=== PATIENT | female | born 1950 | race Caucasian/White ===

== ENCOUNTER → 2017-11-04 10:09 | Outpatient (CLI) | payer OTHER, MEDICARE, SELFPAY ==
[2017-11-03 10:22] VITALS: TEMP 36.4
[2017-11-03 13:52] VITALS: TEMP 36.4
--- NOTE | 2017-11-04 10:12 | DI.CT.S_ITS ---
PROCEDURE: CT CHEST ABD PEL W CON INDICATIONS: 67 year-old female with breast cancer. TECHNIQUE: After the administration of oral and intravenous contrast, 5 mm thick sections acquired from the lung apices to the symphysis. 5 mm coronal and sagittal reformats were performed, with additional 7 mm coronal MIP reformats through the lungs. For radiation dose reduction, the following was used: automated exposure control, adjustment of mA and/or kV according to patient size. COMPARISON: [facility], MR, SHOULDER W&WO CONTRAST, 06/29/2017, 8:33. [facility], NM, BONE SCAN WHOLE BODY, 06/29/2017, 12:54. [facility], CT, CHEST/ABD/PEL WITH CONTRAST, 10/29/2016, 10:03. [facility], CT, CHEST/ABDOMEN WITH CONTRAST, 02/18/2015, 9:21. [facility], CT, ABDOMEN/PELVIS WITH CONTRAST, 03/19/2013, 12:01. FINDINGS: Image quality: Excellent. CHEST: Lungs and pleura: No acute airspace opacities. Right middle lobe linear scarring is unchanged. No pleural effusions or pneumothorax. Central and peripheral airways appear patent and normal in caliber. Mediastinum: Heart size is normal. No pericardial effusion. No mediastinal or hilar adenopathy by size criteria. Thoracic aorta and central pulmonary arteries are normal in size. Esophagus is normal in caliber. No hiatal hernia. Chest wall: Left chest wall Port-A-Cath is again noted. Patient is status post bilateral mastectomies with axillary lymph node dissection. No axillary or supraclavicular adenopathy by size criteria. Thyroid gland is normal in size. ABDOMEN: Solid organs: Liver is normal in size and enhancement. Gallbladder wall thickness is normal. Biliary system is non dilated. Pancreas enhances normally. Spleen is normal in size and enhancement. No adrenal nodules. Kidneys demonstrate normal size and enhancement, without hydronephrosis. Peritoneum and bowel: Bowel loops demonstrate normal wall thickness and caliber, status post subtotal colectomy with ileocolic anastomosis. No free fluid or air. Nodes and vessels: No retroperitoneal or mesenteric adenopathy by size criteria. Aorta and inferior vena cava are normal in size, with scant aortoiliac atherosclerosis. Miscellaneous: No ventral hernias. PELVIS: Genitourinary: Bladder wall thickness is normal. Miscellaneous: No inguinal hernias or adenopathy. Bones: 1.1 cm sclerotic lesion in the left sacral wing is unchanged. Asymmetric sclerotic lesion involving the right scapular spine and acromion is also unchanged. There is incidental spiculated bone island involving the anterior L1 vertebral body. No vertebral body compression fractures. There is mild lumbar spine levoscoliosis, along with multilevel disc degeneration. IMPRESSION: 1. No new soft tissue metastases in the chest, abdomen, or pelvis. 2. Asymmetric sclerotic metastasis involving the right scapular spine and acromion is unchanged in overall extent. 3. 1.1 cm indeterminate sclerotic lesion in the left sacral wing is also unchanged. Dictated by: Nando Donohue M.D. on 11/04/2017 at 13:04 Approved by: Nando Donohue M.D. on 11/04/2017 at 13:17
--- NOTE | 2017-11-08 11:51 | ONC.NAV ---
Description: Financial Assistance Activity: The prior check from the [employer] was filled out incorrectly. Completed a new check for medical supply reimbursement, and provided to pt during her visit today.
== END ==
PROVIDERS: Family Provider Family Medicine; PCP Family Medicine; Visit Provider Internal Medicine Hematology & Oncology
DX: C50.919 Malignant neoplasm of unspecified site of unspecified female breast (principal); C79.51 Secondary malignant neoplasm of bone
CPT/HCPCS: 71260; 74177; Q9967

== ENCOUNTER → 2017-11-17 12:46 | Outpatient (CLI) | payer OTHER, MEDICARE, SELFPAY ==
--- NOTE | 2017-11-17 12:50 | DI.ECHO.S_ITS ---
[facility]---------+ [facility] +---------+ : : [address] : : : [place], [place] : : : : [id number] : : : : Phone: [phone] Echocardiogram Report + + :Name: JAIRO REHMAN Study Date: 11/17/2017 Height: 60 in : :[facility] Exam Location: [facility] Weight: 125 lb : : Gender: Female BSA: 1.5 m2 : :: 1950 Age: 67 yrs BP: 130/80 mmHg: :Reason For Study: Breast cancer : : Performed By: Nyla Page : :Referring: ZULY PADRON : + + Interpretation Summary Normal sinus rhythm. Normal LV size, wall thickness, wall motion and LV systolic function. EF is 60-65%. Stage I diastolic dysfunction. Mild LA enlargement. No significant valvular abnormalities. Compared to prior study 10/16/2014 no changes have occurred. Amended to correct the header-ELISAO, [facility] 11/18/17 Procedure: A two-dimensional transthoracic echocardiogram with color flow and Doppler was performed. The study quality was technically adequate. Comparison is made with the echocardiogram of 10/17/2014. The patient was in normal sinus rhythm during the exam. Left Ventricle: The left ventricle is normal in size, wall thickness, and systolic function without any focal wall motion abnormalities. A false chord is noted (normal variant). The ejection fraction is estimated to be 60-65%. Left ventricular wall motion is normal. Right Ventricle: The right ventricle is normal in size and function. Atria: The left atrium is mildly dilated. Right atrial size is normal. There is no Doppler evidence for an interatrial shunt. Mitral Valve: The mitral valve is normal in structure and function. There is trace mitral regurgitation. Aortic Valve: The aortic valve is trileaflet. The aortic valve opens well. No aortic regurgitation is present. Tricuspid Valve: The tricuspid valve is normal in structure and function. There is a trace or physiologic amount of tricuspid regurgitation. The right ventricular systolic pressure is estimated at 23 mmHg assuming a right atrial pressure of 3 mm Hg. Pulmonic Valve: The pulmonic valve is not well visualized. There is trace pulmonic regurgitation. Great Vessels: The aortic root is normal size. The ascending aorta is at the upper limits of normal in size. The aortic arch could not be visualized. The pulmonary artery is not well visualized, but is probably normal size. The IVC is of normal diameter and collapses greater than 50% with a sniff. This suggests a low right atrial pressure of 3 mm Hg. Pericardium/ Pleura There is no pericardial effusion. There is no pleural effusion. MMode/2D Measurements & Calculations LVIDd: 4.3 cm LVOT diam: 2.1 cm LVIDs: 2.7 cm Ao root diam: 3.1 cm FS: 38.4 % asc Aorta Diam: 3.4 cm EPSS: 0.28 cm IVSd: 1.0 cm LVPWd: 0.83 cm LV palafox. diameter/BSA (cm/m^2): 2.8 LV sys. diameter/BSA (cm/m^2): 1.7 LA A2 area: 21.7 cm2 RA long axis: 4.7 cm LA A4 area: 14.6 cm2 RA area: 12.5 cm2 LA length (vol): 5.2 cm RA vol: 28.1 ml LA vol: 51.7 ml RA : 18.4 ml/m2 LA vol index: 33.8 ml/m2 RVD1 (basal): 3.7 cm TAPSE: 1.9 cm Doppler Measurements & Calculations Ao V2 max: 103.3 cm/sec LVOT Max Massimo: 68.7 cm/sec Ao V2 mean: 77.0 cm/sec LV V1 max P.9 mmHg Ao max P.3 mmHg LV V1 VTI: 15.6 cm Ao mean P.6 mmHg EDLICIA(I,D): 2.5 cm2 Ao V2 VTI: 20.7 cm DELICIA(V,D): 2.2 cm2 sev ratio: 0.75 DELICIA indexed to BSA (cm^2/m^2): 1.7 MV E max massimo: 54.3 cm/sec TR max massimo: 222.1 cm/sec MV A max massimo: 77.5 cm/sec TR max P.7 mmHg MV E/A: 0.70 PA V2 max: 59.2 cm/sec Med Peak E' Massimo: 4.8 cm/sec PA V2 mean: 41.6 cm/sec E/E' med: 11.3 PA mean P.75 mmHg Lat Peak E' Massimo: 7.3 cm/sec PA Accel Time: 0.09 sec E/E' lat: 7.4 E/e' average: 9.4 MV dec time: 0.23 sec MV P1/2t: 66.4 msec MV P1/2t max massimo: 54.2 cm/sec MVA(P1/2t): 3.3 cm2 Reading Physician:11:02 AM
== END ==
PROVIDERS: Family Provider Family Medicine; PCP Family Medicine; Visit Provider Specialist
DX: C50.919 Malignant neoplasm of unspecified site of unspecified female breast (principal)
CPT/HCPCS: 93306

== ENCOUNTER 2017-12-01 14:23 | Inpatient (IN) | payer OTHER, MEDICARE, SELFPAY ==
[2017-12-01] VITALS (7 sets, daily range): BP systolic 140–153; BP diastolic 62–119; PULSE 83–87; RESP 19–28; TEMP 37.2–38.6; O2SAT 92–97; BMI 25.0
--- NOTE | 2017-12-01 | DI.CT.S_ITS ---
PROCEDURE: CT HEAD/BRAIN WO/W CON INDICATIONS: metastatic breast cancer TECHNIQUE: 4.5 mm thick angled axial sections acquired from the foramen magnum to the vertex before and after the administration of intravenous contrast, with coronal and sagittal reformats. For radiation dose reduction, the following was used: automated exposure control, adjustment of mA and/or kV according to patient size. COMPARISON: None. FINDINGS: Image quality: Excellent. CSF Spaces: Basal cisterns are patent. No extra-axial fluid collections. Ventricles are normal in size and shape. Brain: No midline shift. No intracranial bleeds or masses. No abnormal intracranial enhancement. Phelps-white interface appears normal. Skull and face: Calvarium and visualized facial bones appear intact, without suspicious lesions. Sinuses: Visualized sinuses and mastoids are clear. IMPRESSION: Normal for age, no sign of metastatic disease. Dictated by: Johnnie Gonzalez M.D. on 12/02/2017 at 8:36 Approved by: Johnnie Gonzalez M.D. on 12/02/2017 at 8:36
[2017-12-01 15:51] LABS: Hematocrit 23.1 % (36-46); Hemoglobin 8.1 g/dL (12.0-16.0); Mean Corpuscular Hemoglobin 35.6 PG (26-34); Mean Corpuscular Volume 101.6 fL (80-100); Platelet Count 92 X10^3/uL (150-400); Red Blood Cell Count 2.27 X10^6/uL (4.0-5.2); Red Cell Distribution Width 13.9 % (11.6-14.8)
[2017-12-01 15:54] LABS: Add Manual Diff / Slide Review YES; White Blood Cell Count 0.6 X10^3/uL (4.5-11.0)
[2017-12-01 16:02] LABS: Alanine Aminotransferase 33 IU/L (9-52); Albumin 3.8 g/dL (3.5-5.0); Albumin Globulin Ratio 1.3 (1.0-2.8); Alkaline Phosphatase 82 U/L (38-126); Aspartate Aminotransferase 27 IU/L (14-36); BUN Creatinine Ratio 18.6 (6-22); Bilirubin Total 0.4 mg/dL (0.2-1.3); Blood Urea Nitrogen 13 mg/dL (7-17); Calcium 8.5 mg/dL (8.4-10.2); Carbon Dioxide 27 mmol/L (22-32); Chloride 97 mmol/L (98-107); Estimated Glomerular Filt Rate > 60.0 mL/min (>60); Globulin 2.9 g/dL (1.7-4.1); Glucose 91 mg/dL (80-110); HEMOLYSIS < 15 (0-50); Potassium 4.2 mmol/L (3.4-5.1); Sodium 135 mmol/L (137-145); Total Protein 6.7 g/dL (6.3-8.2)
[2017-12-01 16:37] LABS: Neutrophils Absolute Manual 108 /uL (3000-5900); Total Cells Counted 50
[2017-12-01 16:38] LABS: Ovalocytes 1+
[2017-12-01] MEDS: SODIUM CHLORIDE 0.9% 1,000 ML 100 ML IV (16:41)
[2017-12-01] MEDS: CEFTRIAXONE 1 GM/50 ML FROZ.PIGGY IV (16:41)
[2017-12-01] MEDS: ACETAMINOPHEN 325 MG TABLET 650 MG PO ×2 (18:00→23:51)
[2017-12-01] MEDS: IMIPENEM/CILASTATIN 500 MG in SODIUM CHLORIDE 0.9% 100 ML 200 ML IV ×2 (18:29→23:50)
--- NOTE | 2017-12-01 18:36 | P.HP_ITS ---
History of Present Illness Chief complaint: Breast cancer, fever Narrative: Candi Vidal is a 67 year old female who is referred to [facility] from Oncology where she was found to be febrile up to 104 with the oral lesions and suggestion of sepsis In a neutropenic state. Patient has history of right-sided breast cancer going back to 2013. Been through multiple treatments and currently his metastatic stage IV please see oncology notes. Patient has had visit today with Oncology for initiation of alternative chemotherapy for her recurrence. She has a lot of discomfort along the right anterior lateral chest wall where she has some masses that are assumed to be metastatic lesions. She talks about headache and feeling feverish and chilled weak and somewhat nauseous. Given her neutropenic count and her fever and progression of her disease is felt that she was very had a high risk for sepsis and was referred for admission Patient History Medical History Anxiety (Acute) Breast cancer (Acute) Colon cancer (Acute) History of hysterectomy (Acute) Hypertension (Acute) Lymph node cancer (Acute) Nausea (Acute) Thrush, oral (Acute) Surgical History History of mastectomy (Acute) Family & Social History Social History: household members none Prior Living Arrangements House Safety & Behavioral: Feels Safe in Current Yes Environment Been Physically Hurt or No Threatened By a Person Suicidal Ideation Description None Suicide Plan Description No Plan Tobacco & Substance use: Smoking Status Never smoker alcohol intake never Substance Use Type marijuana Meds Home Medications Medication Instructions Recorded Confirmed Type amitriptyline 150 mg PO HS #0 01/05/13 12/01/17 History calcium citrate-vitamin D3 1 ea PO Q DAY #0 02/13/16 12/01/17 History [Citracal Regular] cyanocobalamin (vitamin B-12) 1,000 mcg PO Q DAY #0 02/13/16 12/01/17 History etodolac 400 mg PO BID #0 03/19/16 12/01/17 History loperamide 2 mg PO Q8HP PRN #0 07/01/16 12/01/17 History promethazine-codeine 5 - 10 ml PO Q4HP PRN #120 ml 08/19/16 12/01/17 Rx pilocarpine HCl 5 mg PO TID #270 tab 10/06/16 12/01/17 Rx metoprolol succinate [Toprol XL] 25 mg PO BID #0 10/07/16 12/01/17 History citalopram [Celexa] 30 mg PO QDAY #30 tab 12/08/16 12/01/17 Rx alprazolam 0.25 mg PO TIDP PRN #0 03/25/17 12/01/17 History letrozole [Femara] 2.5 mg PO QDAY #90 tab 05/12/17 12/01/17 Rx DIPHENHYDRAMINE/LIDO VISC/MAALOX 5 - 10 ml PO Q4HP PRN #100 ml 05/20/17 Rx 1:1:1~ ondansetron HCl 4 mg PO Q4HP PRN #30 tab 11/18/17 12/01/17 Rx nystatin 10 ml PO QID PRN #120 ml 11/25/17 12/01/17 Rx Allergies Allergy/AdvReac Type Severity Reaction Status Date / Time hydrocodone AdvReac Severe RASH, Unverified 10/12/17 12:02 ITCHING Review of Systems Review of Systems All systems reviewed & are unremarkable except as noted in HPI and below Constitutional Constitutional: Reports as per HPI, Reports body ache(s), Reports chills, Reports difficulty sleeping, Reports excessive sweating, Reports fatigue, Reports fever(s), Reports headache(s), Reports lack of energy, Reports malaise and Reports weakness Eyes Eyes: Reports system reviewed; no additional complaints, except as documented ENT Ears, Nose, Mouth, and Throat: Yes system reviewed; no additional complaints, except as documented and Yes headache(s) Cardiovascular Cardiovascular: Reports system reviewed; no additional complaints, except as documented, Reports excessive sweating, Reports fast heart rate, Reports lightheadedness and Reports shortness of breath Respiratory Respiratory: Reports system reviewed and no additional complaints, except as documented and Reports dyspnea Gastrointestinal Gastrointestinal: Reports as per HPI, Reports abdominal pain and Reports nausea Genitourinary Genitourinary: Reports system reviewed and no additional complaints, except as documented Musculoskeletal Musculoskeletal: Reports back pain, Reports myalgias, Reports arthralgias and Reports muscle weakness Integumentary/Breasts Comments: Post bilateral mastectomies with no residual breast tissue. Supposedly metastatic lesions along the right chest wall presenting as subcutaneous masses Neurologic Neurologic: Reports system reviewed and no additional complaints, except as documented, Reports headache(s) and Reports weakness Psychiatric Psychiatric: Reports depression Endocrine Endocrine: Reports excessive sweating and Reports fatigue Hematologic/Lymphatic Hematologic/Lymphatic: Reports system reviewed and no additional complaints, except as documented Exam Narrative Exam Narrative: Constitutional patient is febrile and chilling weak sweaty with headache uncomfortable but alert responding appropriately with clear speech and moving spontaneously PERRLA EOMs intact Neck sweaty but without discrete mass or thyromegaly Chest shows bilateral mastectomies and right chest wall masses Cardiac shows regular rate and rhythm no murmur no S3 Gastrointestinal shows no pedal splenomegaly mass abdomen is not tender there is no rebound or guarding Back and spine without any significant abnormality Skin clammy damp no discrete rash there is some subcutaneous nodules along the right chest wall Neuro shows patient to be alert and oriented spontaneously moving sensory motor is intact and symmetrical Psychiatrically patient is extremely depressed and somewhat hopeless and feeling very discouraged about her social situation as well as her health situation Objective Labs Result Diagrams: 12/01/17 15:22 12/01/17 15:22 Labs: Laboratory Results - last 24 hr 12/01/17 12/01/17 12/01/17 15:22 15:22 15:30 WBC 0.6 L* RBC 2.27 L Hgb 8.1 L Hct 23.1 L MCV 101.6 H MCH 35.6 H MCHC 35.0 RDW 13.9 Plt Count 92 L Neut % (Auto) Not Reportable Lymph % (Auto) Not Reportable [place] % (Auto) Not Reportable Eos % (Auto) Not Reportable Baso % (Auto) Not Reportable Total Counted 50 Seg Neutrophils % 18.0 L D Lymphocytes % (Manual) 76.0 H Eosinophils % (Manual) 2.0 Basophils % (Manual) 4.0 H Neutrophils # (Manual) 108 L RBC Morphology Not Reportable Ovalocytes 1+ H Sodium 135 L Potassium 4.2 Chloride 97 L Carbon Dioxide 27 BUN 13 Creatinine 0.70 Estimated GFR > 60.0 BUN/Creatinine Ratio 18.6 Glucose 91 Calcium 8.5 Total Bilirubin 0.4 AST 27 ALT 33 Alkaline Phosphatase 82 Total Protein 6.7 Albumin 3.8 Globulin 2.9 Albumin/Globulin Ratio 1.3 Nasal Screen MRSA (PCR) Negative for mrsa Assessment & Plan Plan: Plan: Assessment 1. Febrile neutropenia in the setting of metastatic breast cancer. Will obtain cultures prior to starting antibiotics. We will use of full spectrum coverage. IV fluids and close observation of urine output and blood pressure of at this point not requiring as support of a pressure Assessment to metastatic breast cancer failing current regimen and anticipating new chemo regimen. Currently limited by IR and the above illness and SIRS extremely low white count. Is getting Neupogen on regular basis until white count and is above 1500 neutrophils Assessment 3. Hypertension patient has been off her hypertensive medications which probably has led to some tachycardia as well since his beta-carl. Will reinitiate that were certain that the patient's blood pressure is stable in the setting of sepsis Assessment 4. Pain will use oxycodone and management for this. As both headache and as well as diffuse muscular and back pain. Assessment 5. Depression I will keep patient on current anxiety and depression medications. Assessment 6 thrush will use nystatin oral swish and swallow and and pain meds for comfort management Quality VTE Deep Vein Thrombosis/Pulmonary Embolism Present on Admission: No
[2017-12-01] MEDS: OXYCODONE IR 5 MG TABLET PO (22:23)
[2017-12-01] MEDS: FILGRASTIM-SNDZ 300 MCG/0.5 ML SYRINGE SUBCUT (22:24)
--- NOTE | 2017-12-01 22:55 | PC.NURSE ---
champ note pt febrile, c/o headache, chills. Chills relieved with Tylenol. Oxycodone given for c/o headache. 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 Pt has small sores in mouth, on gums, on pallette. Moist swabs, glycerin swabs, lip balm given. Pt has eaten 3 yogurts.
[2017-12-02] VITALS (8 sets, daily range): BP systolic 104–157; BP diastolic 54–84; PULSE 75–86; RESP 16–20; TEMP 36.4–38.6; O2SAT 91–96; BMI 25.0
[2017-12-02] MEDS: OXYCODONE IR 5 MG TABLET PO ×3 (02:29→14:03)
[2017-12-02] MEDS: SODIUM CHLORIDE 0.9% 1,000 ML 100 ML IV ×2 (02:52→14:01)
[2017-12-02] MEDS: ACETAMINOPHEN 325 MG TABLET 650 MG PO ×3 (05:58→19:56)
[2017-12-02] MEDS: IMIPENEM/CILASTATIN 500 MG in SODIUM CHLORIDE 0.9% 100 ML 200 ML IV ×3 (05:58→20:08)
[2017-12-02] MEDS: ALUMINUM MM ×2 (08:03→10:57)
[2017-12-02] MEDS: [UNRECOGNIZED DRUG - OTHER] MM ×2 (08:03→10:57)
[2017-12-02] MEDS: MAG HYDROX MM ×2 (08:03→10:57)
[2017-12-02] MEDS: LIDOCAINE VISCOUS 2% MM ×2 (08:03→10:57)
--- NOTE | 2017-12-02 08:51 | PM.PN.1 ---
Subjective Date Patient Seen: 12/02/17 Time Patient Seen: 08:51 Interval history: Patient admitted for sepsis secondary to neutropenia from chemotherapy for stage IV breast cancer. Patient is having fevers 102-104 with severe oral lesions fevers chills weakness and progression over the course of 12 hr. Oncology felt to be critical for her to be in cultured and empirically treated and support for concerns about blood pressure impending shock. This morning she is in a great deal of pain orally continues to feel feverish chilled extremely weak however blood pressure has maintained normally as has heart rate. Lab lab slip that showed a white blood count of 0.6. Patient is getting Neupogen on a daily basis. Oral pain will try Magic mouthwash which combination of lidocaine and Maalox and nystatin I have already increased her oral oxycodone. Consider TAXI DRIVER if not improving with that. Exam Vital Signs (past 8 hours): Vital Signs - 8 hr 12/02/17 04:28 Temperature 98.6 F Pulse Rate 77 Respiratory Rate 17 Blood Pressure 147/55 H Pulse Oximetry 93 Pulse Oximetry 93 Oxygen Delivery Method Room Air Oxygen Flow Rate 0 Narrative Exam Narrative: Patient of miserable fatigued speaking clearly but clearly exhausted and in great pain. Oral lesions with crusting consistent with thrush and perhaps medication effect. PERRLA EOMs intact Neck without thyromegaly or masses Chest with right chest lumps and evidence of bilateral mastectomies Respiratory shows clear air movement good oxygenation and no wheezes or rales Cardiac exam shows regular rate and rhythm without murmur S3 no dependent edema GI shows no mass or hepatosplenomegaly rebound or guarding there is diffuse tenderness with palpation Back is without CVA area pain Neuro intact and symmetrical sensory motor speech is clear Objective Labs Result Diagrams: 12/01/17 15:22 12/01/17 15:22 Labs: Laboratory Results - last 24 hr 12/01/17 12/01/17 12/01/17 15:22 15:22 15:30 WBC 0.6 L* RBC 2.27 L Hgb 8.1 L Hct 23.1 L MCV 101.6 H MCH 35.6 H MCHC 35.0 RDW 13.9 Plt Count 92 L Neut % (Auto) Not Reportable Lymph % (Auto) Not Reportable [place] % (Auto) Not Reportable Eos % (Auto) Not Reportable Baso % (Auto) Not Reportable Total Counted 50 Seg Neutrophils % 18.0 L D Lymphocytes % (Manual) 76.0 H Eosinophils % (Manual) 2.0 Basophils % (Manual) 4.0 H Neutrophils # (Manual) 108 L RBC Morphology Not Reportable Ovalocytes 1+ H Sodium 135 L Potassium 4.2 Chloride 97 L Carbon Dioxide 27 BUN 13 Creatinine 0.70 Estimated GFR > 60.0 BUN/Creatinine Ratio 18.6 Glucose 91 Calcium 8.5 Total Bilirubin 0.4 AST 27 ALT 33 Alkaline Phosphatase 82 Total Protein 6.7 Albumin 3.8 Globulin 2.9 Albumin/Globulin Ratio 1.3 Nasal Screen MRSA (PCR) Negative for mrsa Assessment & Plan Plan: Plan: Assessment 1. Probable sepsis. Keep patient on imipenem with serial labs IV hydration and close monitoring for high risk of shock. Assessment to metastatic stage IV breast cancer will continue with the current oncology follow-up of holding medications at this point in setting of severe infection Assessment 3. Oral lesions consistent with thrush chemo possible secondary infection. Will try the Magic mouthwash continue IV antibiotics. If pain continues and that degree consider initiating TAXI DRIVER therapy. Assessment 4. Hypertension stable at this point Assessment 5. Neutropenia secondary to chemotherapy issues will continue with Neupogen on a regular basis until white count is greater than 1500 neutrophils Assessment 6. Depression at this point patient is overwhelmed by pain will try to initiate p.o. pain medicines and monitor will institute antidepressant therapy probably during this admission Quality VTE Deep Vein Thrombosis/Pulmonary Embolism Present on Admission: No
--- NOTE | 2017-12-02 09:00 | P.PN_ITS ---
Subjective Date Patient Seen: 12/02/17 Time Patient Seen: 08:51 Interval history: Patient admitted for sepsis secondary to neutropenia from chemotherapy for stage IV breast cancer. Patient is having fevers 102-104 with severe oral lesions fevers chills weakness and progression over the course of 12 hr. Oncology felt to be critical for her to be in cultured and empirically treated and support for concerns about blood pressure impending shock. This morning she is in a great deal of pain orally continues to feel feverish chilled extremely weak however blood pressure has maintained normally as has heart rate. Lab lab slip that showed a white blood count of 0.6. Patient is getting Neupogen on a daily basis. Oral pain will try Magic mouthwash which combination of lidocaine and Maalox and nystatin I have already increased her oral oxycodone. Consider COMPUTER CONSOLE OPERATOR if not improving with that. Exam Vital Signs (past 8 hours): Vital Signs - 8 hr 3 12/02/17 04:28 Temperature 98.6 F Pulse Rate 77 Respiratory Rate 17 Blood Pressure 147/55 H Pulse Oximetry 93 Pulse Oximetry 93 Oxygen Delivery Method Room Air Oxygen Flow Rate 0 Narrative Exam Narrative: Patient of miserable fatigued speaking clearly but clearly exhausted and in great pain. Oral lesions with crusting consistent with thrush and perhaps medication effect. PERRLA EOMs intact Neck without thyromegaly or masses Chest with right chest lumps and evidence of bilateral mastectomies Respiratory shows clear air movement good oxygenation and no wheezes or rales Cardiac exam shows regular rate and rhythm without murmur S3 no dependent edema GI shows no mass or hepatosplenomegaly rebound or guarding there is diffuse tenderness with palpation Back is without CVA area pain Neuro intact and symmetrical sensory motor speech is clear Objective Labs Result Diagrams: 12/01/17 15:22 12/01/17 15:22 Labs: Laboratory Results - last 24 hr 12/01/17 12/01/17 12/01/17 15:22 15:22 15:30 WBC 0.6 L* RBC 2.27 L Hgb 8.1 L Hct 23.1 L MCV 101.6 H MCH 35.6 H MCHC 35.0 RDW 13.9 Plt Count 92 L Neut % (Auto) Not Reportable Lymph % (Auto) Not Reportable [place] % (Auto) Not Reportable Eos % (Auto) Not Reportable Baso % (Auto) Not Reportable Total Counted 50 Seg Neutrophils % 18.0 L D Lymphocytes % (Manual) 76.0 H Eosinophils % (Manual) 2.0 Basophils % (Manual) 4.0 H Neutrophils # (Manual) 108 L RBC Morphology Not Reportable Ovalocytes 1+ H Sodium 135 L Potassium 4.2 Chloride 97 L Carbon Dioxide 27 BUN 13 Creatinine 0.70 Estimated GFR > 60.0 BUN/Creatinine Ratio 18.6 Glucose 91 Calcium 8.5 Total Bilirubin 0.4 AST 27 ALT 33 Alkaline Phosphatase 82 Total Protein 6.7 Albumin 3.8 Globulin 2.9 Albumin/Globulin Ratio 1.3 Nasal Screen MRSA (PCR) Negative for mrsa Assessment & Plan Plan: Plan: Assessment 1. Probable sepsis. Keep patient on imipenem with serial labs IV hydration and close monitoring for high risk of shock. Assessment to metastatic stage IV breast cancer will continue with the current oncology follow-up of holding medications at this point in setting of severe infection Assessment 3. Oral lesions consistent with thrush chemo possible secondary infection. Will try the Magic mouthwash continue IV antibiotics. If pain continues and that degree consider initiating COMPUTER CONSOLE OPERATOR therapy. Assessment 4. Hypertension stable at this point Assessment 5. Neutropenia secondary to chemotherapy issues will continue with Neupogen on a regular basis until white count is greater than 1500 neutrophils Assessment 6. Depression at this point patient is overwhelmed by pain will try to initiate p.o. pain medicines and monitor will institute antidepressant therapy probably during this admission Quality VTE Deep Vein Thrombosis/Pulmonary Embolism Present on Admission: No
[2017-12-02] MEDS: FILGRASTIM-SNDZ 300 MCG/0.5 ML SYRINGE SUBCUT (09:54)
--- NOTE | 2017-12-02 10:14 | ONC.NAV ---
Description: Coping Support/Care Coordination Activity: Met with pt and her dtr-in-law in the ICU. Pt was admitted yesterday with neutropenic fever, severe mouth sores/pain, and possible sepsis. This DIRECTOR OF SECURITIES AND REAL ESTATE offered counseling for emotional and coping support. Will continue to monitor her status and discharge planning needs after the weekend.
[2017-12-02 10:29] LABS: Hemoglobin 8.6 g/dL (12.0-16.0); Mean Corpuscular Hemoglobin 35.6 PG (26-34); Mean Corpuscular Volume 101.6 fL (80-100); Platelet Count 84 X10^3/uL (150-400); Red Blood Cell Count 2.42 X10^6/uL (4.0-5.2); Red Cell Distribution Width 13.8 % (11.6-14.8)
[2017-12-02 10:31] LABS: Alanine Aminotransferase 31 IU/L (9-52); Albumin 3.5 g/dL (3.5-5.0); Albumin Globulin Ratio 1.1 (1.0-2.8); Alkaline Phosphatase 76 U/L (38-126); Aspartate Aminotransferase 22 IU/L (14-36); Bilirubin Total 0.4 mg/dL (0.2-1.3); Blood Urea Nitrogen 9 mg/dL (7-17); Calcium 8.8 mg/dL (8.4-10.2); Carbon Dioxide 29 mmol/L (22-32); Chloride 103 mmol/L (98-107); Estimated Glomerular Filt Rate > 60.0 mL/min (>60); Globulin 3.2 g/dL (1.7-4.1); Glucose 97 mg/dL (80-110); HEMOLYSIS < 15 (0-50); Potassium 4.1 mmol/L (3.4-5.1); Sodium 139 mmol/L (137-145); Total Protein 6.7 g/dL (6.3-8.2)
[2017-12-02 10:32] LABS: Hematocrit 24.5 % (36-46); White Blood Cell Count 0.6 X10^3/uL (4.5-11.0)
[2017-12-02 10:33] LABS: Add Manual Diff / Slide Review YES
[2017-12-02 11:38] LABS: Neutrophils Absolute Manual 48 /uL (3000-5900); Total Cells Counted 50
[2017-12-02 11:41] LABS: RBC Morphology Norm
[2017-12-02 11:53] LABS: Lactate (Lactic Acid) 0.8 mmol/L (0.7-2.1)
[2017-12-02 12:28] LABS: Procalcitonin < 0.05 ng/mL (<0.5)
[2017-12-02] MEDS: LIDOCAINE VISCOUS 2% 30 ML, MAG HYDROX/ALUMINUM/SIMETH SUS 30 ML, NYSTATIN SUSP 3,000,0... MM (13:00)
--- NOTE | 2017-12-02 16:30 | CM.DANOTE ---
DCP: assessment: case received, EMR including oncology clinic note of 12/02 is reviewed and met with pt. Introduced self and role. Pt is a 67 year old female who admitted yesterday afternoon from the [facility]. Carries dx stage IV breast CA and is undergoing active chemo treatment for same. Admitted to care of PCP Dr. Benedict and with recommendations for care as per oncologist Dr. Lencho Holland. Pt lives alone. Has a supportive friend Kayla. Her son and daughter in law Donte and Rosio Villanueva are the primary contacts: cells: [phone] and [phone]. Pt sees social worker delinquency prevention Bijal Perez at the oncology clinic and she says Bijal came to the hospital this morning to see her. She says she finds her to be of great assist. VM is left for Bijal at her office ext. [phone] and plan to follow up with her when she is next in the clinic (? Tuesday) P: see pt again as her stay progresses for more discussion and assist with d/c issues and options as these are clearer. Primary intent of this visit was to let her know that CM/DCPlanners will be following her case daily and provide this assistance. Pt expressed thankfulness for same. CM/DCP card given with office contact #s given to pt.
[2017-12-02] MEDS: ONDANSETRON 4 MG/2 ML INJ IV ×2 (20:08→21:35)
[2017-12-02] MEDS: MORPHINE PCA 30 MG/30 ML PCA.VIAL IV (21:49)
--- NOTE | 2017-12-02 23:59 | PC.NURSE ---
champ note pt reports mouth is much more comfortable since starting morphine MINERALOGY PROFESSOR. Pt having nausea, partially relieved with Zofran. Pt had more emesis, called DR. Carter. Changed to Dilaudid MINERALOGY PROFESSOR, gave additionaly 4 mg Zofran. Pt weak, tired. BSC now instead of into bathroom. Pt has not eaten this shift, but has tolerated water and warm tea.
[2017-12-03] VITALS (13 sets, daily range): BP systolic 123–143; BP diastolic 57–73; PULSE 70–101; RESP 16–22; TEMP 36.3–37.3; O2SAT 91–96
[2017-12-03] MEDS: IMIPENEM/CILASTATIN 500 MG in SODIUM CHLORIDE 0.9% 100 ML 200 ML IV ×4 (00:23→17:38)
[2017-12-03] MEDS: ACETAMINOPHEN 325 MG TABLET 650 MG PO ×4 (00:24→17:37)
[2017-12-03] MEDS: LIDOCAINE VISCOUS 2% 30 ML, MAG HYDROX/ALUMINUM/SIMETH SUS 30 ML, NYSTATIN SUSP 3,000,0... MM ×6 (00:27→21:15)
[2017-12-03] MEDS: SODIUM CHLORIDE 0.9% 1,000 ML 100 ML IV ×3 (00:27→21:20)
[2017-12-03] MEDS: LORazepam 0.5 MG TABLET PO ×2 (00:29→21:16)
[2017-12-03 05:37] LABS: Alanine Aminotransferase 28 IU/L (9-52); Albumin 3.5 g/dL (3.5-5.0); Albumin Globulin Ratio 1.1 (1.0-2.8); Alkaline Phosphatase 76 U/L (38-126); Aspartate Aminotransferase 20 IU/L (14-36); Bilirubin Total 0.4 mg/dL (0.2-1.3); Blood Urea Nitrogen 9 mg/dL (7-17); Calcium 8.3 mg/dL (8.4-10.2); Carbon Dioxide 27 mmol/L (22-32); Chloride 104 mmol/L (98-107); Estimated Glomerular Filt Rate > 60.0 mL/min (>60); Globulin 3.1 g/dL (1.7-4.1); Glucose 90 mg/dL (80-110); HEMOLYSIS < 15 (0-50); Potassium 3.7 mmol/L (3.4-5.1); Sodium 142 mmol/L (137-145); Total Protein 6.6 g/dL (6.3-8.2)
[2017-12-03] MEDS: ONDANSETRON 4 MG/2 ML INJ IV ×2 (06:04→10:57)
[2017-12-03 06:05] LABS: Hematocrit 22.5 % (36-46); Mean Corpuscular HGB Conc 35.5 % (30-36); Mean Corpuscular Hemoglobin 36.3 PG (26-34); Mean Corpuscular Volume 102.2 fL (80-100); Platelet Count 97 X10^3/uL (150-400); Red Cell Distribution Width 13.8 % (11.6-14.8)
[2017-12-03 06:08] LABS: Add Manual Diff / Slide Review YES; White Blood Cell Count 0.6 X10^3/uL (4.5-11.0)
[2017-12-03] MEDS: HYDROMORPHONE PCA 6 MG/30 ML PCA.VIAL IV (06:09)
[2017-12-03 06:36] LABS: Neutrophils Absolute Manual 48 /uL (3000-5900); Nucleated Red Blood Cells 1 #/Diff; Total Cells Counted 25
[2017-12-03 06:37] LABS: Anisocytosis 1+
--- NOTE | 2017-12-03 09:21 | CM.DPC ---
DCP Ongoing Assmt and Plan: Unable to see patient at this time r/t indisposed and working with staff. Unit RN relates that patient is doing much better today overall. They now have her on a INTERNAL GRINDING MACHINE OPERATOR and pain control is much improved. Still expect she will be here for a few more days. DCP Will attempt to meet with patient and/or family tomorrow. Suad Benavidez RN
[2017-12-03] MEDS: FILGRASTIM-SNDZ 300 MCG/0.5 ML SYRINGE SUBCUT (10:22)
[2017-12-03] MEDS: diphenhydrAMINE 50 MG/ML VIAL IV (13:02)
--- NOTE | 2017-12-03 13:06 | P.PN_ITS ---
Subjective Date Patient Seen: 12/03/17 Time Patient Seen: 13:01 Interval history: Patient was started on morphine last night at 3:00 p.m.. I was phone stating that she was having vomiting. We stopped the morphine and placed her on Dilaudid. Her mouth pain is improved. She still feels that she is having difficulty eating much. She did have 2.3 L of oral intake yesterday. She is complaining of severe itching all over. She states that she continues to get rigors. She did not sleep last night. She has not slept in days. She denies nausea but did vomit once today. She denies chest pain or shortness of breath Exam Vital Signs (past 8 hours): Vital Signs - 8 hr 3 12/03/17 07:00 12/03/17 07:37 Temperature 99.1 F Pulse Rate 86 Respiratory Rate 16 Blood Pressure 123/58 H Pulse Oximetry 94 94 Pulse Oximetry 94 Oxygen Delivery Method Room Air Oxygen Flow Rate 0 Narrative Exam Narrative: Patient is alert and oriented x3. She is in no acute distress but is moving around in the hospital bed complaining of itching and immediately shows me the back of her legs which have been very pruritic. Her last fever was 101.5 at 8 o'clock on 12/01/2017. Since that time she has been afebrile. Vital signs have been stable H EENT: Shows sores on her tongue and gums. No evidence of white plaque in the buccal mucosa. Mucous membranes moist in pink Neck: Supple without adenopathy, no thyromegaly, no jugular venous distention Chest: Clear to auscultation bilaterally without wheezes rhonchi or crackles Cor: Regular rate and rhythm without any murmur. Distant S1-S2 Abdomen: Positive bowel sounds, soft, nontender, nondistended Extremities: No edema pulses intact Central port in tact without any erythema or abnormalities Skin: Shows excoriation on buttocks and the back of her legs but no rash Objective Labs Result Diagrams: 12/03/17 05:00 12/03/17 05:00 Labs: Laboratory Results - last 24 hr 12/03/17 12/03/17 05:00 05:00 WBC 0.6 L* RBC 2.20 L Hgb 8.0 L Hct 22.5 L MCV 102.2 H MCH 36.3 H MCHC 35.5 RDW 13.8 Plt Count 97 L Neut % (Auto) Not Reportable Lymph % (Auto) Not Reportable Rooks % (Auto) Not Reportable Eos % (Auto) Not Reportable Baso % (Auto) Not Reportable Total Counted 25 Seg Neutrophils % 8.0 L Lymphocytes % (Manual) 60.0 H Monocytes % (Manual) 32.0 H Neutrophils # (Manual) 48 L Nucleated RBCs 1 H RBC Morphology Not Reportable Anisocytosis 1+ H Sodium 142 Potassium 3.7 Chloride 104 Carbon Dioxide 27 BUN 9 Creatinine 0.60 Estimated GFR > 60.0 BUN/Creatinine Ratio 15.0 Glucose 90 Calcium 8.3 L Total Bilirubin 0.4 AST 20 ALT 28 Alkaline Phosphatase 76 Total Protein 6.6 Albumin 3.5 Globulin 3.1 Albumin/Globulin Ratio 1.1 Assessment & Plan Plan: Plan: A 67-year-old female with metastatic breast cancer undergoing chemotherapy currently at [facility]. Admitted for neutropenic fever with suspicion for sepsis but all cultures negative thus far. Clinically she seems to be slowly improving though still profoundly neutropenic Plan: Will continue with Neupogen until all her absolute neutrophils are 1500. We will continue on the broad-spectrum IV antibiotics with imipenem until she is afebrile for 24-48 hours and not neutropenic and clinically improved. She is anemic but this is stable and there is no obvious source of bleeding. She is thrombocytopenic and due to the pancytopenia we will not give her Lovenox. Assessment 2. Mouth sores I suspect are related to chemotherapy. She is getting relief with the Magic mouthwash and will continue this. I think she is itching from the Dilaudid EQUIPMENT DRIVER so we will stop this and will use oxycodone orally. We will give Benadryl and lorazepam for the itching. We will continue with IV fluids until her mouth pain is improved and she is taking better p.o. intake Assessment 3. Hypertension no current issues Plan: We will continue to follow Quality VTE Deep Vein Thrombosis/Pulmonary Embolism Present on Admission: No
[2017-12-03] MEDS: CITALOPRAM 10 MG TABLET 30 MG PO (14:27)
[2017-12-03] MEDS: METOPROLOL ER 25 MG TABLET PO (14:27)
[2017-12-03] MEDS: OXYCODONE IR 5 MG TABLET PO ×2 (16:09→20:26)
--- NOTE | 2017-12-03 17:57 | PC.NURSE ---
Addendum entered by Delaney Lindsey R.N. 12/03/17 21:50: 2114 - Pt requesting oral swish. Discussed pt fatigue and inability to sleep after multiple attempts this evening. Pt agreeable to try lorazepam po for anxiety, followed by mouthwash. 2124 pt states that she is having substernal chest pain, 9 of 10. States that it is unlike any pain r/t breast cancer and feels like pushing. VSS, RT called for EKG, no apparent changes from prior EKG. O2 sats 94% on 1L. Pt denies lightheadedness or SOB. 2139 -Following completion of EKG pt reports pain decreased to 8 of 10. Also at this time pt is dozing off during conversation. Having received lorazepam approximately [address] Carter notified of all of the above. Reviewed VS and RX. Orders obtained. Original Note: Addendum entered by Delaney Lindsey R.N. 12/03/17 20:34: 2030 - Pt requesting pain RX. Pt found to be diaphoretic. Temp oral 99.1. O2 sats on RA 89%. Placed on 1L NC. I.S. provided however pt reports increased tongue pain with use. Educated to deep breath and cough. Sats on 1L 92% monitor. Original Note: Pt up to bsc. C/o feeling chilled. Temp 98.4. Pt c/o fatigue and requesting to be left undisturbed for a time. APAP given as scheduled. Warm blankets provided. Call light in reach.
[2017-12-03] MEDS: AMITRIPTYLINE 75 MG TABLET 150 MG PO (20:26)
[2017-12-04] VITALS (11 sets, daily range): BP systolic 112–159; BP diastolic 55–82; PULSE 78–83; RESP 13–24; TEMP 36.4–37.7; O2SAT 92–99
[2017-12-04] MEDS: IMIPENEM/CILASTATIN 500 MG in SODIUM CHLORIDE 0.9% 100 ML 200 ML IV ×4 (00:11→18:59)
[2017-12-04] MEDS: ACETAMINOPHEN 325 MG TABLET 650 MG PO ×4 (00:14→17:43)
[2017-12-04] MEDS: OXYCODONE IR 5 MG TABLET PO ×4 (05:15→18:18)
[2017-12-04] MEDS: LIDOCAINE VISCOUS 2% 30 ML, MAG HYDROX/ALUMINUM/SIMETH SUS 30 ML, NYSTATIN SUSP 3,000,0... MM ×7 (05:17→20:47)
[2017-12-04 05:29] LABS: Hematocrit 23.5 % (36-46); Hemoglobin 8.3 g/dL (12.0-16.0); Mean Corpuscular HGB Conc 35.4 % (30-36); Mean Corpuscular Hemoglobin 35.9 PG (26-34); Mean Corpuscular Volume 101.3 fL (80-100); Platelet Count 122 X10^3/uL (150-400); Red Blood Cell Count 2.32 X10^6/uL (4.0-5.2); Red Cell Distribution Width 13.6 % (11.6-14.8)
[2017-12-04 05:33] LABS: Alanine Aminotransferase 31 IU/L (9-52); Albumin 3.4 g/dL (3.5-5.0); Albumin Globulin Ratio 1.1 (1.0-2.8); Alkaline Phosphatase 102 U/L (38-126); Aspartate Aminotransferase 30 IU/L (14-36); Bilirubin Total 0.4 mg/dL (0.2-1.3); Blood Urea Nitrogen 6 mg/dL (7-17); Calcium 7.8 mg/dL (8.4-10.2); Carbon Dioxide 26 mmol/L (22-32); Chloride 105 mmol/L (98-107); Estimated Glomerular Filt Rate > 60.0 mL/min (>60); Glucose 72 mg/dL (80-110); HEMOLYSIS < 15 (0-50); Potassium 3.4 mmol/L (3.4-5.1); Sodium 141 mmol/L (137-145); Total Protein 6.4 g/dL (6.3-8.2)
[2017-12-04 05:37] LABS: White Blood Cell Count 1.8 X10^3/uL (4.5-11.0)
[2017-12-04 05:38] LABS: Add Manual Diff / Slide Review YES
--- NOTE | 2017-12-04 06:03 | PC.NURSE ---
date night caregiver: Pt was able to sleep fairly well overnight. Woke up around 5:15 and had been incontinent. Initially denied pain but once back to bed following being up to the BSC, pt requested pain med for 9/10 mouth pain and mouth wash. Medicated per request.
[2017-12-04 06:54] LABS: Neutrophils Absolute Manual 180 /uL (3000-5900); Nucleated Red Blood Cells 3 #/Diff; Total Cells Counted 50
[2017-12-04 06:56] LABS: Polychromasia 1+
[2017-12-04] MEDS: SODIUM CHLORIDE 0.9% 1,000 ML 100 ML IV ×2 (07:25→18:56)
[2017-12-04] MEDS: FILGRASTIM-SNDZ 300 MCG/0.5 ML SYRINGE SUBCUT (09:23)
[2017-12-04] MEDS: CITALOPRAM 10 MG TABLET 30 MG PO (10:02)
--- NOTE | 2017-12-04 13:16 | CM.DPC ---
DC Plan Ongoing: Patient unavailable when DCP came into room today, working with RN and asked for no interruptions. Dr. Carter was also awaiting to see this patient and gave DCP an update: States patient will not be discharging today. She is still on IV ABX, receiving neupogen. Her white count has improved, so she is slowly showing progress. Dilaudid DIRECTOR MBA was d/c due to itching, and she is being maintained on oral pain meds. Hope is to transition her to oral ABX in preparation for discharge, and continue to follow labs to assure patient stability prior to being discharged back to the care of the outpatient oncology clinic. Plan: D/c to home when stable and safe to do so. Unsure if home services will be necessary; DC media planner to follow up when closer to discharge. Suad Benavidez RN
--- NOTE | 2017-12-04 13:27 | PM.PN.1 ---
Subjective Date Patient Seen: 12/04/17 Time Patient Seen: 13:28 Interval history: Patient had episodes of substernal chest pain last night. She had the EKG that was normal sinus rhythm with no acute changes and unchanged from previous EKG. She complained of her pain being 89/10. She was given a pain pill and this brought it down to an 8/10. She was given lorazepam for suspicion of anxiety and she fell asleep while talking to the nurse and immediately prior to falling asleep described her pain being 8/10. She had a uneventful night. She slept through the night. Her pain is being managed effectively with this oral oxycodone. She has been up in a chair. She is not having any itching. She has not have any nausea and she is not having any vomiting. She has been afebrile for greater than 24 hr but she has had some low temperatures. She was 88% on room air so oxygen was added. She was unable use incentive spirometer last night due to mouth pain. She is attempting to do that today. She denies any further chest pain. She denies being short of breath. She states that she is feeling markedly better since she had a good night's sleep. She has been able to tolerate very little orally due to pain but she did have a bowel movement this morning Twelve point review of systems is otherwise negative Exam Vital Signs (past 8 hours): Vital Signs - 8 hr 12/04/17 05:49 12/04/17 07:37 12/04/17 08:00 Temperature 98.3 F Pulse Rate 78 Respiratory Rate 13 Blood Pressure 147/64 H 139/70 H Pulse Oximetry 92 95 12/04/17 09:45 12/04/17 12:28 Temperature 97.5 F L Pulse Rate 79 Respiratory Rate 17 Blood Pressure 148/77 H Pulse Oximetry 93 99 Pulse Oximetry 99 Oxygen Delivery Method Nasal Cannula Oxygen Flow Rate 2 Narrative Exam Narrative: Alert and oriented x3. She is much more calm today. HEENT: No new mucosal lesions. No evidence of super infection. Neck: Supple without adenopathy or masses Chest: Clear to auscultation without wheezes, rhonchi or crackles. No pain with palpation to the anterior precordium Cor: Regular rate and rhythm without murmur Abdomen: Positive bowel sounds, soft, nontender, nondistended Extremities: No edema, pulses intact Skin no rashes Neurologic exam: Nonfocal, much more calm Objective Labs Result Diagrams: 12/04/17 05:10 12/04/17 05:10 Labs: Laboratory Results - last 24 hr 12/04/17 12/04/17 05:10 05:10 WBC 1.8 L* D RBC 2.32 L Hgb 8.3 L Hct 23.5 L MCV 101.3 H MCH 35.9 H MCHC 35.4 RDW 13.6 Plt Count 122 L Neut % (Auto) Not Reportable Lymph % (Auto) Not Reportable [place] % (Auto) Not Reportable Eos % (Auto) Not Reportable Baso % (Auto) Not Reportable Total Counted 50 Seg Neutrophils % 8.0 L Band Neutrophils % 2.0 L Lymphocytes % (Manual) 54.0 H Atypical Lymphs % 22.0 H Monocytes % (Manual) 10.0 Eosinophils % (Manual) 2.0 Basophils % (Manual) 2.0 H Neutrophils # (Manual) 180 L Nucleated RBCs 3 H RBC Morphology Not Reportable Polychromasia 1+ H Sodium 141 Potassium 3.4 Chloride 105 Carbon Dioxide 26 BUN 6 L Creatinine 0.60 Estimated GFR > 60.0 BUN/Creatinine Ratio 10.0 Glucose 72 L Calcium 7.8 L Total Bilirubin 0.4 AST 30 ALT 31 Alkaline Phosphatase 102 Total Protein 6.4 Albumin 3.4 L Globulin 3.0 Albumin/Globulin Ratio 1.1 Assessment & Plan Plan: Plan: 67-year-old female Assessment 1. Neutropenic fever currently with ongoing chemotherapy for metastatic, recurrent breast cancer. Patient on day 3 of broad-spectrum IV antibiotics and Neupogen Plan: Patient is showing improvement. Will continue IV imipenem and Neupogen. Possibly able to stop both tomorrow. As long as her white blood cell count continues to come up and she remained afebrile. Cultures have been negative. We have no source. Assessment 2. Hypoxemia suspect secondary to poor inspiration and atelectasis. Plan: Supplemental oxygen, chest x-ray in a.m., encourage incentive spirometry Assessment 3. Atypical chest pain last night suspect GI versus anxiety. EKG unremarkable. No further concerns. Plan: We will continue to monitor. Assessment 4. Mouth sores. I do not see evidence of thrush. I suspect this is related to chemotherapy. It is not worsening . Plan: Continue on the same oral Percocet and scheduled Tylenol and Magic mouthwash. Assessment 5. Metastatic breast cancer undergoing chemotherapy with pancytopenia Plan: Continue Neupogen. Continue broad-spectrum IV antibiotics. Continue to monitor. Continue to hold chemotherapy. No Lovenox due to thrombocytopenia and anemia Assessment 6. Anxiety and depression with acute situational stressors Plan: Patient doing much better with the restarting of her citalopram and amitriptyline. Continue the same. Alprazolam for sleep. Quality VTE Deep Vein Thrombosis/Pulmonary Embolism Present on Admission: No
[2017-12-04] MEDS: IBUPROFEN 600 MG TABLET PO (17:43)
--- NOTE | 2017-12-04 19:04 | PC.NURSE ---
Addendum entered by Delaney Lindsey R.N. 12/04/17 22:30: 2230 - Pt c/o acid reflux, states that she thinks that the chest pain that she had last night may have also been reflux. Pt states that she normally takes a PPI at home. Review available rx, offered to notify MD and obtain order for PPI. Pt states I will be asleep by then. Note left for obtaining order to resume PPI in a.m. Original Note: 1900 - Pt grimacing, states that she feels pain is currently being controlled with PO medication, but that prolonged visitation and talking increases pain and fatigue. Sign posted on pt door requesting that visitor limit time to 15 minutes. Offered reassurance that staff with attempt to assist in visitor limitation. Pt agreeable to these interventions. Comfort measures provided. Call light in reach.
[2017-12-04] MEDS: AMITRIPTYLINE 75 MG TABLET 150 MG PO (21:45)
[2017-12-04] MEDS: LORazepam 0.5 MG TABLET PO (21:45)
[2017-12-05] VITALS (18 sets, daily range): BP systolic 123–194; BP diastolic 57–97; PULSE 74–90; RESP 14–20; TEMP 36.3–37.3; O2SAT 87–97
[2017-12-05] MEDS: IMIPENEM/CILASTATIN 500 MG in SODIUM CHLORIDE 0.9% 100 ML 200 ML IV ×4 (00:46→20:32)
[2017-12-05] MEDS: ACETAMINOPHEN 325 MG TABLET 650 MG PO ×3 (00:46→21:37)
[2017-12-05] MEDS: LIDOCAINE VISCOUS 2% 30 ML, MAG HYDROX/ALUMINUM/SIMETH SUS 30 ML, NYSTATIN SUSP 3,000,0... MM ×4 (00:49→18:33)
[2017-12-05] MEDS: OXYCODONE IR 5 MG TABLET PO ×2 (04:57→12:57)
[2017-12-05 05:27] LABS: Hemoglobin 7.9 g/dL (12.0-16.0); Mean Corpuscular HGB Conc 35.3 % (30-36); Mean Corpuscular Hemoglobin 35.3 PG (26-34); Mean Corpuscular Volume 99.9 fL (80-100); Platelet Count 165 X10^3/uL (150-400); Red Blood Cell Count 2.24 X10^6/uL (4.0-5.2); Red Cell Distribution Width 14.2 % (11.6-14.8); White Blood Cell Count 9.1 X10^3/uL (4.5-11.0)
[2017-12-05 05:33] LABS: Add Manual Diff / Slide Review YES; Hematocrit 22.4 % (36-46)
[2017-12-05 05:41] LABS: Blood Urea Nitrogen 4 mg/dL (7-17); Calcium 7.5 mg/dL (8.4-10.2); Carbon Dioxide 29 mmol/L (22-32); Chloride 108 mmol/L (98-107); Estimated Glomerular Filt Rate > 60.0 mL/min (>60); Glucose 78 mg/dL (80-110); HEMOLYSIS < 15 (0-50); Potassium 3.4 mmol/L (3.4-5.1); Sodium 144 mmol/L (137-145)
[2017-12-05] MEDS: SODIUM CHLORIDE 0.9% 1,000 ML 100 ML IV (05:48)
--- NOTE | 2017-12-05 06:00 | DI.RAD.S_ITS ---
PROCEDURE: XR CHEST 1V INDICATIONS: 67 year-old female with hypoxemia and breast cancer. TECHNIQUE: One view of the chest was acquired. COMPARISON: [facility], [place], BONE SCAN WHOLE BODY, 06/29/2017, 12:54. [facility], CT, CT CHEST ABD PEL W CON, 11/04/2017, 11:57. [facility], CR, CHEST 2 VIEW, 06/30/2016, 9:17. [facility], CR, CHEST 1 VIEW, 03/03/2016, 14:02. [facility], CR, CHEST 1 VIEW, 09/18/2014, 12:12. FINDINGS: Surgical changes and devices: Left chest wall Port-A-Cath is again noted. Patient is status post bilateral mastectomies. Lungs and pleura: No pleural effusions or pneumothorax. Lungs are clear. Mediastinum: Mediastinal contours appear normal. Heart size is normal. There is aortic atherosclerosis. Bones and chest wall: Sclerotic right acromion metastasis is again noted. Overlying soft tissues appear unremarkable. IMPRESSION: 1. No acute cardiopulmonary disease. 2. Right acromial sclerotic metastasis as before. Dictated by: Nando Donohue M.D. on 12/05/2017 at 8:09 Approved by: Nando Donohue M.D. on 12/05/2017 at 8:11
[2017-12-05 06:03] LABS: Neutrophils Absolute Manual 5733 /uL (3000-5900); Nucleated Red Blood Cells 6 #/Diff; Total Cells Counted 100
[2017-12-05 06:04] LABS: Anisocytosis 1+
[2017-12-05] MEDS: LORazepam 2 MG/ML SYRINGE 0.5 MG IV ×2 (08:45→18:32)
[2017-12-05] MEDS: ONDANSETRON 4 MG/2 ML INJ IV (08:53)
--- NOTE | 2017-12-05 11:19 | DIET.PN ---
Visited pt this morning to see how intake has been. Pt reported eating a little bit better over the weekend (loves Cream of Wheat) but metallic taste extremely pronounced today so she did not eat any breakfast. She requested jello but we only have citrus flavors available, which she has said really hurt her stomatitis. I offered vanilla or chocolate pudding which she would like to try. This will be sent on her lunch tray along with some other soft foods - strained cream of chicken soup and smoothie. Will f/u with patient this afternoon or tomorrow to see if metallic taste has decreased or if she had any success with pudding, soup, etc. Also offered Ensure but she said the last few times she tried it, those also tasted very unpalatable. Basically trying to find anything she can get down without exacerbating her mouth pain and doesn't taste completely horrible. Rosie Contreras, internal combustion engine inspector
[2017-12-05] MEDS: CITALOPRAM 10 MG TABLET 30 MG PO (11:54)
[2017-12-05] MEDS: METOCLOPRAMIDE 10 MG/2 ML INJ IV (11:55)
--- NOTE | 2017-12-05 15:04 | CM.DPC ---
DCP: continued: Case again received, EMR reviewed and spoke with kitchen and counter worker Bijal Baker. Bijal did see pt again this afternoon for a visit. She will confer with BRIGIDA Sánchez at the oncology clinic as to POC options going forward. She does confirm that pt has property, making her not eligible for Medicaid at this time but that she has little income and needs a solution make up operator plan for care as her condition changes. She has been working with her on this. Spoke by phone with Radha Burr who identifies self and CM for [employer], newly assigned to pt to assist her with coorintation of care in hospital and community. She states that [employer] is primary: coverage under pt's spouse. direct line #[phone]. Discussed ? of short term snf care for recovery from this acute episode and she noted this seemed like a resonable plan is pt agreeable and provider thinks indicated. She notes the snf would obtains the needed authorization. Am noting pt is slowly recovering but she also is not able to take in much oral nutrition yet/see rebar fabricator note. Will see if PT and OT are indicated. P: check in with pt tomorrow for further discussion of d/c issues and options.
[2017-12-05] MEDS: AMITRIPTYLINE 75 MG TABLET 150 MG PO (20:32)
[2017-12-06] VITALS (12 sets, daily range): BP systolic 123–180; BP diastolic 76–107; PULSE 69–87; RESP 16–87; TEMP 36.5–37; O2SAT 89–98
[2017-12-06] MEDS: IMIPENEM/CILASTATIN 500 MG in SODIUM CHLORIDE 0.9% 100 ML 200 ML IV ×2 (00:08→05:53)
[2017-12-06] MEDS: LIDOCAINE VISCOUS 2% 30 ML, MAG HYDROX/ALUMINUM/SIMETH SUS 30 ML, NYSTATIN SUSP 3,000,0... MM ×3 (01:23→08:18)
--- NOTE | 2017-12-06 01:47 | PC.NURSE ---
Addendum entered by Aurelia Hutchinson R.N. 12/06/17 06:20: Patient slept at intervals. States mouth pain this morning is 7/10 and was given dose of magic mouthwash. Denies any other pain. Has been afebrile this shift. Original Note: Patient is alert and oriented but very sleepy. Breath sounds CTA with sat of 96%; currently on oxygen at 2L/min per NC as reportedly desats when asleep. HR regularly irregular. Denies nausea. BT present and abdomen is soft. Denies dysuria, frequency, urgency or incontinence. Complains of 5/10 mouth pain due to stomatitis so medicated with magic mouthwash swish/swallow. Independent with bed mobility and has been independent with toileting. SCD's applied as per MD order so patient reminded to call for assistance when getting up. Fall risk score is high as patient reports falling x 1 in past 6 months; bed alarm activated. Denies any pain other than mouth pain.
[2017-12-06] MEDS: SODIUM CHLORIDE 0.9% 1,000 ML 100 ML IV (03:16)
[2017-12-06] MEDS: ACETAMINOPHEN 325 MG TABLET 650 MG PO ×3 (05:17→23:52)
[2017-12-06] MEDS: HYDROMORPHONE PCA 6 MG/30 ML PCA.VIAL IV (05:23)
[2017-12-06 06:21] LABS: Blood Urea Nitrogen 4 mg/dL (7-17); Calcium 7.7 mg/dL (8.4-10.2); Carbon Dioxide 29 mmol/L (22-32); Chloride 105 mmol/L (98-107); Estimated Glomerular Filt Rate > 60.0 mL/min (>60); Glucose 77 mg/dL (80-110); HEMOLYSIS < 15 (0-50); Sodium 144 mmol/L (137-145)
[2017-12-06] MEDS: CITALOPRAM 10 MG TABLET 30 MG PO (08:18)
[2017-12-06] MEDS: POTASSIUM CHLORIDE 40 MEQ in SODIUM CHLORIDE 0.9% 500 ML 130 ML IV (09:57)
[2017-12-06] MEDS: METOPROLOL ER 25 MG TABLET PO ×2 (09:57→20:13)
[2017-12-06] MEDS: AMOXICILLIN/CLAV 875/125 MG 1 TAB PO ×2 (09:57→20:12)
[2017-12-06 10:08] LABS: Hematocrit 34.8 % (36-46); Hemoglobin 12.2 g/dL (12.0-16.0); Mean Corpuscular HGB Conc 35.1 % (30-36); Mean Corpuscular Volume 93.9 fL (80-100); Platelet Count 228 X10^3/uL (150-400); Red Cell Distribution Width 16.5 % (11.6-14.8); White Blood Cell Count 25.8 X10^3/uL (4.5-11.0)
[2017-12-06 10:34] LABS: Neutrophils Absolute Manual 20124 /uL (3000-5900); Total Cells Counted 100
[2017-12-06 10:35] LABS: Dohle Bodies 2+; Toxic Vacuolation Present
[2017-12-06 10:36] LABS: Polychromasia 1+
--- NOTE | 2017-12-06 10:53 | DIET.PN ---
Pt much better this morning! She had just finished a shower and was brushing her teeth when I visited. Said she had lummi jello yesterday and it was very refreshing, felt so cooling going down. Will continue providing those TID. She also had a few spoonfuls of vanilla pudding which also tasted good and did not irritate her stomatitis. Metallic taste persists - said she tried to eat an egg and Armenian muffin this morning but only managed a few bites d/t taste. Kitchen has been requested to continue providing soft / nonirritating foods for her, but include jello and pudding on each tray. Wt stable (pt has actually increased 1-2 kg over course of stay). Rosie Contreras, hospitality intern Wendi Underwood RDN
[2017-12-06] MEDS: ONDANSETRON 4 MG/2 ML INJ IV (12:02)
--- NOTE | 2017-12-06 13:54 | ONC.NAV ---
Description: Check-in, Coping Support Activity: CONSTRUCTION TECHNICIAN met with pt to check on status, as well as to offer coping/emotional support. Pt was found to be much more alert today, was able to speak softly with less discomfort, and mood seemed elevated and more stable that when she was first admitted. She is clearly beginning to feel some relief from the mouth sore-pain and sepsis. Pt shares that at her brother intends to remain staying with her, for the time being, in order to help care for her once she is discharged. CONSTRUCTION TECHNICIAN offered emotional and coping support, as well as encouragement in terms of facing continued chemotherapy cycles. She also shared that she is now beginning to lose her hair from her last cycle. Plan: CONSTRUCTION TECHNICIAN will f/u with pt once she is discharged back to outpatient care. Plan to continue the conversations surrounding goals of care and planning for future care needs.
[2017-12-06] MEDS: KCL 20 MEQ IN NS 1,000 ML 100 MEQ IV (14:42)
[2017-12-06] MEDS: LIDOCAINE VISCOUS 2% 30 ML, MAG HYDROX/ALUMINUM/SIMETH SUS 30 ML, NYSTATIN SUSP 3,000,0... PO ×4 (14:43→23:52)
--- NOTE | 2017-12-06 16:18 | PC.NURSE ---
Addendum entered by Malka Abdi R.N. 12/06/17 21:39: Pt has been up in room. Amb. in hallway w/staff w/o incidence. IV continues as per orders . Pt tearful at times, states that brother was here to mention to her that her sister had this afternoon. Med twice this shioft , last at 2145 w/ fair relief. Swish/swallow given twice for mouth sores. Pt resting quietkly at this time. Call light w/in reach. Continue w/plan of care. Original Note: Pt visiting with friends. States she has some mild discomfort on the right chin/cheek area. IV of NS w/KCl infusing via pump @ 100cc/hr into the left abbie cath w/o incidence. Lungs clear, SpO2 96% RA. Call light w/in reach.
[2017-12-06] MEDS: OXYCODONE IR 5 MG TABLET PO ×2 (17:02→21:51)
--- NOTE | 2017-12-06 17:49 | P.PN_ITS ---
Subjective Date Patient Seen: 12/06/17 Time Patient Seen: 08:15 Interval history: Patient is feeling better today. She is up and moving around with less fatigue and shortness of breath. She received 2 units of packed red blood cells yesterday. She is still having significant mouth pain is worried about her oral intake. Her absolute neutrophils were up yesterday and her Neupogen was discontinued. She is still on IV imipenem for a neutropenic fever. She is still not eating much. She is not having any diarrhea. She is not having any abdominal pain. Her mild pain is better controlled. She still does not have much taste or appetite. It is suspected that the mouth sores are related to her chemotherapy. Twelve point review of systems is negative other than above Exam Vital Signs (past 8 hours): Vital Signs - 8 hr 3 12/06/17 12:15 12/06/17 12:36 12/06/17 16:17 Temperature 98.2 F Pulse Rate 76 Respiratory Rate 16 Blood Pressure 180/89 H Pulse Oximetry 89 L 98 96 Pulse Oximetry 96 Oxygen Delivery Method Room Air Oxygen Flow Rate 2 Narrative Exam Narrative: Patient is alert and oriented no apparent distress. She currently has oxygen on via oxygen is discontinued and her O2 sat is in the 90 2nd percentile otherwise blood pressure is elevated HEENT: Shows mucous membranes are moist and pink. There is no evidence of thrush. Mild sores are healing. Neck: Supple without adenopathy or masses Chest: Clear to auscultation throughout but bibasilar decreased breath sounds minimally For cor: Regular rate and rhythm without murmur Abdomen: Positive bowel sounds, soft, nontender, nondistended Extremities: No edema pulses intact Objective Labs Result Diagrams: 12/06/17 09:54 12/06/17 05:12 Labs: Laboratory Results - last 24 hr 12/05/17 12/06/17 12/06/17 08:50 05:12 09:54 WBC 25.8 H D RBC 3.70 L Hgb 12.2 Hct 34.8 L MCV 93.9 D MCH 33.0 MCHC 35.1 RDW 16.5 H Plt Count 228 Total Counted 100 Seg Neutrophils % 61.0 D Band Neutrophils % 17.0 H Lymphocytes % (Manual) 4.0 L Atypical Lymphs % 1.0 H Monocytes % (Manual) 7.0 Metamyelocytes % 5.0 H Myelocytes % 5.0 H Neutrophils # (Manual) H Toxic Vacuolation Present H Dohle Bodies 2+ H RBC Morphology Not Reportable Polychromasia 1+ H Sodium 144 Potassium 3.0 L Chloride 105 Carbon Dioxide 29 BUN 4 L Creatinine 0.50 L Estimated GFR > 60.0 BUN/Creatinine Ratio 8.0 Glucose 77 L Calcium 7.7 L Blood Type A Positive Antibody Screen Negative Crossmatch (AHG) See Detail Assessment & Plan Plan: Assessment/Plan Narrative: 67-year-old female with metastatic recurrent breast cancer currently undergoing chemotherapy. Assessment 1. Neutropenic fever on IV imipenem, improved Plan: DC imipenem. Start oral Augmentin 875 mg twice daily. If patient remains afebrile and not neutropenic then we will discharge home tomorrow. She will contact Oncology and make an appointment for continued chemotherapy. I discussed the case with Dr. Omari espinoza who is currently following her breast cancer. Assessment 2. Pancytopenia improved Plan: She will continue off the Neupogen as she no longer needs it. She had excellent response to the 2 units of packed red blood cells. Her platelets have improved. Assessment 3. Mild sores improved Plan: Continue with the magic mouthwash. Continue with current pain medication. Assessment 4. Depression improved now that she is back on her outpatient citalopram amitriptyline Plan: Continue same outpatient medications Assessment 5. Hypertension increased due to being off her outpatient metoprolol off. Plan: Will increase metoprolol to 25 mg twice daily. I think the once daily dose was not transferred from her orders from the ICU up to the floor. We will continue to monitor. Assessment 6. Hypokalemia new S, suspect related to IV fluids without potassium and poor p.o. intake. Plan: We will change her IV fluids to normal saline with 20 mEq of potassium. We will give a potassium K rider. We will reassess in the a.m.. Quality VTE Deep Vein Thrombosis/Pulmonary Embolism Present on Admission: No
--- NOTE | 2017-12-06 17:54 | P.PN_ITS ---
Subjective Date Patient Seen: 12/05/17 Time Patient Seen: 08:19 Interval history: Patient had a good night sleep last night. She is feeling better but is still having a lot of pain in her mouth and poor p.o. intake and difficulty with ambulation because of fatigue. She denies any abdominal pain, diarrhea or blood in her stools. She denies any chest pain. She is having in some shortness of breath. She has been receiving oxygen overnight. She has had difficulty using the incentive spirometer due to mild pain. Twelve point review of systems is negative other than above. Exam Vital Signs (past 8 hours): Vital Signs - 8 hr 3 12/06/17 12:15 12/06/17 12:36 12/06/17 16:17 Temperature 98.2 F Pulse Rate 76 Respiratory Rate 16 Blood Pressure 180/89 H Pulse Oximetry 89 L 98 96 Pulse Oximetry 96 Oxygen Delivery Method Room Air Oxygen Flow Rate 2 Narrative Exam Narrative: Afebrile vital signs are stable HEENT shows mucous membranes moist and pink and mouth sores healing Neck: Supple without masses or jugular venous distention or bruits Chest: Clear to auscultation with decreased breath sounds bilateral bases but no wheezes , rhonchi or crackles For: Regular rate and rhythm With distant S1 and S2 Abdomen: Positive bowel sounds, soft, nontender, nondistended, no hepatosplenomegaly Extremities: No edema, pulses intact Neurologic exam: Nonfocal Skin: No rash Objective Labs Result Diagrams: 12/06/17 09:54 12/06/17 05:12 Labs: Laboratory Results - last 24 hr 12/05/17 12/06/17 12/06/17 08:50 05:12 09:54 WBC 25.8 H D RBC 3.70 L Hgb 12.2 Hct 34.8 L MCV 93.9 D MCH 33.0 MCHC 35.1 RDW 16.5 H Plt Count 228 Total Counted 100 Seg Neutrophils % 61.0 D Band Neutrophils % 17.0 H Lymphocytes % (Manual) 4.0 L Atypical Lymphs % 1.0 H Monocytes % (Manual) 7.0 Metamyelocytes % 5.0 H Myelocytes % 5.0 H Neutrophils # (Manual) 99686 H Toxic Vacuolation Present H Dohle Bodies 2+ H RBC Morphology Not Reportable Polychromasia 1+ H Sodium 144 Potassium 3.0 L Chloride 105 Carbon Dioxide 29 BUN 4 L Creatinine 0.50 L Estimated GFR > 60.0 BUN/Creatinine Ratio 8.0 Glucose 77 L Calcium 7.7 L Crossmatch (AHG) See Detail Assessment & Plan Plan: Assessment/Plan Narrative: 67-year-old female with metastatic breast cancer admitted for neutropenic fever Assessment 1. Neutropenic fever improved Plan: Discontinue the Neupogen. Continue imipenem and if continues afebrile we will stop imipenem and start her on Augmentin tomorrow . Assessment 2. Pancytopenia with significant anemia And worsened Plan: Will transfuse 2 units packed red blood cells. Discussed the rationale of patient discussed potential side effects and the benefits of transfusion. We will stop the Neupogen as her absolute neutrophils are over 1500. Assessment 3. Mild sores with poor p.o. intake Plan: Suspect these are related to chemotherapy not to thrush. We will continue to monitor. We will continue on Magic mouthwash. We will continue IV fluids. Assessment 4. Depression stable Plan: Continue on amitriptyline and citalopram and as needed alprazolam Assessment 5. Itching Plan: G doing much better since she is off the IV Dilaudid. We will continue with oral pain medications. Quality VTE Deep Vein Thrombosis/Pulmonary Embolism Present on Admission: No
[2017-12-06] MEDS: AMITRIPTYLINE 75 MG TABLET 150 MG PO (20:13)
[2017-12-07] MEDS: KCL 20 MEQ IN NS 1,000 ML 100 MEQ IV (01:52)
[2017-12-07] MEDS: LIDOCAINE VISCOUS 2% 30 ML, MAG HYDROX/ALUMINUM/SIMETH SUS 30 ML, NYSTATIN SUSP 3,000,0... PO ×2 (01:58→06:02)
[2017-12-07] MEDS: OXYCODONE IR 5 MG TABLET PO ×2 (02:01→06:02)
[2017-12-07 04:28] VITALS: BP 150/84; PULSE 66; RESP 16; TEMP 36.6; O2SAT 97
[2017-12-07 05:45] LABS: Hematocrit 34.8 % (36-46); Hemoglobin 11.9 g/dL (12.0-16.0); Mean Corpuscular HGB Conc 34.2 % (30-36); Mean Corpuscular Hemoglobin 32.7 PG (26-34); Mean Corpuscular Volume 95.7 fL (80-100); Platelet Count 218 X10^3/uL (150-400); Red Blood Cell Count 3.63 X10^6/uL (4.0-5.2); Red Cell Distribution Width 16.4 % (11.6-14.8); White Blood Cell Count 17.7 X10^3/uL (4.5-11.0)
[2017-12-07 05:47] LABS: Add Manual Diff / Slide Review YES
[2017-12-07 05:55] LABS: Alanine Aminotransferase 36 IU/L (9-52); Albumin 3.6 g/dL (3.5-5.0); Albumin Globulin Ratio 1.1 (1.0-2.8); Alkaline Phosphatase 127 U/L (38-126); Aspartate Aminotransferase 45 IU/L (14-36); Bilirubin Total 0.5 mg/dL (0.2-1.3); Blood Urea Nitrogen 8 mg/dL (7-17); Calcium 7.6 mg/dL (8.4-10.2); Carbon Dioxide 26 mmol/L (22-32); Chloride 105 mmol/L (98-107); Estimated Glomerular Filt Rate > 60.0 mL/min (>60); Globulin 3.2 g/dL (1.7-4.1); Glucose 80 mg/dL (80-110); HEMOLYSIS < 15 (0-50); Potassium 3.8 mmol/L (3.4-5.1); Sodium 141 mmol/L (137-145); Total Protein 6.8 g/dL (6.3-8.2)
[2017-12-07 06:05] LABS: Neutrophils Absolute Manual 11328 /uL (3000-5900); Total Cells Counted 100
[2017-12-07 06:07] LABS: Anisocytosis 1+
[2017-12-07 07:35] VITALS: O2SAT 93
[2017-12-07 08:00] VITALS: BP 145/81; PULSE 66; RESP 16; TEMP 37.4; O2SAT 94
[2017-12-07] MEDS: METOPROLOL ER 25 MG TABLET PO (08:13)
[2017-12-07] MEDS: AMOXICILLIN/CLAV 875/125 MG 1 TAB PO (08:13)
[2017-12-07] MEDS: CITALOPRAM 10 MG TABLET 30 MG PO (08:13)
--- NOTE | 2017-12-07 08:56 | CM.DPC ---
DCP: continued: Dr. Benedict is here now and has ok'd pt for d/c to home. Alerted onc 7th grade social studies teacher Soniya to same. She has been visiting pt each day and will followup with her to assist in making next appt. Checked in with pt. She is found smiling, pleased to be going home. Says her DIL Rosio Villanueva will be picking her up. Notes that her hair is falling out now. My granddaughters are going to give me a buzz cut when I am home. Says this is the second time she has gone through that.. I am just going with the flow. She states she is so pleased that she had Soniya as an advocate at the onc center. She will followup up there as planned.
[2017-12-07 09:39] VITALS: O2SAT 93
--- NOTE | 2017-12-07 11:10 | PC.NURSE ---
MD IN FOR ROUNDING. D/C TO HOME ORDERED. NO SCRIPTS IN CHART. UNABLE TO SEE IF NEW MED SENT TO PHARMACY. ATTEMPTED TO CALL DR. TORRES OFFICE TO CLARIFY. PHONE CALL NOT GOING THROUGH. PER [facility] PHONES IN [facility] ARE OUT. PT IS TO CALL DR. TORRES OFFICE THIS AFTERNOON ONCE PHONES ARE UP TO VERIFY F/UP APPT TIMES AND SCRIPT FOR AUGMENTIN. PT LEFT VIA W/C WITH ALL PERSONAL BELONGINGS. EDUCATION PROVIDED ON NEUTROPENIA AND WHEN TO CALL MD FOR NEUTROPENIC FEVERS. PT AND DTR VERBALIZED UNDERSTANDING. MASKS GIVEN TO PT FOR WHEN SHE IS OUT IN PUBLIC.
--- NOTE | 2017-12-07 13:47 | P.DS_ITS ---
History of Present Illness Chief complaint: Breast cancer, fever Narrative: Candi Vidal is a 67 year old female who is referred to [facility] from Oncology where she was found to be febrile up to 104 with the oral lesions and suggestion of sepsis In a neutropenic state. Patient has history of right-sided breast cancer going back to 2013. Been through multiple treatments and currently his metastatic stage IV please see oncology notes. Patient has had visit today with Oncology for initiation of alternative chemotherapy for her recurrence. She has a lot of discomfort along the right anterior lateral chest wall where she has some masses that are assumed to be metastatic lesions. She talks about headache and feeling feverish and chilled weak and somewhat nauseous. Given her neutropenic count and her fever and progression of her disease is felt that she was very had a high risk for sepsis and was referred for admission Discharge Providers Date of admission: 12/01/17 14:23 Primary care physician: Terrence Benedict MD Consults: 12/01/17 16:19 Consult to Dietitian, Adult Routine Comment: magic mouth wash ineffective Reason For Exam: oral thrush and sores 12/03/17 17:04 Consult to Dietitian, Adult Routine Comment: Reason For Exam: assessed at high risk Discharge provider: Terrence Benedict MD Summary Discharge Diagnosis: Discharge diagnosis 1. Metastatic breast cancer Diagnosis 2. Sepsis Diagnosis 3. Depression Diagnosis 4. Thrush Diagnosis 5 granulocytopenia secondary to chemotherapy effect Status at Discharge Functional status at discharge: independent ambulation Time Spent with Patient Greater than 30 minutes Exam Vital Signs (past 8 hours): Vital Signs - 8 hr 3 12/07/17 07:35 12/07/17 08:00 12/07/17 09:39 Temperature 99.3 F Pulse Rate 66 Respiratory Rate 16 Blood Pressure 145/81 H Pulse Oximetry 93 94 93 Pulse Oximetry 93 Fraction of Inspired Oxygen 28 Oxygen Delivery Method Nasal Cannula Oxygen Flow Rate 2 Narrative Exam Narrative: Patient comfortable in bed eating speaking clearly and very appropriate in terms of cognition PERRLA EOM is intact Neck without thyromegaly or mass Lungs Clear to auscultation Cardio shows regular rate and rhythm without murmur S3 no significant edema Chest shows lumps on the right side consistent with metastatic lesions GI shows no hepatosplenomegaly mass rebound or guarding Back is nontender no CVA area pain Neuro is symmetrical intact to sensory and motor speech is clear cognition intact Extremities without bleeding bruising and swelling are edema Psychiatric shows patient to be depressed and flat of affect but appropriate to circumstance Objective Labs Result Diagrams: 12/07/17 05:30 12/07/17 05:30 Labs: Laboratory Results - last 24 hr 12/07/17 12/07/17 05:30 05:30 WBC 17.7 H RBC 3.63 L Hgb 11.9 L Hct 34.8 L MCV 95.7 MCH 32.7 MCHC 34.2 RDW 16.4 H Plt Count 218 Neut % (Auto) Not Reportable Lymph % (Auto) Not Reportable [place] % (Auto) Not Reportable Eos % (Auto) Not Reportable Baso % (Auto) Not Reportable Total Counted 100 Seg Neutrophils % 36.0 L Band Neutrophils % 28.0 H Lymphocytes % (Manual) 10.0 L Atypical Lymphs % 4.0 H Monocytes % (Manual) 12.0 H Eosinophils % (Manual) 3.0 Metamyelocytes % 5.0 H Myelocytes % 2.0 H Neutrophils # (Manual) 96955 H RBC Morphology Not Reportable Anisocytosis 1+ H Sodium 141 Potassium 3.8 Chloride 105 Carbon Dioxide 26 BUN 8 Creatinine 0.50 L Estimated GFR > 60.0 BUN/Creatinine Ratio 16.0 Glucose 80 Calcium 7.6 L Total Bilirubin 0.5 AST 45 H ALT 36 Alkaline Phosphatase 127 H Total Protein 6.8 Albumin 3.6 Globulin 3.2 Albumin/Globulin Ratio 1.1 Discharge Plan Discharge Plan Patient Disposition: Home, Self-Care Discharge Med Rec/Prescriptions Prescriptions: New amoxicillin-pot clavulanate [Augmentin] 875-125 mg Tablet 1 tab PO BID Qty: 20 RF: 0 Continue amitriptyline 75 MG tablet 150 mg PO HS Qty: 0 RF: 0 cyanocobalamin (vitamin B-12) 1,000 MCG tablet extended release 1,000 mcg PO Q DAY Qty: 0 RF: 0 calcium citrate-vitamin D3 [Citracal Regular] 250 MG/200 IU tablet 1 ea PO Q DAY Qty: 0 RF: 0 etodolac 400 MG tablet 400 mg PO BID Qty: 0 RF: 0 loperamide 2 MG capsule 2 mg PO Q8HP PRN (Reason: Diarrhea) Qty: 0 RF: 0 promethazine-codeine 6.25 MG/10 MG syrup 5 - 10 ml PO Q4HP PRNQty: 120 RF: 0 pilocarpine HCl 5 MG tablet 5 mg PO TID Qty: 270 RF: 0 metoprolol succinate [Toprol XL] 25 MG tablet extended release 24 hr 25 mg PO BID Qty: 0 RF: 0 citalopram [Celexa] 20 MG tablet 30 mg PO QDAY Qty: 30 RF: 0 alprazolam 0.25 MG tablet 0.25 mg PO TIDP PRN (Reason: Anxiety) Qty: 0 RF: 0 letrozole [Femara] 2.5 MG tablet 2.5 mg PO QDAY Qty: 90 RF: 1 DIPHENHYDRAMINE/LIDO VISC/MAALOX 1:1:1~ 100 ML 5 - 10 ml PO Q4HP PRNQty: 100 RF: 0 ondansetron HCl 4 MG tablet 4 mg PO Q4HP PRN (Reason: Nausea) Qty: 30 RF: 1 nystatin 100,000 unit/mL Suspension 10 ml PO QID PRN (Reason: mouth pain/sores) Qty: 120 RF: 0 Provider Discharge Instructions Diet: Diet as Tolerated Wound Care Report to your healthcare provider any signs of infection, such as:: chills, fever, night sweats and increased pain Visit Report/Discharge Packet Instructions: Neutropenia, DI for Neutropenia, Neutropenic Fever Visit Report Forms: Stroke Signs & Symptoms Discharge Data Primary Care Provider: Terrence Benedict Attending Provider: Terrence Benedict Admit Date/Time: 12/01/17 14:23 Discharges patient from system. Discharge Date/Time: 12/07/17 11:10 Quality VTE Deep Vein Thrombosis/Pulmonary Embolism Present on Admission: No
== END 2017-12-07 11:10 | disposition home or self-care (01) | DRG 872 ==
LOC: ICU 12-04 10:18 → AC 12-05 07:27
PROVIDERS: Family Medicine; Admitting Provider Family Medicine; Family Provider Family Medicine; PCP Family Medicine; Visit Provider Family Medicine
DX: A41.9 Sepsis, unspecified organism (principal); C79.51 Secondary malignant neoplasm of bone; C79.89 Secondary malignant neoplasm of other specified sites; B37.0 Candidal stomatitis; D61.818 Other pancytopenia; D70.1 Agranulocytosis secondary to cancer chemotherapy; R50.81 Fever presenting with conditions classified elsewhere; C50.911 Malignant neoplasm of unspecified site of right female breast; I10 Essential (primary) hypertension
CPT/HCPCS: 36415; 36430; 36591; 36592; 70470; 71045; 80048; 80053; 83605; 84145; 85025; 86850; 86900; 86901; 87040; 87797; 93005; 94760; 99215; P9016; J0743; J1200; J2060; J2405; J2765; J3480; Q5101; Q9967

== ENCOUNTER 2018-01-24 16:44 | Inpatient (IN) | payer OTHER, MEDICARE, SELFPAY ==
[2017-12-01 14:59] VITALS: BMI 25.0
[2018-01-24] VITALS (7 sets, daily range): BP systolic 111–161; BP diastolic 44–118; PULSE 78–120; RESP 14–30; TEMP 37.4–38.4; O2SAT 95–100
--- NOTE | 2018-01-24 17:29 | DI.RAD.S_ITS ---
PROCEDURE: XR CHEST 1V INDICATIONS: fever, cancer patient TECHNIQUE: One view of the chest was acquired. COMPARISON: [facility], , XR CHEST 1V, 12/05/2017, 6:05. [facility], , CHEST 2 VIEW, 06/30/2016, 9:17. [facility], , CHEST 1 VIEW, 03/03/2016, 14:02. [facility], , CHEST 1 VIEW, 09/18/2014, 12:12. FINDINGS: Surgical changes and devices: Numerous surgical clips project over the chest bilaterally and over the right axilla. Left chest port catheter tip terminates within the superior vena cava. Lungs and pleura: No pleural effusions or pneumothorax. Lungs are clear. Mediastinum: Mediastinal contours appear normal. Heart size is normal. Bones and chest wall: No suspicious bony lesions. Overlying soft tissues appear unremarkable. Mild degenerative changes of the right acromioclavicular joint. IMPRESSION: No focal consolidations concerning for pneumonia. Dictated by: Rl Benavides M.D. on 01/24/2018 at 19:08 Approved by: Rl Benavides M.D. on 01/24/2018 at 19:10
--- NOTE | 2018-01-24 18:33 | ED_ITS ---
HPI - Fever General Chief Complaint: Fever Stated Complaint: FEVER, CANCER PATIENT Time Seen by Provider: 01/24/18 17:51 Source: patient Mode of arrival: ambulatory Limitations: no limitations History of Present Illness HPI Narrative: Patient is a 67-year-old female with a history of breast cancer currently undergoing chemotherapy. When initially asked patient states that today was day 6 of her chemotherapy however upon further questioning it appears that her last chemotherapy infusion was 6 days ago. She states that for the past several days she has been receiving fluid infusion secondary to dehydration she states that today she had a fever at home of 101.7. She states that she did not tell the infusion center about this. She states that when she went home the fever did not go away so she came in here to the emergency department. She states that overall she just does not feel very well. States that the only infusions she got today with the fluids and a bone cancer shot. She also states that she had blood drawn this morning. Related Data Home Medications Medication Instructions Recorded Confirmed amitriptyline 150 mg PO HS #0 01/05/13 01/24/18 loperamide 2 mg PO Q8HP PRN #0 07/01/16 01/24/18 gabapentin 300 mg PO QAM 12/13/17 01/24/18 mirabegron [Myrbetriq] 25 mg PO DAILY 12/13/17 01/24/18 oxybutynin chloride 10 mg PO DAILY 12/13/17 01/24/18 tramadol 50 mg PO Q6H PRN 12/13/17 01/24/18 zolpidem 5 mg PO BEDTIME PRN 12/13/17 01/24/18 promethazine-codeine 5 - 10 ml PO Q4HP PRN 12/20/17 01/24/18 alprazolam 0.25 mg PO DAILY 01/24/18 01/24/18 cholecalciferol (vitamin D3) 2,000 unit PO DAILY 01/24/18 01/24/18 [Vitamin D3] fluconazole 100 mg PO DAILY 01/24/18 01/24/18 metoprolol tartrate 25 mg PO BID 01/24/18 01/24/18 valacyclovir 1 tab PO TID 01/24/18 01/24/18 Previous Rx's Medication Instructions Recorded pilocarpine HCl 5 mg PO TID #270 tab 10/06/16 citalopram [Celexa] 30 mg PO QDAY #30 tab 12/08/16 letrozole [Femara] 2.5 mg PO QDAY #90 tab 05/12/17 alum-mag hydroxide-simeth [Maalox 15 ml PO TID PRN #120 ml 01/19/18 Advanced] ondansetron HCl 4 mg PO Q4HP PRN #30 tab 01/19/18 omeprazole 20 mg PO DAILY #30 cap 01/23/18 levofloxacin 750 mg PO DAILY #10 tab 01/24/18 Allergies Allergy/AdvReac Type Severity Reaction Status Date / Time hydrocodone AdvReac Severe RASH, Verified 01/03/18 13:07 ITCHING Review of Systems Constitutional Reports fatigue, Reports fever(s) and Reports malaise Eyes Denies itchy eyes ENT Ears, Nose, Mouth, and Throat: Denies vertigo, Denies dizziness and Denies tongue swelling Comments: Patient with sores in her mouth which are not new at a causing her pain Cardiovascular Denies chest pain, Denies rapid heart rate, Denies edema and Denies dyspnea Respiratory Denies cough and Denies dyspnea Gastrointestinal Gastrointestinal: Denies abdominal pain, Denies nausea and Denies vomiting Genitourinary Denies dysuria Musculoskeletal Denies myalgias and Denies arthralgias Integumentary/Breasts Denies lesions and Denies rash Neurologic Denies confusion, Denies vertigo and Denies dizziness Psychiatric Denies confusion Endocrine Reports fatigue and Denies flushing Hematologic/Lymphatic Denies easy bleeding and Denies easy bruising Allergic/Immunologic Denies urticaria, Denies itchy eyes and Denies tongue swelling [facility] Medical History Anxiety (Acute) Breast cancer (Acute) Colon cancer (Acute) History of hysterectomy (Acute) Hypertension (Acute) Lymph node cancer (Acute) Nausea (Acute) Thrush, oral (Acute) Surgical History History of mastectomy (Acute) Social History household members: none Smoking Status: Former smoker alcohol intake: former Exam Initial Vital Signs Initial Vital Signs: Vital Signs Temperature 99.4 F 01/24/18 17:19 Pulse Rate 78 01/24/18 17:19 Respiratory Rate 14 01/24/18 17:19 Blood Pressure 159/102 H 01/24/18 17:19 Pulse Oximetry 100 01/24/18 17:19 Const General: cooperative, comfortable and No acute distress Orientation: alert, awake and oriented x3 HENMT Head: normocephalic and atraumatic Mouth: other ( patient with redness on the right lower aspect of her gum line. No ulcerations seen.) Throat: posterior oropharynx normal Resp Effort & Inspection: normal respiratory effort Auscultation: clear to auscultation bilaterally Cardio Rate: regular rate Pulses: radial pulses present GI Inspection: normal to inspection and non-distended Palpation: soft, No firm, No guarding and No tender Skin Lesions: no lesions Rashes: no rashes Other: Patient with some redness around the port on her left anterior chest that she states is from the adhesive from the line being placed earlier today. She states that of than that her port looks very well Neuro General: alert, awake and oriented x3 Cognition: normal cognition Speech: speech normal Extrem General: normal to inspection, capillary refill normal and No edema Psych Appearance: grossly normal and well kempt Course Orders Ordered: Acetaminophen (Tylenol) 650 mg PO Q6HR PRN PRN Reason: As Needed for Fever/Mild Pain Last Admin: 01/25/18 02:17 Dose: 650 mg Sodium Chloride (Normal Saline 0.9%) 1,000 mls @ 125 mls/hr IV CONT RUDY Last Admin: 01/24/18 22:56 Dose: 125 mls/hr Cefepime HCl 2 gm/ Sodium (Chloride) 100 mls @ 200 mls/hr IV Q8H RUDY Last Admin: 01/25/18 02:20 Dose: 200 mls/hr Ondansetron HCl (Zofran) 4 mg IV Q4HR PRN PRN Reason: Nausea And Vomiting Discontinued Medications Cefepime HCl 2 gm/ Sodium (Chloride) 100 mls @ 200 mls/hr IV NOW ONE Stop: 01/24/18 18:42 Last Admin: 01/24/18 19:35 Dose: 200 mls/hr Vital Signs - 8 hr 01/24/18 20:41 01/24/18 21:00 01/24/18 21:31 Temperature 101.1 F H 100.4 F H Pulse Rate 101 H 100 H Respiratory Rate 25 H 17 Blood Pressure 144/118 H Blood Pressure [Right Ankle] 137/56 H 111/44 L Pulse Oximetry 100 98 01/25/18 00:54 01/25/18 03:11 Temperature 100.7 F H 99.6 F Pulse Rate 99 H 91 H Respiratory Rate 16 17 Blood Pressure 129/53 H 101/48 L Blood Pressure [Right Ankle] Pulse Oximetry 98 95 MDM - Fever MDM Narrative Medical decision making narrative: patient did have labs [place] [id number]. electrolytes unremarkable. Unable to draw blood from the patient's [facility]. She was afebrile here in the emergency department but did have a fever earlier in the day. She denies any urinary symptoms or chest symptoms in her lungs were clear. Blood cultures were drawn here in the emergency department. Did discuss the case with Dr. Echavarria with Oncology who recommended the patient be started on antibiotics and admitted to the hospital until blood cultures were resulted. She was given cefepime here in the emergency department. Will hold on repeating her CBC and chemistry since she Had those drawn this morning. Dr. echavarria also recommended that if the patient had not received a dose of GCSF then she should receive a dose of 300 mcg of this on a daily basis based on her weight of 54 kg. Upon further discussion with the patient she thought that she received a immune boosting agent this morning with her infusions and that is what she described as her bone cancer shot. She states she did receive a shot because her blood counts were dangerously low from what she was told. I did discuss the case with Dr García who will admit the patient for further evaluation and treatment. I did discuss admission with the patient. She expressed understanding and agreement with plan. Discharge Plan Departure Patient Disposition: Admitted As Inpatient Clinical Impression: Neutropenic fever, Breast cancer Discharge Date/Time: 01/24/18 20:25 Interventions: ED Discharge Assessment Last Done: 01/24/18 22:18 Admit Date/Time: 01/24/18 19:38 Admit Provider: [place] García
[2018-01-24] MEDS: CEFEPIME 2 GM in SODIUM CHLORIDE 0.9% 100 ML 200 ML IV (19:35)
--- NOTE | 2018-01-24 21:09 | PC.NURSE ---
1929 Report from Malka Mendez RN. Awaiting inpatient bed. Antibiotic just arrived from Pharmacy will hang steven. Pt. tearful upon my initial entry into room. Neede a phone which I got for her. pt. currently visably cheerful and telling jokes.
[2018-01-24] MEDS: SODIUM CHLORIDE 0.9% 1,000 ML 125 ML IV (22:56)
[2018-01-25] VITALS (8 sets, daily range): BP systolic 101–141; BP diastolic 48–84; PULSE 88–101; RESP 16–18; TEMP 36.9–38.2; O2SAT 93–98
[2018-01-25] MEDS: ACETAMINOPHEN 325 MG TABLET 650 MG PO ×3 (02:17→23:57)
[2018-01-25] MEDS: CEFEPIME 2 GM in SODIUM CHLORIDE 0.9% 100 ML 200 ML IV ×3 (02:20→21:00)
[2018-01-25] MEDS: SODIUM CHLORIDE 0.9% 1,000 ML 125 ML IV ×2 (07:21→16:05)
--- NOTE | 2018-01-25 08:36 | PM.HP.1 ---
History of Present Illness Date Patient Seen: 01/25/18 Time Patient Seen: 08:36 Chief complaint: FEVER, CANCER PATIENT Narrative: Patient 7-year-old female with long history of metastatic cultures are pending and will continue granulocyte colony-stimulating factor injections have per Oncology. Continue with broad-spectrum IV anti biotic coverage at this point. Patient is maintaining blood pressure without complication and oxygen saturations are adequate. Patient History Medical History Anxiety (Acute) Breast cancer (Acute) Colon cancer (Acute) History of hysterectomy (Acute) Hypertension (Acute) Lymph node cancer (Acute) Nausea (Acute) Thrush, oral (Acute) Surgical History History of mastectomy (Acute) Family & Social History Social History: household members none Prior Living Arrangements House Safety & Behavioral: Feels Safe in Current Yes Environment Been Physically Hurt or No Threatened By a Person Suicidal Ideation Description None Suicide Plan Description No Plan Tobacco & Substance use: Tobacco type cigarettes Smoking Status Former smoker alcohol intake former Substance Use Type marijuana Meds Home Medications Medication Instructions Recorded Confirmed Type amitriptyline 150 mg PO HS #0 01/05/13 01/24/18 History loperamide 2 mg PO Q8HP PRN #0 07/01/16 01/24/18 History pilocarpine HCl 5 mg PO TID #270 tab 10/06/16 01/24/18 Rx citalopram [Celexa] 30 mg PO QDAY #30 tab 12/08/16 01/24/18 Rx letrozole [Femara] 2.5 mg PO QDAY #90 tab 05/12/17 01/24/18 Rx gabapentin 300 mg PO QAM 12/13/17 01/24/18 History mirabegron [Myrbetriq] 25 mg PO DAILY 12/13/17 01/24/18 History oxybutynin chloride 10 mg PO DAILY 12/13/17 01/24/18 History tramadol 50 mg PO Q6H PRN 12/13/17 01/24/18 History zolpidem 5 mg PO BEDTIME PRN 12/13/17 01/24/18 History promethazine-codeine 5 - 10 ml PO Q4HP PRN 12/20/17 01/24/18 History alum-mag hydroxide-simeth [Maalox 15 ml PO TID PRN #120 ml 01/19/18 01/24/18 Rx Advanced] ondansetron HCl 4 mg PO Q4HP PRN #30 tab 01/19/18 01/24/18 Rx omeprazole 20 mg PO DAILY #30 cap 01/23/18 01/24/18 Rx alprazolam 0.25 mg PO DAILY 01/24/18 01/24/18 History cholecalciferol (vitamin D3) 2,000 unit PO DAILY 01/24/18 01/24/18 History [Vitamin D3] fluconazole 100 mg PO DAILY 01/24/18 01/24/18 History levofloxacin 750 mg PO DAILY #10 tab 01/24/18 01/24/18 Rx metoprolol tartrate 25 mg PO BID 01/24/18 01/24/18 History valacyclovir 1 tab PO TID 01/24/18 01/24/18 History Allergies Allergy/AdvReac Type Severity Reaction Status Date / Time hydrocodone AdvReac Severe RASH, Verified 01/03/18 13:07 ITCHING Review of Systems Review of Systems No visual change Complains of some slight sore throat but no adenopathy Muscular chest pain hurts with a deep breath or with palpation Denies shortness of breath cough Abdomen without focal pain nausea vomiting diarrhea or bleeding shows no complaint of urinary burning frequency or CVA area discomfort Musculoskeletal is splint pain within the chest area with palpation or with deep breathing on clear lung evaluation Neurologic symmetrical intact to fine touch motor speech is clear Psychiatric shows patient to be distressed and deeply sad and in the situation of her health Hematologic shows no bleeding but patient has a white count of 0.5 Exam Vital Signs (past 8 hours): - 01/25/18 00:54 01/25/18 03:11 Temperature 100.7 F H 99.6 F Pulse Rate 99 H 91 H Respiratory Rate 16 17 Blood Pressure 129/53 H 101/48 L Pulse Oximetry 98 95 Oxygen Delivery Method Room Air Narrative Exam Narrative: CARA Sitting the appearing very fatigued in bed but answering questions very clearly and appropriately. Did complete her loss secondary to chemo Neck without nodes or thyromegaly Lungs clear to auscultation percussion Cardiovascular shows regular rate and rhythm pulses symmetrical no edema Abdomen diffusely nontender without mass or hepatosplenomegaly Chest wall tender to firm palpation bilaterally in the setting of bilateral mastectomies and some masses on the right side consistent with the metastatic disease Neuro intact symmetrical to fine touch and motor symmetrical speech clear cognitive seems intact Assessment & Plan Plan: Assessment/Plan Narrative: Assessment 1. Metastatic stage IV breast cancer per Oncology. Patient now presents febrile and with an extremely low while white cell count of 0.5. Patient will be admitted cultures obtained antibiotics provided and G-CSF provided The assessment 2. Neutropenic fever secondary to above meds as directed Assessment 3. Depression stable at this point will continue regular med Hypertension stable at this point patient's systolic blood pressure 108 think she is dry and I think she may be septic will hold blood pressure medicines and face of current blood pressure Assessment 5. Pain patient has discomfort in the setting of her fever but also has localizing pain and chest wall in areas contributed to by metastatic masses. Quality VTE Deep Vein Thrombosis/Pulmonary Embolism Present on Admission: Yes
[2018-01-25] MEDS: FILGRASTIM-SNDZ 300 MCG/0.5 ML SYRINGE SUBCUT (09:22)
[2018-01-25 09:50] LABS: Hematocrit 24.8 % (36-46); Hemoglobin 8.4 g/dL (12.0-16.0); Mean Corpuscular HGB Conc 34.1 % (30-36); Mean Corpuscular Hemoglobin 33.2 PG (26-34); Mean Corpuscular Volume 97.5 fL (80-100); Platelet Count 48 X10^3/uL (150-400); Red Blood Cell Count 2.54 X10^6/uL (4.0-5.2)
[2018-01-25 09:53] LABS: White Blood Cell Count 0.3 X10^3/uL (4.5-11.0)
--- NOTE | 2018-01-25 15:42 | CM.DANOTE ---
Discharge Planning/Care Management DCP: assessment: case received, EMR reviewed and met with pt. Introduced self and role. 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 Pt is a 67 year old female who admitted to care of Dr. García last night. Payer: [employer] and Medicare A only. PCP: Dr. Benedict Pt is under oncology care at the [facility]. States gets great support from milking worker Soniya Patel. P: follow as POC unfolds to assist with d/c needs that may arise. Pt has good family support as noted in DCP template below. CM Discharge Assessment Start: 01/25/18 15:36 Freq: Status: Active Protocol: Document 01/25/18 15:36 ITV (Rec: 01/25/18 15:42 ITV [id number]) Discharge Planning Assessment History Provided By Patient Medical Record Prior Living Arrangements House Household Members none Independent with ADL's Yes Is patient alert and oriented? Yes Comment son and DIL Jeremy and Rosio [place] area very supportive. ( Jeremy is spray painting machine operator of [employer] in [employer]) graphic pre press trades worker Soniya Baker is involved in pt's care at the [facility], [place]/. She is notified re the admission now via vm: ext [phone] Review Status In Process Next Review Type Continued Stay Review
[2018-01-25] MEDS: CITALOPRAM 10 MG TABLET 30 MG PO (17:01)
--- NOTE | 2018-01-25 18:07 | PC.NURSE ---
Addendum entered by Malka Abdi R.N. 01/25/18 22:03: Pt up ad priyank w/o incidence. IV continues as per orders. Left chest port patent. Call light w/in reach. Continue w/plan of care. Original Note: Pt up ad priyank in room w/o incidence. Denies discomfort. IV NS infusing via pump @ 125cc/hr into left chest abbie cath w/o incidence. Sitting up in chair for dinner. Call light w/in reach.
[2018-01-25] MEDS: TRAMADOL 50 MG TABLET PO (22:44)
[2018-01-25] MEDS: ALPRAZolam 0.25 MG TABLET PO (23:57)
[2018-01-26] MEDS: SODIUM CHLORIDE 0.9% 1,000 ML 125 ML IV (00:21)
[2018-01-26] MEDS: ALPRAZolam 0.25 MG TABLET PO ×2 (01:18→20:59)
[2018-01-26] MEDS: LIDOCAINE VISCOUS 2% 15 ML SOLUTION PO (03:13)
[2018-01-26] MEDS: CEFEPIME 2 GM in SODIUM CHLORIDE 0.9% 100 ML 200 ML IV ×3 (03:45→19:13)
[2018-01-26 05:47] VITALS: BP 135/60; PULSE 89; RESP 16; TEMP 36.6; O2SAT 96
[2018-01-26] MEDS: PANTOPRAZOLE 20 MG TABLET PO (06:21)
[2018-01-26 06:55] LABS: Hematocrit 21.7 % (36-46); Hemoglobin 7.4 g/dL (12.0-16.0); Mean Corpuscular HGB Conc 33.9 % (30-36); Mean Corpuscular Hemoglobin 32.7 PG (26-34); Mean Corpuscular Volume 96.7 fL (80-100); Platelet Count 39 X10^3/uL (150-400); Red Blood Cell Count 2.25 X10^6/uL (4.0-5.2); Red Cell Distribution Width 14.8 % (11.6-14.8)
[2018-01-26 06:56] LABS: White Blood Cell Count 0.5 X10^3/uL (4.5-11.0)
[2018-01-26 06:57] LABS: Add Manual Diff / Slide Review NO; Platelet Estimate Decreased on smear
[2018-01-26 07:06] LABS: Alanine Aminotransferase 21 IU/L (9-52); Albumin 2.9 g/dL (3.5-5.0); Albumin Globulin Ratio 1.2 (1.0-2.8); Alkaline Phosphatase 64 U/L (38-126); Aspartate Aminotransferase 12 IU/L (14-36); Bilirubin Total 0.2 mg/dL (0.2-1.3); Blood Urea Nitrogen 7 mg/dL (7-17); Calcium 8.4 mg/dL (8.4-10.2); Carbon Dioxide 28 mmol/L (22-32); Chloride 106 mmol/L (98-107); Estimated Glomerular Filt Rate > 60.0 mL/min (>60); Globulin 2.5 g/dL (1.7-4.1); Glucose 101 mg/dL (80-110); HEMOLYSIS < 15 (0-50); Potassium 3.6 mmol/L (3.4-5.1); Sodium 138 mmol/L (137-145); Total Protein 5.4 g/dL (6.3-8.2)
--- NOTE | 2018-01-26 07:46 | PC.NURSE ---
pt medicated at 2355 w/650mg tylenol [id number] of xanax for headache rated 10/10, also applied ice pack to back of neck. about 20 minutes later pt c/o chest pressure from bilat sides to center 0f chest
--- NOTE | 2018-01-26 08:54 | P.PN_ITS ---
Subjective Date Patient Seen: 01/26/18 Time Patient Seen: 08:45 Interval history: Patient with a granulocytosis secondary to chemo for stage IV metastatic breast cancer. Presented with fever weakness headache hypotension and dehydration. Currently is well-hydrated home phone fluids white count has started to rise is back up to .5 having fallen to 0.3. No fever at this point blood pressure is improved from systolic of 90s into the 130 range other vitals good No evidence of bleeding but hematocrit has decreased to 21 suspect this could be dilutional also probably effect from chemo at this point. Patient having a significant headache yesterday less today not complaining of pain or fever. Will review with Oncology concerning that low crit. Plan to continue IV antibiotics and granulocyte colony-stimulating factor. I think we can discontinue IVs at this point in terms of fluids and continue her IV antibiotics. Exam Vital Signs (past 8 hours): - 01/26/18 05:47 Temperature 97.8 F Pulse Rate 89 Respiratory Rate 16 Blood Pressure 135/60 H Pulse Oximetry 96 Oxygen Delivery Method Room Air Narrative Exam Narrative: Sleepy but resting comfortably in bed when I wake her speaks clearly everything move spontaneously answers questions clearly PERRLA EOM is intact Neck without mass Chest discomfort significantly decreased palpation Lungs clear Cardiovascular exam shows regular rate and rhythm without murmur or S3 Abdomen nontender no masses Extremities without significant edema Neuro is intact to fine touch motor and speech is clear Objective Labs Result Diagrams: 01/26/18 06:01 01/26/18 06:01 Labs: Laboratory Results - last 24 hr 01/25/18 01/26/18 01/26/18 09:30 06:01 06:01 WBC 0.3 L* 0.5 L* D RBC 2.54 L 2.25 L Hgb 8.4 L 7.4 L Hct 24.8 L 21.7 L MCV 97.5 96.7 MCH 33.2 32.7 MCHC 34.1 33.9 RDW 15.0 H 14.8 Plt Count 48 L 39 L Neut % (Auto) TNP Lymph % (Auto) TNP [place] % (Auto) TNP Eos % (Auto) TNP Baso % (Auto) TNP Neut # (Auto) TNP Total Counted TNP Seg Neutrophils % TNP Band Neutrophils % TNP Lymphocytes % (Manual) TNP Atypical Lymphs % TNP Monocytes % (Manual) TNP Eosinophils % (Manual) TNP Basophils % (Manual) TNP Neutrophils # (Manual) TNP Platelet Estimate Decreased on smear RBC Morphology Not Reportable Not Reportable Sodium 138 Potassium 3.6 Chloride 106 Carbon Dioxide 28 BUN 7 Creatinine 0.50 L Estimated GFR > 60.0 BUN/Creatinine Ratio 14.0 Glucose 101 Calcium 8.4 Total Bilirubin 0.2 AST 12 L ALT 21 Alkaline Phosphatase 64 Total Protein 5.4 L Albumin 2.9 L Globulin 2.5 Albumin/Globulin Ratio 1.2 Assessment & Plan Plan: Assessment/Plan Narrative: Assessment 1. For fever in the setting of chemotherapy and neutropenia for metastatic stage IV breast cancer. No clear focus of infection found but patient's WBC had been all the way down to 0.3. It is up to 0.5 this morning no fever today with patient feeling a little bit better. Assessment to metastatic breast cancer stage IV. Has been getting chemotherapy for this on a consistent basis continues to have symptoms Assessment 3 hypertension I have been holding meds in view of the patient's significant hypotension on admission. Will restart her blood pressure medications this morning Assessment for depression largely situational will continue antidepressants. Assessment 5 headache seems improved today doubt that the focus for her dad and presentation with temperature feeling much better at this point just with Tylenol. Does have oxycodone available if increases. Assessment 6 anemia this is worsened some of this I think is really overall marrow fact from an cancer and cancer treatment but some also delusional with her IVs to this point. No evidence of bleeding. Will review with Oncology about whether is patient is to be considered for transfusion. Quality VTE Deep Vein Thrombosis/Pulmonary Embolism Present on Admission: Yes
[2018-01-26] MEDS: valACYclovir 500 MG TABLET 1000 MG PO ×3 (09:28→20:59)
[2018-01-26] MEDS: CITALOPRAM 10 MG TABLET 30 MG PO (09:28)
[2018-01-26] MEDS: METOPROLOL 25 MG TABLET PO ×2 (09:28→20:59)
[2018-01-26] MEDS: FILGRASTIM-SNDZ 300 MCG/0.5 ML SYRINGE SUBCUT (09:28)
[2018-01-26 09:38] VITALS: BP 118/65; PULSE 86; RESP 16; TEMP 36.6; O2SAT 94
[2018-01-26] MEDS: [UNRECOGNIZED DRUG - OTHER] PO ×2 (13:29→21:04)
[2018-01-26] MEDS: LIDOCAINE VISCOUS PO ×2 (13:29→21:04)
[2018-01-26] MEDS: ALUMINUM PO ×2 (13:29→21:04)
[2018-01-26] MEDS: MAG HYDROX PO ×2 (13:29→21:04)
[2018-01-26 14:01] VITALS: BMI 23.4
[2018-01-26 14:16] VITALS: BP 134/46; PULSE 85; RESP 16; TEMP 36.9; O2SAT 93
[2018-01-26 15:30] VITALS: BP 111/65; PULSE 87; RESP 18; TEMP 37.3; O2SAT 92
[2018-01-26 19:17] VITALS: BP 144/55; PULSE 87; RESP 18; TEMP 37.4; O2SAT 95
[2018-01-27] VITALS (9 sets, daily range): BP systolic 104–155; BP diastolic 50–83; PULSE 80–95; RESP 16–18; TEMP 36.7–37.1; O2SAT 93–100
[2018-01-27] MEDS: ZOLPIDEM 5 MG TABLET PO ×2 (00:34→21:51)
[2018-01-27] MEDS: CEFEPIME 2 GM in SODIUM CHLORIDE 0.9% 100 ML 200 ML IV ×3 (03:28→21:50)
[2018-01-27] MEDS: ALPRAZolam 0.25 MG TABLET PO ×2 (03:28→21:51)
--- NOTE | 2018-01-27 04:55 | PC.NURSE ---
Pt is AxOx3, VSS, afebrile, and says she feels much better. Pt is eager to go home. IV ABX continued via port. Reverse isolation maintained. Occult blood stool (Guaiac) is negative. Pt states she always has diarrhea due to having colon cancer and subsequent removal. Pt is independent to bathroom. Voiding well. Prescribed Mouth swabs at bedside utilized. No complaints of pain. Xanax and ambien given. Pt did not sleep for entire shift. Pt's affect is sad but very pleasant and verbalized her home life struggles with her estranged . Emotional support provided.
[2018-01-27] MEDS: PANTOPRAZOLE 20 MG TABLET PO (08:07)
[2018-01-27] MEDS: METOPROLOL 25 MG TABLET PO ×2 (08:08→21:51)
[2018-01-27] MEDS: CITALOPRAM 10 MG TABLET 30 MG PO (08:08)
[2018-01-27] MEDS: valACYclovir 500 MG TABLET 1000 MG PO ×3 (08:09→21:52)
--- NOTE | 2018-01-27 08:47 | PM.PN.1 ---
Subjective Date Patient Seen: 01/27/18 Time Patient Seen: 08:48 Interval history: Patient seemed a little better through the course of yesterday sleepy this morning and did not sleep well through the night. Denies anything hurting except for her mouth. No headache this morning. Breathing well and vital signs look good and even with low oral intake. No abdominal pain no shortness of breath no requiring oxygen Exam Vital Signs (past 8 hours): - 01/27/18 04:30 01/27/18 08:00 Temperature 98.0 F 98.5 F Pulse Rate 87 87 Respiratory Rate 18 16 Blood Pressure 115/61 155/65 H Pulse Oximetry 96 93 Oxygen Delivery Method Room Air Narrative Exam Narrative: ER RLA EOMs intact Neck without mass Chest with right-sided mass is consistent with her metastatic disease Cardiovascular shows regular rate and rhythm Abdomen without mass and nontender Extremities are moving symmetrically sensation and motor intact speech is clear Objective Labs Result Diagrams: 01/26/18 06:01 01/26/18 06:01 Assessment & Plan Plan: Assessment/Plan Narrative: Assessment 1. Fever in a neutropenic Oncology patient. Patient with a stage IV metastatic breast cancer getting chemo that has suppressed her white count is low as 0.3 granulocytes. Currently on granulocyte stimulating factor and low white count is pending for this morning. Continue broad-spectrum antibiotic in view of patient's lack of fever and making some progress in terms of vital signs is taking oral however limited by her mouth sores. Assessment 2. Oral sores think this is a chemotherapy part and also probably a component of her low 0 white cell count. Will continue using the Magic mouthwash and p.o. hydration As assessment 3. Significant anemia medical was lows 21 is yesterday will get today's matter crit and if it is lower than that then may need to consider transfusion. Reviewed this at length with her oncologist yesterday Assessment 4. Insomnia patient has had a terrible time sleeping and will try to improve that and make sure she gets her sleeping medications which include zolpidem and see if she does better tonight Assessment 5. Hypertension patient blood pressure good control at this point will continue with current medications for that. Assessment 6. Depression patient is awfully low spirited pain in which I think is certainly affecting her energy levels at this point will continue with current antidepressants Quality VTE Deep Vein Thrombosis/Pulmonary Embolism Present on Admission: Yes
[2018-01-27] MEDS: FILGRASTIM-SNDZ 300 MCG/0.5 ML SYRINGE SUBCUT (09:14)
[2018-01-27] MEDS: MAG HYDROX PO (09:15)
[2018-01-27] MEDS: [UNRECOGNIZED DRUG - OTHER] PO (09:15)
[2018-01-27] MEDS: ALUMINUM PO (09:15)
[2018-01-27] MEDS: LIDOCAINE VISCOUS PO (09:15)
[2018-01-27 09:42] LABS: Hematocrit 24.7 % (36-46); Hemoglobin 8.7 g/dL (12.0-16.0); Mean Corpuscular HGB Conc 35.3 % (30-36); Mean Corpuscular Hemoglobin 33.6 PG (26-34); Mean Corpuscular Volume 95.1 fL (80-100); Red Cell Distribution Width 14.7 % (11.6-14.8)
[2018-01-27 09:46] LABS: Add Manual Diff / Slide Review YES
[2018-01-27 09:47] LABS: Platelet Count 52 X10^3/uL (150-400); White Blood Cell Count 2.1 X10^3/uL (4.5-11.0)
[2018-01-27 09:48] LABS: Alanine Aminotransferase 20 IU/L (9-52); Albumin 3.6 g/dL (3.5-5.0); Albumin Globulin Ratio 1.3 (1.0-2.8); Alkaline Phosphatase 70 U/L (38-126); Aspartate Aminotransferase 16 IU/L (14-36); Bilirubin Total 0.3 mg/dL (0.2-1.3); Blood Urea Nitrogen 5 mg/dL (7-17); Calcium 9.2 mg/dL (8.4-10.2); Carbon Dioxide 29 mmol/L (22-32); Chloride 101 mmol/L (98-107); Estimated Glomerular Filt Rate > 60.0 mL/min (>60); Globulin 2.7 g/dL (1.7-4.1); Glucose 180 mg/dL (80-110); HEMOLYSIS < 15 (0-50); Potassium 3.2 mmol/L (3.4-5.1); Sodium 139 mmol/L (137-145); Total Protein 6.3 g/dL (6.3-8.2)
[2018-01-27 10:38] LABS: Neutrophils Absolute Manual 1050 /uL (3000-5900); Total Cells Counted 100
--- NOTE | 2018-01-27 12:35 | PC.NURSE ---
Addendum entered by Eloise Devries R.N. 01/27/18 13:20: ACTIVITY - resting comfortably in bed, moving easily independently, now has friend at bedside and is laughing and chatting. Original Note: AM NOTE - awaken easily, standby assist to br, has general feeling malaise, declines any tylenol or pain medication, no nausea, does have mouth sores and finding palatable foods and given lidocaine cocktail, did eat some hot cereal, aware can have po at any time if desired, ra 95%, req shower and after breakfast, digester hand assisted into br and showered, ret to bed, feeling much more comfortable.
[2018-01-27] MEDS: OXYCODONE IR 5 MG TABLET PO ×2 (18:06→21:54)
[2018-01-27] MEDS: AMITRIPTYLINE 75 MG TABLET 150 MG PO (23:25)
[2018-01-27] MEDS: HYDROMORPHONE 4 MG TABLET PO (23:28)
[2018-01-28] MEDS: CEFEPIME 2 GM in SODIUM CHLORIDE 0.9% 100 ML 200 ML IV ×3 (06:26→21:30)
[2018-01-28] MEDS: PANTOPRAZOLE 20 MG TABLET PO (06:26)
[2018-01-28 06:33] VITALS: BP 98/43; PULSE 85; RESP 17; TEMP 36.6; O2SAT 98
--- NOTE | 2018-01-28 06:46 | PC.NURSE ---
Pt is AxOx3, afebrile, vitals are stable. Port is patent. Labs drawn this morning and just sent. Right before my 2300 shift started, pt was having severe pain in her back that was burning and she described as like her bones being on fire. Pt was given pain medications and the pain has not come back since. She received Zofran around that time due to her vomitting once which i suspect is from her low PO intake and the amount of pain meds she received. Pt's Cefepime dose has been rescheduled due to her receiving her one dose late on the previous shift, and i gave her the next dose at the appropriate time interval. Overall patient seems to be doing much better. She slept well throughout the shift. Side Note: {The reassessment to the 4mg Dilaudid dose not allow you to reassess in the computer until about 4hours later for some reason, and I am not able to back time it either. A software issue screen shot was taken.
[2018-01-28 06:54] LABS: Hemoglobin 8.7 g/dL (12.0-16.0); Mean Corpuscular HGB Conc 34.8 % (30-36); Mean Corpuscular Hemoglobin 33.4 PG (26-34); Mean Corpuscular Volume 95.9 fL (80-100); Platelet Count 79 X10^3/uL (150-400); Red Blood Cell Count 2.61 X10^6/uL (4.0-5.2); White Blood Cell Count 7.9 X10^3/uL (4.5-11.0)
[2018-01-28 07:00] LABS: Total Cells Counted 100
[2018-01-28 07:04] LABS: RBC Morphology Normal Morphology
[2018-01-28 07:30] VITALS: BP 87/50; PULSE 85; RESP 17; TEMP 36.7; O2SAT 97
[2018-01-28 07:39] LABS: Neutrophils Absolute Manual 5925 /uL (3000-5900)
[2018-01-28] MEDS: CITALOPRAM 10 MG TABLET 30 MG PO (08:15)
[2018-01-28] MEDS: valACYclovir 500 MG TABLET 1000 MG PO ×3 (08:18→21:29)
[2018-01-28] MEDS: FILGRASTIM-SNDZ 300 MCG/0.5 ML SYRINGE SUBCUT (08:27)
--- NOTE | 2018-01-28 09:09 | P.PN_ITS ---
Subjective Date Patient Seen: 01/28/18 Time Patient Seen: 09:00 Interval history: Patient overall all is feeling better today. Had an episode yesterday she started having back pain. Low back with radiation into the mid back. Pretty constant. Stable. Also had some mild abdominal pain which was a burning also. That resolved after 3-4 minutes. Has had no nausea or vomiting. Really has not had an appetite. A little better today and sealing somewhat better. No other significant change. Exam Vital Signs (past 8 hours): - 01/28/18 06:33 01/28/18 07:30 Temperature 97.8 F 98.1 F Pulse Rate 85 85 Respiratory Rate 17 17 Blood Pressure 98/43 L 87/50 L Pulse Oximetry 98 97 Oxygen Delivery Method Room Air Narrative Exam Narrative: Alert fatigued-appearing female in no acute distress. Mucous membranes moist. Neck is supple without adenopathy. Lungs are clear. Heart regular rate and rhythm without murmurs clicks rubs or gallops. Abdomen is soft positive bowel sounds nontender. Extremities without cyanosis clubbing edema. No definitive tenderness in the lower back. Objective Labs Result Diagrams: 01/28/18 06:30 01/27/18 09:15 Labs: Laboratory Results - last 24 hr 01/27/18 01/27/18 01/28/18 09:15 09:15 06:30 WBC 2.1 L D 7.9 D RBC 2.60 L 2.61 L Hgb 8.7 L 8.7 L Hct 24.7 L 25.0 L MCV 95.1 95.9 MCH 33.6 33.4 MCHC 35.3 34.8 RDW 14.7 15.0 H Plt Count 52 L 79 L Neut % (Auto) Not Reportable Lymph % (Auto) Not Reportable [place] % (Auto) Not Reportable Eos % (Auto) Not Reportable Baso % (Auto) Not Reportable Total Counted 100 100 Seg Neutrophils % 50.0 61.0 Band Neutrophils % 14.0 H Lymphocytes % (Manual) 26.0 18.0 L Atypical Lymphs % 3.0 H 1.0 H Monocytes % (Manual) 8.0 4.0 Eosinophils % (Manual) 4.0 Basophils % (Manual) 3.0 H Metamyelocytes % 4.0 H 1.0 H Myelocytes % 2.0 H 1.0 H Neutrophils # (Manual) 1050 L 5925 H RBC Morphology Not Reportable Normal morphology Sodium 139 Potassium 3.2 L Chloride 101 Carbon Dioxide 29 BUN 5 L Creatinine 0.50 L Estimated GFR > 60.0 BUN/Creatinine Ratio 10.0 Glucose 180 H Calcium 9.2 Total Bilirubin 0.3 AST 16 ALT 20 Alkaline Phosphatase 70 Total Protein 6.3 Albumin 3.6 Globulin 2.7 Albumin/Globulin Ratio 1.3 Assessment & Plan Plan: Assessment/Plan Narrative: Fever with neutropenia. Clearly secondary to chemo. No further fevers. White count is improved. Absolute neutrophil count greater than 5000. Will discontinue medication. Continue antibiotics for 24 hr. Switch to orals tomorrow. Possible discharge on Tuesday. Anemia secondary to chemotherapy. No evidence of GI loss. Otherwise stable. Do not think we have to give transfusion now. Will recheck in morning. Hypokalemia. Will give oral replacement recheck tomorrow. Thrombocytopenia. Also probably due to chemotherapy complication. Stable at this time. Metastatic breast cancer. Stage IV. With metastasis to bone. Multiple locations. Seems to be stable. As per oncologist. Back pain new. Could be multiple issues. I do not think we have to take an x- ray. Previous CT scan did show an iliac lesion. If persistent will need to repeat x-rays. She understands. Will see how the day goes. Continue Dilaudid for pain. Abdominal pain. Brief episode. Seems to be stable follow. Decreased appetite. Major issue but not much we can do about it won't courage eating and follow. Hypertension. Stable. Depression. Stable. Oral sores. Seems to be stable. Disposition. Hopefully home in 48 hr. Quality VTE Deep Vein Thrombosis/Pulmonary Embolism Present on Admission: Yes
[2018-01-28 10:00] LABS: Add Manual Diff / Slide Review NO; Basophils Percent Auto 0.3 % (0-2); Eosinophils Percent Auto 0.5 % (2-4); Hemoglobin 8.2 g/dL (12.0-16.0); Lymphocytes Percent Auto 9.9 % (25-40); Mean Corpuscular HGB Conc 34.3 % (30-36); Mean Corpuscular Hemoglobin 33.1 PG (26-34); Mean Corpuscular Volume 96.5 fL (80-100); Monocytes Percent Auto 11.5 % (3-14); Neutrophils Absolute Auto 5400 /uL (3000-5900); Neutrophils Percent Auto 77.8 % (50-75); Platelet Count 79 X10^3/uL (150-400); Red Blood Cell Count 2.48 X10^6/uL (4.0-5.2); Red Cell Distribution Width 14.6 % (11.6-14.8); White Blood Cell Count 6.9 X10^3/uL (4.5-11.0)
[2018-01-28 10:09] LABS: BUN Creatinine Ratio 12.9 (6-22); Blood Urea Nitrogen 9 mg/dL (7-17); Calcium 8.9 mg/dL (8.4-10.2); Carbon Dioxide 28 mmol/L (22-32); Chloride 104 mmol/L (98-107); Estimated Glomerular Filt Rate > 60.0 mL/min (>60); Glucose 138 mg/dL (80-110); HEMOLYSIS < 15 (0-50); Potassium 3.3 mmol/L (3.4-5.1); Sodium 139 mmol/L (137-145)
--- NOTE | 2018-01-28 10:16 | CM.DPC ---
DCP Update: Pt's labs are improving. Per MD pt will need another 48hr. In talking with pt states is tired. PATRICK signed. Plan: Home when stable. Bertin Shaffer RN
[2018-01-28 11:25] VITALS: BP 101/53
[2018-01-28 12:40] VITALS: BP 107/48; PULSE 95; RESP 20; TEMP 37.1; O2SAT 95
--- NOTE | 2018-01-28 14:21 | PC.NURSE ---
Pt has slept most this shift, Has been oob indep BRP. Voiding. Ate meals. Denies pain.No c/o.
[2018-01-28 16:07] VITALS: BP 105/44; PULSE 83; RESP 16; TEMP 36.8; O2SAT 94
[2018-01-28] MEDS: HYDROMORPHONE 4 MG TABLET PO ×2 (17:16→21:33)
[2018-01-28] MEDS: POTASSIUM CHLORIDE 20 MEQ TAB PO (17:18)
[2018-01-28] MEDS: METOPROLOL 25 MG TABLET PO (21:29)
[2018-01-28] MEDS: AMITRIPTYLINE 75 MG TABLET 150 MG PO (21:30)
[2018-01-28] MEDS: ZOLPIDEM 5 MG TABLET PO (21:33)
[2018-01-28 21:53] VITALS: BP 148/77; PULSE 106; RESP 16; TEMP 37.1; O2SAT 97
[2018-01-29] VITALS (7 sets, daily range): BP systolic 126–150; BP diastolic 41–85; PULSE 71–79; RESP 15–18; TEMP 36.6–37.2; O2SAT 94–98
[2018-01-29] MEDS: CEFEPIME 2 GM in SODIUM CHLORIDE 0.9% 100 ML 200 ML IV (06:14)
[2018-01-29] MEDS: PANTOPRAZOLE 20 MG TABLET PO (06:14)
--- NOTE | 2018-01-29 06:17 | PC.NURSE ---
Pt slept well throughout entire shift. Port is clean and patent. No complaints of pain. IV ABX continued as ordered, PO ABX not ordered yet.
[2018-01-29] MEDS: CITALOPRAM 10 MG TABLET 30 MG PO (09:35)
[2018-01-29] MEDS: POTASSIUM CHLORIDE 20 MEQ TAB PO ×2 (09:35→16:20)
[2018-01-29] MEDS: valACYclovir 500 MG TABLET 1000 MG PO ×3 (09:36→20:57)
[2018-01-29] MEDS: METOPROLOL 25 MG TABLET PO ×2 (09:36→20:57)
[2018-01-29] MEDS: LIDOCAINE VISCOUS PO (09:39)
[2018-01-29] MEDS: MAG HYDROX PO (09:39)
[2018-01-29] MEDS: ALUMINUM PO (09:39)
[2018-01-29] MEDS: [UNRECOGNIZED DRUG - OTHER] PO (09:39)
--- NOTE | 2018-01-29 10:51 | PM.PN.1 ---
Subjective Date Patient Seen: 01/29/18 Time Patient Seen: 10:52 Interval history: Patient with some back pain today but otherwise feeling well. Somewhat anxious. No other significant changes. White count was not drawn this morning. No other changes. Exam Vital Signs (past 8 hours): - 01/29/18 06:36 01/29/18 08:20 Temperature 97.9 F 98.1 F Pulse Rate 78 78 Respiratory Rate 18 18 Blood Pressure 146/56 H 144/41 H Pulse Oximetry 98 96 Oxygen Delivery Method Room Air Oxygen Flow Rate 0 Narrative Exam Narrative: Alert female no acute distress. Lungs are clear. Heart regular rate and rhythm. Abdomen is benign. Back shows no definitive tenderness. Objective Labs Result Diagrams: 01/28/18 09:45 01/28/18 09:45 Assessment & Plan Plan: Assessment/Plan Narrative: Fever with neutropenia. Clearly secondary to chemo. Seems to be improved. No further fevers. Will switch to p.o. medicines today. If stable will discharge tomorrow. White count pending this morning. Anemia secondary to chemotherapy. Overall stable. Will watch. Hypokalemia. Replaced yesterday. Will follow up in a.m.. Hopefully will not have to go home on medication. Thrombocytopenia. Has been stable. Almost certainly secondary to chemotherapy. Will follow up a.m.. Metastatic breast cancer. Overall she seems to be stable. Somewhat depressed today about her situation. We had long discussion about that will follow. Back pain could be metastatic disease. We discussed x-rays. She does not want to do that at this time. We will see how the next 24 hr goes. Hypertension. Stable. Depression. Difficult situation. But overall she seems to be doing well. Oral sores. Continue current treatment. Disposition. Hopefully discharge tomorrow. Quality VTE Deep Vein Thrombosis/Pulmonary Embolism Present on Admission: Yes
[2018-01-29 11:14] LABS: Hematocrit 23.3 % (36-46); Mean Corpuscular HGB Conc 34.4 % (30-36); Mean Corpuscular Hemoglobin 33.2 PG (26-34); Mean Corpuscular Volume 96.5 fL (80-100); Platelet Count 115 X10^3/uL (150-400); Red Blood Cell Count 2.41 X10^6/uL (4.0-5.2); Red Cell Distribution Width 14.8 % (11.6-14.8); White Blood Cell Count 7.6 X10^3/uL (4.5-11.0)
--- NOTE | 2018-01-29 11:14 | CM.DPC ---
DCP Cont: Patient here for complications post chemo, Neutropenia. Is changing to oral medications today. P: Is to potentially discharge tomorrow, and will go home. Tootie Ortiz RN/[facility]
[2018-01-29 11:18] LABS: Add Manual Diff / Slide Review YES
[2018-01-29 11:40] LABS: Dohle Bodies 1+; Neutrophils Absolute Manual 5244 /uL (3000-5900); Total Cells Counted 100
[2018-01-29 11:42] LABS: Anisocytosis 1+
[2018-01-29] MEDS: SODIUM CHLORIDE 0.9% FLUSH 10 ML IV (11:43)
[2018-01-29] MEDS: cefUROXime 250 MG TABLET 500 MG PO ×2 (11:43→20:56)
[2018-01-29] MEDS: AMITRIPTYLINE 75 MG TABLET 150 MG PO (20:56)
[2018-01-29] MEDS: OXYCODONE IR 5 MG TABLET PO (20:57)
[2018-01-30 05:15] VITALS: BP 126/66; PULSE 73; RESP 15; TEMP 36.7; O2SAT 95
[2018-01-30 05:23] VITALS: BP 126/66; PULSE 73; RESP 15; TEMP 36.7; O2SAT 95
[2018-01-30] MEDS: CITALOPRAM 10 MG TABLET 30 MG PO (07:44)
[2018-01-30] MEDS: PANTOPRAZOLE 20 MG TABLET PO (07:45)
[2018-01-30] MEDS: cefUROXime 250 MG TABLET 500 MG PO (07:46)
[2018-01-30] MEDS: METOPROLOL 25 MG TABLET PO (07:46)
[2018-01-30] MEDS: POTASSIUM CHLORIDE 20 MEQ TAB PO (07:46)
[2018-01-30] MEDS: valACYclovir 500 MG TABLET 1000 MG PO (07:47)
[2018-01-30] MEDS: LIDOCAINE VISCOUS PO (08:04)
[2018-01-30] MEDS: [UNRECOGNIZED DRUG - OTHER] PO (08:04)
[2018-01-30] MEDS: ALUMINUM PO (08:04)
[2018-01-30] MEDS: MAG HYDROX PO (08:04)
[2018-01-30 08:18] VITALS: BP 130/73; PULSE 70; RESP 16; TEMP 36.7; O2SAT 97
--- NOTE | 2018-01-30 08:37 | PM.DS.1 ---
History of Present Illness Chief complaint: FEVER, CANCER PATIENT Narrative: Patient 7-year-old female with long history of metastatic cultures are pending and will continue granulocyte colony-stimulating factor injections have per Oncology. Continue with broad-spectrum IV anti biotic coverage at this point. Patient is maintaining blood pressure without complication and oxygen saturations are adequate. Discharge Providers Date of admission: 01/24/18 19:38 Primary care physician: Terrence Benedict MD Consults: 01/24/18 19:03 Consult to Physician Routine Comment: Consulting Provider: Terrence Benedict Reason for consultation: admission Has provider been notified: No Discharge provider: Terrence Benedict MD Summary Discharge Diagnosis: Diagnosis 1. Metastatic stage IV breast cancer Diagnosis 2. Granulocytopenia with fever Diagnosis 3. Depression stable during this admit Diagnosis 4. Hypertension Diagnosis 5. Anemia Diagnosis 6. Hypokalemia Diagnosis 7. Thrombocytopenia Hospital Course: Patient admitted with fever extremely low white blood cell count. White count was 0.3 cultured and initiated on broad-spectrum antibiotics and had negative growth on cultures. Reviewed this with Oncology who agrees that her current chemo regimen is not tolerable for her given the repetitive nature of this granulocytopenia and fever combination. Head patient improved in terms of fever white count blood pressure over the course of almost a week. Continues to be weak but this is underlying Oncology issue with potentially new lesions arising. Biopsy results pending for chest lesions. My concern is that she is just so weak that she has give this progresses and continues she will be a distinct risk for falls and seems to be in very fracture about respect to her metastatic disease. Status at Discharge Cognitive/behavioral status at discharge: The patient is cognitively functional she is tired but is at her baseline and. Dealing with depression concurrently. Functional status at discharge: independent ambulation Overall status at discharge: patient is back to baseline Time Spent with Patient Greater than 30 minutes Exam Vital Signs (past 8 hours): - 01/30/18 05:15 01/30/18 05:23 01/30/18 08:18 Temperature 98.1 F 98.1 F 98.1 F Pulse Rate 73 73 70 Respiratory Rate 15 15 16 Blood Pressure 126/66 H 126/66 H 130/73 H Pulse Oximetry 95 95 97 Oxygen Delivery Method Room Air Oxygen Flow Rate 0 Narrative Exam Narrative: Patient weak and pale again I think the baseline state for her diffuse metastatic disease and a chemo treatment PERRLA EOMs intact Neck without mass or thyromegaly Lungs clear to auscultation Cardiovascular shows regular rate and rhythm 1/6 systolic murmur no edema blood pressure and pulse stable Abdomen without hepatosplenomegaly or mass soft nontender the coulee nauseous with pressure Back without significant lesions such chest wall has some small lumps long right side most recent biopsy I can find this month showed negative for cancer Skin without significant rashes. Obvious chemo so she had hair loss Psych patient is fairly profoundly depressed as is completely appropriate for her circumstance and she is emotionally exhausted. Current antibiotics are ischemia or depressions likely to have much impact needs family support and coarse recent course has disrupted for portion of that. Patient still continues to not be suicidal Objective Labs Result Diagrams: 01/29/18 11:00 01/28/18 09:45 Labs: Laboratory Results - last 24 hr 01/29/18 11:00 WBC 7.6 RBC 2.41 L Hgb 8.0 L Hct 23.3 L MCV 96.5 MCH 33.2 MCHC 34.4 RDW 14.8 Plt Count 115 L Neut % (Auto) Not Reportable Lymph % (Auto) Not Reportable [place] % (Auto) Not Reportable Eos % (Auto) Not Reportable Baso % (Auto) Not Reportable Total Counted 100 Seg Neutrophils % 52.0 Band Neutrophils % 17.0 H Lymphocytes % (Manual) 11.0 L Atypical Lymphs % 3.0 H Monocytes % (Manual) 6.0 Metamyelocytes % 8.0 H Myelocytes % 3.0 H Neutrophils # (Manual) 5244 Dohle Bodies 1+ H RBC Morphology Not Reportable Anisocytosis 1+ H Discharge Plan Discharge Plan Patient Disposition: Home, Self-Care Provider Discharge Instructions Diet: Diet as Tolerated Discharge Data Primary Care Provider: Terrence Benedict Attending Provider: Dayton García Admit Date/Time: 01/24/18 19:38 Quality VTE Deep Vein Thrombosis/Pulmonary Embolism Present on Admission: Yes
[2018-01-30 10:58] VITALS: BP 143/72; PULSE 67; RESP 15; TEMP 36.8; O2SAT 97
--- NOTE | 2018-01-30 12:12 | CM.DPC ---
Addendum entered by JEFE Christianson 01/30/18 14:37: ADD: SW still waiting for signed F2F but called pt's home and left msg regarding likely [facility] to open pt to services and left [facility] phone number and referred pt to call Dr. Benedict office if any further concerns arise. BF Original Note: Addendum entered by JEFE Christianson 01/30/18 14:09: ADD: SW received a call from Dr. Benedict stating that he did discharge the pt home today but after final discussion pt and MD feel HH needed for additional support. MEAGAN faxed F2F to Dr. Benedict to sign and fax back and MD approved SW to place HH order in the computer. MEAGAN called [facility] and both currently do not accept pt's [facility]. MEAGAN called [facility] with new referral and Carmelina faxed clinicals, HH orders, d/c summ to [facility] to review and confirm that they are covered under her insurance. MEAGAN waiting for signed F2F to fax to [facility] . BF Original Note: DCP Discharge Home Per MD, pt is medically stable to d/c home today with family support and no identified barriers to discharge. Plan: Patient to d/c home today with no SW needs at this time for d/c planning and pt will follow up with Oncology and Oncology SW for onging support. JEFE Christianson
[2018-01-30 13:18] LABS: Hematocrit 27.6 % (36-46); Hemoglobin 9.5 g/dL (12.0-16.0); Mean Corpuscular HGB Conc 34.3 % (30-36); Mean Corpuscular Hemoglobin 32.9 PG (26-34); Platelet Count 180 X10^3/uL (150-400); Red Blood Cell Count 2.88 X10^6/uL (4.0-5.2); Red Cell Distribution Width 15.1 % (11.6-14.8); White Blood Cell Count 6.3 X10^3/uL (4.5-11.0)
[2018-01-30 13:23] LABS: Add Manual Diff / Slide Review YES
[2018-01-30 13:35] LABS: Blood Urea Nitrogen 8 mg/dL (7-17); Calcium 9.2 mg/dL (8.4-10.2); Carbon Dioxide 26 mmol/L (22-32); Chloride 106 mmol/L (98-107); Estimated Glomerular Filt Rate > 60.0 mL/min (>60); Glucose 143 mg/dL (80-110); HEMOLYSIS < 15 (0-50); Potassium 3.9 mmol/L (3.4-5.1); Sodium 141 mmol/L (137-145)
--- NOTE | 2018-01-30 13:46 | PC.NURSE ---
Pt continues to be afebrile, c/o general malaise, eager to D/c home. Dr Benedict into see Pt, d/c orders written. Port deaccessed, labs sent, Pt to w/c and private vehicle.
[2018-01-30 14:06] LABS: Neutrophils Absolute Manual 4284 /uL (3000-5900); Nucleated Red Blood Cells 2 #/Diff; Total Cells Counted 100
[2018-01-30 14:07] LABS: Anisocytosis 1+
--- NOTE | 2018-03-14 11:23 | ONC.NAV ---
Description: Returned T/C Activity: Left message for pt re: her call yesterday. Pt had called expressing feeling very distressed about what she described as increased difficulty with memory/retention/chemo brain. Encouraged pt to call back and process what's happening with her.
== END 2018-01-30 13:48 | disposition home health service (06) | DRG 809 ==
LOC: ED 19:03 → AC 19:39
PROVIDERS: Family Medicine; Admitting Provider Family Medicine; Emergency Provider Emergency Medicine; Family Provider Family Medicine; PCP Family Medicine; Visit Provider Family Medicine
DX: D70.1 Agranulocytosis secondary to cancer chemotherapy (principal); C79.89 Secondary malignant neoplasm of other specified sites; C79.51 Secondary malignant neoplasm of bone; D61.810 Antineoplastic chemotherapy induced pancytopenia; C50.919 Malignant neoplasm of unspecified site of unspecified female breast; F32.9 Major depressive disorder, single episode, unspecified; Z85.038 Personal history of other malignant neoplasm of large intestine; Z87.891 Personal history of nicotine dependence; I10 Essential (primary) hypertension; E87.6 Hypokalemia; M54.9 Dorsalgia, unspecified; D64.81 Anemia due to antineoplastic chemotherapy
CPT/HCPCS: 36415; 36591; 71045; 80048; 80053; 81003; 85025; 87040; 93005; 96374; 99282; 99284; J0692; J1642; Q5101

== ENCOUNTER → 2018-05-02 09:20 | Outpatient (CLI) | payer OTHER, MEDICARE, SELFPAY ==
--- NOTE | 2018-05-02 10:17 | DI.CT.S_ITS ---
PROCEDURE: CT CHEST ABD PEL W CON INDICATIONS: follow up, surveillance TECHNIQUE: After the administration of oral and intravenous contrast, 5 mm thick sections acquired from the lung apices to the symphysis. 5 mm coronal and sagittal reformats were performed, with additional 7 mm coronal MIP reformats through the lungs. For radiation dose reduction, the following was used: automated exposure control, adjustment of mA and/or kV according to patient size. COMPARISON: [facility], CT, CT CHEST ABD PEL W CON, 11/04/2017, 11:57. FINDINGS: Image quality: Excellent. CHEST: Lungs and pleura: Scarring in the anterior medial aspect of right upper and middle lobe is again seen. Scarring/atelectasis in anterior aspect of left lung base is also seen. No pleural effusions or pneumothorax. Central and peripheral airways appear patent and normal in caliber. Mediastinum: Heart size is normal. No pericardial effusion. No mediastinal or hilar adenopathy by size criteria. Thoracic aorta and central pulmonary arteries are normal in size. Esophagus is normal in caliber. No hiatal hernia. Chest wall: No axillary or supraclavicular adenopathy by size criteria. Post surgical changes are again noted in bilateral axilla. There is prior bilateral mastectomy. Thyroid gland is within normal limits. Left chest wall Port-A-Cath tip is in SVC. ABDOMEN: Solid organs: Liver is normal in size and enhancement. Gallbladder is within normal limits. Biliary system is non dilated. Pancreas enhances normally. Spleen is normal in size and enhancement. No adrenal nodules. Kidneys demonstrate normal size and enhancement, without hydronephrosis. Peritoneum and bowel: Bowel loops demonstrate normal wall thickness and caliber. No free fluid or air. Post colectomy changes with ileocolic anastomosis is again seen and unchanged. Nodes and vessels: No retroperitoneal or mesenteric adenopathy by size criteria. Aorta and inferior vena cava are normal in size. Miscellaneous: No ventral hernias. PELVIS: Genitourinary: Bladder wall thickness is normal. Miscellaneous: No inguinal hernias or adenopathy. Bones: Previously described 11 mm sclerotic lesion involving left sacral wing is unchanged in size or appearance. Asymmetric sclerotic lesion involving the right scapular spine and acromion is again seen and unchanged. No gross new suspicious bony lesion is seen. No vertebral body compression fractures. IMPRESSION: 1. No significant changes from 11/04/2017 study. No new metastatic disease is seen in chest, abdomen or pelvis. 2. Stable sclerotic metastatic disease involving right scapular spine and acromion. Stable 1.1 cm partially sclerotic lesion in left sacral wing. No new suspicious bony lesion is seen. Dictated by: Davin Alcala M.D. on 05/02/2018 at 12:25 Approved by: Davin Alcala M.D. on 05/02/2018 at 12:33
== END ==
PROVIDERS: Family Provider Family Medicine; PCP Family Medicine
DX: C50.919 Malignant neoplasm of unspecified site of unspecified female breast (principal)
CPT/HCPCS: 71260; 74177; Q9967

== ENCOUNTER → 2018-07-12 16:18 | Outpatient (REF) | payer OTHER, SELFPAY | LOC: LAB 16:18 | PROVIDERS: Family Provider Family Medicine; PCP Family Medicine; Visit Provider Family Medicine | DX: J02.9 Acute pharyngitis, unspecified (principal); Z28.03 Immunization not carried out because of immune compromised state of patient | CPT/HCPCS: 87070 ==

== ENCOUNTER → 2018-08-22 09:28 | Outpatient (CLI) | payer OTHER, SELFPAY ==
--- NOTE | 2018-08-22 10:05 | DI.CT.S_ITS ---
PROCEDURE: CT CHEST ABD PEL W CON INDICATIONS: check response to treatment, breast ca TECHNIQUE: After the administration of oral and intravenous contrast, 5 mm thick sections acquired from the lung apices to the symphysis. 5 mm coronal and sagittal reformats were performed, with additional 7 mm coronal MIP reformats through the lungs. For radiation dose reduction, the following was used: automated exposure control, adjustment of mA and/or kV according to patient size. COMPARISON: [facility], CT, CT CHEST ABD PEL W CON, 05/02/2018, 10:17. [facility], CT, CT CHEST ABD PEL W CON, 11/04/2017, 11:57. [facility], CT, CHEST/ABDOMEN WITH CONTRAST, 02/18/2015, 9:21. [facility], CT, CHEST/ABD/PEL WITH CONTRAST, 10/29/2016, 10:03. [facility], CT, ABDOMEN/PELVIS WITH CONTRAST, 11/08/2009, 19:36. FINDINGS: Image quality: Excellent. CHEST: Lungs and pleura: No acute airspace opacities. No pleural effusions or pneumothorax. Central and peripheral airways appear patent and normal in caliber. Mediastinum: Heart size is normal. No pericardial effusion. No mediastinal or hilar adenopathy by size criteria. Thoracic aorta and central pulmonary arteries are normal in size. Esophagus is normal in caliber. There is a small hiatal hernia. Chest wall: No axillary or supraclavicular adenopathy by size criteria. Thyroid gland demonstrates no significant CT abnormality. Postoperative changes are seen, with mastectomy and axillary dissections. There is a left-sided chest port is seen, with the tip within the mid superior vena cava. ABDOMEN: Solid organs: Liver is normal in size and enhancement. Incidental note is made of focal fatty infiltration adjacent to the falciform ligament, which is not regarded to be pathologic. Gallbladder wall does not appear thickened. Biliary system is non dilated. Pancreas enhances normally. Spleen is normal in size and enhancement. There is a subcentimeter presumed splenic cyst is seen along the posterior aspect of the spleen, as before. No adrenal nodules. Kidneys demonstrate normal size and enhancement, without hydronephrosis. Peritoneum and bowel: Anastomotic staple lines are seen involving the rectosigmoid region as well as the right lower quadrant of the abdomen. The majority of the colon has been resected. Bowel loops demonstrate normal wall thickness and caliber. No free fluid or air. Nodes and vessels: No retroperitoneal or mesenteric adenopathy by size criteria. Aorta and inferior vena cava are normal in size. Miscellaneous: No ventral hernias. PELVIS: Genitourinary: Bladder wall thickness is normal. Miscellaneous: No inguinal hernias or adenopathy. Bones: Stable sclerosis is seen involving the right scapula, as before. There is an additional focus of sclerosis involving the iliac wing, adjacent to the sacroiliac joint, as before. No definite additional suspicious bony lesions are seen. Degenerative changes are seen throughout, which are most prominent involving the lumbar spine. Mild levoconvex scoliotic curvature is noted. No acute vertebral body compression fractures. IMPRESSION: Mastectomy changes are seen with axillary lymph node dissection. Stable sclerosis of the right scapula and the left medial ilium, which is attributed to treated metastatic disease. Colectomy with ileocolic anastomosis. Incidental note is made of: Left-sided chest port Dictated by: Marko Murphy M.D. on 08/22/2018 at 12:02 Approved by: Marko Murphy M.D. on 08/22/2018 at 12:09
== END ==
PROVIDERS: PCP Family Medicine; Visit Provider Nurse Practitioner Gerontology
DX: C50.919 Malignant neoplasm of unspecified site of unspecified female breast (principal)
CPT/HCPCS: 71260; 74177; Q9967

== ENCOUNTER → 2018-11-29 08:57 | Outpatient (CLI) | payer OTHER, SELFPAY ==
--- NOTE | 2018-11-29 08:58 | DI.CT.S_ITS ---
PROCEDURE: CT CHEST ABD PEL W CON INDICATIONS: f/u breast cancer TECHNIQUE: After the administration of oral and intravenous contrast, 5 mm thick sections acquired from the lung apices to the symphysis. 5 mm coronal and sagittal reformats were performed, with additional 7 mm coronal MIP reformats through the lungs. For radiation dose reduction, the following was used: automated exposure control, adjustment of mA and/or kV according to patient size. COMPARISON: [facility], CT, CT CHEST ABD PEL W CON, 08/22/2018, 10:18. [facility], CT, CT CHEST ABD PEL W CON, 11/04/2017, 11:57. [facility], CT, CT CHEST ABD PEL W CON, 05/02/2018, 10:17. [facility], CT, CHEST/ABD/PEL WITH CONTRAST, 10/29/2016, 10:03. [facility], CT, CHEST/ABDOMEN WITH CONTRAST, 02/18/2015, 9:21. FINDINGS: Image quality: Diagnostic CHEST: Lungs and pleura: No acute airspace opacities. Stable right middle lobe scarring can be seen medially. No pleural effusions or pneumothorax. Central and peripheral airways appear patent and normal in caliber. Mediastinum: Heart size is normal. No pericardial effusion. No mediastinal or hilar adenopathy by size criteria. Thoracic aorta and central pulmonary arteries are normal in size. Esophagus is normal in caliber. There is a small hiatal hernia. Chest wall: No axillary or supraclavicular adenopathy by size criteria. Thyroid gland demonstrates no significant CT abnormality. Bilateral mastectomy changes are seen. Right axillary clips are seen. There is a left-sided chest port is seen, with the tip within the inferior aspect of the superior vena cava. ABDOMEN: Solid organs: Liver is normal in size and enhancement. There is a poorly enhancing lesion seen involving the posterior right liver, as on series 2 image 53 that measures 1.4 cm. This is more pronounced than on the prior CT dated 08/22/18 and is new compared to the 05/02/18 CT examination. Gallbladder wall is not thickened. Biliary system is non dilated. Pancreas enhances normally. Spleen is normal in size and enhancement. No adrenal nodules. Kidneys demonstrate normal size and enhancement, without hydronephrosis. Peritoneum and bowel: Bowel loops demonstrate normal wall thickness and caliber. No free fluid or air. Nodes and vessels: No retroperitoneal or mesenteric adenopathy by size criteria. Aorta and inferior vena cava are normal in size. Miscellaneous: No ventral hernias. PELVIS: Genitourinary: Bladder wall thickness is normal. This patient is status post hysterectomy. No adnexal masses are seen. Miscellaneous: No inguinal hernias or adenopathy. Bones: Stable sclerosis is seen involving the right scapula, including the acromion. A stable focus of sclerosis can be seen involving the left sacrum and there is a stable focus of sclerosis involving the left iliac wing medially. Faint sclerotic foci can also be seen within the thoracic and lumbar spine vertebral bodies, which are similar to prior CTs. No definite foci of sclerosis can be seen. No vertebral body compression fractures. IMPRESSION: There is a new focus of poor enhancement involving the right posterior liver, which is suspicious for metastatic disease. Please consider a dedicated liver protocol MRI (without and with contrast) for further evaluation (assuming that there is no contraindication). Stable mastectomy changes and right axillary clips. Stable sclerotic foci are seen. Incidental note is made of: Stable right middle lobe scarring Small hiatal hernia Left-sided chest port. Hysterectomy Dictated by: Marko Murphy M.D. on 11/29/2018 at 14:27 Approved by: Marko Murphy M.D. on 11/29/2018 at 14:36
--- NOTE | 2018-11-29 08:58 | DI.MRI.S_ITS ---
PROCEDURE: MR HEAD/BRAIN WO/W CON INDICATIONS: breast cancer, eval for mets TECHNIQUE: Noncontrast axial T1 spin echo, axial T2 fast spin echo, sagittal and axial FLAIR, coronal T2 fast spin echo, axial gradient echo, axial diffusion and ADC through the brain. After the administration of contrast, axial and coronal T1 spin echo with fat saturation through the brain. COMPARISON: [facility], MR, NBATT-LEPG-BPNJ W&WO CONTRAST, 05/19/2010, 11:25. [facility], MR, STROKE PROTOCOL, 03/27/2014, 15:23. [facility], MR, BRAIN W&WO CONTRAST, 05/10/2016, 7:15. [facility], CT, CT CHEST ABD PEL W CON, 11/29/2018, 10:28. FINDINGS: Image quality: Excellent. CSF spaces: Basal cisterns are patent. No extra-axial fluid collections. Ventricles are normal in size and shape. Brain: No midline shift. No intracranial bleeds or masses. No abnormal intracranial enhancement. There is cerebral volume loss for age. There is periventricular white matter chronic small vessel ischemic change. The brainstem appears normal. Diffusion-weighted images demonstrate no acute ischemic insults. No chronic ischemic insults. Normal intravascular flow voids are present. Skull and face: Calvarial marrow is normal in signal. Orbits appear normal. Sinuses: Sinuses and mastoids appear clear. IMPRESSION: No masses or abnormal enhancement can be seen. Dictated by: Marko Murphy M.D. on 11/29/2018 at 10:50 Approved by: Marko Murphy M.D. on 11/29/2018 at 10:52
== END ==
PROVIDERS: Family Provider Family Medicine; PCP Family Medicine
DX: C50.919 Malignant neoplasm of unspecified site of unspecified female breast (principal); C79.51 Secondary malignant neoplasm of bone; K76.9 Liver disease, unspecified; K44.9 Diaphragmatic hernia without obstruction or gangrene
CPT/HCPCS: 70553; 71260; 74177; A9579; Q9967

== ENCOUNTER → 2019-02-16 08:35 | Outpatient (CLI) | payer OTHER, SELFPAY ==
--- NOTE | 2019-02-16 09:36 | DI.CT.S_ITS ---
PROCEDURE: CT CHEST ABD PEL W CON INDICATIONS: breast cancer staging TECHNIQUE: After the administration of oral and intravenous contrast, 5 mm thick sections acquired from the lung apices to the symphysis. 5 mm coronal and sagittal reformats were performed, with additional 7 mm coronal MIP reformats through the lungs. For radiation dose reduction, the following was used: automated exposure control, adjustment of mA and/or kV according to patient size. COMPARISON: [facility], [place], [place] CT FUSION SKULL 2 THIGH, 11/23/2017, 14:26. [facility], CT, CHEST/ABD/PEL WITH CONTRAST, 10/29/2016, 10:03. [facility], CT, CT CHEST ABD PEL W CON, 11/29/2018, 10:28. [facility], CT, CT CHEST ABD PEL W CON, 08/22/2018, 10:18. FINDINGS: Image quality: Excellent. CHEST: Lungs and pleura: No acute airspace opacities. Linear scarring within the mid and lower lungs bilaterally is mild and stable over time. No pleural effusions or pneumothorax. Central and peripheral airways appear patent and normal in caliber. Mediastinum: Heart size is normal. No pericardial effusion. No mediastinal or hilar adenopathy by size criteria. Thoracic aorta and central pulmonary arteries are normal in size. Esophagus is normal in caliber. No hiatal hernia. Chest wall: No axillary or supraclavicular adenopathy by size criteria. Thyroid gland appears normal where well seen. Multiple surgical clips, bilateral mastectomy is suspected. ABDOMEN: Solid organs: Liver is normal in size and enhancement except for the presence of 2 hypodensities worrisome for representing metastatic disease. The first is very subtle, superior within the right hepatic lobe, and abutting the undersurface of the dome of the diaphragm seen on series 2 image 42, measuring slightly under 1 cm in maximal dimension with subtle heterogeneity of contrast enhancement. A more evident lesion has a high likelihood of representing malignancy located within the middle third of the liver parenchyma posterior right hepatic segment, measuring 2.8 cm and best seen centered on series 2 image 54. Gallbladder appears normal. Biliary system is non dilated. Pancreas enhances normally. Spleen is normal in size and enhancement. No adrenal nodules. Kidneys demonstrate normal size and enhancement, without hydronephrosis. Peritoneum and bowel: Bowel loops demonstrate normal wall thickness and caliber. No free fluid or air. Nodes and vessels: No retroperitoneal or mesenteric adenopathy by size criteria. Aorta and inferior vena cava are normal in size. Miscellaneous: No ventral hernias. There is mild heterogeneity within the spinal vertebral segments, nonspecific and most likely degenerative in origin. No definite osseous metastatic disease is found. Asymmetric fat of the lower left margin of the issue rectal fossa. Please correlate for prior surgery in this area. PELVIS: Genitourinary: Bladder wall thickness is normal. Miscellaneous: No inguinal hernias or adenopathy. Bones: No suspicious bony lesions. No vertebral body compression fractures. IMPRESSION: 1. Postoperative changes of what appears to be bilateral mastectomy, and a Port-A-Cath from a left-sided approach appears in normal position. 2. There is a subtle subcentimeter slightly heterogeneous focus within the right hepatic dome conceivably a early hepatic metastatic lesion but more inferiorly a definite liver mass is present measuring up to 2.8 cm within the right posterior hepatic segment, mid liver level. 3. Through the spine and within the pelvis there is a small degree of heterogeneity of the vertebral and pelvic marrow space, without definite post exchange manager time, and with no recent prior PET/CT or nuclear medicine bone scan imaging. 4. Lung scarring, stable over time. 5. There is mild distortion at the ischial rectal fossa fat, with asymmetric fat measuring up to 3.3 x 4.2 cm and to the left of midline. This may reflect distortion from prior surgical procedure and a definite lipoma is not found as the underlying cause. Please correlate clinically. Dictated by: Johnnie Gonzalez M.D. on 02/16/2019 at 13:48 Approved by: Johnnie Gonzalze M.D. on 02/16/2019 at 14:11
--- NOTE | 2019-02-16 10:31 | PC.NURSE ---
Accessed Port a Cath per protocol for CT exam, line patent, withdrew blood and flushed easily. Flushed line per protocol after CT exam and placed guaze and tape over site after deaccessing. Used 1% lidocaine initially to numb skin prior to access.
== END ==
PROVIDERS: Family Provider Family Medicine; PCP Family Medicine
DX: C50.919 Malignant neoplasm of unspecified site of unspecified female breast (principal); K76.9 Liver disease, unspecified
CPT/HCPCS: 71260; 74177; Q9967

== ENCOUNTER → 2019-04-18 10:51 | Outpatient (CLI) | payer OTHER, SELFPAY ==
[2019-04-04 10:41] VITALS: BMI 23.4
--- NOTE | 2019-04-18 10:54 | DI.RAD.S_ITS ---
PROCEDURE: FL BARIUM SWALLOW W SPEECH INDICATIONS: coughing while swallowing, dysphagia TECHNIQUE: Examination was conducted in conjunction with speech pathology per standard protocol. In the lateral projection, filming was performed of the patient swallowing. AP projection filming may also be performed with patient swallowing. COMPARISON: CT chest, abdomen and pelvis 02/16/2019. FINDINGS: Function: The oral preparatory phase appears normal, with proper containment. The oral propulsive phase, pharyngeal phase, and esophageal phase of swallowing also appear normal with all proffered substances. Mild residue on the pharyngeal phase. No laryngotracheal penetration or aspiration. No pathologic vallecular pooling. Morphology: No cricopharyngeal bar is identified. No cervical esophageal webs. No Zenker's diverticulum. No strictures. IMPRESSION: 1. No laryngotracheal penetration or aspiration. Mild pharyngeal residue. 2. On clinical exam, there are small ulceration in the within the buccal mucosal as well as white pigmentation. This may be due to mucositis and/or thrush. The patient reports pain with thicker barium swallows. Please see separate speech pathologist report. Dictated by: Gabo Turpin M.D. on 04/18/2019 at 13:28 Approved by: Gabo Turpin M.D. on 04/18/2019 at 13:32
--- NOTE | 2019-04-20 10:48 | ST.SWALLOW ---
Visit Care Team Role Provider Type Terrence Benedict MD Family Provider Physician Primary Care Provider Specialty: Family Practice Address: 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 Reed Setting Setting Outpatient Care Patient Information Identification Type Name,Date of Patient History Medical history (from Pt records): 1. Mastectomy in March 2014 for T2 N0 disease. 2. Adjuvant chemotherapy with carboplatin and Taxol finishing in October 2014. 3. Chest wall radiation. 4. Femara beginning in February 2015. 5. Bone metastases identified in March 2016. She was treated with ibrance along with Femara and Zometa. 6. Progression on the chest wall treated with 4 cycles of Adriamycin Cytoxan finishing in February 2018, complicated by neutropenic fever and sepsis. 7. Faslodex and palbociclib starting February 2018 until March 2019. 8. Xeloda beginning yesterday Pt presented for a Modified Barium Swallow Study at the referral of her oncologist, Dr Alyssa Reed. Pt is a 68-year-old woman with recurrent/ metastatic, poorly differentiated invasive ductal carcinoma. She has had some tenderness in the mouth but no sores. She still is having some difficulty swallowing and some cough. The pt reports that she has difficulty with dry mouth. She also reported that she has had difficulty with her swallowing and her voice over the past years she has received treatment for breast cancer. She stated that she has had radiation treatments in 2008 and 2012, both of which lasted many weeks/months . According to the pt, her dry mouth does contribute to her difficulty swallowing. She reported a sense of foods getting stuck in her throat, pointing to area around her larynx. She further noted that she needs to drink a lot of water during her meals to relieve the sensation of globus. Often she will cough when this occurs. She noted that the sense of globus is only with solids, not with liquids. She reported that her voice frequently gives out and she will totally lose her voice at times. Subjective Observations Pt was seated in the fluoroscopy chair. Directions and an explanation of the procedure was described for the pt. She indicated she understood. During the MBSS the pt did make a few off- color remarks that were judged as inappropriate; however they did not interfere with the assessment. Patient Positioning Position View Lat-A/P Imaging Lateral View Textures Administered Trials Presented Thin Liquid via Spoon,Thin Liquid via Cup,[place]inda Liquid via Spoon,[place] Liquid via Cup,Dysphagia Blenderized Textures,Regular Textures Oral Phase Source: MBSIMP (TM) (C) Bolus Specific Scoring Grid Lip Closure WFL Tongue Control During Bolus Hold WFL Bolus Prep/Mastication WFL Bolus Transport/Lingual Motion Mild Impairment A/P Lingual Propulsion Delay Yes: Pt has hyperactive gag reflex Oral Residue Mild Impairment Residue Clearing Minimal Impairment Nasal Regurgitation No Additional Oral Phase Observations Oral mechanism assessment noted adequate dentition for mastication with a rotary chew observed. Adequate bolus formation and control. Pt has a hyperactive gag reflex which can be stimulated by different textures and/or liquids. During the MBSS, the pt c/o pain in her mouth when the barium was in it. She described the pain as a burning sensation. She remarked it was very painful. Following the assessment, the pt rinsed the barium from her mouth. Observation within her oral cavity indicated whitish-palmer patches on the buccal tissue bilaterally, which may have been thrush/ mucositis. The radiologist also observed the patches on the buccal tissue. Pharyngeal Phase Source: MBSIMP (TM) (C) Bolus Specific Scoring Grid Delayed Initiation of Pharyngeal Swallow Yes: Bolus head flows to and below the valeculla pre- swallow Number of Seconds Delayed (seconds) 1-2 Soft Palate Elevation WFL Tongue Base Strength/Range of Motion Moderate Impairment Residue Along the Tongue Base Yes Clearance of Residue Along Tongue Base Mild Impairment Laryngeal Elevation Moderate Impairment Anterior Hyoid Movement Moderate Impairment Epiglottic Range of Motion Minimal Impairment Vallecular Residue Yes Clearance of Vallecular Residue Moderate Impairment Laryngeal Vestibular Closure Mild Impairment Pharyngeal Stripping Wave Moderate Impairment Posterior Pharyngeal Wall Residue Yes Clearance of Posterior Pharyngeal Wall Mild Impairment Residue Upper Esophageal Sphincter Opening WFL Residue in the Pyriform Sinuses Yes Clearance of Residue in the Pyriform Mild Impairment Sinuses Esophageal Clearance Upright Position WFL Pharyngoesophageal Backflow Observed No Additional Pharyngeal Phase Observations Review of the MBSS video in slow motion for evaluation was completed. Premature spillage of the bolus head to the valeculla and and pyriform sinuses was observed pre- swallow, indicating a delayed swallow. Hyolaryngeal elevation was incomplete with incomplete forward excursion of the hyoid bone, effecting the bolus control and epiglottic inversion. The epiglottis did not invert completely for small trial amounts (i.e., teaspoonsful), but was observed to invert for trials with more bulk (i.e., consecutive swallows, thicker textures, etc.). Inconsistent epiglottic inversion along with reduced hyolaryngeal elevation can impact the laryngeal seal as well as bolus control. Inconsistent stripping of the posterior pharyngeal wall was noted which also impacts control of the bolus as it passes through the pharynx to the UES. Additionally, cervical osteophytes were noted, which altered the flow if the bolus through the pharynx, UES and upper esophagus, but did not impede bolus flow. Pharyngeal residue was observed in the pharyngeal cavities, which may contribute to the pt's sensation of globus. During the MBSS, there was no penetration of the laryngeal vestibule nor aspiration observed. The pt did need several swallows for bulkier trials. At times her swallows were 'effortful, as she described them. Pooling of residue was observed in the valeculla, pyriform sinuses, along the posterior phayngeal wall and at the tongue base. At times several swallows were needed to completely swallow the trial bolus. It is possible that scatter radiation from her radiation therapy treatments has altered the flexibility and tone of the hyolaryngeal/pharyngeal structures as a side feffect of her treatment. This results in increased difficulty when swallowing, reduced epiglottal inversion and diminished posterior wall muscle movements. The pt reports dry mouth and the need to wash her solid foods down with water. Tissue dryness would impact the ease of swallowing. Ultimately the pt did not demonstrate s/sx of laryngeal penetration and/or aspiration. Strategies were discussed with the pt on ways to aid in safe swallowing. The pt indicated that she understood and was appreciative. A/P View Textures Administered Trials Presented Orlinda Liquid via Cup A/P View Observations Pharyngeal Contraction WFL Esophageal Function WFL Esophageal Clearance Upright Position WFL Recommendations Diet Liquids Order Thin Diet Order Regular Medication Recommendation As Tolerated,Whole in Carrier Comments Added moisture to her solids ( i.e., sauces, gravies, additional condiments) Aspiration Precautions Recommended Precautions Upright at 90 Degrees, Alternate Liquids/Solids,Small Bites/Sips,Double Swallow Treatment Plan Therapy Recommendations Outpatient Speech Therapy, Compensatory Strategy Education Recommended Referrals ENT Consult Additional Recommendations/Comments Referral to ENT to r/o vocal fold pathology re: voice becoming aphonic frequently.
== END ==
PROVIDERS: Family Provider Family Medicine; PCP Family Medicine
DX: R13.10 Dysphagia, unspecified (principal); R05 Cough; K12.1 Other forms of stomatitis; C50.919 Malignant neoplasm of unspecified site of unspecified female breast
CPT/HCPCS: 74230; 92611

== ENCOUNTER 2019-05-15 14:56 | Emergency (ER) | payer OTHER, SELFPAY ==
[2019-04-04 10:41] VITALS: BMI 23.4
[2019-05-15 15:02] VITALS: BP 133/73; PULSE 70; RESP 16; TEMP 36.4; O2SAT 95; BMI 26.4
[2019-05-15 15:26] VITALS: BP 137/61; PULSE 72; RESP 16; TEMP 36.7; O2SAT 97
[2019-05-15 16:03] LABS: Add Manual Diff / Slide Review NO; Basophils Absolute Auto 0 /uL (0-100); Basophils Percent Auto 0.5 % (0-2); Eosinophils Absolute Auto 100 /uL (0-450); Eosinophils Percent Auto 1.5 % (2-4); Hematocrit 29.5 % (36-46); Hemoglobin 10.2 g/dL (12.0-16.0); Lymphocytes Absolute Auto 1200 /uL (1100-4500); Lymphocytes Percent Auto 15.6 % (25-40); Mean Corpuscular HGB Conc 34.6 % (30-36); Mean Corpuscular Hemoglobin 36.8 PG (26-34); Mean Corpuscular Volume 106.3 fL (80-100); Monocytes Absolute Auto 600 /uL (0-900); Neutrophils Absolute Auto 5600 /uL (1500-7000); Neutrophils Percent Auto 74.4 % (50-75); Platelet Count 209 X10^3/uL (150-400); Red Blood Cell Count 2.78 X10^6/uL (4.0-5.2); Red Cell Distribution Width 17.3 % (11.6-14.8); White Blood Cell Count 7.6 X10^3/uL (4.5-11.0)
[2019-05-15 16:09] LABS: Alanine Aminotransferase 18 IU/L (<35); Albumin 4.2 g/dL (3.5-5.0); Albumin Globulin Ratio 1.6 (1.0-2.8); Alkaline Phosphatase 63 U/L (38-126); Aspartate Aminotransferase 27 IU/L (14-36); BUN Creatinine Ratio 11.8 (6-22); Bilirubin Total 0.4 mg/dL (0.2-1.3); Blood Urea Nitrogen 13 mg/dL (7-17); Calcium 9.1 mg/dL (8.4-10.2); Carbon Dioxide 24 mmol/L (22-32); Chloride 105 mmol/L (98-107); Estimated Glomerular Filt Rate 49.4 mL/min (>60); Globulin 2.7 g/dL (1.7-4.1); Glucose 143 mg/dL (80-110); HEMOLYSIS < 15 (0-50); Potassium 3.8 mmol/L (3.4-5.1); Sodium 140 mmol/L (137-145); Total Protein 6.9 g/dL (6.3-8.2)
--- NOTE | 2019-05-15 16:09 | ED.ABDPAIN ---
HPI - Abdominal Pain General Chief Complaint: Abdominal Pain Stated Complaint: abdominal pain, distension Time Seen by Provider: 05/15/19 16:04 Source: patient Mode of arrival: Ambulatory Limitations: no limitations History of Present Illness HPI narrative: 68-year-old female with a known history of breast cancer currently undergoing oral chemotherapy here for evaluation of upper abdomen pain and abdominal distention. She noticed it over the past 24 hours or so. No vomiting however has had some nausea. No change in bowel habits. No urinary symptoms. Related Data Home Medications Medication Instructions Recorded Confirmed amitriptyline 150 mg PO HS #0 01/05/13 04/11/19 gabapentin 300 mg PO QAM 12/13/17 04/11/19 mirabegron [Myrbetriq] 25 mg PO DAILY 12/13/17 04/11/19 oxybutynin chloride 10 mg PO DAILY 12/13/17 04/11/19 tramadol 50 mg PO Q6H PRN 12/13/17 04/11/19 zolpidem 5 mg PO BEDTIME PRN 12/13/17 04/11/19 cholecalciferol (vitamin D3) 2,000 unit PO DAILY 01/24/18 04/11/19 [Vitamin D3] metoprolol tartrate 25 mg PO BID 01/24/18 04/11/19 valacyclovir 1 tab PO TID 01/24/18 04/11/19 cyanocobalamin (vitamin B-12) 1,000 mcg PO DAILY 03/08/18 04/11/19 [Vitamin B-12] melatonin 5 mg PO BEDTIME PRN 03/08/18 04/11/19 alprazolam 06/15/18 04/05/19 Previous Rx's Medication Instructions Recorded omeprazole 20 mg PO DAILY #30 cap 01/23/18 hydroxyzine pamoate [Vistaril] 50 mg PO TID-QID PRN #60 cap 05/18/18 loperamide 2 mg PO Q8HP PRN #100 cap 06/06/18 lorazepam 1 mg PO ONCE HS PRN #1 tab 11/21/18 lorazepam 1 mg PO ONCE PM PRN #1 tab 11/21/18 capecitabine 1,000 mg PO BID 21 Days #56 tab 05/01/19 capecitabine 1,000 mg PO BID 21 Days #56 tab 05/02/19 Allergies Allergy/AdvReac Type Severity Reaction Status Date / Time hydrocodone AdvReac Severe RASH, Verified 04/05/19 14:27 ITCHING Review of Systems Constitutional Constitutional: Denies fever(s) Cardiovascular Cardiovascular: Denies chest pain and Reports dyspnea Respiratory Respiratory: Reports dyspnea Gastrointestinal Gastrointestinal: Reports bloating, Denies change in stool character, Reports nausea and Denies vomiting Genitourinary Genitourinary: Denies dysuria Musculoskeletal Musculoskeletal: Denies back pain and Denies arthralgias Integumentary/Breasts Skin/Breast: Denies rash Patient History Social History household members: none Smoking Status: Former smoker alcohol intake: former Substance Use Type: marijuana Exam Initial Vital Signs Initial Vital Signs: Vital Signs Temperature 97.6 F 05/15/19 15:02 Pulse Rate 70 05/15/19 15:02 Respiratory Rate 16 05/15/19 15:02 Blood Pressure 133/73 05/15/19 15:02 Pulse Oximetry 95 05/15/19 15:02 Const General: cooperative and comfortable Orientation: alert and awake HENMT Head: normal to inspection and normocephalic Resp Effort & Inspection: normal respiratory effort Auscultation: clear to auscultation bilaterally Cardio Rate: regular rate GI Inspection: distended Palpation: soft, No firm and tender (Upper abdomen) Skin Lesions: no lesions Rashes: no rashes Neuro General: alert and awake Cognition: normal cognition Speech: speech normal Extrem General: normal to inspection, capillary refill normal and No edema Psych Appearance: grossly normal and well kempt Course Orders Ordered: ED Orders 05/15/19 15:50 Complete Blood Count AUTO DIFF Stat Comprehensive Metabolic Panel Stat Hepatic (Liver) Panel Stat Lipase Stat Partial Thromboplastin Time Stat Prothrombin Time INR Stat 05/15/19 16:23 CT abdomen pelvis w con Stat Discontinued Medications Sodium Chloride (Normal Saline 0.9%) 1,000 mls @ 150 mls/hr IV CONT RUDY Last Infusion: 05/15/19 18:50 Dose: 150 mls/hr Documented by: Admin: 05/15/19 16:27 Dose: 150 mls/hr Documented by: ANGIE Vital Signs Vital signs: Vital Signs - 8 hr 05/15/19 15:02 05/15/19 15:26 05/15/19 18:05 Temperature 97.6 F 98.1 F Pulse Rate 70 72 73 Respiratory Rate 16 16 Blood Pressure 133/73 Blood Pressure [Right Ankle] 137/61 121/47 L Pulse Oximetry 95 97 96 MDM - Abdominal Pain Lab Data Attestation: I reviewed the patient's lab results. Result diagrams: 05/15/19 15:50 05/15/19 15:50 Labs: Lab Results 05/15/19 05/15/19 05/15/19 Range/Units 15:50 15:50 15:50 WBC 7.6 (4.5-11.0) X10^3/uL RBC 2.78 L (4.0-5.2) X10^6/uL Hgb 10.2 L (12.0-16.0) g/dL Hct 29.5 L (36-46) % MCV 106.3 H (80-100) fL MCH 36.8 H (26-34) PG MCHC 34.6 (30-36) % RDW 17.3 H (11.6-14.8) % Plt Count 209 (150-400) X10^3/uL Neut % (Auto) 74.4 (50-75) % Lymph % (Auto) 15.6 L (25-40) % [place] % (Auto) 8.0 (3-14) % Eos % (Auto) 1.5 L (2-4) % Baso % (Auto) 0.5 (0-2) % Neut # (Auto) 5600 (1917-3422) /uL Lymph # (Auto) 1200 (8088-8600) /uL [place] # (Auto) 600 (0-900) /uL Eos # (Auto) 100 (0-450) /uL Baso # (Auto) 0 (0-100) /uL PT (10.1-12.7) SECONDS INR (0.9-1.3) APTT (26.4-36.2) SECONDS Sodium 140 (137-145) mmol/L Potassium 3.8 (3.4-5.1) mmol/L Chloride 105 (98-107) mmol/L Carbon Dioxide 24 (22-32) mmol/L BUN 13 (7-17) mg/dL Creatinine 1.10 H (0.52-1.04) mg/dL Estimated GFR 49.4 L (>60) mL/min BUN/Creatinine Ratio 11.8 (6-22) Glucose 143 H (80-110) mg/dL Calcium 9.1 (8.4-10.2) mg/dL Total Bilirubin 0.4 0.4 (0.2-1.3) mg/dL Conjugated Bilirubin 0.0 (0.0-0.3) md/dL Unconjugated Bilirubin 0.3 (0.0-1.1) mg/dL AST 27 39 H (14-36) IU/L ALT 18 17 (<35) IU/L Alkaline Phosphatase 63 64 (38-126) U/L Total Protein 6.9 6.8 (6.3-8.2) g/dL Albumin 4.2 4.2 (3.5-5.0) g/dL Globulin 2.7 2.6 (1.7-4.1) g/dL Albumin/Globulin Ratio 1.6 1.6 (1.0-2.8) Lipase (23-300) U/L 05/15/19 05/15/19 Range/Units 15:50 15:50 WBC (4.5-11.0) X10^3/uL RBC (4.0-5.2) X10^6/uL Hgb (12.0-16.0) g/dL Hct (36-46) % MCV (80-100) fL MCH (26-34) PG MCHC (30-36) % RDW (11.6-14.8) % Plt Count (150-400) X10^3/uL Neut % (Auto) (50-75) % Lymph % (Auto) (25-40) % [place] % (Auto) (3-14) % Eos % (Auto) (2-4) % Baso % (Auto) (0-2) % Neut # (Auto) (7364-3603) /uL Lymph # (Auto) (9111-7273) /uL [place] # (Auto) (0-900) /uL Eos # (Auto) (0-450) /uL Baso # (Auto) (0-100) /uL PT 11.2 (10.1-12.7) SECONDS INR 1.0 (0.9-1.3) APTT 50 H (26.4-36.2) SECONDS Sodium (137-145) mmol/L Potassium (3.4-5.1) mmol/L Chloride (98-107) mmol/L Carbon Dioxide (22-32) mmol/L BUN (7-17) mg/dL Creatinine (0.52-1.04) mg/dL Estimated GFR (>60) mL/min BUN/Creatinine Ratio (6-22) Glucose (80-110) mg/dL Calcium (8.4-10.2) mg/dL Total Bilirubin (0.2-1.3) mg/dL Conjugated Bilirubin (0.0-0.3) md/dL Unconjugated Bilirubin (0.0-1.1) mg/dL AST (14-36) IU/L ALT (<35) IU/L Alkaline Phosphatase (38-126) U/L Total Protein (6.3-8.2) g/dL Albumin (3.5-5.0) g/dL Globulin (1.7-4.1) g/dL Albumin/Globulin Ratio (1.0-2.8) Lipase 79 (23-300) U/L Imaging Data CT scan - abdomen: Radiologist's impression: Candi Villanueva 68 F 1950 [place] [address] CT Scan Report Signed Patient: Candi Villanueva [facility]#: [id number] : 1950Acct:[id number] Age/Sex: 68 / FDate of Service: 05/15/19 Loc: ED Accession Number: [id number] Procedure: CT abdomen pelvis w con Ordering Provider: Terrence Swan D.O. PROCEDURE: CT ABDOMEN PELVIS W CON INDICATIONS: hx breast ca with abdominal distention TECHNIQUE: After the administration of intravenous contrast, 5 mm thick sections acquired from the diaphragm to the symphysis. 5 mm coronal and sagittal reformats were acquired. For radiation dose reduction, the following was used: automated exposure control, adjustment of mA and/or kV according to patient size. COMPARISON: [place], [place], BONE SCAN WHOLE BODY, 06/29/2017, 12:54. [place], [place], NM PET CT FUSION SKULL 2 THIGH, 11/23/2017, 14:26. [facility], CT, CT CHEST ABD PEL W CON, 02/16/2019, 9:30. [facility], CT, ABDOMEN/PELVIS WITH CONTRAST, 03/19/2013, 12:01. [facility], CT, PELVIS WITH CONTRAST, 07/29/2017, 8:57. FINDINGS: Image quality: Excellent. ABDOMEN: Lung bases: Lung bases are clear. Heart size is normal. Solid organs: Liver is normal in size. Along the posterior aspect of the right lobe of the liver (segment 7), there is a low-density lesion measuring 16 x 12 mm, as on series 2 image 23. This is similar to the prior CT, when measured in a similar fashion. The previously described right liver dome lesion is not definitely seen on the current study. Gallbladder is partially collapsed at the time of this study. Biliary system is non dilated. Pancreas enhances normally. Spleen is normal in size and enhancement. Subcentimeter low-density lesions can be seen within the spleen. No adrenal nodules. Kidneys demonstrate normal size and enhancement, without hydronephrosis. Peritoneum and bowel: Prior colectomy changes are seen, with resection also of portions of the small bowel. Several anastomotic staple lines are seen. No dilated loops of bowel are seen. No free air or significant fluid can be seen. Nodes and vessels: No retroperitoneal or mesenteric adenopathy by size criteria. Aorta and inferior vena cava are normal in size. Miscellaneous: No ventral hernias. PELVIS: Genitourinary: Bladder wall thickness is normal. This patient is status post hysterectomy. No adnexal masses are seen. Miscellaneous: No inguinal hernias or adenopathy. Bones: Several sclerotic bony foci are seen. No vertebral body compression fractures. Mild levoconvex scoliotic curvature is noted. Degenerative changes are seen, which are most prominent inferiorly. IMPRESSION: Postoperative changes of the bowel, with prior colectomy and resection of a portion of the small bowel. No dilated loops of small bowel are seen. Right liver lesion seen within segment 7, which is similar to 02/16/19 and attributed to metastatic disease. Several sclerotic bony foci are seen, which may represent additional metastatic disease. Incidental note is made of: Subcentimeter low-density lesions within the spleen Hysterectomy Levoconvex scoliotic curvature Focal lower lumbar spine degenerative change Dictated by: Marko Murphy M.D. on 05/15/2019 at 15:58 Approved by: Sudeep ServinD. on 05/15/2019 at 16:06 [facility] Narrative Medical decision making narrative: Patient's CT scan today shows no signs of bowel obstruction. No acute pathology. No signs of ascites. Labs are relatively unremarkable. I did discuss this with the patient. No further workup needed the ER. She did state she felt better the know that there was no surgical issues. Informed her to contact her primary doctor and also her oncologist. She expressed understanding and agreement with plan. Discharge Plan Departure Patient Disposition: Home Clinical Impression: Abdominal pain Qualifiers: Abdominal location: upper abdomen, unspecified Qualified Code(s): R10.10 - Upper abdominal pain, unspecified Discharge Date/Time: 05/15/19 18:53 Instructions: DI for Abdominal Pain-Adult Activity Restrictions/Additional Instructions: Recommend you talk with your primary doctor and your oncologist about your symptoms today. Return to the emergency department for any new or worsening symptoms continue all of your medications as directed Prescriptions: No Action amitriptyline 75 MG tablet 150 mg PO HS Qty: 0 RF: 0 oxybutynin chloride 10 mg Tablet Extended Release 24hr 10 mg PO DAILY RF: 0 tramadol 50 mg Tablet 50 mg PO Q6H PRN (Reason: Spasms) RF: 0 gabapentin 300 mg Capsule 300 mg PO QAM RF: 0 zolpidem 5 mg Tablet 5 mg PO BEDTIME PRN (Reason: Insomnia) RF: 0 Myrbetriq 25 mg Tablet Extended Release 24 Hr 25 mg PO DAILY RF: 0 omeprazole 20 mg Capsule,Delayed Release(Dr/Ec) 20 mg PO DAILY Qty: 30 RF: 0 cyanocobalamin (vitamin B-12) [Vitamin B-12] 1,000 mcg Tablet 1,000 mcg PO DAILY RF: 0 melatonin 5 mg Tablet 5 mg PO BEDTIME PRN (Reason: Insomnia) RF: 0 hydroxyzine pamoate [Vistaril] 50 mg Capsule 50 mg PO TID-QID PRN (Reason: sevre itch) Qty: 60 RF: 0 loperamide 2 MG capsule 2 mg PO Q8HP PRN (Reason: Diarrhea) Qty: 100 RF: 6 alprazolam 0.25 mg tablet RF: 0 lorazepam 0.5 mg Tablet 1 mg PO ONCE PM PRN (Reason: Anxiety) Qty: 1 RF: 0 lorazepam 1 mg Tablet 1 mg PO ONCE HS PRN (Reason: Anxiety) Qty: 1 RF: 0 capecitabine 500 mg Tablet 1,000 mg PO BID 21 Days Qty: 56 RF: 3 capecitabine 500 mg Tablet 1,000 mg PO BID 21 Days Qty: 56 RF: 3 valacyclovir 1 gram tablet 1 tab PO TID RF: 0 cholecalciferol (vitamin D3) [Vitamin D3] 2,000 unit Capsule 2,000 unit PO DAILY RF: 0 metoprolol tartrate 25 mg tablet 25 mg PO BID RF: 0 Referrals: Terrence Benedict MD [Primary Care Provider] -
--- NOTE | 2019-05-15 16:23 | DI.CT.S_ITS ---
PROCEDURE: CT ABDOMEN PELVIS W CON INDICATIONS: hx breast ca with abdominal distention TECHNIQUE: After the administration of intravenous contrast, 5 mm thick sections acquired from the diaphragm to the symphysis. 5 mm coronal and sagittal reformats were acquired. For radiation dose reduction, the following was used: automated exposure control, adjustment of mA and/or kV according to patient size. COMPARISON: [place], [place], BONE SCAN WHOLE BODY, 06/29/2017, 12:54. [place], [place], [place] PET CT FUSION SKULL 2 THIGH, 11/23/2017, 14:26. [facility], CT, CT CHEST ABD PEL W CON, 02/16/2019, 9:30. [facility], CT, ABDOMEN/PELVIS WITH CONTRAST, 03/19/2013, 12:01. [facility], CT, PELVIS WITH CONTRAST, 07/29/2017, 8:57. FINDINGS: Image quality: Excellent. ABDOMEN: Lung bases: Lung bases are clear. Heart size is normal. Solid organs: Liver is normal in size. Along the posterior aspect of the right lobe of the liver (segment 7), there is a low-density lesion measuring 16 x 12 mm, as on series 2 image 23. This is similar to the prior CT, when measured in a similar fashion. The previously described right liver dome lesion is not definitely seen on the current study. Gallbladder is partially collapsed at the time of this study. Biliary system is non dilated. Pancreas enhances normally. Spleen is normal in size and enhancement. Subcentimeter low-density lesions can be seen within the spleen. No adrenal nodules. Kidneys demonstrate normal size and enhancement, without hydronephrosis. Peritoneum and bowel: Prior colectomy changes are seen, with resection also of portions of the small bowel. Several anastomotic staple lines are seen. No dilated loops of bowel are seen. No free air or significant fluid can be seen. Nodes and vessels: No retroperitoneal or mesenteric adenopathy by size criteria. Aorta and inferior vena cava are normal in size. Miscellaneous: No ventral hernias. PELVIS: Genitourinary: Bladder wall thickness is normal. This patient is status post hysterectomy. No adnexal masses are seen. Miscellaneous: No inguinal hernias or adenopathy. Bones: Several sclerotic bony foci are seen. No vertebral body compression fractures. Mild levoconvex scoliotic curvature is noted. Degenerative changes are seen, which are most prominent inferiorly. IMPRESSION: Postoperative changes of the bowel, with prior colectomy and resection of a portion of the small bowel. No dilated loops of small bowel are seen. Right liver lesion seen within segment 7, which is similar to 02/16/19 and attributed to metastatic disease. Several sclerotic bony foci are seen, which may represent additional metastatic disease. Incidental note is made of: Subcentimeter low-density lesions within the spleen Hysterectomy Levoconvex scoliotic curvature Focal lower lumbar spine degenerative change Dictated by: Marko Murphy M.D. on 05/15/2019 at 15:58 Approved by: Marko Murphy M.D. on 05/15/2019 at 16:06
[2019-05-15] MEDS: SODIUM CHLORIDE 0.9% 1,000 ML 150 ML IV (16:27)
[2019-05-15 17:29] LABS: Prothrombin Time 11.2 SECONDS (10.1-12.7)
[2019-05-15 17:32] LABS: PTT Partial Thromboplastin Tim 50 SECONDS (26.4-36.2)
[2019-05-15 17:39] LABS: Alanine Aminotransferase 17 IU/L (<35); Albumin 4.2 g/dL (3.5-5.0); Albumin Globulin Ratio 1.6 (1.0-2.8); Alkaline Phosphatase 64 U/L (38-126); Aspartate Aminotransferase 39 IU/L (14-36); Bilirubin Total 0.4 mg/dL (0.2-1.3); Bilirubin Unconjugated 0.3 mg/dL (0.0-1.1); Globulin 2.6 g/dL (1.7-4.1); HEMOLYSIS < 15 (0-50); Total Protein 6.8 g/dL (6.3-8.2)
[2019-05-15 17:52] LABS: Lipase 79 U/L (23-300)
[2019-05-15 18:05] VITALS: BP 121/47; PULSE 73; O2SAT 96
== END 2019-05-15 18:53 | disposition home or self-care (01) ==
PROVIDERS: Emergency Provider Emergency Medicine; Family Provider Family Medicine; PCP Family Medicine
DX: R10.10 Upper abdominal pain, unspecified (principal)
CPT/HCPCS: 36415; 74177; 80053; 80076; 83690; 85025; 85610; 85730; 96360; 96361; 99283; 99285; Q9967

== ENCOUNTER → 2019-08-10 08:31 | Outpatient (CLI) | payer OTHER, SELFPAY ==
[2019-04-04 10:41] VITALS: BMI 23.4
--- NOTE | 2019-08-10 08:34 | DI.NM.S_ITS ---
PROCEDURE: NM BONE SCAN WHOLE BODY RADIOPHARMACEUTICAL: 18.8 mCi Tc-99m MDP IV. INDICATIONS: BREAST CANCER TECHNIQUE: Delayed whole-body scintigrams were obtained approximately 3-4 hours after intravenous injection of radiotracer. Anterior and posterior views were acquired from vertex to feet. Additional left and right oblique views of the thorax and pelvis were obtained. COMPARISON: [facility], CT, CT CHEST ABD PEL W CON, 08/10/2019, 11:10. FINDINGS: Foci of increased radiotracer noted in the right scapula, the left third rib, right third rib, the sternum, the thoracic spine and the left ala of the sacrum compatible with osseous metastatic disease. Subtle increased radiotracer uptake identified in the knees bilaterally compatible with osteoarthritis. No abnormal soft tissue uptake. Activity in the kidneys is normal and symmetric. IMPRESSION: No osseous metastatic disease as detailed above. Dictated by: Kamilla Fishman MD, PhD on 08/10/2019 at 16:19 Approved by: Kamilla Fishman MD, PhD on 08/10/2019 at 16:25
--- NOTE | 2019-08-10 11:47 | DI.CT.S_ITS ---
PROCEDURE: CT CHEST ABD PEL W CON INDICATIONS: BREAST CANCER TECHNIQUE: After the administration of oral and intravenous contrast, 5 mm thick sections acquired from the lung apices to the symphysis. 5 mm coronal and sagittal reformats were performed, with additional 7 mm coronal MIP reformats through the lungs. For radiation dose reduction, the following was used: automated exposure control, adjustment of mA and/or kV according to patient size. COMPARISON: [facility], CT, CT ABDOMEN PELVIS W CON, 05/15/2019, 16:32. [facility], CT, CT CHEST ABD PEL W CON, 11/29/2018, 10:28. [facility], MR, MR HEAD/BRAIN WO/W CON, 11/29/2018, 9:34. [facility], CT, CT CHEST ABD PEL W CON, 08/22/2018, 10:18. [facility], CT, CT CHEST ABD PEL W CON, 05/02/2018, 10:17. [facility], CT, CT CHEST ABD PEL W CON, 02/16/2019, 9:30. FINDINGS: Image quality: Excellent. CHEST: Lungs and pleura: No acute consolidation. Unchanged appearance of scattered scarring or atelectasis. No pleural effusions or pneumothorax. Central and peripheral airways appear patent and normal in caliber. Mediastinum: Heart size is enlarged. Coronary artery calcifications are present. No pericardial effusion. No mediastinal or hilar adenopathy by size criteria. Thoracic aorta and central pulmonary arteries are normal in size. Small hiatal hernia. Chest wall: No axillary or supraclavicular adenopathy by size criteria. Thyroid gland negative. ABDOMEN: Solid organs: Hepatic steatosis. Previously described hypodense focus within the posterior segment is less conspicuous since the prior study Gallbladder unremarkable. Biliary system is non dilated. Pancreas enhances normally. Nonspecific subcentimeter splenic hypodense lesions are grossly unchanged No adrenal nodules. Kidneys demonstrate normal size and enhancement, without hydronephrosis. Peritoneum and bowel: Bowel loops demonstrate normal wall thickness and caliber. No free fluid or air. Nodes and vessels: No retroperitoneal or mesenteric adenopathy by size criteria. Aorta and inferior vena cava are normal in size. Miscellaneous: No ventral hernias. PELVIS: Genitourinary: Bladder wall thickness is normal. Miscellaneous: No inguinal hernias or adenopathy. Bones: Multiple osseous metastases appear more sclerotic, although unclear if this represents disease progression versus healing sclerosis and recommend correlation to a scheduled bone scan Sclerotic lesion seen within the right scapula as before. No compression fracture. Spondylosis is noted. IMPRESSION: Previously described hypodense lesion in the posterior segment of the liver appears less conspicuous/smaller since the prior study. Multiple skeletal sclerotic foci in keeping with osseous metastases. There is interval increase in sclerosis and size, which raises the possibility of progressive disease versus healing sclerosis. Please correlate clinically and with pending bone scan Additional chronic and incidental findings as above. Dictated by: Gerardo Cortés M.D. on 08/10/2019 at 14:07 Approved by: Gerardo Cortés M.D. on 08/10/2019 at 15:42
== END ==
PROVIDERS: Family Provider Family Medicine; PCP Family Medicine; Referring Provider Internal Medicine Hematology & Oncology; Visit Provider Internal Medicine Hematology & Oncology
DX: C50.919 Malignant neoplasm of unspecified site of unspecified female breast (principal); C79.51 Secondary malignant neoplasm of bone; I51.7 Cardiomegaly; I25.10 Atherosclerotic heart disease of native coronary artery without angina pectoris; K44.9 Diaphragmatic hernia without obstruction or gangrene; K76.0 Fatty (change of) liver, not elsewhere classified; Z17.0 Estrogen receptor positive status [ER+]
CPT/HCPCS: 71260; 74177; 78306; A9503; Q9967

== ENCOUNTER → 2020-02-21 08:49 | Outpatient (CLI) | payer OTHER, SELFPAY ==
[2019-04-04 10:41] VITALS: BMI 23.4
--- NOTE | 2020-02-21 08:51 | DI.NM.S_ITS ---
PROCEDURE: [place] BONE SCAN WHOLE BODY RADIOPHARMACEUTICAL: 19.3 mCi Tc-99m MDP IV. INDICATIONS: Follow-up metastatic breast cancer, on treatment TECHNIQUE: Delayed whole-body scintigrams were obtained approximately 3-4 hours after intravenous injection of radiotracer. Anterior and posterior views were acquired from vertex to feet. COMPARISON: [facility], CT, CT CHEST ABD PEL W CON, 08/10/2019, 11:10. [place], [place] PET CT FUSION SKULL 2 THIGH, 11/23/2017, 14:26. [place], [place] BONE SCAN WHOLE BODY, 08/10/2019, 14:32. [facility], CT, CT CHEST ABD PEL W CON, 02/21/2020, 10:06. FINDINGS: Again noted are foci of abnormal uptake involving the right scapula, sternum, thoracic spine, left sacrum and left iliac bone, consistent with osseous metastasis. The rib lesions described on the last exam are no longer visualized, most likely related to artifacts. IMPRESSION: Stable bone scan with multiple metastatic lesions. Dictated by: Frederic Villasenor M.D. on 02/21/2020 at 14:05 Approved by: Frederic Villasenor M.D. on 02/21/2020 at 14:30
--- NOTE | 2020-02-21 10:47 | DI.CT.S_ITS ---
PROCEDURE: CT CHEST ABD PEL W CON INDICATIONS: Follow-up metastatic breast cancer, on treatment TECHNIQUE: After the administration of oral and intravenous contrast, 5 mm thick sections acquired from the lung apices to the symphysis. 5 mm coronal and sagittal reformats were performed, with additional 7 mm coronal MIP reformats through the lungs. For radiation dose reduction, the following was used: automated exposure control, adjustment of mA and/or kV according to patient size. COMPARISON: [facility], NE, NE BONE SCAN WHOLE BODY, 08/10/2019, 14:32. [facility], CT, CT CHEST ABD PEL W CON, 11/29/2018, 10:28. [facility], CT, CT ABDOMEN PELVIS W CON, 05/15/2019, 16:32. [facility], CT, CT CHEST ABD PEL W CON, 08/10/2019, 11:10. [facility], CT, CT CHEST ABD PEL W CON, 02/16/2019, 9:30. FINDINGS: Image quality: Excellent. CHEST: Lungs and pleura: No acute airspace opacities. No pleural effusions or pneumothorax. Central and peripheral airways appear patent and normal in caliber. Mediastinum: Heart size is normal. No pericardial effusion. No mediastinal or hilar adenopathy by size criteria. Thoracic aorta and central pulmonary arteries are normal in size. Esophagus is normal in caliber. No hiatal hernia. Port-A-Cath is in normal position from left-sided approach. Chest wall: No axillary or supraclavicular adenopathy by size criteria. Thyroid gland appears normal where well seen. Note is again made of several scattered sclerotic foci within the vertebral body marrow space of the thoracic spine, without new lesion or interval enlargement of prior presumed osseous metastatic disease. The largest of these lesions measures up to 1 cm in maximal dimension, T8 vertebral body level, and the remainder are appreciably smaller in size. ABDOMEN: Solid organs: Liver is normal in size and enhancement except for presence of a resolving hepatic metastatic lesion in the right posterior hepatic segment, seen on series 2, image 51. On several prior CTs from mid and late 2019 this structure was rounded, solid, and clearly had imaging characteristics of a hepatic metastatic lesion. It currently is almost completely resolved and no new lesion has developed. Gallbladder appears normal . Biliary system is non dilated. Pancreas enhances normally. Spleen is normal in size and enhancement. No adrenal nodules. Kidneys demonstrate normal size and enhancement, without hydronephrosis. Peritoneum and bowel: Bowel loops demonstrate normal wall thickness and caliber. No free fluid or air. Nodes and vessels: No retroperitoneal or mesenteric adenopathy by size criteria. Aorta and inferior vena cava are normal in size. Miscellaneous: No ventral hernias. PELVIS: Genitourinary: Bladder wall thickness is normal. Miscellaneous: No inguinal hernias or adenopathy. Within the mesenteric root at the right lower quadrant currently seen on series 2, image 89 and ovoid mild prominence of soft tissue is present but this has been stable over multiple prior CT scans and appears to represent a normal variant lymph node. Its current long axis dimension is 1.4 cm transverse. Bones: No new suspicious bony lesions. As discussed above several scattered marrow space osteoblastic lesions have been previously identified, have not changed, and the largest sclerotic focus within the pelvis is located at the medial left iliac crest, posteriorly, and has not changed from the most recent CT scan 08/10/19. It had enlarged in size from 11/29/18 CT scanning. No vertebral body compression fractures. IMPRESSION: Currently there is no sign of new metastatic lesion or growing metastatic disease. The patient has scattered small foci of osteoblastic change within the axial skeleton, including the thoracic spine and the medial left iliac bone superiorly. These have not enlarged over the recent 2 CT scans. A prior liver lesion consistent with hepatic metastatic disease has sequentially diminished in size and conspicuity and now is almost entirely resolved at the right posterior hepatic segment. No new hepatic lesion found. No adenopathy seen. Incidental note is made of a stable appearing mildly prominent right lower quadrant mesenteric root lymph node, with appearance most likely representing normal anatomic variant mildly prominent node in that area. Dictated by: Johnnie Gonzalez M.D. on 02/21/2020 at 12:49 Approved by: Johnnie Gonzalez M.D. on 02/21/2020 at 13:08
== END ==
PROVIDERS: Family Provider Family Medicine; PCP Family Medicine; Referring Provider Internal Medicine; Visit Provider Internal Medicine
DX: C50.911 Malignant neoplasm of unspecified site of right female breast (principal); C79.51 Secondary malignant neoplasm of bone; C78.7 Secondary malignant neoplasm of liver and intrahepatic bile duct; Z17.0 Estrogen receptor positive status [ER+]; Z79.811 Long term (current) use of aromatase inhibitors
CPT/HCPCS: 71260; 74177; 78306; A9503; Q9967

== ENCOUNTER → 2020-05-14 08:25 | Outpatient (CLI) | payer OTHER, SELFPAY ==
[2019-04-04 10:41] VITALS: BMI 23.4
--- NOTE | 2020-05-14 10:27 | DI.CT.S_ITS ---
PROCEDURE: CT CHEST ABD PEL W CON INDICATIONS: liver pain, breast cancer TECHNIQUE: After the administration of oral and intravenous contrast, 5 mm thick sections acquired from the lung apices to the symphysis. 5 mm coronal and sagittal reformats were performed, with additional 7 mm coronal MIP reformats through the lungs. For radiation dose reduction, the following was used: automated exposure control, adjustment of mA and/or kV according to patient size. COMPARISON: [facility], CT, CT CHEST ABD PEL W CON, 08/10/2019, 11:10. [facility], CT, CT ABDOMEN PELVIS W CON, 05/15/2019, 16:32. [facility], CT, CT CHEST ABD PEL W CON, 02/16/2019, 9:30. [facility], CT, CT CHEST ABD PEL W CON, 11/29/2018, 10:28. [facility], CT, CHEST/ABD/PEL WITH CONTRAST, 10/29/2016, 10:03. [facility], CT, CT CHEST ABD PEL W CON, 02/21/2020, 10:06. FINDINGS: Image quality: Excellent. CHEST: Lungs and pleura: No acute airspace opacities. No pleural effusions or pneumothorax. Central and peripheral airways appear patent and normal in caliber. Streaky opacities are present within the medial right middle lobe, unchanged. Similar appearance is noted within the lateral lingula. Mediastinum: Heart size is normal. No pericardial effusion. No mediastinal or hilar adenopathy by size criteria. Thoracic aorta and central pulmonary arteries are normal in size. Esophagus is normal in caliber. No hiatal hernia. Chest wall: No axillary or supraclavicular adenopathy by size criteria. Thyroid gland is unremarkable . ABDOMEN: Solid organs: Liver is enlarged with steatosis. Previous area of posterior right hepatic lesion is no longer identified. Gallbladder is unremarkable. Biliary system is non dilated. Pancreas enhances normally. Spleen is normal in size and enhancement. No adrenal nodules. Kidneys demonstrate normal size and enhancement, without hydronephrosis. Peritoneum and bowel: Bowel loops demonstrate normal wall thickness and caliber. No free fluid or air. Nodes and vessels: No retroperitoneal or mesenteric adenopathy by size criteria. Aorta and inferior vena cava are normal in size. Miscellaneous: No ventral hernias. PELVIS: Genitourinary: Bladder wall thickness is normal. Miscellaneous: No inguinal hernias or adenopathy. Bones: Multifocal areas of sclerosis within the spine as well as pelvic bones are unchanged. No vertebral body compression fractures. IMPRESSION: 1. Previous area of hepatic lesion is no longer visualized. No new lesions are identified. 2. Stable appearance of presumed osseous metastatic disease within the spine and pelvic bones. No new areas are identified. Dictated by: Angella Salgado M.D. on 05/14/2020 at 13:57 Approved by: Angella Salgado M.D. on 05/14/2020 at 15:55
== END ==
PROVIDERS: Family Provider Family Medicine; PCP Family Medicine; Referring Provider Internal Medicine Hematology & Oncology; Visit Provider Internal Medicine Hematology & Oncology
DX: C50.911 Malignant neoplasm of unspecified site of right female breast (principal); K76.0 Fatty (change of) liver, not elsewhere classified; R16.0 Hepatomegaly, not elsewhere classified; Z17.0 Estrogen receptor positive status [ER+]
CPT/HCPCS: 71260; 74177; Q9967

== ENCOUNTER → 2020-06-17 14:15 | Outpatient (CLI) | payer OTHER, SELFPAY ==
[2019-04-04 10:41] VITALS: BMI 23.4
--- NOTE | 2020-06-17 15:00 | DI.ECHO.S_ITS ---
Name: JAIRO CAREY Study Date: 06/17/2020, 3: 00 PM : 1950 BP: 152 / 100 mmHg Gender: Female Height: 59 in Age: 69 Years Weight: 145 lb BSA: 1.61 m?? Ordering: DIOMEDES ESPINAL MD Referring: DIOMEDES ESPINAL MD Clinician: Jeanne Riley Reason For Study: PRECORDIAL CHEST PAIN, BREAST CANCER History: Summary Statements Normal sinus rhythm. Normal LV size and wall thickness. Mild global hypokinesis. EF is 40-45%. There is reduced global longtitudinal strain, on average -16.1%. Normal chamber sizes. No significant valvular abnormalities. Compared to prior study 11/17/2017, cardiomyopathy is new. Procedure: A two-dimensional transthoracic echocardiogram with color flow and Doppler was performed in limited views only. The study quality was technically adequate. There is no prior echocardiogram noted for this patient. The patient was in sinus rhythm with heart rates between 73-91 bpm during the exam. Left Ventricle: Left ventricular global longitudinal strain average is -16.1%. Left ventricular ejection fraction is estimated to be 40 +/- 5%. The left ventricle is normal in size and wall thickness. Right Ventricle: Right ventricular systolic function is at the lower limits of normal. The right ventricle is normal size. Atria: Both atria are normal in size. Mitral Valve: Aortic Valve: The aortic valve is trileaflet. The aortic valve opens well. Pulmonic Valve: Great Vessels: Pericardium/ Pleura: There is no pericardial effusion. There is no pleural effusion. 2D and M-Mode Measurements and Calculations LVIDd: 4.2 cm LVIDs: 3.1 cm IVSd: 0.93 cm LVPWd: 0.85 cm LV palafox. diameter/BSA (cm/m^2): 2.6 LV sys. diameter/BSA (cm/m^2): 1.94 RVD1 (basal): 3.3 cm TAPSE: 1.67 cm LA A4 area: 15.4 cm?? RA area: 11.2 cm?? LA A2 area: 15.1 cm?? RA long axis: 4.0 cm LA length (vol): 4.5 cm RA vol: 26.3 ml LA vol: 44.3 ml RA : 16.3 ml/m?? LA vol index: 27.5 ml/m?? Electronically signed by: Ana Parkinson M.D. 06/17/2020, 11: 56 PM
== END ==
PROVIDERS: Family Provider Family Medicine; PCP Family Medicine; Referring Provider Internal Medicine Hematology & Oncology; Visit Provider Internal Medicine Hematology & Oncology
DX: R07.2 Precordial pain; C50.911 Malignant neoplasm of unspecified site of right female breast; C79.51 Secondary malignant neoplasm of bone; C78.7 Secondary malignant neoplasm of liver and intrahepatic bile duct; Z17.0 Estrogen receptor positive status [ER+]
CPT/HCPCS: 93005; 93010; 93307

== ENCOUNTER 2020-07-11 14:40 | Emergency (ER) | payer OTHER, SELFPAY ==
[2019-04-04 10:41] VITALS: BMI 23.4
[2020-07-11 14:50] VITALS: BP 119/75; PULSE 79; RESP 15; TEMP 37.1; O2SAT 95; BMI 27.3
== END 2020-07-11 19:17 | disposition left against medical advice (07) ==
PROVIDERS: Emergency Provider Emergency Medicine
CPT/HCPCS: 99281

== ENCOUNTER 2020-07-12 10:26 | Observation (INO) | payer OTHER, SELFPAY ==
[2019-04-04 10:41] VITALS: BMI 23.4
[2020-07-12] VITALS (23 sets, daily range): BP systolic 93–145; BP diastolic 45–66; PULSE 64–88; RESP 13–24; TEMP 36.7–37.3; O2SAT 83–100; BMI 27.3
--- NOTE | 2020-07-12 10:57 | DI.CT.S_ITS ---
PROCEDURE: CT HEAD/BRAIN WO CON INDICATIONS: glf TECHNIQUE: Noncontrast 4.5 mm thick angled axial sections acquired from the foramen magnum to the vertex, with coronal and sagittal reformats. For radiation dose reduction, the following was used: automated exposure control, adjustment of mA and/or kV according to patient size. COMPARISON: [facility], MR, MR HEAD/BRAIN WO/W CON, 11/29/2018, 9:34. [facility], CT, HEAD WITHOUT CONTRAST, 09/18/2014, 12:17. FINDINGS: Image quality: Excellent. CSF spaces: Basal cisterns are patent. No extra-axial fluid collections. Ventricles are normal in size and shape. Brain: No midline shift. No intracranial masses or hemorrhage. Phelps-white matter interface is normal. Skull and face: Calvarium and visualized facial bones are intact, without suspicious lesions. Sinuses: Visualized sinuses and mastoids are clear. IMPRESSION: No acute intracranial abnormality. Dictated by: Gabo Turpin M.D. on 07/12/2020 at 11:06 Approved by: Gabo Turpin M.D. on 07/12/2020 at 11:09
--- NOTE | 2020-07-12 10:57 | DI.CT.S_ITS ---
PROCEDURE: CT CERVICAL SPINE WO CON INDICATIONS: glf neck pain TECHNIQUE: Noncontrast 3 mm thick sections acquired from the skull base to the T4 level. Sagittal and coronal reformats were then constructed. For radiation dose reduction, the following was used: automated exposure control, adjustment of mA and/or kV according to patient size. COMPARISON: None. FINDINGS: Image quality: Excellent. Bones: No fractures or dislocations. Visualized superior ribs are intact. Mild degenerative change. Soft tissues: Prevertebral soft tissues are normal in thickness. No paravertebral hematomas. No apical pneumothoraces. Left-sided central venous line. IMPRESSION: No acute osseous abnormality. Dictated by: Gabo Turpin M.D. on 07/12/2020 at 11:09 Approved by: Gabo Turpin M.D. on 07/12/2020 at 11:12
--- NOTE | 2020-07-12 10:58 | DI.RAD.S_ITS ---
PROCEDURE: XR ACUTE ABDOMEN SERIES INDICATIONS: nausea, sob TECHNIQUE: One view chest and two views of the abdomen were acquired. COMPARISON: [facility], CT, CT CHEST ABD PEL W CON, 05/14/2020, 9:17. [facility], CR, ABDOMEN ACUTE SERIES, 03/26/2013, 11:28. [facility], CR, ABDOMEN ACUTE SERIES, 03/19/2013, 10:14. FINDINGS: Surgical changes and devices: Left-sided port with the tip in the middle 3rd of the SVC. Bilateral chest wall clips. Chest: Lungs are clear. Heart size is normal. No pleural effusions. Asymmetric elevation of the right hemidiaphragm, unchanged. No pneumoperitoneum. Abdomen: Bowel gas pattern is normal. Prominent stool in the pelvis. No suspicious calcifications. Visualized solid organ contours appear normal. Bones: Mild sclerosis in the left iliac wing at the site of previously seen metastatic disease. Minimal scoliosis. IMPRESSION: No acute cardiopulmonary abnormality. No dilated loops of bowel seen. If clinically indicated consider further evaluation with CT abdomen and pelvis with IV contrast. Dictated by: Gabo Turpin M.D. on 07/12/2020 at 11:12 Approved by: Gabo Turpin M.D. on 07/12/2020 at 11:16
--- NOTE | 2020-07-12 11:06 | ED.FALL ---
HPI - Fall <Ting Sharif PHARMACEUTICAL SALES REPRESENTATIVE-BC - Last Filed: 07/12/20 17:36> General Chief Complaint: Fall Stated Complaint: hard time standing/falling, breathing, coughing Time Seen by Provider: 07/12/20 10:45 Source: patient Mode of arrival: Wheelchair Limitations: no limitations History of Present Illness HPI Narrative: The patient is a 70-year-old female former smoker with history of metastatic breast cancer presents with a chief complaint of a hard time since a fall yesterday. She states she was in her kitchen and got dizzy and then hit the floor. She is not sure whether not she passed out. She does not take blood thinners. She also complains of nausea, with no vomiting. She states that is normal for her and she uses Zofran at home. She also states she feels short of breath, is not sure whether that is new or not. She states she is coughing as well. She states she is in severe pain from falling and hitting her head, does complain of in pain. She does have multiple complaints including bilateral shoulder pain that has been ongoing for 4 months, chronic dizziness and malaise. She states she is eating and drinking well, but that she feels very dehydrated. She states that she feels short of breath on and off for the past several months. Her primary care provider is Dr. Adame. Related Data Home Medications Medication Instructions Recorded Confirmed amitriptyline 150 mg PO HS #0 01/05/13 07/12/20 gabapentin 300 mg PO QAM 12/13/17 07/12/20 oxybutynin chloride 10 mg PO DAILY 12/13/17 07/12/20 tramadol 50 mg PO Q6H PRN 12/13/17 07/12/20 cholecalciferol (vitamin D3) 2,000 unit PO DAILY 01/24/18 07/12/20 [Vitamin D3] metoprolol tartrate 25 mg PO BID 01/24/18 07/12/20 valacyclovir 1 tab PO TID 01/24/18 07/12/20 cyanocobalamin (vitamin B-12) 1,000 mcg PO DAILY 03/08/18 07/12/20 [Vitamin B-12] melatonin 5 mg PO BEDTIME PRN 03/08/18 07/12/20 alprazolam 1 mg DAILY 06/15/18 07/12/20 Previous Rx's Medication Instructions Recorded capecitabine 1,000 mg PO BID 21 Days #84 tab 06/19/20 hydroxyzine pamoate [Vistaril] 50 mg PO TID-QID PRN #60 cap 06/19/20 loperamide 2 mg PO Q8HP PRN #100 cap 06/19/20 lorazepam [Ativan] 0.5 mg PO Q8H PRN #60 tab 06/19/20 omeprazole 20 mg PO DAILY #30 cap 06/19/20 oxycodone 10 mg PO Q6H PRN #60 tab 07/10/20 Allergies Allergy/AdvReac Type Severity Reaction Status Date / Time hydrocodone AdvReac Severe RASH, Verified 07/12/20 10:39 ITCHING Review of Systems <BUD Estrella - Last Filed: 07/12/20 17:36> Review of Systems Narrative: GENERAL: Denies chills, fatigue, malaise, fever, sweats. HEENT: Denies sinus pain, ear pain, sore throat, difficulty swallowing, dizziness. RESPIRATORY: Denies dyspnea, cough, wheezing, hemoptysis, sputum. CARDIOVASCULAR: See HPI GASTROINTESTINAL: See HPI : Denies dysuria, frequency, incontinence, hematuria, urinary retention. MUSCULOSKELETAL: See HPI SKIN: Denies rash, skin lesions, or other NEUROLOGIC: Denies weakness, headache, numbness, change in speech, confusion, seizures, incoordination. PSYCHIATRIC: No concerning psychosocial issues. 12 point review of systems is negative except for those stated above Patient History <BUD Estrella - Last Filed: 07/12/20 17:36> Medical History (Updated 07/12/20 @ 17:23 by BUD Estrella) Anxiety Breast cancer Colon cancer Hypertension Lymph node cancer Nausea Thrush, oral Surgical History (Updated 02/21/19 @ 13:02 by Orville Reed MD) History of hysterectomy History of mastectomy Social History household members: none Smoking Status: Former smoker alcohol intake: former Smoking Status: Former smoker alcohol intake frequency: holidays/special occasions only Substance Use Type: marijuana Exam <BUD Estrella - Last Filed: 07/12/20 17:36> Narrative Exam Narrative: GENERAL: This is a well-nourished, well-developed patient, appears uncomfortable HEAD: Atraumatic. Normocephalic. No temporal or scalp tenderness. EYES: Pupils equal round and reactive. Extraocular motions intact. No scleral icterus. No injection or drainage. ENT: Nose without bleeding, purulent drainage or septal hematoma. Throat without erythema, tonsillar hypertrophy or exudate. Uvula midline. Airway patent. Very dry mucous membranes NECK: Trachea midline. No JVD or lymphadenopathy. CARDIOVASCULAR: Regular rate and rhythm RESPIRATORY: Clear to auscultation. Breath sounds equal bilaterally. No wheezes, rales, or rhonchi. No cough. No increased respiratory effort. No accessory muscle use GASTROINTESTINAL: Abdomen soft, diffusely tender with no guarding, nondistended. No hepato-splenomegaly, or palpable masses. Active bowel sounds all quadrants EXTREMITIES: No clubbing, cyanosis, or edema. No joint tenderness, effusion, or edema noted. BACK: C-spine is tender to palpation. T and L-spine are Nontender without deformity or crepitance. No palpable step-offs or deformity NEURO: AOx3. Generalized weakness noted SKIN: No rash or erythema on visible skin Initial Vital Signs Initial Vital Signs: Vital Signs Temperature 99.1 F 07/12/20 10:31 Pulse Rate 83 07/12/20 10:31 Respiratory Rate 18 07/12/20 10:31 Blood Pressure 145/61 H 07/12/20 10:31 Pulse Oximetry 96 07/12/20 10:31 <Ting Fitzgerald DO - Last Filed: 07/13/20 07:20> Initial Vital Signs Initial Vital Signs: Vital Signs Temperature 99.1 F 07/12/20 10:31 Pulse Rate 83 07/12/20 10:31 Respiratory Rate 18 07/12/20 10:31 Blood Pressure 145/61 H 07/12/20 10:31 Pulse Oximetry 96 07/12/20 10:31 Scores <BUD Estrella - Last Filed: 07/12/20 17:36> GCS Hayden coma scale eye opening: Spontaneous Gwen coma scale verbal response: Orientated Hayden coma scale motor response: Obey commands Gwen coma scale total score: 15 Course <BUD Estrella - Last Filed: 07/12/20 17:36> Orders Ordered: Acetaminophen (Acetaminophen 325 Mg Tablet) 650 mg PO Q6HR PRN PRN Reason: Fever/Mild Pain (1-3) Amitriptyline HCl (Amitriptyline 75 Mg Tablet) 150 mg PO BEDTIME [facility] Last Admin: 07/12/20 21:24 Dose: Not Given Documented by: Admin: 07/12/20 19:44 Dose: 150 mg Documented by: GREG Docusate Sodium (Docusate 100 Mg Capsule) 100 mg PO BID [facility] Last Admin: 07/12/20 21:23 Dose: Not Given Documented by: GREG Gabapentin (Gabapentin 300 Mg Capsule) 300 mg PO DAILY [facility] Heparin Sodium (Porcine) (Heparin 500 Unit/5 Ml Port Flush) 500 unit IV PRN PRN PRN Reason: Flush Last Admin: 07/13/20 03:16 Dose: 500 unit Documented by: PIYUSH Heparin Sodium (Porcine) (Heparin 500 Unit/5 Ml Port Flush) 500 unit IV BID [facility] Last Admin: 07/12/20 21:23 Dose: Not Given Documented by: GREG Hydroxyzine Pamoate (Hydroxyzine Pamoate 25 Mg Capsule) 50 mg PO QID PRN PRN Reason: Itching Sodium Chloride (Normal Saline 0.9%) 1,000 mls @ 125 mls/hr IV CONT [facility] Last Admin: 07/13/20 03:16 Dose: 125 mls/hr Documented by: Infusion: 07/13/20 03:16 Dose: 125 mls/hr Documented by: Admin: 07/12/20 19:36 Dose: 125 mls/hr Documented by: GREG Lorazepam (Lorazepam 0.5 Mg Tablet) 0.5 mg PO Q8H PRN PRN Reason: Nausea Metoprolol Tartrate (Metoprolol Ir 25 Mg Tablet) 25 mg PO BID [facility] Last Admin: 07/12/20 21:26 Dose: 25 mg Documented by: GREG Non-Formulary Medication (Mirabegron [Myrbetriq]) 25 mg PO DAILY [facility] Ondansetron HCl (Ondansetron 4 Mg/2 Ml Inj) 4 mg IV Q8HR PRN PRN Reason: Nausea And Vomiting Oxycodone HCl (Oxycodone Ir 10 Mg Tablet) 10 mg PO Q6H PRN PRN Reason: Chest Pain, breast cancer Pantoprazole Sodium (Pantoprazole 20 Mg Tablet) 20 mg PO DAILY RUDY Discontinued Medications Hydrocodone Bitart/Acetaminophen (Hydrocodone/Acet 5/325 Tablet) 1 tab PO Q4HR PRN PRN Reason: Pain, Moderate (4-6) Sodium Chloride (Normal Saline 0.9%) 1,000 mls @ 1,000 mls/hr IV BOLUS ONE Stop: 07/12/20 11:56 Last Infusion: 07/12/20 13:29 Dose: 0 mls/hr Documented by: Admin: 07/12/20 12:07 Dose: 1,000 mls/hr Documented by: DENYS Sodium Chloride (Normal Saline 0.9%) 1,000 mls @ 1,000 mls/hr IV BOLUS ONE Stop: 07/12/20 14:48 Last Infusion: 07/12/20 15:09 Dose: 0 mls/hr Documented by: Admin: 07/12/20 14:07 Dose: 1,000 mls/hr Documented by: DENYS Sodium Chloride (Normal Saline 0.9%) 1,000 mls @ 125 mls/hr IV CONT RUDY Influenza Virus Vaccine (Influenza Hd Vaccine 0.7 Ml Syringe) 0.7 ml IM .ONCE ONE Stop: 07/12/20 20:14 Vital Signs Vital signs: Vital Signs - 8 hr 07/12/20 10:31 07/12/20 12:04 07/12/20 12:06 Temperature 99.1 F Pulse Rate 83 65 65 Respiratory Rate 18 21 Blood Pressure 145/61 H 109/53 L Pulse Oximetry 96 95 95 07/12/20 12:30 07/12/20 13:00 07/12/20 13:25 Temperature Pulse Rate 66 84 77 Respiratory Rate 19 16 22 Blood Pressure 101/59 L 130/57 L Pulse Oximetry 97 98 07/12/20 13:30 07/12/20 14:00 07/12/20 14:30 Temperature Pulse Rate 70 65 64 Respiratory Rate 17 21 14 Blood Pressure 128/56 L 95/51 L Pulse Oximetry 97 96 98 07/12/20 15:00 07/12/20 15:30 07/12/20 16:00 Temperature Pulse Rate 64 64 64 Respiratory Rate 13 18 22 Blood Pressure 97/55 L 97/61 93/54 L Pulse Oximetry 100 100 95 07/12/20 16:32 Temperature Pulse Rate 88 Respiratory Rate 24 Blood Pressure Pulse Oximetry 83 L <Ting Fitzgerald, DO - Last Filed: 07/13/20 07:20> Orders Ordered: Acetaminophen (Acetaminophen 325 Mg Tablet) 650 mg PO Q6HR PRN PRN Reason: Fever/Mild Pain (1-3) Amitriptyline HCl (Amitriptyline 75 Mg Tablet) 150 mg PO BEDTIME [facility] Last Admin: 07/12/20 21:24 Dose: Not Given Documented by: Admin: 07/12/20 19:44 Dose: 150 mg Documented by: GREG Docusate Sodium (Docusate 100 Mg Capsule) 100 mg PO BID [facility] Last Admin: 07/12/20 21:23 Dose: Not Given Documented by: GREG Gabapentin (Gabapentin 300 Mg Capsule) 300 mg PO DAILY [facility] Heparin Sodium (Porcine) (Heparin 500 Unit/5 Ml Port Flush) 500 unit IV PRN PRN PRN Reason: Flush Last Admin: 07/13/20 03:16 Dose: 500 unit Documented by: PIYUSH Heparin Sodium (Porcine) (Heparin 500 Unit/5 Ml Port Flush) 500 unit IV BID [facility] Last Admin: 07/12/20 21:23 Dose: Not Given Documented by: GREG Hydroxyzine Pamoate (Hydroxyzine Pamoate 25 Mg Capsule) 50 mg PO QID PRN PRN Reason: Itching Sodium Chloride (Normal Saline 0.9%) 1,000 mls @ 125 mls/hr IV CONT [facility] Last Admin: 07/13/20 03:16 Dose: 125 mls/hr Documented by: Infusion: 07/13/20 03:16 Dose: 125 mls/hr Documented by: Admin: 07/12/20 19:36 Dose: 125 mls/hr Documented by: GREG Lorazepam (Lorazepam 0.5 Mg Tablet) 0.5 mg PO Q8H PRN PRN Reason: Nausea Metoprolol Tartrate (Metoprolol Ir 25 Mg Tablet) 25 mg PO BID [facility] Last Admin: 07/12/20 21:26 Dose: 25 mg Documented by: GREG Non-Formulary Medication (Mirabegron [Myrbetriq]) 25 mg PO DAILY [facility] Ondansetron HCl (Ondansetron 4 Mg/2 Ml Inj) 4 mg IV Q8HR PRN PRN Reason: Nausea And Vomiting Oxycodone HCl (Oxycodone Ir 10 Mg Tablet) 10 mg PO Q6H PRN PRN Reason: Chest Pain, breast cancer Pantoprazole Sodium (Pantoprazole 20 Mg Tablet) 20 mg PO DAILY [facility] Discontinued Medications Hydrocodone Bitart/Acetaminophen (Hydrocodone/Acet 5/325 Tablet) 1 tab PO Q4HR PRN PRN Reason: Pain, Moderate (4-6) Sodium Chloride (Normal Saline 0.9%) 1,000 mls @ 1,000 mls/hr IV BOLUS ONE Stop: 07/12/20 11:56 Last Infusion: 07/12/20 13:29 Dose: 0 mls/hr Documented by: Admin: 07/12/20 12:07 Dose: 1,000 mls/hr Documented by: DENYS Sodium Chloride (Normal Saline 0.9%) 1,000 mls @ 1,000 mls/hr IV BOLUS ONE Stop: 07/12/20 14:48 Last Infusion: 07/12/20 15:09 Dose: 0 mls/hr Documented by: Admin: 07/12/20 14:07 Dose: 1,000 mls/hr Documented by: DENYS Sodium Chloride (Normal Saline 0.9%) 1,000 mls @ 125 mls/hr IV CONT RUDY Influenza Virus Vaccine (Influenza Hd Vaccine 0.7 Ml Syringe) 0.7 ml IM .ONCE ONE Stop: 07/12/20 20:14 Vital Signs Vital signs: Vital Signs - 8 hr 07/12/20 10:31 07/12/20 12:04 07/12/20 12:06 Temperature 99.1 F Pulse Rate 83 65 65 Respiratory Rate 18 21 Blood Pressure 145/61 H 109/53 L Pulse Oximetry 96 95 95 07/12/20 12:30 07/12/20 13:00 07/12/20 13:25 Temperature Pulse Rate 66 84 77 Respiratory Rate 19 16 22 Blood Pressure 101/59 L 130/57 L Pulse Oximetry 97 98 07/12/20 13:30 07/12/20 14:00 07/12/20 14:30 Temperature Pulse Rate 70 65 64 Respiratory Rate 17 21 14 Blood Pressure 128/56 L 95/51 L Pulse Oximetry 97 96 98 07/12/20 15:00 07/12/20 15:30 07/12/20 16:00 Temperature Pulse Rate 64 64 64 Respiratory Rate 13 18 22 Blood Pressure 97/55 L 97/61 93/54 L Pulse Oximetry 100 100 95 07/12/20 16:32 Temperature Pulse Rate 88 Respiratory Rate 24 Blood Pressure Pulse Oximetry 83 L MDM - Fall <WESLEY Estrella- - Last Filed: 07/12/20 17:36> Lab Data Attestation: I reviewed the patient's lab results. Result diagrams: 07/13/20 03:23 07/13/20 03:23 Labs: Lab Results 07/12/20 07/12/20 07/12/20 Range/Units 11:30 11:45 11:45 WBC 7.7 (4.5-11.0) X10^3/uL RBC 2.87 L (4.0-5.2) X10^6/uL Hgb 10.0 L (12.0-16.0) g/dL Hct 29.0 L (36-46) % MCV 101.1 H (80-100) fL MCH 34.6 H (26-34) PG MCHC 34.3 (30-36) % RDW 19.1 H (11.6-14.8) % Plt Count 169 (150-400) X10^3/uL Neut % (Auto) 77.5 H (50-75) % Lymph % (Auto) 10.1 L (25-40) % York % (Auto) 11.7 (3-14) % Eos % (Auto) 0.5 L (2-4) % Baso % (Auto) 0.2 (0-2) % Neut # (Auto) 6000 (6793-0048) /uL Lymph # (Auto) 800 L (3152-6089) /uL York # (Auto) 900 (0-900) /uL Eos # (Auto) 0 (0-450) /uL Baso # (Auto) 0 (0-100) /uL PT (10.1-12.7) SECONDS INR (0.9-1.3) APTT (26.4-36.2) SECONDS Sodium 135 L (137-145) mmol/L Potassium 3.8 (3.4-5.1) mmol/L Chloride 103 (98-107) mmol/L Carbon Dioxide 28 (22-32) mmol/L BUN 18 H (7-17) mg/dL Creatinine 1.06 H (0.52-1.04) mg/dL Estimated GFR 51.2 L (>60) mL/min BUN/Creatinine Ratio 17.0 (6-22) Glucose 127 H (80-110) mg/dL Calcium 9.0 (8.4-10.2) mg/dL Total Bilirubin 0.8 (0.2-1.3) mg/dL AST 49 H (14-36) IU/L ALT 20 (<35) IU/L Alkaline Phosphatase 84 (38-126) U/L Total Creatine Kinase (30-135) U/L CK-MB (CK-2) (<2.37) ng/mL CK-MB (CK-2) Rel Index (1.5-5.0) % Troponin I (0.01-0.034) ng/mL Total Protein 6.7 (6.3-8.2) g/dL Albumin 3.9 (3.5-5.0) g/dL Globulin 2.8 (1.7-4.1) g/dL Albumin/Globulin Ratio 1.4 (1.0-2.8) Amylase 75 (30-110) U/L Lipase 125 (23-300) U/L SARS-CoV-2 (PCR) Negative (Negative) 07/12/20 07/12/20 07/12/20 Range/Units 11:45 11:45 15:20 WBC (4.5-11.0) X10^3/uL RBC (4.0-5.2) X10^6/uL Hgb (12.0-16.0) g/dL Hct (36-46) % MCV (80-100) fL MCH (26-34) PG MCHC (30-36) % RDW (11.6-14.8) % Plt Count (150-400) X10^3/uL Neut % (Auto) (50-75) % Lymph % (Auto) (25-40) % York % (Auto) (3-14) % Eos % (Auto) (2-4) % Baso % (Auto) (0-2) % Neut # (Auto) (0201-1382) /uL Lymph # (Auto) (3796-7610) /uL York # (Auto) (0-900) /uL Eos # (Auto) (0-450) /uL Baso # (Auto) (0-100) /uL PT 13.8 H (10.1-12.7) SECONDS INR 1.2 (0.9-1.3) APTT 32 D (26.4-36.2) SECONDS Sodium 135 L (137-145) mmol/L Potassium 4.0 (3.4-5.1) mmol/L Chloride 109 H (98-107) mmol/L Carbon Dioxide 26 (22-32) mmol/L BUN 17 (7-17) mg/dL Creatinine 0.88 (0.52-1.04) mg/dL Estimated GFR > 60.0 (>60) mL/min BUN/Creatinine Ratio 19.3 (6-22) Glucose 107 (80-110) mg/dL Calcium 7.4 L (8.4-10.2) mg/dL Total Bilirubin 0.5 (0.2-1.3) mg/dL AST 54 H (14-36) IU/L ALT 16 (<35) IU/L Alkaline Phosphatase 67 (38-126) U/L Total Creatine Kinase 1109 H 1006 H (30-135) U/L CK-MB (CK-2) 9.05 H 7.58 H (<2.37) ng/mL CK-MB (CK-2) Rel Index 0.8 L 0.8 L (1.5-5.0) % Troponin I < 0.012 < 0.012 (0.01-0.034) ng/mL Total Protein 5.4 L (6.3-8.2) g/dL Albumin 3.0 L (3.5-5.0) g/dL Globulin 2.4 (1.7-4.1) g/dL Albumin/Globulin Ratio 1.3 (1.0-2.8) Amylase (30-110) U/L Lipase (23-300) U/L SARS-CoV-2 (PCR) (Negative) Imaging Data CT scan - head: Radiologist's Impression: [address] [place] [address] [id number] Scan ReportSigned Patient: Candi Villanueva MMR#: [id number]: 1950Acct:[id number]/Sex: 70 / FDate of Service: 07/12/20Loc: EDAccession Number: [id number] Procedure: CT head/brain wo con Ordering Provider: Ting Sharif PROCEDURE: CT HEAD/BRAIN WO CON INDICATIONS: glf TECHNIQUE: Noncontrast 4.5 mm thick angled axial sections acquired from the foramen magnum to the vertex, with coronal and sagittal reformats. For radiation dose reduction, the following was used: automated exposure control, adjustment of mA and/or kV according to patient size. COMPARISON: [facility], MR, MR HEAD/BRAIN WO/W CON, 11/29/2018, 9:34. [facility], CT, HEAD WITHOUT CONTRAST, 09/18/2014, 12:17. FINDINGS: Image quality: Excellent. CSF spaces: Basal cisterns are patent. No extra-axial fluid collections. Ventricles are normal in size and shape. Brain: No midline shift. No intracranial masses or hemorrhage. Phelps-white matter interface is normal. Skull and face: Calvarium and visualized facial bones are intact, without suspicious lesions. Sinuses: Visualized sinuses and mastoids are clear. IMPRESSION: No acute intracranial abnormality. Dictated by: Gabo Turpin M.D. on 07/12/2020 at 11:06 Approved by: Gabo Turpin M.D. on 07/12/2020 at 11:09 CT - cervical spine: Radiologist's Impression: [address] [place] [address] [id number] Scan ReportSigned Patient: Candi Villanueva MMR#: [id number]: 1950Acct:[id number]/Sex: 70 / FDate of Service: 07/12/20Loc: EDAccession Number: [id number] Procedure: CT cervical spine wo con Ordering Provider: Ting Sharif PROCEDURE: CT CERVICAL SPINE WO CON INDICATIONS: glf neck pain TECHNIQUE: Noncontrast 3 mm thick sections acquired from the skull base to the T4 level. Sagittal and coronal reformats were then constructed. For radiation dose reduction, the following was used: automated exposure control, adjustment of mA and/or kV according to patient size. COMPARISON: None. FINDINGS: Image quality: Excellent. Bones: No fractures or dislocations. Visualized superior ribs are intact. Mild degenerative change. Soft tissues: Prevertebral soft tissues are normal in thickness. No paravertebral hematomas. No apical pneumothoraces. Left-sided central venous line. IMPRESSION: No acute osseous abnormality. Dictated by: Gabo Turpin M.D. on 07/12/2020 at 11:09 Approved by: Gabo Turpin M.D. on 07/12/2020 at 11:12 Abdominal x-ray: Radiologist's Impression: [address] [place] [address] [id number] ReportSigned Patient: Candi Villanueva MMR#: [id number]: 1950Acct:[id number]/Sex: 70 / FDate of Service: 07/12/20Loc: EDAccession Number: [id number] Procedure: XR acute abdomen series Ordering Provider: Ting Sharif PHARMACEUTICAL SALES REPRESENTATIVE-BC PROCEDURE: XR ACUTE ABDOMEN SERIES INDICATIONS: nausea, sob TECHNIQUE: One view chest and two views of the abdomen were acquired. COMPARISON: [facility], CT, CT CHEST ABD PEL W CON, 05/14/2020, 9:17. [facility], CR, ABDOMEN ACUTE SERIES, 03/26/2013, 11:28. [facility], CR, ABDOMEN ACUTE SERIES, 03/19/2013, 10:14. FINDINGS: Surgical changes and devices: Left-sided port with the tip in the middle 3rd of the SVC. Bilateral chest wall clips. Chest: Lungs are clear. Heart size is normal. No pleural effusions. Asymmetric elevation of the right hemidiaphragm, unchanged. No pneumoperitoneum. Abdomen: Bowel gas pattern is normal. Prominent stool in the pelvis. No suspicious calcifications. Visualized solid organ contours appear normal. Bones: Mild sclerosis in the left iliac wing at the site of previously seen metastatic disease. Minimal scoliosis. IMPRESSION: No acute cardiopulmonary abnormality. No dilated loops of bowel seen. If clinically indicated consider further evaluation with CT abdomen and pelvis with IV contrast. Dictated by: Gabo Turpin M.D. on 07/12/2020 at 11:12 Approved by: Gabo Turpin M.D. on 07/12/2020 at 11:16 CT scan - chest: Radiologist's Impression: [address] [place] [address] [id number] Scan ReportSigned Patient: Candi Villanueva [facility]#: [id number]: 1950Acct:[id number]/Sex: 70 / FDate of Service: 07/12/20Loc: EDAccession Number: [id number] Procedure: CT angio chest PE protocol Ordering Provider: Ting Sharif [facility] PROCEDURE: CT ANGIO CHEST PE PROTOCOL INDICATIONS: sob, hx ca TECHNIQUE: After the administration of intravenous contrast, 2 mm thick sections acquired from the pulmonary apices to the posterior costophrenic angles. 3-dimensional maximum intensity projection (MIP) coronal and sagittal reformats were then acquired through the thorax. For radiation dose reduction, the following was used: automated exposure control, adjustment of mA and/or kV according to patient size. COMPARISON: [facility], CT, CT CHEST ABD PEL W CON, 05/14/2020, 9:17. FINDINGS: Image quality: Excellent. Pulmonary arteries: Pulmonary arteries are normal in size, and demonstrate no intraluminal filling defects to suggest central pulmonary embolism. Lungs and pleura: Mild bilateral streaky and ground-glass opacity. No pleural effusions or pneumothorax. Central and peripheral airways are patent. Mediastinum: Left-sided port with the catheter tip at the cavoatrial junction. Heart size is normal, without pericardial effusion. No mediastinal or hilar adenopathy. Thoracic aorta is normal in caliber and enhancement. Esophagus is normal in caliber, without hiatal hernia. Bones and chest wall: Mastectomy and bilateral axillary clips. Multiple sclerotic vertebral body lesions. Right scapula sclerosis. Overall this appears similar to prior exam. Ribs and thoracic spine appear intact throughout. Thyroid gland is unremarkable. No axillary or supraclavicular adenopathy. Abdomen: Hepatic steatosis. Visualized upper abdominal solid organs appear normal in the early arterial phase of enhancement. IMPRESSION: 1. No pulmonary embolism. 2. Mild bilateral atelectasis and/or scarring. 3. Hepatic steatosis. This exam is not tailored for evaluation of the previously seen liver lesions. 4. No enlarged adenopathy seen. 5. Sclerotic osseous lesions. Dictated by: Gabo Turpin M.D. on 07/12/2020 at 13:22 Approved by: Gabo Turpin M.D. on 07/12/2020 at 13:29 [facility] Narrative Medical decision making narrative: The patient is a 70-year-old female who presents to the emergency department after chief complaint of a ground level fall yesterday, progressive shortness of breath and a cough. Given the palpation she hit her head and has C-spine pain on initial evaluation of a CT head and neck were obtained with no acute findings. She was noted to be 88% on room air, overall lab work shows slight anemia which is normal for the patient. However she has elevated total CK at 1100 as well as an elevated creatinine of 1.06, which is above her 0.8 normal. She has initial negative troponin, EKG within normal limits. Acute abdomen series has no acute findings. No leukocytosis on labs. I spoke with Dr. Berg from [facility]ology[facility]Oncology, on-call for the patient's oncologist. He recommended that the patient be admitted for IV fluids and further evaluation and that they would be happy to follow her as an inpatient. I spoke with Dr. Wang the admitting doctor for the patient's primary care provider, Dr. Adame who request that I recheck her labs prior to admission to ensure persistent renal injury or elevated CK. The patient's CK remains elevated at over 1000. However during her ambulation trial, she desatted to 83% on room air and was incredibly weak, difficult to get up with one person assist. Thus I spoke with Dr. Wang, who kindly accepted the patient for observation. <Ting Fitzgerald, DO - Last Filed: 07/13/20 07:20> Lab Data Labs: Lab Results 07/12/20 07/12/20 07/12/20 Range/Units 11:30 11:45 11:45 WBC 7.7 (4.5-11.0) X10^3/uL RBC 2.87 L (4.0-5.2) X10^6/uL Hgb 10.0 L (12.0-16.0) g/dL Hct 29.0 L (36-46) % MCV 101.1 H (80-100) fL MCH 34.6 H (26-34) PG MCHC 34.3 (30-36) % RDW 19.1 H (11.6-14.8) % Plt Count 169 (150-400) X10^3/uL Neut % (Auto) 77.5 H (50-75) % Lymph % (Auto) 10.1 L (25-40) % York % (Auto) 11.7 (3-14) % Eos % (Auto) 0.5 L (2-4) % Baso % (Auto) 0.2 (0-2) % Neut # (Auto) 6000 (9196-0157) /uL Lymph # (Auto) 800 L (8000-5721) /uL [place] # (Auto) 900 (0-900) /uL Eos # (Auto) 0 (0-450) /uL Baso # (Auto) 0 (0-100) /uL PT (10.1-12.7) SECONDS INR (0.9-1.3) APTT (26.4-36.2) SECONDS Sodium 135 L (137-145) mmol/L Potassium 3.8 (3.4-5.1) mmol/L Chloride 103 (98-107) mmol/L Carbon Dioxide 28 (22-32) mmol/L BUN 18 H (7-17) mg/dL Creatinine 1.06 H (0.52-1.04) mg/dL Estimated GFR 51.2 L (>60) mL/min BUN/Creatinine Ratio 17.0 (6-22) Glucose 127 H (80-110) mg/dL Calcium 9.0 (8.4-10.2) mg/dL Total Bilirubin 0.8 (0.2-1.3) mg/dL AST 49 H (14-36) IU/L ALT 20 (<35) IU/L Alkaline Phosphatase 84 (38-126) U/L Total Creatine Kinase (30-135) U/L CK-MB (CK-2) (<2.37) ng/mL CK-MB (CK-2) Rel Index (1.5-5.0) % Troponin I (0.01-0.034) ng/mL Total Protein 6.7 (6.3-8.2) g/dL Albumin 3.9 (3.5-5.0) g/dL Globulin 2.8 (1.7-4.1) g/dL Albumin/Globulin Ratio 1.4 (1.0-2.8) Amylase 75 (30-110) U/L Lipase 125 (23-300) U/L SARS-CoV-2 (PCR) Negative (Negative) 07/12/20 07/12/20 07/12/20 Range/Units 11:45 11:45 15:20 WBC (4.5-11.0) X10^3/uL RBC (4.0-5.2) X10^6/uL Hgb (12.0-16.0) g/dL Hct (36-46) % MCV (80-100) fL MCH (26-34) PG MCHC (30-36) % RDW (11.6-14.8) % Plt Count (150-400) X10^3/uL Neut % (Auto) (50-75) % Lymph % (Auto) (25-40) % [place] % (Auto) (3-14) % Eos % (Auto) (2-4) % Baso % (Auto) (0-2) % Neut # (Auto) (9100-8938) /uL Lymph # (Auto) (5793-3151) /uL [place] # (Auto) (0-900) /uL Eos # (Auto) (0-450) /uL Baso # (Auto) (0-100) /uL PT 13.8 H (10.1-12.7) SECONDS INR 1.2 (0.9-1.3) APTT 32 D (26.4-36.2) SECONDS Sodium 135 L (137-145) mmol/L Potassium 4.0 (3.4-5.1) mmol/L Chloride 109 H (98-107) mmol/L Carbon Dioxide 26 (22-32) mmol/L BUN 17 (7-17) mg/dL Creatinine 0.88 (0.52-1.04) mg/dL Estimated GFR > 60.0 (>60) mL/min BUN/Creatinine Ratio 19.3 (6-22) Glucose 107 (80-110) mg/dL Calcium 7.4 L (8.4-10.2) mg/dL Total Bilirubin 0.5 (0.2-1.3) mg/dL AST 54 H (14-36) IU/L ALT 16 (<35) IU/L Alkaline Phosphatase 67 (38-126) U/L Total Creatine Kinase 1109 H 1006 H (30-135) U/L CK-MB (CK-2) 9.05 H 7.58 H (<2.37) ng/mL CK-MB (CK-2) Rel Index 0.8 L 0.8 L (1.5-5.0) % Troponin I < 0.012 < 0.012 (0.01-0.034) ng/mL Total Protein 5.4 L (6.3-8.2) g/dL Albumin 3.0 L (3.5-5.0) g/dL Globulin 2.4 (1.7-4.1) g/dL Albumin/Globulin Ratio 1.3 (1.0-2.8) Amylase (30-110) U/L Lipase (23-300) U/L SARS-CoV-2 (PCR) (Negative) ECG Data Attestation: I personally reviewed and interpreted this ECG as follows: Prior ECG tracings: available for review Interpretation: Sinus rhythm, rate of 66, MI interval 145, QRS of 103 QTC of 455. Patient has in [address] elevation or depression appreciated. Nonspecific change noted. Similar to prior. Discharge Plan Departure Patient Disposition: Admitted as Observation Clinical Impression: Weakness, Hypoxia, Elevated CK, Dehydration Admit Date/Time: 07/12/20 17:23 Admit Provider: Kelechi Wang <Ting Fitzgerald DO - Last Filed: 07/13/20 07:20> Cosign ED Attending Cosignature Attestation: I was immediately available in the department for consultation. Documentation has been reviewed. Case was discussed, labs and imaging reviewed. Patient's renal funtion improved but her CPK continues to be fairly consistent. On ambulatory pulse ox patient had decrease of O2 sat.
[2020-07-12 11:57] LABS: COVID19 -Nasal RAPID Negative (Negative)
[2020-07-12 12:00] LABS: Add Manual Diff / Slide Review NO; Basophils Absolute Auto 0 /uL (0-100); Basophils Percent Auto 0.2 % (0-2); Eosinophils Absolute Auto 0 /uL (0-450); Eosinophils Percent Auto 0.5 % (2-4); Lymphocytes Absolute Auto 800 /uL (1100-4500); Lymphocytes Percent Auto 10.1 % (25-40); Mean Corpuscular HGB Conc 34.3 % (30-36); Mean Corpuscular Hemoglobin 34.6 PG (26-34); Mean Corpuscular Volume 101.1 fL (80-100); Monocytes Absolute Auto 900 /uL (0-900); Monocytes Percent Auto 11.7 % (3-14); Neutrophils Absolute Auto 6000 /uL (1500-7000); Neutrophils Percent Auto 77.5 % (50-75); Platelet Count 169 X10^3/uL (150-400); Red Blood Cell Count 2.87 X10^6/uL (4.0-5.2); Red Cell Distribution Width 19.1 % (11.6-14.8); White Blood Cell Count 7.7 X10^3/uL (4.5-11.0)
[2020-07-12 12:07] LABS: INR 1.2 (0.9-1.3); Prothrombin Time 13.8 SECONDS (10.1-12.7)
[2020-07-12] MEDS: SODIUM CHLORIDE 0.9% 1,000 ML 1000 ML IV ×2 (12:07→14:07)
[2020-07-12 12:09] LABS: Creatine Kinase 1109 U/L (30-135); PTT Partial Thromboplastin Tim 32 SECONDS (26.4-36.2)
[2020-07-12 12:11] LABS: Alanine Aminotransferase 20 IU/L (<35); Albumin 3.9 g/dL (3.5-5.0); Albumin Globulin Ratio 1.4 (1.0-2.8); Alkaline Phosphatase 84 U/L (38-126); Amylase 75 U/L (30-110); Aspartate Aminotransferase 49 IU/L (14-36); Bilirubin Total 0.8 mg/dL (0.2-1.3); Blood Urea Nitrogen 18 mg/dL (7-17); Carbon Dioxide 28 mmol/L (22-32); Chloride 103 mmol/L (98-107); Estimated Glomerular Filt Rate 51.2 mL/min (>60); Globulin 2.8 g/dL (1.7-4.1); Glucose 127 mg/dL (80-110); HEMOLYSIS < 15 (0-50); Lipase 125 U/L (23-300); Potassium 3.8 mmol/L (3.4-5.1); Sodium 135 mmol/L (137-145); Total Protein 6.7 g/dL (6.3-8.2)
[2020-07-12 12:22] LABS: Troponin I < 0.012 ng/mL (0.01-0.034)
[2020-07-12 12:25] LABS: CKMB % Relative Index 0.8 % (1.5-5.0); Creatine Kinase MB 9.05 ng/mL (<2.37)
--- NOTE | 2020-07-12 12:46 | DI.CT.S_ITS ---
PROCEDURE: CT ANGIO CHEST PE PROTOCOL INDICATIONS: sob, hx ca TECHNIQUE: After the administration of intravenous contrast, 2 mm thick sections acquired from the pulmonary apices to the posterior costophrenic angles. 3-dimensional maximum intensity projection (MIP) coronal and sagittal reformats were then acquired through the thorax. For radiation dose reduction, the following was used: automated exposure control, adjustment of mA and/or kV according to patient size. COMPARISON: [facility], CT, CT CHEST ABD PEL W CON, 05/14/2020, 9:17. FINDINGS: Image quality: Excellent. Pulmonary arteries: Pulmonary arteries are normal in size, and demonstrate no intraluminal filling defects to suggest central pulmonary embolism. Lungs and pleura: Mild bilateral streaky and ground-glass opacity. No pleural effusions or pneumothorax. Central and peripheral airways are patent. Mediastinum: Left-sided port with the catheter tip at the cavoatrial junction. Heart size is normal, without pericardial effusion. No mediastinal or hilar adenopathy. Thoracic aorta is normal in caliber and enhancement. Esophagus is normal in caliber, without hiatal hernia. Bones and chest wall: Mastectomy and bilateral axillary clips. Multiple sclerotic vertebral body lesions. Right scapula sclerosis. Overall this appears similar to prior exam. Ribs and thoracic spine appear intact throughout. Thyroid gland is unremarkable. No axillary or supraclavicular adenopathy. Abdomen: Hepatic steatosis. Visualized upper abdominal solid organs appear normal in the early arterial phase of enhancement. IMPRESSION: 1. No pulmonary embolism. 2. Mild bilateral atelectasis and/or scarring. 3. Hepatic steatosis. This exam is not tailored for evaluation of the previously seen liver lesions. 4. No enlarged adenopathy seen. 5. Sclerotic osseous lesions. Dictated by: Gabo Turpin M.D. on 07/12/2020 at 13:22 Approved by: Gabo Turpin M.D. on 07/12/2020 at 13:29
[2020-07-12 15:40] LABS: Alanine Aminotransferase 16 IU/L (<35); Albumin Globulin Ratio 1.3 (1.0-2.8); Alkaline Phosphatase 67 U/L (38-126); Aspartate Aminotransferase 54 IU/L (14-36); BUN Creatinine Ratio 19.3 (6-22); Bilirubin Total 0.5 mg/dL (0.2-1.3); Blood Urea Nitrogen 17 mg/dL (7-17); Calcium 7.4 mg/dL (8.4-10.2); Carbon Dioxide 26 mmol/L (22-32); Chloride 109 mmol/L (98-107); Creatine Kinase 1006 U/L (30-135); Estimated Glomerular Filt Rate > 60.0 mL/min (>60); Globulin 2.4 g/dL (1.7-4.1); Glucose 107 mg/dL (80-110); HEMOLYSIS < 15 (0-50); Sodium 135 mmol/L (137-145); Total Protein 5.4 g/dL (6.3-8.2)
[2020-07-12 15:52] LABS: Troponin I < 0.012 ng/mL (0.01-0.034)
[2020-07-12 15:56] LABS: CKMB % Relative Index 0.8 % (1.5-5.0); Creatine Kinase MB 7.58 ng/mL (<2.37)
--- NOTE | 2020-07-12 18:35 | P.HP_ITS ---
History of Present Illness History of Present Illness Date Patient Seen: 07/12/20 Time Patient Seen: 18:35 Chief complaint: hard time standing/falling, breathing, coughing Narrative: 70-year-old female with breast cancer and metastatic disease. Patient had a mastectomy in March 2014 has been going through chemotherapy radiation since then she had metastatic disease identified in March 2016. She has been on different treatments. Patient's saw her oncologist yesterday. Patient had a fall yesterday with some mild head discomfort afterwards. She went to the emergency department and waited for 3 hours and then left. Patient presented back to the emergency department today. She is having some mild head pain. But her major concern is she just feels weak tired no energy. She has not eating well she says she is feeling dehydrated. In addition to her head pain she is having some chest pain burning pain she says her bones hurt in general she is having some back pain she is bloated she has diarrhea but she has not a lot due to her colectomy. Or chills or cough. She does feel little bit short of breath. She tells me her cancer is terminal. She just does not feel well. Her workup and evaluation in the emergency department shows a normal white blood cell count she has mild anemic which is not new. She has a normal INR her sodium is slightly low which is not unusual she has normal kidney function. She has a normal troponin with a mildly elevated CK-MB and total CK of 106. He has low protein. Her COVID swab is negative. She had an echocardiogram done early in June which showed she has a reduced ejection fraction of about 40%. Patient History Medical History (Updated 07/12/20 @ 17:23 by WESLEY Estrella-) Anxiety Breast cancer Colon cancer Hypertension Lymph node cancer Nausea Thrush, oral Surgical History (Updated 02/21/19 @ 13:02 by Orville Reed MD) History of hysterectomy History of mastectomy Family & Social History Social History: household members none Safety & Behavioral: Feels Safe in Current Yes Environment Been Physically Hurt or No Threatened By a Person Tobacco & Substance use: Tobacco type cigarettes Smoking Status Former smoker alcohol intake former alcohol intake frequency holiday/special occasion Substance Use Type marijuana Meds Home Medications and Allergies Home Medications Medication Instructions Recorded Confirmed Type amitriptyline 150 mg PO HS #0 01/05/13 04/10/20 History gabapentin 300 mg PO QAM 12/13/17 04/10/20 History mirabegron [Myrbetriq] 25 mg PO DAILY 12/13/17 04/10/20 History oxybutynin chloride 10 mg PO DAILY 12/13/17 04/10/20 History tramadol 50 mg PO Q6H PRN 12/13/17 04/10/20 History zolpidem 5 mg PO BEDTIME PRN 12/13/17 04/10/20 History cholecalciferol (vitamin D3) 2,000 unit PO DAILY 01/24/18 04/10/20 History [Vitamin D3] metoprolol tartrate 25 mg PO BID 01/24/18 04/10/20 History valacyclovir 1 tab PO TID 01/24/18 04/10/20 History cyanocobalamin (vitamin B-12) 1,000 mcg PO DAILY 03/08/18 04/10/20 History [Vitamin B-12] melatonin 5 mg PO BEDTIME PRN 03/08/18 04/10/20 History alprazolam 1 mg DAILY 06/15/18 04/10/20 History capecitabine 1,000 mg PO BID 21 Days #84 tab 06/19/20 Rx hydroxyzine pamoate [Vistaril] 50 mg PO TID-QID PRN #60 cap 06/19/20 Rx loperamide 2 mg PO Q8HP PRN #100 cap 06/19/20 Rx lorazepam [Ativan] 0.5 mg PO Q8H PRN #60 tab 06/19/20 Rx omeprazole 20 mg PO DAILY #30 cap 06/19/20 Rx oxycodone 10 mg PO Q6H PRN #60 tab 07/10/20 Rx Allergies Allergy/AdvReac Type Severity Reaction Status Date / Time hydrocodone AdvReac Severe RASH, Verified 07/12/20 10:39 ITCHING Exam Vital Signs (past 8 hours): - 07/12/20 12:04 07/12/20 12:06 07/12/20 12:30 Pulse Rate 65 65 66 Respiratory Rate 21 19 Blood Pressure 109/53 L 101/59 L Pulse Oximetry 95 95 97 07/12/20 13:00 07/12/20 13:25 07/12/20 13:30 Pulse Rate 84 77 70 Respiratory Rate 16 22 17 Blood Pressure 130/57 L 128/56 L Pulse Oximetry 98 97 07/12/20 14:00 07/12/20 14:30 07/12/20 15:00 Pulse Rate 65 64 64 Respiratory Rate 21 14 13 Blood Pressure 95/51 L 97/55 L Pulse Oximetry 96 98 100 07/12/20 15:30 07/12/20 16:00 07/12/20 16:30 Pulse Rate 64 64 85 Respiratory Rate 18 22 Blood Pressure 97/61 93/54 L Pulse Oximetry 100 95 91 07/12/20 16:32 07/12/20 17:00 07/12/20 17:30 Pulse Rate 88 67 68 Respiratory Rate 24 20 23 Blood Pressure Pulse Oximetry 83 L 91 07/12/20 18:00 07/12/20 18:05 07/12/20 18:07 Pulse Rate 70 70 71 Respiratory Rate 24 21 24 Blood Pressure 104/45 L Pulse Oximetry 90 L 93 95 Oxygen Delivery Method Room Air Narrative Exam Narrative: Gen.: Patient is alert good historian complaining of not feeling well HEENT: Mild tenderness to palpation on the posterior scalp PERRLA tympanic membranes are clear nares are patent oral mucosa is moist no tonsillar hypertrophy neck is supple without lymphadenopathy no thyroid enlargement. Cardio: S1-S2 regular rate and rhythm no murmurs appreciated. Respiratory: Lungs are clear to auscultation no wheezes or crackles normal respiratory effort. Abdomen: Soft nontender no rebound or guarding no liver spleen enlargement no appreciable hernias Extremities: Full range of motion no appreciable weakness no cyanosis or edema. Neurologic: Grossly intact. Objective Labs Result Diagrams: 07/12/20 11:45 07/12/20 15:20 Labs: Laboratory Results - last 24 hr 07/12/20 07/12/20 07/12/20 11:30 11:45 11:45 WBC 7.7 RBC 2.87 L Hgb 10.0 L Hct 29.0 L MCV 101.1 H MCH 34.6 H MCHC 34.3 RDW 19.1 H Plt Count 169 Neut % (Auto) 77.5 H Lymph % (Auto) 10.1 L [place] % (Auto) 11.7 Eos % (Auto) 0.5 L Baso % (Auto) 0.2 Neut # (Auto) 6000 Lymph # (Auto) 800 L [place] # (Auto) 900 Eos # (Auto) 0 Baso # (Auto) 0 PT INR APTT Sodium 135 L Potassium 3.8 Chloride 103 Carbon Dioxide 28 BUN 18 H Creatinine 1.06 H Estimated GFR 51.2 L BUN/Creatinine Ratio 17.0 Glucose 127 H Calcium 9.0 Total Bilirubin 0.8 AST 49 H ALT 20 Alkaline Phosphatase 84 Total Creatine Kinase CK-MB (CK-2) CK-MB (CK-2) Rel Index Troponin I Total Protein 6.7 Albumin 3.9 Globulin 2.8 Albumin/Globulin Ratio 1.4 Amylase 75 Lipase 125 SARS-CoV-2 (PCR) Negative 07/12/20 07/12/20 07/12/20 11:45 11:45 15:20 WBC RBC Hgb Hct MCV MCH MCHC RDW Plt Count Neut % (Auto) Lymph % (Auto) [place] % (Auto) Eos % (Auto) Baso % (Auto) Neut # (Auto) Lymph # (Auto) [place] # (Auto) Eos # (Auto) Baso # (Auto) PT 13.8 H INR 1.2 APTT 32 D Sodium 135 L Potassium 4.0 Chloride 109 H Carbon Dioxide 26 BUN 17 Creatinine 0.88 Estimated GFR > 60.0 BUN/Creatinine Ratio 19.3 Glucose 107 Calcium 7.4 L Total Bilirubin 0.5 AST 54 H ALT 16 Alkaline Phosphatase 67 Total Creatine Kinase 1109 H 1006 H CK-MB (CK-2) 9.05 H 7.58 H CK-MB (CK-2) Rel Index 0.8 L 0.8 L Troponin I < 0.012 < 0.012 Total Protein 5.4 L Albumin 3.0 L Globulin 2.4 Albumin/Globulin Ratio 1.3 Amylase Lipase SARS-CoV-2 (PCR) Assessment & Plan Assessment & Plan narrative: Metastatic breast cancer with bony Mets with palliative chemotherapy. Patient admitted with dehydration and rhabdomyolysis. Patient has normal kidney function. Patient is weak and had a fall yesterday. Patient is weak nausea dehydrated and has elevated CPK. She will be admitted to the hospital with IV fluids. Will be careful with her IV fluids because of her cardiomyopathy and heart failure. She of monitoring her BUN and creatinine and CPK levels. She will be given antiemetics pain medication as per her routine for her breast cancer.. Rhabdomyolysis. Patient has of elevated CPK level. Due to recent injury yesterday have. She was abdomen limited head trauma. Was not unconscious. She became may be due to chemotherapy medication dehydration. Will fluid hydrate. Repeat CPK level. Congestive heart failure with cardiomyopathy. Patient with the his reduced ejection fraction of 40%. Probably due to her chemotherapy and treatment. Be careful with liberalizing fluid to prevent congestive heart failure exacerbation this point she is a little bit dry. Disposition and plan. Patient will be admitted as an inpatient with her elevated CPK monitoring of her fluid status due to her congestive heart failure and metastatic breast cancer disease I anticipate should be in the hospital spanning greater than 2 midnights.
[2020-07-12] MEDS: SODIUM CHLORIDE 0.9% 1,000 ML 125 ML IV (19:36)
[2020-07-12] MEDS: AMITRIPTYLINE 75 MG TABLET 150 MG PO (19:44)
[2020-07-12] MEDS: METOPROLOL IR 25 MG TABLET PO (21:26)
[2020-07-13] VITALS (10 sets, daily range): BP systolic 108–151; BP diastolic 51–72; PULSE 60–79; RESP 14–20; TEMP 36.2–36.7; O2SAT 93–99
--- NOTE | 2020-07-13 00:31 | PC.NURSE ---
Addendum entered by Alyssa Goins R.N. 07/13/20 06:26: This expert medical writer was able to talk to Dr. Wang and notify the MD of pt amitriptyline dose and how pt was hard to arouse. as per MD, he will fix the dosage once he gets at the hospital. Original Note: pt was sleepy and hard to arouse but responds to touch, and pain stimuli. as per champ VILLALTA this started after pt was given 150 mg of amitryptilline. ED provider ordered wrong seet for UA. AC does not do urine dipstick. This expert medical writer corrected it as UA to be sent to the lab.
[2020-07-13] MEDS: SODIUM CHLORIDE 0.9% 1,000 ML 125 ML IV (03:16)
[2020-07-13 03:32] LABS: Add Manual Diff / Slide Review NO; Basophils Absolute Auto 0 /uL (0-100); Basophils Percent Auto 0.3 % (0-2); Eosinophils Absolute Auto 100 /uL (0-450); Eosinophils Percent Auto 1.8 % (2-4); Hematocrit 26.8 % (36-46); Lymphocytes Absolute Auto 900 /uL (1100-4500); Lymphocytes Percent Auto 21.5 % (25-40); Mean Corpuscular HGB Conc 33.4 % (30-36); Mean Corpuscular Hemoglobin 34.1 PG (26-34); Mean Corpuscular Volume 101.9 fL (80-100); Monocytes Absolute Auto 600 /uL (0-900); Monocytes Percent Auto 15.6 % (3-14); Neutrophils Absolute Auto 2400 /uL (1500-7000); Neutrophils Percent Auto 60.8 % (50-75); Platelet Count 144 X10^3/uL (150-400); Red Blood Cell Count 2.63 X10^6/uL (4.0-5.2); Red Cell Distribution Width 19.1 % (11.6-14.8)
[2020-07-13 03:47] LABS: Alanine Aminotransferase 16 IU/L (<35); Albumin Globulin Ratio 1.2 (1.0-2.8); Alkaline Phosphatase 63 U/L (38-126); Aspartate Aminotransferase 42 IU/L (14-36); BUN Creatinine Ratio 18.3 (6-22); Bilirubin Total 0.6 mg/dL (0.2-1.3); Blood Urea Nitrogen 13 mg/dL (7-17); Calcium 7.5 mg/dL (8.4-10.2); Carbon Dioxide 27 mmol/L (22-32); Chloride 109 mmol/L (98-107); Estimated Glomerular Filt Rate > 60.0 mL/min (>60); Globulin 2.5 g/dL (1.7-4.1); Glucose 87 mg/dL (80-110); HEMOLYSIS 16 (0-50); Potassium 3.7 mmol/L (3.4-5.1); Sodium 137 mmol/L (137-145); Total Protein 5.5 g/dL (6.3-8.2)
[2020-07-13 04:00] LABS: Creatine Kinase 760 U/L (30-135)
--- NOTE | 2020-07-13 07:35 | PM.PN.1 ---
Subjective Subjective Date Patient Seen: 07/13/20 Time Patient Seen: 07:42 Interval history: Patient seen doing well. She says she slept okay last night. No complaints of pain. She still feeling a little bit weak. Required a little bit of oxygen last night. No respiratory distress eating well. No other complaints of chest pain dizziness some mild muscle aches and weakness. Exam Vital Signs (past 8 hours): - 07/13/20 00:08 07/13/20 03:00 07/13/20 04:00 Temperature 98.0 F 97.7 F Pulse Rate 65 74 Respiratory Rate 18 18 Blood Pressure 114/60 120/59 L Pulse Oximetry 99 99 97 Oxygen Delivery Method Nasal Cannula Oxygen Flow Rate 2 Narrative Exam Narrative: Gen.: Alert good historian HEENT: Pupils equal round and reactive or mucosa is moist neck is supple Cardio: S1-S2 regular rate and rhythm no murmurs appreciated. Respiratory: Lungs are clear to auscultation no wheezes or crackles normal respiratory effort. Abdomen: Soft nontender no rebound or guarding no liver spleen enlargement no appreciable hernias Extremities: Full range of motion no appreciable weakness no cyanosis or edema. Neurologic: Grossly intact. Objective Labs Result Diagrams: 07/13/20 03:23 07/13/20 03:23 Labs: Laboratory Results - last 24 hr 07/12/20 07/12/20 07/12/20 11:30 11:45 11:45 WBC 7.7 RBC 2.87 L Hgb 10.0 L Hct 29.0 L MCV 101.1 H MCH 34.6 H MCHC 34.3 RDW 19.1 H Plt Count 169 Neut % (Auto) 77.5 H Lymph % (Auto) 10.1 L [place] % (Auto) 11.7 Eos % (Auto) 0.5 L Baso % (Auto) 0.2 Neut # (Auto) 6000 Lymph # (Auto) 800 L [place] # (Auto) 900 Eos # (Auto) 0 Baso # (Auto) 0 PT INR APTT Sodium 135 L Potassium 3.8 Chloride 103 Carbon Dioxide 28 BUN 18 H Creatinine 1.06 H Estimated GFR 51.2 L BUN/Creatinine Ratio 17.0 Glucose 127 H Calcium 9.0 Total Bilirubin 0.8 AST 49 H ALT 20 Alkaline Phosphatase 84 Total Creatine Kinase CK-MB (CK-2) CK-MB (CK-2) Rel Index Troponin I Total Protein 6.7 Albumin 3.9 Globulin 2.8 Albumin/Globulin Ratio 1.4 Amylase 75 Lipase 125 SARS-CoV-2 (PCR) Negative 07/12/20 07/12/20 07/12/20 11:45 11:45 15:20 WBC RBC Hgb Hct MCV MCH MCHC RDW Plt Count Neut % (Auto) Lymph % (Auto) [place] % (Auto) Eos % (Auto) Baso % (Auto) Neut # (Auto) Lymph # (Auto) [place] # (Auto) Eos # (Auto) Baso # (Auto) PT 13.8 H INR 1.2 APTT 32 D Sodium 135 L Potassium 4.0 Chloride 109 H Carbon Dioxide 26 BUN 17 Creatinine 0.88 Estimated GFR > 60.0 BUN/Creatinine Ratio 19.3 Glucose 107 Calcium 7.4 L Total Bilirubin 0.5 AST 54 H ALT 16 Alkaline Phosphatase 67 Total Creatine Kinase 1109 H 1006 H CK-MB (CK-2) 9.05 H 7.58 H CK-MB (CK-2) Rel Index 0.8 L 0.8 L Troponin I < 0.012 < 0.012 Total Protein 5.4 L Albumin 3.0 L Globulin 2.4 Albumin/Globulin Ratio 1.3 Amylase Lipase SARS-CoV-2 (PCR) 07/13/20 07/13/20 07/13/20 03:23 03:23 03:23 WBC 4.0 L RBC 2.63 L Hgb 9.0 L Hct 26.8 L MCV 101.9 H MCH 34.1 H MCHC 33.4 RDW 19.1 H Plt Count 144 L Neut % (Auto) 60.8 Lymph % (Auto) 21.5 L [place] % (Auto) 15.6 H Eos % (Auto) 1.8 L Baso % (Auto) 0.3 Neut # (Auto) 2400 Lymph # (Auto) 900 L [place] # (Auto) 600 Eos # (Auto) 100 Baso # (Auto) 0 PT INR APTT Sodium 137 Potassium 3.7 Chloride 109 H Carbon Dioxide 27 BUN 13 Creatinine 0.71 Estimated GFR > 60.0 BUN/Creatinine Ratio 18.3 Glucose 87 Calcium 7.5 L Total Bilirubin 0.6 AST 42 H ALT 16 Alkaline Phosphatase 63 Total Creatine Kinase 760 H CK-MB (CK-2) CK-MB (CK-2) Rel Index Troponin I Total Protein 5.5 L Albumin 3.0 L Globulin 2.5 Albumin/Globulin Ratio 1.2 Amylase Lipase SARS-CoV-2 (PCR) [facility] Medical History (Updated 07/12/20 @ 17:23 by Ting Sharif [facility]) Anxiety Breast cancer Colon cancer Hypertension Lymph node cancer Nausea Thrush, oral Surgical History (Updated 02/21/19 @ 13:02 by Orville Reed MD) History of hysterectomy History of mastectomy Social History household members: none Smoking Status: Former smoker alcohol intake: former Assessment & Plan Assessment & Plan narrative: Rhabdomyolysis patient had a fall with rhabdomyolysis with significant weakness her CPK yesterday was 1100. It is now down to 600. She has had gentle fluid rehydration as she had some mild dehydration as well. Patient's kidney function has remained stable. Her CPK is dropped. Patient has underlying congestive heart failure so will have to be careful with her fluids. Will decrease her fluids today. Will mobilize patient today ambulate work with physical therapy occupational therapy and hopefully patient can be discharged home tomorrow. Anemia of chronic disease. Patient has anemia due to her underlying breast cancer which is metastatic and chemotherapy. Her hemoglobin is 9. I think mainly is dilutional. Patient generally runs low with her blood counts anyways. Certainly not low enough for transfusion. Breast cancer widely metastatic. Patient has a long history and drew with breast cancer. Metastatic to the bone. Followed up with the Oncology. Has been through a number of rounds of chemotherapy and radiation. She has bony sclerotic lesions. Continue with pain management. Cardiomyopathy with congestive heart failure without acute exacerbation. Patient has reduced ejection fraction. She appears to be euvolemic. Will back off on her IV fluids at this time. Patient will be continued on her metoprolol she is not on an BRENNEN-inhibitor can consider adding that as an outpatient. Intermittent diarrhea. Patient has loperamide she is doing well from this standpoint. Gastroesophageal reflux she uses omeprazole 20 mg daily. Hypertension continue with her metoprolol twice a day Mixed incontinence patient is on oxybutynin this will be continued. Disposition and plan. Decrease IV fluids recheck CPK tomorrow ambulate with physical therapy today. Potentially home tomorrow
[2020-07-13 08:21] LABS: Bacteria Urine None Seen; RBC Urine None Seen (0-5/HPF); WBC Urine None Seen (0-5/HPF)
[2020-07-13 08:23] LABS: Appearance Urine UA CLEAR; Bilirubin Urine UA NEGATIVE (NEGATIVE); Color Urine UA YELLOW; Glucose Urine UA TRACE g/dL (Negative); Ketones Urine UA NEGATIVE (NEGATIVE); Leukocyte Esterase Urine UA NEGATIVE (NEGATIVE); Nitrite Urine UA NEGATIVE (Negative); Occult Blood Urine UA TRACE-LYSED (Negative); Protein Urine UA 1+ (Negative); Specific Gravity Urine UA 1.015 (1.000-1.035); Urobilinogen Urine UA 0.2 E.U./dL (0.2)
[2020-07-13 08:29] LABS: Culture Indicated Urine Cult Not Indicated; Urine Comments Microscopic Normal
[2020-07-13] MEDS: GABAPENTIN 300 MG CAPSULE PO (09:46)
[2020-07-13] MEDS: PANTOPRAZOLE 20 MG TABLET PO (09:46)
[2020-07-13] MEDS: ENOXAPARIN 40 MG/0.4 ML SYRINGE SUBCUT (09:46)
[2020-07-13] MEDS: METOPROLOL IR 25 MG TABLET PO ×2 (09:46→20:38)
[2020-07-13] MEDS: ACETAMINOPHEN 325 MG TABLET 650 MG PO (11:42)
--- NOTE | 2020-07-13 12:05 | PT.IIE ---
Surgical History (Last Reviewed 01/24/18 @ 19:38 by Terrence Swan DO) History of hysterectomy History of mastectomy Medical History (Last Reviewed 07/12/20 @ 16:52 by ERNESTO EstrellaP-) Anxiety Breast cancer Colon cancer Hypertension Lymph node cancer Nausea Thrush, oral Physical Therapy Inpatient Evaluation/Re-Eval M1 PT/OT-IP Prior Functional Status Start: 07/13/20 09:13 Freq: NEEDED Status: Active Protocol: Document 07/13/20 11:36 AW (Rec: 07/13/20 11:41 AW [id number]) Medical Review Prior Functional Status Medical History Reviewed Yes Communication WNL. Pt is an effective verbal communicator. Mobility and Gait Pt reports independent household mobility. She is also able to complete grocery shopping with push cart. Pt notes she has fallen ~5 times in the past one year. Activities of Daily Living and IADL's Independent with all I/ADL's. 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 Prior Functional Level (Other details) Pt is actively undergoing palliative chemotherapy for metastatic breast cancer. She had bilateral modified radical mastectomy in 2013. Social History Household Members none Living Arrangements House Number of Stairs To Enter/Railing? Level entrance Home Environment Walk in Shower,Tub/Shower, Built-In Shower Seat Home Equipment Grab Bars In Shower Additional Social History Comment Pt lives alone in [place]. She has a friend, Kenya, who is close to her and able to assist if needed. M1 PT/OT-IP Prior Functional Status Start: 07/13/20 15:13 Freq: NEEDED Status: Active Protocol: Document 07/13/20 15:13 RM (Rec: 07/13/20 15:21 RM [id number]) Medical Review Prior Functional Status Medical History Reviewed Yes Communication WNL. Pt is an effective verbal communicator. Mobility and Gait Pt reports independent household mobility. She is also able to complete grocery shopping with push cart. Pt notes she has fallen ~5 times in the past one year. Activities of Daily Living and IADL's Independent with all I/ADL's. 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 Prior Functional Level (Other details) Pt is actively undergoing palliative chemotherapy for metastatic breast cancer. She had bilateral modified radical mastectomy in 2013. Social History Household Members none Living Arrangements House Number of Stairs To Enter/Railing? Level entrance Home Environment Walk in Shower,Tub/Shower, Built-In Shower Seat Home Equipment Grab Bars In Shower Employment Status Retired Additional Social History Comment Pt lives alone in [place]. She has a friend, Kenya, who is close to her and able to assist if needed. M2 PT-IP Current Condition Start: 07/13/20 09:13 Freq: NEEDED Status: Active Protocol: Document 07/13/20 12:00 AW (Rec: 07/13/20 15:14 AW [id number]) Physical Therapy Current Condition Current Condition Evaluation Date 07/13/20 Treatment Diagnosis weakness, falls, rhabdomyolysis; difficulty in walking Onset Date 07/11/20 Precautions Other Precautions falls M3 PT-IP Subjective Start: 07/13/20 09:13 Freq: NEEDED Status: Active Protocol: Document 07/13/20 12:00 AW (Rec: 07/13/20 15:14 AW [id number]) Subjective Physical Therapy Visit Type Type Initial Evaluation Visit Start Time 10:22 Visit Stop Time 12:00 Total Visit Minutes 31 Notes Pt seen for split visits 1022- 1035 and [id number] due to pt's low activity tolerance. Nursing reports pt has been up to the bathroom with FWW and 1PA twice today. 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 Patient Goals Pt hopes to return home at discharge. Therapy Pain Assessment Pain When Pain Assessed At Rest Pain Present Pain Present Pain Reported Location Posterior Head Intensity 9 Scale Used Numeric (0 - 10) Pain Management Techniques Distraction,Timing of Activity with Medications M4 PT-IP Mobility and Gait Start: 07/13/20 09:13 Freq: NEEDED Status: Active Protocol: Document 07/13/20 12:00 AW (Rec: 07/13/20 15:14 AW [id number]) PT-Bed Mobility Assessment Supine to Sit Supine to Sit Minimal Assistance,1 Person Assistance,Bedrails Sit to Supine Sit to Supine Contact Guard Assistance Scooting Scooting to Edge of Bed Contact Guard Assistance PT-Transfer Assessment Sit to and From Stand Sit to and from Stand Minimal Assistance,1 Person Assistance,Use of Upper Extremities Equipment Transfer Assistive Device Gait Belt,Front Wheeled Walker Orthotic/Prosthetic Devices or Brace: No Comments Mobility Comments Pt was lying in bed as PT arrived. She complained of 9/ 10 headache and asked for lights to be turned down. She completed supine to sit min A x 1 with assist provided from the front with a hand hold to pull up to sitting. Pt was unsteady in sitting and required CGA to scoot toward EOB. In sitting BP was 126/56 HR 69 (measured on left ankle) . Pt stood from the bed with min 1PA and FWW but complained of immediate onset dizziness which she described as the room shifting. She stated she needed to sit and was directed to sit on the bed. BP was stable. No nystagmus was observed. Pt attempted to stand again with same result. Pt refused further mobility and so was assisted back to supine. This PT offered two more times throughout the day to assist pt with mobility but she continued to decline. Informed RN, recommending transfer to commode or chair only at this time. White board was updated with same. Gait Assessment Comments Gait Comments Not assessed. Pt refused. Stair Climbing Assessment Comments Stair Climbing Comments Not assessed. No stairs at home. PT-Balance Assessment Sitting Balance and Reactions Static Sitting Balance Ability Fair Dynamic Sitting Balance Ability Fair Standing Balance and Reactions Static Standing Balance Ability Poor Device Used FWW M5 PT-IP Objective Assessments Start: 07/13/20 09:13 Freq: NEEDED Status: Active Protocol: Document 07/13/20 12:00 AW (Rec: 07/13/20 15:22 [id number]) Orientation Orientation/Cognition Level of Alertness Lethargic Orientation Name,Month,Place,Situation Safety Awareness Decreased Safety Awareness Gross Range of Motion Lower Extremity ROM Assessment Within Functional Limits Strength Lower Extremity Strength Assessment Bilaterally Impaired Hip 4-/5 Knee 4-/5 Ankle 4/5 Sensation Assessment Sensation Gross Sensation WNL Muscle Tone Muscle Tone WNL Yes M6 PT-IP Treatment Start: 07/13/20 09:13 Freq: NEEDED Status: Active Protocol: Document 07/13/20 12:00 AW (Rec: 07/13/20 15:22 [id number]) Physical Therapy Treatment Education Education Provided Safety Other Treatments Other Treatment Performed Provided education on role of PT, plan of care, and importance of continued mobility. M7 PT-IP Assessment and Plan Start: 07/13/20 09:13 Freq: NEEDED Status: Active Protocol: Document 07/13/20 12:00 AW (Rec: 07/13/20 15:22 AW [id number]) PT Summary Assessment and Plan Potential Rehabilitation Potential Fair Status of Condition at Evaluation Evolving Summary Impairments Pain,Strength,Balance,Bed Mobility,Transfers,Gait, Activity Tolerance Assessment Summary Candi is a 70 yo woman seen for PT evaluation with admitting diagnosis of recent falls and rhabdomyolysis. Pt has metastatic breast cancer and is undergoing palliative chemotherapy. She also has history of CHF with ejection fraction 40%. PLOF: Pt reports independent household mobility and is able to complete grocery shopping trips at baseline. On evaluation, pt is unable to tolerate much activity, complaining of 9/10 headache pain and dizziness with standing which is inconsistent with benign positional vertigo. Discharge recommendation pending based on pt being able to tolerate more activity. Will need further assessment. Goals Bed Mobility Goal Independent Transfer Goal Independent,Front Wheeled Walker Gait Goal Independent,Front Wheel Walker Gait Distance 150 Other Goals - improve gait to 150 feet IND without AD Frequency of Treatment Frequency Of Treatment Once a Day Treatment Plan Physical Therapy Treatment Plan Bed Mobility Training,Transfer Training,Gait Training, Therapeutic Exercise,Balance Retraining,Discharge Planning, Hot or Cold Pack,Neuromuscular Re-ed Other Recommendations and Next Treatment monitor VS (BP at ankle 2/2 B Focus mastectomy); transfers; gait with fww Recommendations To Nursing Amount of Assist Needed 1 Person Assist Discharge Recommendations PT Discharge Recommendations Home with Assistance,SNF Rehab Other Discharge Recommendations pending progress: SNF vs home with assist and HH Equipment Needed for Home Before FWW if going home Discharge Transportation Needs at Discharge Private Vehicle,Wheelchair/ Cabulance
--- NOTE | 2020-07-13 15:21 | OT.IP.EVAL ---
Past Medical History (Last Reviewed 07/12/20 @ 16:52 by WESLEY Estrella-) Anxiety Breast cancer Colon cancer Hypertension Lymph node cancer Nausea Thrush, oral Surgical History (Last Reviewed 01/24/18 @ 19:38 by Terrence Swan DO) History of hysterectomy History of mastectomy Occupational Therapy Inpatient Evaluation/Re-Eval M1 PT/OT-IP Prior Functional Status Start: 07/13/20 09:13 Freq: NEEDED Status: Active Protocol: Document 07/13/20 11:36 AW (Rec: 07/13/20 11:41 AW [id number]) Medical Review Prior Functional Status Medical History Reviewed Yes Communication WNL. Pt is an effective verbal communicator. Mobility and Gait Pt reports independent household mobility. She is also able to complete grocery shopping with push cart. Pt notes she has fallen ~5 times in the past one year. Activities of Daily Living and IADL's Independent with all I/ADL's. 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 Prior Functional Level (Other details) Pt is actively undergoing palliative chemotherapy for metastatic breast cancer. She had bilateral modified radical mastectomy in 2013. Social History Household Members none Living Arrangements House Number of Stairs To Enter/Railing? Level entrance Home Environment Walk in Shower,Tub/Shower, Built-In Shower Seat Home Equipment Grab Bars In Shower Additional Social History Comment Pt lives alone in [place]. She has a friend, Kenya, who is close to her and able to assist if needed. M1 PT/OT-IP Prior Functional Status Start: 07/13/20 15:13 Freq: NEEDED Status: Active Protocol: Document 07/13/20 15:13 RM (Rec: 07/13/20 15:21 RM [id number]) Medical Review Prior Functional Status Medical History Reviewed Yes Communication WNL. Pt is an effective verbal communicator. Mobility and Gait Pt reports independent household mobility. She is also able to complete grocery shopping with push cart. Pt notes she has fallen ~5 times in the past one year. Activities of Daily Living and IADL's Independent with all I/ADL's. 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 Prior Functional Level (Other details) Pt is actively undergoing palliative chemotherapy for metastatic breast cancer. She had bilateral modified radical mastectomy in 2013. Social History Household Members none Living Arrangements House Number of Stairs To Enter/Railing? Level entrance Home Environment Walk in Shower,Tub/Shower, Built-In Shower Seat Home Equipment Grab Bars In Shower Employment Status Retired Additional Social History Comment Pt lives alone in [place]. She has a friend, Kenya, who is close to her and able to assist if needed. M2 OT-IP Current Condition Start: 07/13/20 15:13 Freq: Status: Active Protocol: Document 07/13/20 15:13 RM (Rec: 07/13/20 15:21 RM [id number]) Occupational Therapy Current Condition Current Condition Evaluation Date 07/13/20 Treatment Diagnosis fall with rhabdomyolysis Diagnosis Onset Date 07/12/20 M3 OT- IP Subjective and Pain Start: 07/13/20 15:13 Freq: Status: Active Protocol: Document 07/13/20 15:13 RM (Rec: 07/13/20 15:21 RM [id number]) OT- Subjective Occupational Therapy Visit Type Type Initial Evaluation Visit Start Time 13:55 Visit Stop Time 14:10 Total Visit Minutes 15 Notes Participation limited by patient drowsiness. Occupational Therapy Visit Comments Patient Comments I'm just so sleepy. I have to go home to be with my dog. Patient/Caregiver Goals Discharge home to be with her dog. OT Pain Assessment Pain When Pain Assessed During Mobility Pain Present Pain Present Pain Reported Location Abdomen Intensity 7 Scale Used Numeric (0 - 10) M4 OT- IP ADL's Start: 07/13/20 15:13 Freq: Status: Active Protocol: Document 07/13/20 15:13 RM (Rec: 07/13/20 15:21 RM [id number]) OT [id number] Comments OT Self-Feeding Comments NT- patient falling asleep seated EOB and unsafe for further activity OT ADL-Grooming Comments OT Grooming Comments NT- patient falling asleep seated EOB and unsafe for further activity OT ADL-Oral Care Comments Oral Care Comments NT- patient falling asleep seated EOB and unsafe for further activity OT ADL-Dressing Comments OT Dressing Comments NT- patient falling asleep seated EOB and unsafe for further activity OT ADL-Toileting Comments OT Toileting Comments NT- patient falling asleep seated EOB and unsafe for further activity OT ADL-Bathing Comments OT Bathing Comments NT- patient falling asleep seated EOB and unsafe for further activity M5 OT- IP IADL's Start: 07/13/20 15:13 Freq: Status: Active Protocol: Document 07/13/20 15:13 RM (Rec: 07/13/20 15:21 RM [id number]) OT-Instrumental Activities of Daily Living Deficits IADL Deficits Identified Deficits Home Safety Awareness Awareness of Need for Assistance at Home Decreased Awareness M6 OT- IP Functional Cognition Start: 07/13/20 15:13 Freq: Status: Active Protocol: Document 07/13/20 15:13 RM (Rec: 07/13/20 15:21 RM [id number]) Cognitive Factors Limiting Selfcare Function Cognitive Ability Level of Alertness Drowsy,Lethargic Attention Span Ability Unable to Sustain Attention Ability to Follow Commands Able to Follow One Step Commands with Increased Time, Able to Follow One Step Commands with Repetition Safety Awareness Underestimates Need for Assistance OT- Vision and Hearing OT- Hearing Assessment OT- Hearing Assessment WFL OT- Vision Assessment Visual Acuity WFL,Glasses All The Time M7 OT- IP Mobility and Balance Start: 07/13/20 15:13 Freq: Status: Active Protocol: Document 07/13/20 15:13 RM (Rec: 07/13/20 15:21 RM [id number]) OT- Bed Mobility Assessment Rolling Type of Rolling Roll to Right Level of Assistance Independent Supine to Sit Supine to Sit Assist Independent Sit to Supine Sit to Supine Assist Independent Scooting Scooting to Edge of Bed Independent OT-Transfer Assessment Comments Mobility Comments NT- patient falling asleep seated EOB and unsafe for further activity OT- Gait Assessment Comments Gait Ability Comments NT- patient falling asleep seated EOB and unsafe for further activity OT- Balance Assessment Sitting Balance and Reactions Static Sitting Balance Ability Fair Dynamic Sitting Balance Ability Poor Comments Other Balance Tests/Deviations/Treatment CGA sitting EOB with periods : of LOB, likely associated with patient drifiting off. M8 OT- IP Objective Assessments Start: 07/13/20 15:13 Freq: Status: Active Protocol: Document 07/13/20 15:13 RM (Rec: 07/13/20 15:21 RM [id number]) OT Gross Range of Motion Upper Extremity Range of Motion Assessment Within Functional Limits OT Strength Upper Extremity Strength Assessment Bilaterally Impaired M9 OT- IP Assessment and Plan Start: 07/13/20 15:13 Freq: Status: Active Protocol: Document 07/13/20 15:13 RM (Rec: 07/13/20 15:21 RM [id number]) OT Summary Assessment and Plan Potential Rehabilitation Potential Fair Analytic Complexity at Evaluation Low Summary OT Impairments Strength,Balance,Functional Cognition,Functional Mobility, Self-Feeding,Grooming,Dressing ,Toileting,Bathing,Toilet Transfers,Shower Transfers, Activity Tolerance Progress Towards Goals Slow Progress due to Activity Tolerance,Slow Progress due to Cognition Assessment Summary Patient is a 70 year old female who presents at [facility] with generalized weakness and poor activity tolerance. Patient somnolent, but able to awaken to participate with EOB assessment. However, with limited activity EOB began falling asleep with LOB. Unsafe for further activity. With discussion of barriers to dischargge she demonstrates poor insight. Discussed recommendation for SNF, however, patient declines at this time. Goals Self-Feeding Goal Independent Grooming Goal Independent Dressing Goal Independent Toileting Goal Independent Bathing Goal Independent Toilet Transfer Goal Independent Shower Transfer Goal Independent Patient/Caregiver Education Goal Demonstrate Energy Conservation and Pacing Days to Meet Goals 20 Frequency of Treatment Frequency Of Treatment Once a Day Treatment Plan OT Treatment Plan ADL Training,Functional Cognition Training,Functional Mobility,IADL Training, Therapeutic Exercises,Patient/ Family Education,Discharge Planning Discharge Recommendations OT Discharge Recommendations Home with 24/01 Assist,SNF Rehab Transportation Needs at Discharge Stretcher/Ambulance
[2020-07-13] MEDS: SODIUM CHLORIDE 0.9% 1,000 ML 60 ML IV (15:32)
[2020-07-13] MEDS: AMITRIPTYLINE 25 MG TABLET 50 MG PO (20:38)
[2020-07-13] MEDS: OXYCODONE IR 10 MG TABLET PO (21:45)
[2020-07-13] MEDS: hydrOXYzine pamoate 25 MG CAPSULE 50 MG PO (23:59)
[2020-07-14] VITALS: BP 145/81; PULSE 78; RESP 18; TEMP 36.7; O2SAT 97
[2020-07-14 00:25] VITALS: O2SAT 95
[2020-07-14 04:00] VITALS: O2SAT 95
[2020-07-14 05:00] VITALS: BP 150/79; PULSE 85; RESP 18; TEMP 36.6; O2SAT 95
[2020-07-14] MEDS: OXYCODONE IR 10 MG TABLET PO (05:03)
[2020-07-14 05:56] LABS: Add Manual Diff / Slide Review NO; Basophils Absolute Auto 0 /uL (0-100); Basophils Percent Auto 0.2 % (0-2); Eosinophils Absolute Auto 100 /uL (0-450); Eosinophils Percent Auto 2.1 % (2-4); Hematocrit 26.9 % (36-46); Hemoglobin 9.1 g/dL (12.0-16.0); Lymphocytes Absolute Auto 1500 /uL (1100-4500); Lymphocytes Percent Auto 32.9 % (25-40); Mean Corpuscular HGB Conc 33.7 % (30-36); Mean Corpuscular Hemoglobin 34.3 PG (26-34); Mean Corpuscular Volume 101.7 fL (80-100); Monocytes Absolute Auto 600 /uL (0-900); Monocytes Percent Auto 12.7 % (3-14); Neutrophils Absolute Auto 2400 /uL (1500-7000); Neutrophils Percent Auto 52.1 % (50-75); Platelet Count 185 X10^3/uL (150-400); Red Blood Cell Count 2.64 X10^6/uL (4.0-5.2); Red Cell Distribution Width 19.1 % (11.6-14.8); White Blood Cell Count 4.6 X10^3/uL (4.5-11.0)
[2020-07-14 06:15] LABS: Alanine Aminotransferase 21 IU/L (<35); Albumin 3.2 g/dL (3.5-5.0); Albumin Globulin Ratio 1.2 (1.0-2.8); Alkaline Phosphatase 80 U/L (38-126); Aspartate Aminotransferase 45 IU/L (14-36); BUN Creatinine Ratio 7.5 (6-22); Bilirubin Total 0.2 mg/dL (0.2-1.3); Blood Urea Nitrogen 5 mg/dL (7-17); Calcium 7.7 mg/dL (8.4-10.2); Carbon Dioxide 27 mmol/L (22-32); Chloride 109 mmol/L (98-107); Creatine Kinase 599 U/L (30-135); Estimated Glomerular Filt Rate > 60.0 mL/min (>60); Globulin 2.7 g/dL (1.7-4.1); Glucose 90 mg/dL (80-110); HEMOLYSIS < 15 (0-50); Potassium 3.4 mmol/L (3.4-5.1); Sodium 140 mmol/L (137-145); Total Protein 5.9 g/dL (6.3-8.2)
[2020-07-14] MEDS: hydrOXYzine pamoate 25 MG CAPSULE 50 MG PO (06:19)
[2020-07-14 07:25] VITALS: BP 136/74; PULSE 80; RESP 16; TEMP 36.2; O2SAT 93
[2020-07-14 08:00] VITALS: O2SAT 93
[2020-07-14] MEDS: ENOXAPARIN 40 MG/0.4 ML SYRINGE SUBCUT (08:32)
[2020-07-14] MEDS: PANTOPRAZOLE 20 MG TABLET PO (08:32)
[2020-07-14] MEDS: SODIUM CHLORIDE 0.9% 1,000 ML 60 ML IV (08:32)
[2020-07-14] MEDS: METOPROLOL IR 25 MG TABLET PO (08:32)
[2020-07-14] MEDS: DOCUSATE 100 MG CAPSULE PO (08:32)
[2020-07-14] MEDS: GABAPENTIN 300 MG CAPSULE PO (08:32)
--- NOTE | 2020-07-14 08:42 | PM.DS.1 ---
History of Present Illness History of Present Illness Chief complaint: hard time standing/falling, breathing, coughing Discharge Providers Provider Date of admission: 07/12/20 17:23 Discharge Date: 07/14/20 Consults: 07/12/20 18:20 Consult to Occupational Therapy Evaluate & Treat Comment: Physician Instructions: Evaluate and treat Consult to Physical Therapy Evaluate & Treat Comment: Physician Instructions: Evaluate and Treat Discharge provider: Maddi Carter MD Summary Hospital Course Discharge Diagnosis: Rhabdomyolysis, improved with gentle rehydration Nausea vomiting and dehydration Metastatic breast cancer on palliative chemotherapy Hypertension, stable Overactive bladder, stable Hospital Course: Patient was having nausea and vomiting and was felt to be dehydrated and stood up and fell. She had no loss of consciousness. She had no head laceration. She presented to the ER for evaluation and was found to have rhabdomyolysis. She had been not moving much at home after she fell and even prior to falling. Workup in the ER including CT angiogram, three view of the abdomen, CT of the head and CT of the neck was unremarkable for acute abnormalities. Patient had mild renal insufficiency. ER doctor discussed with patient's oncologist Dr. Dailey and patient was admitted for IV fluids. Patient was gently rehydrated because of a history of congestive heart failure thought to be related to chemotherapy and a baseline ejection fraction of 40%. Patient had improvement and on hospital day 3. A she was requesting to go home. Patient was discharged home on her routine medications with labs to be the end of the week and follow up with Oncology as scheduled. She will follow-up with her PCP Dr. Adame early next week. 35 minutes was spent in discharge on the floor discussing with psychiatric social worker supervisor, nursing and meeting with patient and reviewing chart Status at Discharge Cognitive/behavioral status at discharge: oriented Functional status at discharge: independent ambulation Overall status at discharge: patient is progressing back to baseline Exam Vital Signs (past 8 hours): - 07/14/20 04:00 07/14/20 05:00 07/14/20 07:25 Temperature 97.9 F 97.2 F L Pulse Rate 85 80 Respiratory Rate 18 16 Blood Pressure 150/79 H 136/74 Pulse Oximetry 95 95 93 Oxygen Delivery Method Room Air Oxygen Flow Rate 0 Narrative Exam Narrative: Patient is alert and oriented x3. Appears younger than her stated age. Does not appear chronically ill. Afebrile, vital signs are stable HEENT: Unremarkable. No mucosal lesions. Mucous membranes moist and pink Neck: Supple without adenopathy or thyromegaly Chest: Clear to auscultation without wheezes rhonchi or crackles Cor: Regular rate and rhythm without murmur Abdomen: Positive bowel sounds, soft, nontender Extremities: No edema, pulses intact Skin no rash Objective Labs Result Diagrams: 07/14/20 05:10 07/14/20 05:10 Labs: Laboratory Results - last 24 hr 07/14/20 07/14/20 07/14/20 05:10 05:10 05:10 WBC 4.6 RBC 2.64 L Hgb 9.1 L Hct 26.9 L MCV 101.7 H MCH 34.3 H MCHC 33.7 RDW 19.1 H Plt Count 185 Neut % (Auto) 52.1 Lymph % (Auto) 32.9 [place] % (Auto) 12.7 Eos % (Auto) 2.1 Baso % (Auto) 0.2 Neut # (Auto) 2400 Lymph # (Auto) 1500 [place] # (Auto) 600 Eos # (Auto) 100 Baso # (Auto) 0 Sodium 140 Potassium 3.4 Chloride 109 H Carbon Dioxide 27 BUN 5 L Creatinine 0.67 Estimated GFR > 60.0 BUN/Creatinine Ratio 7.5 Glucose 90 Calcium 7.7 L Total Bilirubin 0.2 AST 45 H ALT 21 Alkaline Phosphatase 80 Total Creatine Kinase 599 H Total Protein 5.9 L Albumin 3.2 L Globulin 2.7 Albumin/Globulin Ratio 1.2 PFSH Medical History (Updated 07/12/20 @ 17:23 by WESLEY Estrella-) Anxiety Breast cancer Colon cancer Hypertension Lymph node cancer Nausea Thrush, oral Surgical History (Updated 02/21/19 @ 13:02 by Orville Reed MD) History of hysterectomy History of mastectomy Social History household members: none Smoking Status: Former smoker alcohol intake: former Discharge Assessment & Plan Assessment and Plan Assessment: Rhabdomyolysis, improved Nausea, vomiting and dehydration, improved Metastatic breast cancer with palliative chemotherapy Hypertension Overactive bladder Plan of Treatment: Patient will be discharged home in improved condition on outpatient medications She will do IV fluid rehydration. Will have home health nursing into the home. Will follow-up with Dr. Dailey as scheduled Will do labs at the end of this week including a creatinine kinase and then a BMP and a CBC Will follow-up with Dr. Adame next week Discharge Plan Discharge Plan Patient Disposition: Home Discharge orders & Medications Prescriptions: Continued amitriptyline 75 MG tablet 150 mg PO HS Qty: 0 RF: 0 oxybutynin chloride 10 mg Tablet Extended Release 24hr 10 mg PO DAILY RF: 0 tramadol 50 mg Tablet 50 mg PO Q6H PRN (Reason: Spasms) RF: 0 gabapentin 300 mg Capsule 300 mg PO QAM RF: 0 cyanocobalamin (vitamin B-12) [Vitamin B-12] 1,000 mcg Tablet 1,000 mcg PO DAILY RF: 0 melatonin 5 mg Tablet 5 mg PO BEDTIME PRN (Reason: Insomnia) RF: 0 alprazolam 0.25 mg tablet 1 mg DAILY RF: 0 loperamide 2 MG capsule 2 mg PO Q8HP PRN (Reason: Diarrhea) Qty: 100 RF: 6 hydroxyzine pamoate [Vistaril] 50 mg Capsule 50 mg PO TID-QID PRN (Reason: sevre itch) Qty: 60 RF: 0 capecitabine 500 mg Tablet 1,000 mg PO BID 21 Days Qty: 84 RF: 5 lorazepam [Ativan] 0.5 mg Tablet 0.5 mg PO Q8H PRN (Reason: Nausea) Qty: 60 RF: 0 omeprazole 20 mg Capsule,Delayed Release(Dr/Ec) 20 mg PO DAILY Qty: 30 RF: 0 oxycodone 10 mg Tablet 10 mg PO Q6H PRN (Reason: Chest Pain, breast cancer) Qty: 60 RF: 0 valacyclovir 1 gram tablet 1 tab PO TID RF: 0 cholecalciferol (vitamin D3) [Vitamin D3] 2,000 unit Capsule 2,000 unit PO DAILY RF: 0 metoprolol tartrate 25 mg tablet 25 mg PO BID RF: 0 Diet/Activity/Treatments Diet: Diet as Tolerated Discharge Data Attending Provider: Kelechi Wang
--- NOTE | 2020-07-14 09:07 | CM.DANOTE ---
Addendum entered by Tootie Ortiz R.N. 07/14/20 09:55: Brenden at [facility] left a message stating, he did get message and referral. Original Note: DCP: Case received, EMR reviewed and met with patient. Introduced self and role. Was able to obtain information from patient regarding her baseline activity status, health information, as well as current living situation prior to hospitalization. DCP assessment completed with information currently available. Patient is a 70 year old female who admitted on 07/12 in the afternoon, to the care of the hospitalist team. PCP: Dr. Adame. Payer: confirmed: [employer]/Medicare A. Patient came to the hospital via private vehicle secondary to having some weakness, as well as shortness of breath. Patient was diagnosed with dehydration, as well as rhabdomyolysis. Patient has metastatic breast cancer, and is currently under the care of oncology at [facility]. She is undergoing palliative chemo. P.T. has also seen patient as well. Met with patient in her room. Dr. Carter also present. Had her sign a face to face for home health, to see if this may be beneficial for patient. Patient is alert and oriented. She lives alone, and stated, she has a son, but they are not communicating at this time. She stated that she does have a friend named Kenya, who lives in [place], who is supportive if she needs anything. Patient has been driving herself to her appointments, and stated, I don't really like to, but I know it's necessary. She uses a FWW for home use. Gave patient a [employer], for she is looking for someone to help with housekeeping. Discussed home health, is uncertain if she is completely home bound, but the only place she goes is to her MD appointments. Patient has no preference of home health agencies, and calendar for this week listed is [facility] ([facility] Went ahead and left a message with [facility], and indicated that patient is being discharged today, and would benefit with nursing, as well as P.T, O.T. P: Patient is being discharged home today. Ordered [facility], and have left them a message regarding referral. Tootie Ortiz RN/Water Quality Analyst
[2020-07-14] MEDS: INFLUENZA HD VACCINE 0.7 ML SYRINGE IM (10:48)
--- NOTE | 2020-07-14 11:10 | PT.IPTN ---
Physical Therapy Treatment Note M2 PT-IP Current Condition Start: 07/13/20 09:13 Freq: NEEDED Status: Active Protocol: Document 07/14/20 11:05 MA (Rec: 07/14/20 11:31 MA [id number]) Physical Therapy Current Condition Current Condition Evaluation Date 07/13/20 Treatment Diagnosis weakness, falls, rhabdomyolysis; difficulty in walking Onset Date 07/11/20 Precautions Other Precautions falls M3 PT-IP Subjective Start: 07/13/20 09:13 Freq: NEEDED Status: Active Protocol: Document 07/14/20 11:05 MA (Rec: 07/14/20 11:31 MA [id number]) Subjective Physical Therapy Visit Type Type Treatment Note Visit Start Time 10:42 Visit Stop Time 11:05 Total Visit Minutes 23 Number of PACKING ROOM INSPECTOR Visits 1 Physical Therapy Visit Comments Patient Comments I feel much better today. i don't know what was wrong yesterday but i was so groggy when pt came. Patient Goals Pt hopes to return home at discharge. M4 PT-IP Mobility and Gait Start: 07/13/20 09:13 Freq: NEEDED Status: Active Protocol: Document 07/14/20 11:05 MA (Rec: 07/14/20 11:31 MA [id number]) PT-Bed Mobility Assessment Supine to Sit Supine to Sit Standby Assistance,Head of Bed Elevated Sit to Supine Sit to Supine Standby Assistance Scooting Scooting to Edge of Bed Standby Assistance PT-Transfer Assessment Sit to and From Stand Sit to and from Stand Standby Assistance Equipment Transfer Assistive Device Gait Belt,Front Wheeled Walker Orthotic/Prosthetic Devices or Brace: No Comments Mobility Comments Pt was supine in bed upon arrival. She needed no assistance supine<>sitting or for sit<>stand today. Her balance was much better at EOB and she had no dizziness upon standing. Gait Assessment Gait Gait Assistance Required: Standby Assistance Distance (Feet) 212 Assistive Devices Assistive Device Gait Belt,Front Wheeled Walker Gait Deviations General Gait Pattern Decreased Stride Length, Decreased Feet Clearance Factors Limiting Gait Function Factors Limiting Gait Function Decreased Activity Tolerance Comments Gait Comments Pt was willing to walk with therapy today. First lap of 212 ft, pt had gait belt, fww, SBA. Took supine rest break in room while nurse gave flu shot and disconnected IV. Second lap of 212 ft, gait belt with CGA no AD. Pt touched rail on wall twice and had a NBOS while walking causing some imbalance. Stair Climbing Assessment Comments Stair Climbing Comments Not assessed. No stairs at home. PT-Balance Assessment Sitting Balance and Reactions Static Sitting Balance Ability Good Dynamic Sitting Balance Ability Good Standing Balance and Reactions Static Standing Balance Ability Good Dynamic Standing Balance Ability Fair Device Used FWW Comments Other Balance Tests/Deviations/Treatment dynamic standing balance with : no AD was fair, with AD pt had good balance M5 PT-IP Objective Assessments Start: 07/13/20 09:13 Freq: NEEDED Status: Active Protocol: Document 07/13/20 12:00 AW (Rec: 07/13/20 15:22 AW [id number]) Orientation Orientation/Cognition Level of Alertness Lethargic Orientation Name,Month,Place,Situation Safety Awareness Decreased Safety Awareness Gross Range of Motion Lower Extremity ROM Assessment Within Functional Limits Strength Lower Extremity Strength Assessment Bilaterally Impaired Hip 4-/5 Knee 4-/5 Ankle 4/5 Sensation Assessment Sensation Gross Sensation WNL Muscle Tone Muscle Tone WNL Yes M6 PT-IP Treatment Start: 07/13/20 09:13 Freq: NEEDED Status: Active Protocol: Document 07/14/20 11:32 MA (Rec: 07/14/20 11:32 MA [id number]) Physical Therapy Treatment Education Education Provided Safety Other Treatments Other Treatment Performed educated pt on using fww for community ambulation M7 PT-IP Assessment and Plan Start: 07/13/20 09:13 Freq: NEEDED Status: Active Protocol: Document 07/14/20 11:05 MA (Rec: 07/14/20 11:31 MA [id number]) PT Summary Assessment and Plan Potential Rehabilitation Potential Good Status of Condition at Evaluation Stable Summary Impairments Balance,Activity Tolerance Assessment Summary Candi was willing to work more with therapy today. Nursing states she has been up and walking with them using fww. Candi was able to complete two laps of 212 feet today around nurses station. On the first lap, pt was SBA with fww and gait belt. After supine rest break with nurse administering flu shot and disconnecting IV , pt was able to complete second lap of 212 ft, CGA with no AD. Pt has a decreased stride length with NBOS during gait and needed to touch wall for balance 2x during walk wihtout AD. Spoke with OT outside room who was going in to speak with pt about getting walker for community ambulation and any other necessary AD for discharge this afternoon. Goals Bed Mobility Goal Independent Transfer Goal Independent,Front Wheeled Walker Gait Goal Independent,Front Wheel Walker Gait Distance 150 Other Goals - improve gait to 150 feet IND without AD Frequency of Treatment Frequency Of Treatment Once a Day Treatment Plan Physical Therapy Treatment Plan Bed Mobility Training,Transfer Training,Gait Training, Therapeutic Exercise,Balance Retraining,Discharge Planning, Hot or Cold Pack,Neuromuscular Re-ed Other Recommendations and Next Treatment monitor VS (BP at ankle 2/2 B Focus mastectomy); transfers; gait with fww Recommendations To Nursing Amount of Assist Needed Standby Assistance Discharge Recommendations PT Discharge Recommendations Home with Assistance Equipment Needed for Home Before FWW if going home Discharge Transportation Needs at Discharge Private Vehicle,Wheelchair/ Cabulance
--- NOTE | 2020-07-14 11:50 | OT.IP.TRT ---
Occupational Therapy Treatment Note M2 OT-IP Current Condition Start: 07/13/20 15:13 Freq: Status: Active Protocol: Document 07/13/20 15:13 RM (Rec: 07/13/20 15:21 RM [id number]) Occupational Therapy Current Condition Current Condition Evaluation Date 07/13/20 Treatment Diagnosis fall with rhabdomyolysis Diagnosis Onset Date 07/12/20 M3 OT- IP Subjective and Pain Start: 07/13/20 15:13 Freq: Status: Active Protocol: Document 07/14/20 12:17 [facility] (Rec: 07/14/20 12:35 [facility] [id number]) OT- Subjective Occupational Therapy Visit Type Type Treatment Note Visit Start Time 11:05 Visit Stop Time 11:50 Total Visit Minutes 45 Occupational Therapy Visit Comments Patient Comments Pt agreed to take a shower. Patient/Caregiver Goals To go home. OT Pain Assessment Pain When Pain Assessed At Rest Pain Present Pain Present Denied Pain M4 OT- IP ADL's Start: 07/13/20 15:13 Freq: Status: Active Protocol: Document 07/14/20 12:17 [facility] (Rec: 07/14/20 12:35 [facility] [id number]) OT [id number] Comments OT Self-Feeding Comments NOt at meal time. OT ADL-Grooming Comments OT Grooming Comments NOt performed. OT ADL-Oral Care Comments Oral Care Comments Not performed. OT ADL-Dressing General Eval Upper Body Dressing Ability Independent Lower Body Dressing Ability Independent Comments OT Dressing Comments Pt able to independently get dressed on her own. OT ADL-Toileting Comments OT Toileting Comments NOt performed. OT ADL-Bathing Bathing Type Bathing Type Shower General Evaluation Bathing Ability Standby Assistance Areas Needing Assistance Retrieving/Setting Up Items Comments OT Bathing Comments Mainly set-up assist and heavy use of grab bars in the shower especially when lifting her foot up onto the shower chair in order to wash her legs and feet. M5 OT- IP IADL's Start: 07/13/20 15:13 Freq: Status: Active Protocol: Document 07/14/20 12:17 [facility] (Rec: 07/14/20 12:35 [facility] [id number]) OT-Instrumental Activities of Daily Living Home Safety Awareness Awareness of Need for Assistance at Home Good Awareness Home Safety Comments Pt has good awareness for safety needs for home safety questionnaire. Medication Management Medication Management No Deficits Identified Money Management Money Management No Deficits Identified Alignment Specialist Alignment Specialist Comments Pt would benefit from assist and aware to incorporate energy conservations techniques. Driving Driving Concerns Identified Regarding Safety M6 OT- IP Functional Cognition Start: 07/13/20 15:13 Freq: Status: Active Protocol: Document 07/14/20 12:17 [facility] (Rec: 07/14/20 12:35 [facility] [id number]) Cognitive Factors Limiting Selfcare Function Cognitive Ability Level of Alertness Alert Patient Orientation Name,Place,Situation Attention Span Ability Capable of Focused Attention, Capable of Sustained Attention Ability to Follow Commands Able to Follow Multi-Step Commands Memory Description No Deficits Noted Safety Awareness Underestimates Need for Assistance Problem Solving Ability No deficits Noted Executive Function Ability Unable to Switch Focus,Unable to Filter Distractions,Unable to Remember Details Cognitive Comments Cognitive Assessment Comments Pt not able to only get through the number 5 on [place] Making Part B and needing MAX vc for how to complete the task. Pt states just felt it was too overwhelming. Pt's score implies deficits for visual attention, task switching, speed of processing , mental flexibility, and executive function. It was recommended to pt that best for her not to drive home today and have someone pick her up. Pt is concerned about leaving her car her insists that she can drive as she only lives a few blocks away. manager wound care and nursing notified of suggestion for pt not to drive home. OT- Vision and Hearing OT- Vision Assessment Vision Assessment Comments M7 OT- IP Mobility and Balance Start: 07/13/20 15:13 Freq: Status: Active Protocol: Document 07/14/20 12:17 [facility] (Rec: 07/14/20 12:35 [facility] [id number]) OT-Transfer Assessment Sit to and From Stand Sit to and from Stand Independent Transfers Transfer Ability Independent,Standby Assistance Technique Transfer Destination Bed,Shower Stall,Toilet Transfer Technique Stand Step Pivot Devices Transfer Assistive Devices None Comments Mobility Comments CLose SBA when pt stepping over the threshold of the shower and heavy use of grab bars to assist. OT- Balance Assessment Sitting Balance and Reactions Static Sitting Balance Ability Normal Dynamic Sitting Balance Ability Normal Standing Balance and Reactions Static Standing Balance Ability Normal Dynamic Standing Balance Ability Fair Comments Other Balance Tests/Deviations/Treatment [employer] states pt tends to lean : when walkkng without a device and pt aware not as balanced now. Suggested pt best to have a FWW to use especially for longer distances and and when out in the community. Pt states to call her friend Maite to try and get one. However, pt' phone not wrking as needing to be charged. Pt' s nurse states to loan her her tomato pulper operator. M8 OT- IP Objective Assessments Start: 07/13/20 15:13 Freq: Status: Active Protocol: Document 07/13/20 15:13 RM (Rec: 07/13/20 15:21 RM [id number]) OT Gross Range of Motion Upper Extremity Range of Motion Assessment Within Functional Limits OT Strength Upper Extremity Strength Assessment Bilaterally Impaired M9 OT- IP Assessment and Plan Start: 07/13/20 15:13 Freq: Status: Active Protocol: Document 07/14/20 12:17 [facility] (Rec: 07/14/20 12:35 CCC [id number]) OT Summary Assessment and Plan Potential Rehabilitation Potential Fair Analytic Complexity at Evaluation Low Summary OT Impairments Balance,Functional Cognition, Functional Mobility,Bathing, Shower Transfers,Activity Tolerance Progress Towards Goals Progressing Toward Goals Assessment Summary Pt able to tolerate shower and dressing today and able to do most needs on her own and mainly needing cues to slow down. Pt a little unsteady on her feet when walking and suggested would benefit from a FWW. Pt states to have a friend get one for her. Pt insistent on driving home herself, however base on her decreased dynamic balance and poor performance on [place] Making Part B which assesses higher level executive thinking, suggested to have someone drive her home. Goals Dressing Goal Independent Toileting Goal Independent Bathing Goal Independent Toilet Transfer Goal Independent Shower Transfer Goal Independent Patient/Caregiver Education Goal Demonstrate Energy Conservation and Pacing Days to Meet Goals 2 Frequency of Treatment Frequency Of Treatment Once a Day Treatment Plan OT Treatment Plan ADL Training,Functional Mobility,Patient/Family Education,Discharge Planning Discharge Recommendations OT Discharge Recommendations Home with Assistance Home Equipment Needs FWW Transportation Needs at Discharge Private Vehicle
--- NOTE | 2020-07-14 11:50 | OT.IP.TRT ---
Occupational Therapy Treatment Note M2 OT-IP Current Condition Start: 07/13/20 15:13 Freq: Status: Active Protocol: Document 07/13/20 15:13 RM (Rec: 07/13/20 15:21 RM [id number]) Occupational Therapy Current Condition Current Condition Evaluation Date 07/13/20 Treatment Diagnosis fall with rhabdomyolysis Diagnosis Onset Date 07/12/20 M3 OT- IP Subjective and Pain Start: 07/13/20 15:13 Freq: Status: Active Protocol: Document 07/14/20 12:17 [facility] (Rec: 07/14/20 12:35 [facility] [id number]) OT- Subjective Occupational Therapy Visit Type Type Treatment Note Visit Start Time 11:05 Visit Stop Time 11:50 Total Visit Minutes 45 Occupational Therapy Visit Comments Patient Comments Pt agreed to take a shower. Patient/Caregiver Goals To go home. OT Pain Assessment Pain When Pain Assessed At Rest Pain Present Pain Present Denied Pain M4 OT- IP ADL's Start: 07/13/20 15:13 Freq: Status: Active Protocol: Document 07/14/20 12:17 [facility] (Rec: 07/14/20 12:35 [facility] [id number]) OT [id number] Comments OT Self-Feeding Comments NOt at meal time. OT ADL-Grooming Comments OT Grooming Comments NOt performed. OT ADL-Oral Care Comments Oral Care Comments Not performed. OT ADL-Dressing General Eval Upper Body Dressing Ability Independent Lower Body Dressing Ability Independent Comments OT Dressing Comments Pt able to independently get dressed on her own. OT ADL-Toileting Comments OT Toileting Comments NOt performed. OT ADL-Bathing Bathing Type Bathing Type Shower General Evaluation Bathing Ability Standby Assistance Areas Needing Assistance Retrieving/Setting Up Items Comments OT Bathing Comments Mainly set-up assist and heavy use of grab bars in the shower especially when lifting her foot up onto the shower chair in order to wash her legs and feet. M5 OT- IP IADL's Start: 07/13/20 15:13 Freq: Status: Active Protocol: Document 07/14/20 12:17 [facility] (Rec: 07/14/20 12:35 [facility] [id number]) OT-Instrumental Activities of Daily Living Home Safety Awareness Awareness of Need for Assistance at Home Good Awareness Home Safety Comments Pt has good awareness for safety needs for home safety questionnaire. Medication Management Medication Management No Deficits Identified Money Management Money Management No Deficits Identified Index Editor Index Editor Comments Pt would benefit from assist and aware to incorporate energy conservations techniques. Driving Driving Concerns Identified Regarding Safety M6 OT- IP Functional Cognition Start: 07/13/20 15:13 Freq: Status: Active Protocol: Document 07/14/20 12:17 [facility] (Rec: 07/14/20 12:35 [facility] [id number]) Cognitive Factors Limiting Selfcare Function Cognitive Ability Level of Alertness Alert Patient Orientation Name,Place,Situation Attention Span Ability Capable of Focused Attention, Capable of Sustained Attention Ability to Follow Commands Able to Follow Multi-Step Commands Memory Description No Deficits Noted Safety Awareness Underestimates Need for Assistance Problem Solving Ability No deficits Noted Executive Function Ability Unable to Switch Focus,Unable to Filter Distractions,Unable to Remember Details Cognitive Comments Cognitive Assessment Comments Pt not able to only get through the number 5 on [place] Making Part B and needing MAX vc for how to complete the task. Pt states just felt it was too overwhelming, in addition pt states has history of blurred vision and not able to see well out of her left eye. Pt's score implies deficits for visual attention, task switching, speed of processing, mental flexibility , and executive function. It was recommended to pt that best for her not to drive home today and have someone pick her up. Pt is concerned about leaving her car and insists that she can drive as she only lives a few blocks away. fruit or nut crops farm manager and nursing notified of suggestion for pt not to drive home. OT- Vision and Hearing OT- Vision Assessment Vision Assessment Comments Per pt history of left eye blurriness. M7 OT- IP Mobility and Balance Start: 07/13/20 15:13 Freq: Status: Active Protocol: Document 07/14/20 12:17 [facility] (Rec: 07/14/20 12:35 [facility] [id number]) OT-Transfer Assessment Sit to and From Stand Sit to and from Stand Independent Transfers Transfer Ability Independent,Standby Assistance Technique Transfer Destination Bed,Shower Stall,Toilet Transfer Technique Stand Step Pivot Devices Transfer Assistive Devices None Comments Mobility Comments CLose SBA when pt stepping over the threshold of the shower and heavy use of grab bars to assist. OT- Balance Assessment Sitting Balance and Reactions Static Sitting Balance Ability Normal Dynamic Sitting Balance Ability Normal Standing Balance and Reactions Static Standing Balance Ability Normal Dynamic Standing Balance Ability Fair Comments Other Balance Tests/Deviations/Treatment BLOWER MECHANIC states pt tends to lean : when walking without a device and pt aware not as balanced now. Suggested pt best to have a FWW to use especially for longer distances and when out in the community. Pt states to call her friend Maite to try and get one. However, pt' phone not working as needing to be charged. Pt' s nurse states to loan her a phone and taxi instructor bus trolley. M8 OT- IP Objective Assessments Start: 07/13/20 15:13 Freq: Status: Active Protocol: Document 07/13/20 15:13 RM (Rec: 07/13/20 15:21 RM [id number]) OT Gross Range of Motion Upper Extremity Range of Motion Assessment Within Functional Limits OT Strength Upper Extremity Strength Assessment Bilaterally Impaired M9 OT- IP Assessment and Plan Start: 07/13/20 15:13 Freq: Status: Active Protocol: Document 07/14/20 12:17 [facility] (Rec: 07/14/20 12:35 CCC [id number]) OT Summary Assessment and Plan Potential Rehabilitation Potential Fair Analytic Complexity at Evaluation Low Summary OT Impairments Balance,Functional Cognition, Functional Mobility,Bathing, Shower Transfers,Activity Tolerance Progress Towards Goals Progressing Toward Goals Assessment Summary Pt able to tolerate shower and dressing today and able to do most needs on her own and mainly needing cues to slow down. Pt a little unsteady on her feet when walking and suggested would benefit from a FWW. Pt states to have a friend get one for her. Pt insistent on driving home herself, however base on her decreased dynamic balance and poor performance on [place] Making Part B which assesses higher level executive thinking, suggested to have someone drive her home. Goals Dressing Goal Independent Toileting Goal Independent Bathing Goal Independent Toilet Transfer Goal Independent Shower Transfer Goal Independent Patient/Caregiver Education Goal Demonstrate Energy Conservation and Pacing Days to Meet Goals 2 Frequency of Treatment Frequency Of Treatment Once a Day Treatment Plan OT Treatment Plan ADL Training,Functional Mobility,Patient/Family Education,Discharge Planning Discharge Recommendations OT Discharge Recommendations Home with Assistance Home Equipment Needs FWW Transportation Needs at Discharge Private Vehicle
--- NOTE | 2020-07-14 13:25 | PC.NURSE ---
Patient discharged home. Wheeled out by wheel chair to friends car who will drive her home. Gave front desk lead keys to her car which is here at the hospital for friend to garbage pick up man later today. Given discharge instructions and answered questions. Off of floor at 12:30.
== END 2020-07-14 12:30 | disposition home or self-care (01) ==
LOC: ED 17:23 → AC 17:24
PROVIDERS: Admitting Provider Family Medicine; Emergency Provider Nurse Practitioner Family; Referring Provider Nurse Practitioner Family; Visit Provider Family Medicine
DX: M62.82 Rhabdomyolysis (principal); R42 Dizziness and giddiness; E86.0 Dehydration; I50.9 Heart failure, unspecified; C50.919 Malignant neoplasm of unspecified site of unspecified female breast; C79.51 Secondary malignant neoplasm of bone; I10 Essential (primary) hypertension; N32.81 Overactive bladder; W18.30XA Fall on same level, unspecified, initial encounter; Y93.9 Activity, unspecified; Y92.000 Kitchen of unspecified non-institutional (private) residence as the place of occurrence of the external cause; Z20.822 Contact with and (suspected) exposure to COVID-19; Z23 Encounter for immunization
CPT/HCPCS: 36415; 36591; 70450; 71275; 72125; 74022; 80053; 81001; 82150; 82550; 82553; 83690; 84484; 85025; 85610; 85730; 87040; 87635; 90471; 90662; 93005; 94760; 96360; 96361; 96372; 97110; 97116; 97161; 97165; 97530; 97535; 99220; 99224; 99284; C9803; G0378; J1642; J1650; Q9967

== ENCOUNTER → 2020-07-17 10:27 | Outpatient (CLI) | payer OTHER, SELFPAY ==
[2020-07-12 19:57] VITALS: BMI 27.3
== END ==
PROVIDERS: PCP Family Medicine; Referring Provider Family Medicine; Visit Provider Family Medicine
DX: I50.22 Chronic systolic (congestive) heart failure (principal); M62.82 Rhabdomyolysis; C18.9 Malignant neoplasm of colon, unspecified; C50.919 Malignant neoplasm of unspecified site of unspecified female breast; M46.1 Sacroiliitis, not elsewhere classified; K21.9 Gastro-esophageal reflux disease without esophagitis

== ENCOUNTER → 2020-07-24 09:02 | Outpatient (CLI) | payer OTHER, SELFPAY ==
[2020-07-12 19:57] VITALS: BMI 27.3
--- NOTE | 2020-07-24 10:32 | DI.CT.S_ITS ---
PROCEDURE: CT CHEST ABD PEL W CON INDICATIONS: metastatic breast cancer TECHNIQUE: After the administration of oral and intravenous contrast, 5 mm thick sections acquired from the lung apices to the symphysis. 5 mm coronal and sagittal reformats were performed, with additional 7 mm coronal MIP reformats through the lungs. For radiation dose reduction, the following was used: automated exposure control, adjustment of mA and/or kV according to patient size. COMPARISON: [facility], NM, NM BONE SCAN WHOLE BODY, 02/21/2020, 12:31. [facility], CT, CT ABDOMEN PELVIS W CON, 05/15/2019, 16:32. [facility], CT, CT CHEST ABD PEL W CON, 08/10/2019, 11:10. [facility], CT, CT ANGIO CHEST PE PROTOCOL, 07/12/2020, 13:01. [facility], CT, CT CHEST ABD PEL W CON, 02/21/2020, 10:06. [facility], CT, CT CHEST ABD PEL W CON, 05/14/2020, 9:17. FINDINGS: Image quality: Excellent. CHEST: Lungs and pleura: There are linear subpleural densities in the right upper lobe and middle lobe, compatible with scars and atelectasis. Mild subpleural infiltrate in lingula. There are multiple small lung nodules bilaterally, new since the last exam, suspicious for metastasis. [facility] nodules are listed as the following: Nodule 1: 6 mm RLL; series 2, image 178. Nodule 2: 7 mm RLL; series 2, image 199. Nodule 3: 9 mm LLL; series 2, image 187. Nodule 4: 4 mm RLL; series 2, image 164. No acute airspace opacities. No pleural effusions or pneumothorax. Central and peripheral airways appear patent and normal in caliber. Mediastinum: Heart size is normal. No pericardial effusion. There is mild coronary artery atherosclerosis. No mediastinal or hilar adenopathy by size criteria. Thoracic aorta and central pulmonary arteries are normal in size. Esophagus is normal in caliber. No hiatal hernia. Chest wall: There are bilateral mastectomies and axillary lymph node dissections. No axillary or supraclavicular adenopathy by size criteria. Thyroid gland is normal . ABDOMEN: Solid organs: There are multiple new hypodense lesions in liver consistent with metastasis. For example, there is a 1.4 cm hypodense lesion in the left hepatic lobe. A target appearing lesion in the right hepatic lobe measures 1.2 cm in diameter. Gallbladder is normal. Biliary system is non dilated. Pancreas enhances normally. Spleen is normal in size. Small indeterminate hypodensities are noted in spleen, probably a cyst. No adrenal nodules. Kidneys demonstrate normal size and enhancement, without hydronephrosis. Peritoneum and bowel: Bowel loops demonstrate normal wall thickness and caliber. No free fluid or air. Nodes and vessels: No retroperitoneal or mesenteric adenopathy by size criteria. Aorta and inferior vena cava are normal in size. Miscellaneous: No ventral hernias. PELVIS: Genitourinary: Bladder wall thickness is normal. Miscellaneous: No inguinal hernias or adenopathy. Bones: There are multiple foci of sclerotic bone lesions involving thoracic and lumbar spine, sacrum, left iliac bone and possibly right iliac bone, consistent with osseous metastases. The left iliac lesion appears increased in size. No vertebral body compression fractures. IMPRESSION: 1. Multiple lung nodules bilaterally suspicious for pulmonary metastases. This finding is new. 2. Recurrent hepatic masses consistent with metastasis. 3. Sclerotic bone lesions consistent with osseous metastases. Osseous bone lesion in the left iliac bone appears increased in size consistent with worsening of osseous metastasis. Please correlate with findings on whole body bone scan. Dictated by: Frederic Villasenor M.D. on 07/24/2020 at 17:09 Approved by: Frederic Villasenor M.D. on 07/25/2020 at 10:16
== END ==
PROVIDERS: PCP Family Medicine; Referring Provider Internal Medicine Hematology & Oncology; Visit Provider Internal Medicine Hematology & Oncology
DX: C50.919 Malignant neoplasm of unspecified site of unspecified female breast (principal); C18.9 Malignant neoplasm of colon, unspecified; R91.8 Other nonspecific abnormal finding of lung field; R16.0 Hepatomegaly, not elsewhere classified; M89.9 Disorder of bone, unspecified
CPT/HCPCS: 71260; 74177; Q9967

== ENCOUNTER 2020-08-11 11:00 | Emergency (ER) | payer OTHER, SELFPAY ==
[2020-07-12 19:57] VITALS: BMI 27.3
[2020-08-11] VITALS (15 sets, daily range): BP systolic 120–175; BP diastolic 49–77; PULSE 68–109; RESP 18–39; TEMP 38.4; O2SAT 91–98
--- NOTE | 2020-08-11 11:18 | DI.RAD.S_ITS ---
PROCEDURE: XR CHEST 1V INDICATIONS: suspected sepsis TECHNIQUE: One view of the chest was acquired. COMPARISON: [facility], CT, CT CHEST ABD PEL W CON, 07/24/2020, 10:01. [facility], CR, XR CHEST 1V, 01/24/2018, 17:43. FINDINGS: Surgical changes and devices: There is a Port-A-Cath on the left with the tip projecting to the area of SVC. Multiple surgical clips in breasts bilaterally and the right axilla. Lungs and pleura: Lungs are clear. No pleural effusions or pneumothorax. Mediastinum: Mediastinal contours appear normal. Heart size is normal. Bones and chest wall: No suspicious bony lesions. Overlying soft tissues appear unremarkable. IMPRESSION: No acute cardiopulmonary disease. Dictated by: Frederic Villasenor M.D. on 08/11/2020 at 12:03 Approved by: Frederic Villasenor M.D. on 08/11/2020 at 12:05
--- NOTE | 2020-08-11 11:33 | ED_ITS ---
HPI - Fever <Jeniffer LovelaceBRIGIDA - Last Filed: 08/11/20 16:21> General Chief Complaint: Fever Stated Complaint: cancer patient/full body pain since 2/4 Time Seen by Provider: 08/11/20 11:09 Source: patient and family Mode of arrival: Ambulatory Limitations: no limitations History of Present Illness HPI Narrative: 70-year-old female with a history or colon CA (resolved in 1995), and current stage IV breast cancer that has metastasized to her shoulder bones, liver, and lungs, presents emergency department for increasing pain. She states she see Dr. Mcintosh here at [facility], she was recently taking capecitabine but the plan is to switch to exemestane and everolimus as mets are worsening (see visit from 07/31/2020) Patient states that she is feeling a worse aching pain in both of her arms that radiates down to her abdomen and up to her chest, reports she has not been taking her Oxycodone. She reports a intermittent productive cough that was worse the past few days but has improved today. She denies any pain with urination, chills, or chest pain. Patient states she intermittently feels nauseated and occasionally vomits once a day which is normal for her after taking oral chemo agents. Patient states she is having normal bowel movements as able to pass gas. Patient states she ate oatmeal this morning and did not have any vomiting or nausea today. She denies taking any blood thinners. Patient states she take a blood thinner for diabetes but is unsure which name. Patient is a fairly poor historian. Related Data Home Medications Medication Instructions Recorded Confirmed amitriptyline 150 mg PO HS #0 01/05/13 07/12/20 gabapentin 300 mg PO QAM 12/13/17 07/12/20 oxybutynin chloride 10 mg PO DAILY 12/13/17 07/12/20 tramadol 50 mg PO Q6H PRN 12/13/17 07/12/20 cholecalciferol (vitamin D3) 2,000 unit PO DAILY 01/24/18 07/12/20 [Vitamin D3] metoprolol tartrate 25 mg PO BID 01/24/18 07/12/20 valacyclovir 1 tab PO TID 01/24/18 07/12/20 cyanocobalamin (vitamin B-12) 1,000 mcg PO DAILY 03/08/18 07/12/20 [Vitamin B-12] melatonin 5 mg PO BEDTIME PRN 03/08/18 07/12/20 alprazolam 1 mg DAILY 06/15/18 07/12/20 Previous Rx's Medication Instructions Recorded hydroxyzine pamoate [Vistaril] 50 mg PO TID-QID PRN #60 cap 06/19/20 loperamide 2 mg PO Q8HP PRN #100 cap 06/19/20 lorazepam [Ativan] 0.5 mg PO Q8H PRN #60 tab 06/19/20 omeprazole 20 mg PO DAILY #30 cap 06/19/20 everolimus (antineoplastic) 10 mg PO DAILY #28 tab 07/31/20 exemestane 25 mg PO DAILY #28 tab 07/31/20 oxycodone 10 mg PO Q6H PRN #60 tab 07/31/20 Allergies Allergy/AdvReac Type Severity Reaction Status Date / Time hydrocodone AdvReac Severe RASH, Verified 08/11/20 11:22 ITCHING Review of Systems <BRIGIDA Millan - Last Filed: 08/11/20 16:21> Review of Systems Narrative: REVIEW OF SYSTEMS: GENERAL: Denies chills. HENT: No head trauma. CARDIOVASCULAR: No chest pain. RESPIRATORY: Reports improving cough. GASTROINTESTINAL: Complains of abdominal pain, see HPI GENITOURINARY: No flank pain. MUSCULOSKELETAL: Reports arm pain that extends center abdomen back up. NEURO: No numbness or tingling. PSYCH: No behavior or mood changes. Patient History <BRIGIDA Millan - Last Filed: 08/11/20 16:21> Medical History (Updated 08/11/20 @ 15:34 by BRIGIDA Millan) Anxiety Breast cancer Colon cancer Hypertension Lymph node cancer Nausea Thrush, oral Surgical History History of hysterectomy History of mastectomy Social History household members: none Smoking Status: Former smoker alcohol intake: former Smoking Status: Former smoker alcohol intake frequency: holidays/special occasions only Substance Use Type: marijuana Exam <BRIGIDA Millan - Last Filed: 08/11/20 16:21> Initial Vital Signs Initial Vital Signs: Vital Signs Temperature 101.1 F H 08/11/20 11:19 Pulse Rate 87 08/11/20 11:19 Respiratory Rate 22 08/11/20 11:19 Blood Pressure 175/77 H 08/11/20 11:19 Pulse Oximetry 96 08/11/20 11:19 PHYSICAL EXAMINATION: GENERAL: Awake and alert. HENT: Normocephalic, atraumatic. Multiple light erythemic oral sores noted under tongue and to cheeks. Do not appear to be significantly infected. EYES: Conjunctiva pink, sclera white, no periorbital swelling. CARDIOVASCULAR: S1 and S2 sounds normal. Regular rate and rhythm, no murmurs, clicks, or bruits. No pedal edema. RESPIRATORY: Normal respiratory rate, trachea midline, airway patent. No stridor, nasal flaring or accessory muscle use. Lungs are clear in all peña without wheeze, rhonchi, or crackles. No cough observed. GASTROINTESTINAL: Bowel sounds normoactive. Abdomen is soft, diffuse tenderness. No organomegaly, no palpable masses. GENITALURINARY: No flank tenderness. MUSCULOSKELETAL: Normal gait and coordination. Equal tone and mass bilaterally. EXTREMITIES: CMS intact, no pedal edema. SKIN: Warm, dry, soft, appropriate color for ethnicity. No lesions, rashes, or wounds to visualized areas. NEURO: Alert and Oriented X 3. Good coordination. PSYCH: Appropriate affect and mood. <Terrence Swan DO - Last Filed: 08/11/20 16:31> Initial Vital Signs Initial Vital Signs: Vital Signs Temperature 101.1 F H 08/11/20 11:19 Pulse Rate 87 08/11/20 11:19 Respiratory Rate 22 08/11/20 11:19 Blood Pressure 175/77 H 08/11/20 11:19 Pulse Oximetry 96 08/11/20 11:19 Course <BRIGIDA Millan - Last Filed: 08/11/20 16:21> Course Course Narrative: 1320: Patient given morphine in the emergency department, states she is feeling less pain. No vomiting noted. 1400: I spoke with Dr. De La Garza discussed CT images in results as well as patient's symptoms. He is not impressed with radiology's findings, less likely early SBO especially given the lack of symptoms. 1518: I spoke with Dr. Mcintosh from Oncology. Discussed patient's symptoms, history, laboratory work, test results, plan of care. He recommends no antibiotic treatment at this time, he will follow up closely outpatient. He requested consultation with Dr. De La Garza for Orders Ordered: ED Orders 08/11/20 11:14 COVID19 Stat 08/11/20 11:18 XR chest 1V Stat RT Consult Eval and Treat Now 08/11/20 11:40 EKG-12 Lead Stat 08/11/20 11:57 Complete Blood Count AUTO DIFF Stat Comprehensive Metabolic Panel Stat Lactate (Lactic Acid) Stat Lipase Stat Partial Thromboplastin Time Stat Procalcitonin Stat Prothrombin Time INR Stat 08/11/20 12:20 CT abdomen pelvis w con Stat 08/11/20 13:28 Comprehensive Metabolic Panel Stat 08/11/20 14:26 Urine Microscopic Stat 08/11/20 14:43 Blood Culture Stat Discontinued Medications Heparin Sodium (Porcine) (Heparin 500 Unit/5 Ml Port Flush) 500 unit IV PRN PRN PRN Reason: Flush Last Admin: 08/11/20 15:58 Dose: 500 unit Documented by: AMBIKA Sodium Chloride (Normal Saline 0.9%) 1,000 mls @ 1,000 mls/hr IV BOLUS ONE Stop: 08/11/20 12:17 Last Infusion: 08/11/20 12:48 Dose: 0 mls/hr Documented by: Admin: 08/11/20 11:51 Dose: 1,000 mls/hr Documented by: AMBIKA Cefepime HCl 2 gm/ Sodium (Chloride) 100 mls @ 200 mls/hr IV NOW ONE Stop: 08/11/20 11:19 Last Infusion: 08/11/20 12:46 Dose: 0 mls/hr Documented by: Admin: 08/11/20 11:51 Dose: 200 mls/hr Documented by: AMBIKA Sodium Chloride (Normal Saline 0.9%) 1,000 mls @ 150 mls/hr IV CONT RUDY Last Infusion: 08/11/20 15:55 Dose: 0 mls/hr Documented by: Admin: 08/11/20 13:20 Dose: 150 mls/hr Documented by: AMBIKA Morphine Sulfate (Morphine 4 Mg/Ml Inj) 4 mg IV NOW ONE Stop: 08/11/20 12:49 Last Admin: 08/11/20 13:20 Dose: 4 mg Documented by: AMBIKA Morphine Sulfate (Morphine 2 Mg/Ml Inj) 2 mg IV NOW ONE Stop: 08/11/20 15:40 Last Admin: 08/11/20 15:43 Dose: 2 mg Documented by: AMBIKA Vital Signs Vital signs: Vital Signs - 8 hr 08/11/20 11:19 08/11/20 11:50 08/11/20 12:00 Temperature 101.1 F H Pulse Rate 87 74 71 Respiratory Rate 22 Blood Pressure 175/77 H Pulse Oximetry 96 91 91 08/11/20 12:01 08/11/20 12:30 08/11/20 13:00 Temperature Pulse Rate 71 69 109 H Respiratory Rate 22 28 H Blood Pressure 133/63 135/62 133/60 Pulse Oximetry 98 94 95 08/11/20 13:30 08/11/20 13:31 08/11/20 14:00 Temperature Pulse Rate 68 68 70 Respiratory Rate 20 39 H 28 H Blood Pressure 130/58 L 129/59 L Pulse Oximetry 93 93 94 08/11/20 14:26 08/11/20 14:30 08/11/20 15:00 Temperature Pulse Rate 75 75 69 Respiratory Rate 18 18 18 Blood Pressure 128/67 152/65 H Pulse Oximetry 93 96 94 08/11/20 15:01 08/11/20 15:30 08/11/20 15:31 Temperature Pulse Rate 69 77 75 Respiratory Rate 18 18 38 H Blood Pressure 128/56 L 120/49 L Pulse Oximetry 95 93 93 <Terrence Swan DO - Last Filed: 08/11/20 16:31> Orders Ordered: ED Orders 08/11/20 11:14 COVID19 Stat 08/11/20 11:18 XR chest 1V Stat RT Consult Eval and Treat Now 08/11/20 11:40 EKG-12 Lead Stat 08/11/20 11:57 Complete Blood Count AUTO DIFF Stat Comprehensive Metabolic Panel Stat Lactate (Lactic Acid) Stat Lipase Stat Partial Thromboplastin Time Stat Procalcitonin Stat Prothrombin Time INR Stat 08/11/20 12:20 CT abdomen pelvis w con Stat 08/11/20 13:28 Comprehensive Metabolic Panel Stat 08/11/20 14:26 Urine Microscopic Stat 08/11/20 14:43 Blood Culture Stat Discontinued Medications Heparin Sodium (Porcine) (Heparin 500 Unit/5 Ml Port Flush) 500 unit IV PRN PRN PRN Reason: Flush Last Admin: 08/11/20 15:58 Dose: 500 unit Documented by: AMBIKA Sodium Chloride (Normal Saline 0.9%) 1,000 mls @ 1,000 mls/hr IV BOLUS ONE Stop: 08/11/20 12:17 Last Infusion: 08/11/20 12:48 Dose: 0 mls/hr Documented by: Admin: 08/11/20 11:51 Dose: 1,000 mls/hr Documented by: AMBIKA Cefepime HCl 2 gm/ Sodium (Chloride) 100 mls @ 200 mls/hr IV NOW ONE Stop: 08/11/20 11:19 Last Infusion: 08/11/20 12:46 Dose: 0 mls/hr Documented by: Admin: 08/11/20 11:51 Dose: 200 mls/hr Documented by: AMBIKA Sodium Chloride (Normal Saline 0.9%) 1,000 mls @ 150 mls/hr IV CONT RUDY Last Infusion: 08/11/20 15:55 Dose: 0 mls/hr Documented by: Admin: 08/11/20 13:20 Dose: 150 mls/hr Documented by: AMBIKA Morphine Sulfate (Morphine 4 Mg/Ml Inj) 4 mg IV NOW ONE Stop: 08/11/20 12:49 Last Admin: 08/11/20 13:20 Dose: 4 mg Documented by: AMBIKA Morphine Sulfate (Morphine 2 Mg/Ml Inj) 2 mg IV NOW ONE Stop: 08/11/20 15:40 Last Admin: 08/11/20 15:43 Dose: 2 mg Documented by: AMBIKA Vital Signs Vital signs: Vital Signs - 8 hr 08/11/20 11:19 08/11/20 11:50 08/11/20 12:00 Temperature 101.1 F H Pulse Rate 87 74 71 Respiratory Rate 22 Blood Pressure 175/77 H Pulse Oximetry 96 91 91 08/11/20 12:01 08/11/20 12:30 08/11/20 13:00 Temperature Pulse Rate 71 69 109 H Respiratory Rate 22 28 H Blood Pressure 133/63 135/62 133/60 Pulse Oximetry 98 94 95 08/11/20 13:30 08/11/20 13:31 08/11/20 14:00 Temperature Pulse Rate 68 68 70 Respiratory Rate 20 39 H 28 H Blood Pressure 130/58 L 129/59 L Pulse Oximetry 93 93 94 08/11/20 14:26 08/11/20 14:30 08/11/20 15:00 Temperature Pulse Rate 75 75 69 Respiratory Rate 18 18 18 Blood Pressure 128/67 152/65 H Pulse Oximetry 93 96 94 08/11/20 15:01 08/11/20 15:30 08/11/20 15:31 Temperature Pulse Rate 69 77 75 Respiratory Rate 18 18 38 H Blood Pressure 128/56 L 120/49 L Pulse Oximetry 95 93 93 MDM - Fever <BRIGIDA Millan - Last Filed: 08/11/20 16:21> Medical Records Attestation: I reviewed the patient's medical records. Lab Data Attestation: I reviewed the patient's lab results. Result diagrams: 08/11/20 11:57 08/11/20 11:57 Labs: Lab Results 08/11/20 08/11/20 08/11/20 Range/Units 11:14 11:57 11:57 WBC 9.2 (4.5-11.0) X10^3/uL RBC 2.88 L (4.0-5.2) X10^6/uL Hgb 9.7 L (12.0-16.0) g/dL Hct 28.8 L (36-46) % MCV 99.7 (80-100) fL MCH 33.8 (26-34) PG MCHC 33.9 (30-36) % RDW 18.8 H (11.6-14.8) % Plt Count 234 (150-400) X10^3/uL Neut % (Auto) 73.9 (50-75) % Lymph % (Auto) 11.9 L (25-40) % [place] % (Auto) 13.2 (3-14) % Eos % (Auto) 0.7 L (2-4) % Baso % (Auto) 0.3 (0-2) % Neut # (Auto) 6800 (5947-6804) /uL Lymph # (Auto) 1100 (8299-6090) /uL [place] # (Auto) 1200 H (0-900) /uL Eos # (Auto) 100 (0-450) /uL Baso # (Auto) 0 (0-100) /uL PT 14.8 H (10.1-12.7) SECONDS INR 1.3 (0.9-1.3) APTT 84 H* D (26.4-36.2) SECONDS Sodium (137-145) mmol/L Potassium (3.4-5.1) mmol/L Chloride (98-107) mmol/L Carbon Dioxide (22-32) mmol/L BUN (7-17) mg/dL Creatinine (0.52-1.04) mg/dL Estimated GFR (>60) mL/min BUN/Creatinine Ratio (6-22) Glucose (80-110) mg/dL Lactate (0.7-2.1) mmol/L Calcium (8.4-10.2) mg/dL Total Bilirubin (0.2-1.3) mg/dL AST (14-36) IU/L ALT (<35) IU/L Alkaline Phosphatase (38-126) U/L Total Protein (6.3-8.2) g/dL Albumin (3.5-5.0) g/dL Globulin (1.7-4.1) g/dL Albumin/Globulin Ratio (1.0-2.8) Lipase (23-300) U/L Procalcitonin (<0.5) ng/mL Urine RBC (0-5/HPF) Urine WBC (0-5/HPF) Ur Squamous Epith Cells (0-5/HPF) Urine Bacteria (None) Ur Culture Indicated? SARS-CoV-2 (PCR) Negative (Negative) 08/11/20 08/11/20 08/11/20 Range/Units 11:57 11:57 11:57 WBC (4.5-11.0) X10^3/uL RBC (4.0-5.2) X10^6/uL Hgb (12.0-16.0) g/dL Hct (36-46) % MCV (80-100) fL MCH (26-34) PG MCHC (30-36) % RDW (11.6-14.8) % Plt Count (150-400) X10^3/uL Neut % (Auto) (50-75) % Lymph % (Auto) (25-40) % [place] % (Auto) (3-14) % Eos % (Auto) (2-4) % Baso % (Auto) (0-2) % Neut # (Auto) (5948-5407) /uL Lymph # (Auto) (6621-5595) /uL [place] # (Auto) (0-900) /uL Eos # (Auto) (0-450) /uL Baso # (Auto) (0-100) /uL PT (10.1-12.7) SECONDS INR (0.9-1.3) APTT (26.4-36.2) SECONDS Sodium 132 L (137-145) mmol/L Potassium 3.9 (3.4-5.1) mmol/L Chloride 100 (98-107) mmol/L Carbon Dioxide 27 (22-32) mmol/L BUN 17 (7-17) mg/dL Creatinine 1.14 H (0.52-1.04) mg/dL Estimated GFR 47.1 L (>60) mL/min BUN/Creatinine Ratio 14.9 (6-22) Glucose 124 H (80-110) mg/dL Lactate 1.5 (0.7-2.1) mmol/L Calcium 9.3 (8.4-10.2) mg/dL Total Bilirubin 0.5 (0.2-1.3) mg/dL AST 58 H (14-36) IU/L ALT 21 (<35) IU/L Alkaline Phosphatase 137 H (38-126) U/L Total Protein 7.3 (6.3-8.2) g/dL Albumin 4.1 (3.5-5.0) g/dL Globulin 3.2 (1.7-4.1) g/dL Albumin/Globulin Ratio 1.3 (1.0-2.8) Lipase 175 (23-300) U/L Procalcitonin 0.08 (<0.5) ng/mL Urine RBC (0-5/HPF) Urine WBC (0-5/HPF) Ur Squamous Epith Cells (0-5/HPF) Urine Bacteria (None) Ur Culture Indicated? SARS-CoV-2 (PCR) (Negative) 08/11/20 Range/Units 14:26 WBC (4.5-11.0) X10^3/uL RBC (4.0-5.2) X10^6/uL Hgb (12.0-16.0) g/dL Hct (36-46) % MCV (80-100) fL MCH (26-34) PG MCHC (30-36) % RDW (11.6-14.8) % Plt Count (150-400) X10^3/uL Neut % (Auto) (50-75) % Lymph % (Auto) (25-40) % [place] % (Auto) (3-14) % Eos % (Auto) (2-4) % Baso % (Auto) (0-2) % Neut # (Auto) (2608-3719) /uL Lymph # (Auto) (3419-3402) /uL [place] # (Auto) (0-900) /uL Eos # (Auto) (0-450) /uL Baso # (Auto) (0-100) /uL PT (10.1-12.7) SECONDS INR (0.9-1.3) APTT (26.4-36.2) SECONDS Sodium (137-145) mmol/L Potassium (3.4-5.1) mmol/L Chloride (98-107) mmol/L Carbon Dioxide (22-32) mmol/L BUN (7-17) mg/dL Creatinine (0.52-1.04) mg/dL Estimated GFR (>60) mL/min BUN/Creatinine Ratio (6-22) Glucose (80-110) mg/dL Lactate (0.7-2.1) mmol/L Calcium (8.4-10.2) mg/dL Total Bilirubin (0.2-1.3) mg/dL AST (14-36) IU/L ALT (<35) IU/L Alkaline Phosphatase (38-126) U/L Total Protein (6.3-8.2) g/dL Albumin (3.5-5.0) g/dL Globulin (1.7-4.1) g/dL Albumin/Globulin Ratio (1.0-2.8) Lipase (23-300) U/L Procalcitonin (<0.5) ng/mL Urine RBC None seen (0-5/HPF) Urine WBC 1-5/hpf (0-5/HPF) Ur Squamous Epith Cells 5-10 /hpf H (0-5/HPF) Urine Bacteria None seen (None) Ur Culture Indicated? Cult not indicated SARS-CoV-2 (PCR) (Negative) Urine Dip Bedside Urine Glucose Negative Bedside Urine Bilirubin - Negative Bedside Urine Ketone - Negative Urine Specific [place] 1.005 Bedside Urine Occult Blood - Negative Bedside Urine pH 6.0 Bedside Urine Protein - Negative Bedside Urine Urobilinogen - Negative Bedside Urine Nitrite - Negative Bedside Urine Leukocytes + 70 Esterase Imaging Data Chest x-ray: Radiologist's Impression: [address] [id number] ReportSigned Patient: Candi Villanueva MMR#: [id number]: 1950Acct:[id number]/Sex: 70 / FDate of Service: 08/11/20Loc: EDAccession Number: [id number] Procedure: XR chest 1V Ordering Provider: Jeniffer Lovelace PROCEDURE: XR CHEST 1V INDICATIONS: suspected sepsis TECHNIQUE: One view of the chest was acquired. COMPARISON: [facility], CT, CT CHEST ABD PEL W CON, 07/24/2020, 10:01. [facility], CR, XR CHEST 1V, 01/24/2018, 17:43. FINDINGS: Surgical changes and devices: There is a Port-A-Cath on the left with the tip projecting to the area of SVC. Multiple surgical clips in breasts bilaterally and the right axilla. Lungs and pleura: Lungs are clear. No pleural effusions or pneumothorax. Mediastinum: Mediastinal contours appear normal. Heart size is normal. Bones and chest wall: No suspicious bony lesions. Overlying soft tissues appear unremarkable. IMPRESSION: No acute cardiopulmonary disease. Dictated by: Frederic Villasenor M.D. on 08/11/2020 at 12:03 Approved by: Frederic Villasenor M.D. on 08/11/2020 at 12:05 CT scan - abdomen/pelvis: Radiologist's Impression: [address] [id number] Scan ReportSigned Patient: Candi Villanueva MMR#: [id number]: 1950Acct:[id number]/Sex: 70 / FDate of Service: 08/11/20Loc: EDAccession Number: [id number] Procedure: CT abdomen pelvis w con Ordering Provider: Hedlin,Jeniffer HUMANITIES DEPARTMENT CHAIR PROCEDURE: CT ABDOMEN PELVIS W CON INDICATIONS: diffuse abd pain and bloating TECHNIQUE: After the administration of intravenous contrast, 5 mm thick sections acquired from the diaphragm to the symphysis. 5 mm coronal and sagittal reformats were acquired. For radiation dose reduction, the following was used: automated exposure control, adjustment of mA and/or kV according to patient size. COMPARISON: [facility], CT, CT CHEST ABD PEL W CON, 08/10/2019, 11:10. [facility], CT, CT CHEST ABD PEL W CON, 07/24/2020, 10:01. [facility], CT, CT ABDOMEN PELVIS W CON, 05/15/2019, 16:32. FINDINGS: Image quality: Excellent. ABDOMEN: Lung bases: Lung bases are clear. Heart size is normal. Solid organs: Again noted are numerous bilateral liver metastatic lesions. Gallbladder is unremarkable.. Mild prominence of the extrahepatic bile duct. Pancreatic duct is mildly dilated. No obstructing pancreatic mass is identified. Pancreatic ductal dilatation is mildly progressive over time period Pancreas enhances normally. Spleen is normal in size and enhancement. Small low-density areas in the spleen are stable. No adrenal nodules. Kidneys demonstrate normal size and enhancement, without hydronephrosis. Peritoneum and bowel: Proximal small bowel loops are mildly prominent with air- fluid levels. More distal small bowel loops are normal caliber, possibly indicating mild small bowel obstruction. However, the proximal small bowel loops are not abnormally dilated, and are just somewhat prominent. No free fluid or air. Previous partial colectomy. Nodes and vessels: No retroperitoneal or mesenteric adenopathy by size criteria. Aorta and inferior vena cava are normal in size. Miscellaneous: No ventral hernias. PELVIS: Genitourinary: Bladder wall thickness is normal. Miscellaneous: No inguinal hernias or adenopathy. Remote hysterectomy. Pelvic floor relaxation with herniation of pelvic fat between the rectum and bladder inferior to the floor of the pelvis. Bones: Sclerotic bony metastatic lesions again noted. No vertebral body compression fractures. IMPRESSION: 1. Liver metastatic disease and sclerotic bony metastatic disease, as before. 2. Nonspecific bowel gas pattern, possibly representing a partial small bowel obstruction. 3. Pelvic floor relaxation. 4. Mild prominence of the extrahepatic duct and mild dilatation of the p ancreatic duct. No obstructing mass identified. Comment: If clinically suspect biliary obstruction, consider MRCP. Dictated by: Jose Perry M.D. on 08/11/2020 at 13:22 Approved by: Jose Perry M.D. on 08/11/2020 at 13:34 ECG Data Interpretation: 1140: Normal sinus rhythm, rate 74, AR interval 136, QTC 481. No ST elevation or ST depression. No T-wave abnormality. No ectopy. EKG also viewed by Dr. Swan per protocol. MDM Narrative Medical decision making narrative: 70-year-old female with stage IV breast cancer in history of colon cancer, presents to the ED for worsening arm and abdominal pain. I suspect pain is most likely caused by a worsening Mets as seen on CT. Additionally, patient has not been taking her oxycodone consistently which could also have contributed to pain. While CT initially showed some concern for an abnormal gas pattern, general surgeon, Holli evaluated the images and is not concerned for SBO or infection. Additionally, this is less likely at as patient's is not having worsening GI symptoms such as changes in stool patterns. She does have intermittent vomiting but this has been consistent with her chemo medication. Patient did present with fever, no origin of fever found. Stomatitis appears controlled, urine clear (small amount of epithelial cells found), chest x-ray negative, lung sounds clear, patient does not appear acutely ill. While evaluated, patient is respiratory rate is 18-20, I spoke with nursing multiple times about charting of elevated respiratory rate. They reported that this was taken off the machine and not accurate. Requested nursing update respiratory rate and measure patient in person. Patient is awake and alert, no acute distress. I spoke with her oncologist, Dr. Cortés who reviewed renal labs and a PTT abnormality as well. He suggest close follow-up in clinic in the next few days, does not recommend antibiotics at this time. Patient agreed to plan of care and verbalized understanding. <Terrence Swan, DO - Last Filed: 08/11/20 16:31> Lab Data Labs: Lab Results 08/11/20 08/11/20 08/11/20 Range/Units 11:14 11:57 11:57 WBC 9.2 (4.5-11.0) X10^3/uL RBC 2.88 L (4.0-5.2) X10^6/uL Hgb 9.7 L (12.0-16.0) g/dL Hct 28.8 L (36-46) % MCV 99.7 (80-100) fL MCH 33.8 (26-34) PG MCHC 33.9 (30-36) % RDW 18.8 H (11.6-14.8) % Plt Count 234 (150-400) X10^3/uL Neut % (Auto) 73.9 (50-75) % Lymph % (Auto) 11.9 L (25-40) % [place] % (Auto) 13.2 (3-14) % Eos % (Auto) 0.7 L (2-4) % Baso % (Auto) 0.3 (0-2) % Neut # (Auto) 6800 (0127-7304) /uL Lymph # (Auto) 1100 (2121-1005) /uL [place] # (Auto) 1200 H (0-900) /uL Eos # (Auto) 100 (0-450) /uL Baso # (Auto) 0 (0-100) /uL PT 14.8 H (10.1-12.7) SECONDS INR 1.3 (0.9-1.3) APTT 84 H* D (26.4-36.2) SECONDS Sodium (137-145) mmol/L Potassium (3.4-5.1) mmol/L Chloride (98-107) mmol/L Carbon Dioxide (22-32) mmol/L BUN (7-17) mg/dL Creatinine (0.52-1.04) mg/dL Estimated GFR (>60) mL/min BUN/Creatinine Ratio (6-22) Glucose (80-110) mg/dL Lactate (0.7-2.1) mmol/L Calcium (8.4-10.2) mg/dL Total Bilirubin (0.2-1.3) mg/dL AST (14-36) IU/L ALT (<35) IU/L Alkaline Phosphatase (38-126) U/L Total Protein (6.3-8.2) g/dL Albumin (3.5-5.0) g/dL Globulin (1.7-4.1) g/dL Albumin/Globulin Ratio (1.0-2.8) Lipase (23-300) U/L Procalcitonin (<0.5) ng/mL Urine RBC (0-5/HPF) Urine WBC (0-5/HPF) Ur Squamous Epith Cells (0-5/HPF) Urine Bacteria (None) Ur Culture Indicated? SARS-CoV-2 (PCR) Negative (Negative) 08/11/20 08/11/20 08/11/20 Range/Units 11:57 11:57 11:57 WBC (4.5-11.0) X10^3/uL RBC (4.0-5.2) X10^6/uL Hgb (12.0-16.0) g/dL Hct (36-46) % MCV (80-100) fL MCH (26-34) PG MCHC (30-36) % RDW (11.6-14.8) % Plt Count (150-400) X10^3/uL Neut % (Auto) (50-75) % Lymph % (Auto) (25-40) % [place] % (Auto) (3-14) % Eos % (Auto) (2-4) % Baso % (Auto) (0-2) % Neut # (Auto) (3091-5132) /uL Lymph # (Auto) (3320-5030) /uL [place] # (Auto) (0-900) /uL Eos # (Auto) (0-450) /uL Baso # (Auto) (0-100) /uL PT (10.1-12.7) SECONDS INR (0.9-1.3) APTT (26.4-36.2) SECONDS Sodium 132 L (137-145) mmol/L Potassium 3.9 (3.4-5.1) mmol/L Chloride 100 (98-107) mmol/L Carbon Dioxide 27 (22-32) mmol/L BUN 17 (7-17) mg/dL Creatinine 1.14 H (0.52-1.04) mg/dL Estimated GFR 47.1 L (>60) mL/min BUN/Creatinine Ratio 14.9 (6-22) Glucose 124 H (80-110) mg/dL Lactate 1.5 (0.7-2.1) mmol/L Calcium 9.3 (8.4-10.2) mg/dL Total Bilirubin 0.5 (0.2-1.3) mg/dL AST 58 H (14-36) IU/L ALT 21 (<35) IU/L Alkaline Phosphatase 137 H (38-126) U/L Total Protein 7.3 (6.3-8.2) g/dL Albumin 4.1 (3.5-5.0) g/dL Globulin 3.2 (1.7-4.1) g/dL Albumin/Globulin Ratio 1.3 (1.0-2.8) Lipase 175 (23-300) U/L Procalcitonin 0.08 (<0.5) ng/mL Urine RBC (0-5/HPF) Urine WBC (0-5/HPF) Ur Squamous Epith Cells (0-5/HPF) Urine Bacteria (None) Ur Culture Indicated? SARS-CoV-2 (PCR) (Negative) 08/11/20 Range/Units 14:26 WBC (4.5-11.0) X10^3/uL RBC (4.0-5.2) X10^6/uL Hgb (12.0-16.0) g/dL Hct (36-46) % MCV (80-100) fL MCH (26-34) PG MCHC (30-36) % RDW (11.6-14.8) % Plt Count (150-400) X10^3/uL Neut % (Auto) (50-75) % Lymph % (Auto) (25-40) % [place] % (Auto) (3-14) % Eos % (Auto) (2-4) % Baso % (Auto) (0-2) % Neut # (Auto) (7689-5042) /uL Lymph # (Auto) (2323-0679) /uL [place] # (Auto) (0-900) /uL Eos # (Auto) (0-450) /uL Baso # (Auto) (0-100) /uL PT (10.1-12.7) SECONDS INR (0.9-1.3) APTT (26.4-36.2) SECONDS Sodium (137-145) mmol/L Potassium (3.4-5.1) mmol/L Chloride (98-107) mmol/L Carbon Dioxide (22-32) mmol/L BUN (7-17) mg/dL Creatinine (0.52-1.04) mg/dL Estimated GFR (>60) mL/min BUN/Creatinine Ratio (6-22) Glucose (80-110) mg/dL Lactate (0.7-2.1) mmol/L Calcium (8.4-10.2) mg/dL Total Bilirubin (0.2-1.3) mg/dL AST (14-36) IU/L ALT (<35) IU/L Alkaline Phosphatase (38-126) U/L Total Protein (6.3-8.2) g/dL Albumin (3.5-5.0) g/dL Globulin (1.7-4.1) g/dL Albumin/Globulin Ratio (1.0-2.8) Lipase (23-300) U/L Procalcitonin (<0.5) ng/mL Urine RBC None seen (0-5/HPF) Urine WBC 1-5/hpf (0-5/HPF) Ur Squamous Epith Cells 5-10 /hpf H (0-5/HPF) Urine Bacteria None seen (None) Ur Culture Indicated? Cult not indicated SARS-CoV-2 (PCR) (Negative) Urine Dip Bedside Urine Glucose Negative Bedside Urine Bilirubin - Negative Bedside Urine Ketone - Negative Urine Specific [place] 1.005 Bedside Urine Occult Blood - Negative Bedside Urine pH 6.0 Bedside Urine Protein - Negative Bedside Urine Urobilinogen - Negative Bedside Urine Nitrite - Negative Bedside Urine Leukocytes + 70 Esterase Discharge Plan Departure Patient Disposition: Home Clinical Impression: Cancer related pain Breast cancer Qualifiers: Breast location: unspecified site of breast Estrogen receptor status: unspecified Patient sex: female Laterality: unspecified laterality Qualified Code(s): C50.919 - Malignant neoplasm of unspecified site of unspecified female breast Fever Qualifiers: Fever type: unspecified Qualified Code(s): R50.9 - Fever, unspecified Activity Restrictions/Additional Instructions: Thank you for entrusting me with your care today. As discussed, your laboratory work is fairly non-remarkable, you APTT is 84 and alk phos is slightly elevated at 137. Your urine is normal, your CT scan shows a nonspecific bowel pattern, I spoke with the surgeon today, no intervention is needed at this time. I did speak with your oncologist, Dr. Mcintosh, no antibiotics are recommended for your at this time but you should call their office as soon as possible and schedule an appointment within the next few days. Return emergency department for any new or worsening symptoms especially fever, chest pain, vomiting, abdominal pain, syncope, or any other concerns. Continue to take your oxycodone as prescribed. Prescriptions: No Action amitriptyline 75 MG tablet 150 mg PO HS Qty: 0 RF: 0 oxybutynin chloride 10 mg Tablet Extended Release 24hr 10 mg PO DAILY RF: 0 tramadol 50 mg Tablet 50 mg PO Q6H PRN (Reason: Spasms) RF: 0 gabapentin 300 mg Capsule 300 mg PO QAM RF: 0 cyanocobalamin (vitamin B-12) [Vitamin B-12] 1,000 mcg Tablet 1,000 mcg PO DAILY RF: 0 melatonin 5 mg Tablet 5 mg PO BEDTIME PRN (Reason: Insomnia) RF: 0 alprazolam 0.25 mg tablet 1 mg DAILY RF: 0 loperamide 2 MG capsule 2 mg PO Q8HP PRN (Reason: Diarrhea) Qty: 100 RF: 6 hydroxyzine pamoate [Vistaril] 50 mg Capsule 50 mg PO TID-QID PRN (Reason: sevre itch) Qty: 60 RF: 0 lorazepam [Ativan] 0.5 mg Tablet 0.5 mg PO Q8H PRN (Reason: Nausea) Qty: 60 RF: 0 omeprazole 20 mg Capsule,Delayed Release(Dr/Ec) 20 mg PO DAILY Qty: 30 RF: 0 everolimus (antineoplastic) 10 mg Tablet 10 mg PO DAILY Qty: 28 RF: 11 exemestane 25 mg Tablet 25 mg PO DAILY Qty: 28 RF: 11 oxycodone 10 mg Tablet 10 mg PO Q6H PRN (Reason: Chest Pain, breast cancer) Qty: 60 RF: 0 valacyclovir 1 gram tablet 1 tab PO TID RF: 0 cholecalciferol (vitamin D3) [Vitamin D3] 2,000 unit Capsule 2,000 unit PO DAILY RF: 0 metoprolol tartrate 25 mg tablet 25 mg PO BID RF: 0 Referrals: Maddi Carter MD [Primary Care Provider] - <Terrence Swan DO - Last Filed: 08/11/20 16:31> [facility] Dr Swan Co-Sign Statement: I was available for consultation during this patient's emergency department visit. This chart is signed by myself for administrative purposes only. I did not have direct contact with this patient during this visit. They were seen independently by the APC.
[2020-08-11 11:48] LABS: COVID19 -Nasal RAPID Negative (Negative)
[2020-08-11] MEDS: SODIUM CHLORIDE 0.9% 1,000 ML 1000 ML IV (11:51)
[2020-08-11] MEDS: CEFEPIME 2 GM in SODIUM CHLORIDE 0.9% 100 ML 200 ML IV (11:51)
[2020-08-11 12:13] LABS: Add Manual Diff / Slide Review NO; Basophils Absolute Auto 0 /uL (0-100); Basophils Percent Auto 0.3 % (0-2); Eosinophils Absolute Auto 100 /uL (0-450); Eosinophils Percent Auto 0.7 % (2-4); Hematocrit 28.8 % (36-46); Hemoglobin 9.7 g/dL (12.0-16.0); INR 1.3 (0.9-1.3); Lymphocytes Absolute Auto 1100 /uL (1100-4500); Lymphocytes Percent Auto 11.9 % (25-40); Mean Corpuscular HGB Conc 33.9 % (30-36); Mean Corpuscular Hemoglobin 33.8 PG (26-34); Mean Corpuscular Volume 99.7 fL (80-100); Monocytes Absolute Auto 1200 /uL (0-900); Monocytes Percent Auto 13.2 % (3-14); Neutrophils Absolute Auto 6800 /uL (1500-7000); Neutrophils Percent Auto 73.9 % (50-75); Platelet Count 234 X10^3/uL (150-400); Prothrombin Time 14.8 SECONDS (10.1-12.7); Red Blood Cell Count 2.88 X10^6/uL (4.0-5.2); Red Cell Distribution Width 18.8 % (11.6-14.8); White Blood Cell Count 9.2 X10^3/uL (4.5-11.0)
[2020-08-11 12:16] LABS: Lactate (Lactic Acid) 1.5 mmol/L (0.7-2.1)
[2020-08-11 12:17] LABS: Alanine Aminotransferase 21 IU/L (<35); Albumin 4.1 g/dL (3.5-5.0); Albumin Globulin Ratio 1.3 (1.0-2.8); Alkaline Phosphatase 137 U/L (38-126); Aspartate Aminotransferase 58 IU/L (14-36); BUN Creatinine Ratio 14.9 (6-22); Bilirubin Total 0.5 mg/dL (0.2-1.3); Blood Urea Nitrogen 17 mg/dL (7-17); Calcium 9.3 mg/dL (8.4-10.2); Carbon Dioxide 27 mmol/L (22-32); Chloride 100 mmol/L (98-107); Estimated Glomerular Filt Rate 47.1 mL/min (>60); Globulin 3.2 g/dL (1.7-4.1); Glucose 124 mg/dL (80-110); HEMOLYSIS < 15 (0-50); Lipase 175 U/L (23-300); Potassium 3.9 mmol/L (3.4-5.1); Sodium 132 mmol/L (137-145); Total Protein 7.3 g/dL (6.3-8.2)
--- NOTE | 2020-08-11 12:20 | DI.CT.S_ITS ---
PROCEDURE: CT ABDOMEN PELVIS W CON INDICATIONS: diffuse abd pain and bloating TECHNIQUE: After the administration of intravenous contrast, 5 mm thick sections acquired from the diaphragm to the symphysis. 5 mm coronal and sagittal reformats were acquired. For radiation dose reduction, the following was used: automated exposure control, adjustment of mA and/or kV according to patient size. COMPARISON: [facility], CT, CT CHEST ABD PEL W CON, 08/10/2019, 11:10. [facility], CT, CT CHEST ABD PEL W CON, 07/24/2020, 10:01. [facility], CT, CT ABDOMEN PELVIS W CON, 05/15/2019, 16:32. FINDINGS: Image quality: Excellent. ABDOMEN: Lung bases: Lung bases are clear. Heart size is normal. Solid organs: Again noted are numerous bilateral liver metastatic lesions. Gallbladder is unremarkable.. Mild prominence of the extrahepatic bile duct. Pancreatic duct is mildly dilated. No obstructing pancreatic mass is identified. Pancreatic ductal dilatation is mildly progressive over time period Pancreas enhances normally. Spleen is normal in size and enhancement. Small low-density areas in the spleen are stable. No adrenal nodules. Kidneys demonstrate normal size and enhancement, without hydronephrosis. Peritoneum and bowel: Proximal small bowel loops are mildly prominent with air-fluid levels. More distal small bowel loops are normal caliber, possibly indicating mild small bowel obstruction. However, the proximal small bowel loops are not abnormally dilated, and are just somewhat prominent. No free fluid or air. Previous partial colectomy. Nodes and vessels: No retroperitoneal or mesenteric adenopathy by size criteria. Aorta and inferior vena cava are normal in size. Miscellaneous: No ventral hernias. PELVIS: Genitourinary: Bladder wall thickness is normal. Miscellaneous: No inguinal hernias or adenopathy. Remote hysterectomy. Pelvic floor relaxation with herniation of pelvic fat between the rectum and bladder inferior to the floor of the pelvis. Bones: Sclerotic bony metastatic lesions again noted. No vertebral body compression fractures. IMPRESSION: 1. Liver metastatic disease and sclerotic bony metastatic disease, as before. 2. Nonspecific bowel gas pattern, possibly representing a partial small bowel obstruction. 3. Pelvic floor relaxation. 4. Mild prominence of the extrahepatic duct and mild dilatation of the pancreatic duct. No obstructing mass identified. Comment: If clinically suspect biliary obstruction, consider MRCP. Dictated by: Jose Perry M.D. on 08/11/2020 at 13:22 Approved by: Jose Perry M.D. on 08/11/2020 at 13:34
[2020-08-11 12:34] LABS: PTT Partial Thromboplastin Tim 84 SECONDS (26.4-36.2)
[2020-08-11 13:18] LABS: Procalcitonin 0.08 ng/mL (<0.5)
[2020-08-11] MEDS: MORPHINE 4 MG/ML INJ IV (13:20)
[2020-08-11] MEDS: SODIUM CHLORIDE 0.9% 1,000 ML 150 ML IV (13:20)
[2020-08-11 14:45] LABS: Bacteria Urine None Seen; RBC Urine None Seen (0-5/HPF)
[2020-08-11 14:54] LABS: Culture Indicated Urine Cult Not Indicated; Squamous Epithelial Cell Urine 5-10 /HPF (0-5/HPF); WBC Urine 1-5/HPF (0-5/HPF)
[2020-08-11] MEDS: MORPHINE 2 MG/ML INJ IV (15:43)
== END 2020-08-11 16:12 | disposition home or self-care (01) ==
PROVIDERS: Emergency Provider Nurse Practitioner; PCP Family Medicine
DX: G89.3 Neoplasm related pain (acute) (chronic) (principal); C50.919 Malignant neoplasm of unspecified site of unspecified female breast; C79.51 Secondary malignant neoplasm of bone; C78.7 Secondary malignant neoplasm of liver and intrahepatic bile duct; C78.00 Secondary malignant neoplasm of unspecified lung; R50.9 Fever, unspecified; R05 Cough; R10.9 Unspecified abdominal pain; Z79.01 Long term (current) use of anticoagulants; I10 Essential (primary) hypertension; E11.9 Type 2 diabetes mellitus without complications; R11.0 Nausea; Z20.822 Contact with and (suspected) exposure to COVID-19; Z85.038 Personal history of other malignant neoplasm of large intestine
CPT/HCPCS: 36415; 71045; 74177; 80053; 81003; 81015; 83605; 83690; 84145; 85025; 85610; 85730; 87040; 87635; 93005; 93010; 96361; 96365; 96375; 96376; 99283; 99284; C9803; J0692; J1642; J2270; Q9967

== ENCOUNTER 2020-08-26 12:16 | Emergency (ER) | payer OTHER, SELFPAY ==
[2020-07-12 19:57] VITALS: BMI 27.3
[2020-08-26] VITALS (10 sets, daily range): BP systolic 109–128; BP diastolic 56–94; PULSE 78–105; RESP 14–24; TEMP 36.9; O2SAT 93–95; BMI 27.3
--- NOTE | 2020-08-26 13:07 | ED_ITS ---
HPI - Abdominal Pain General Chief Complaint: Abdominal Pain Stated Complaint: SOB LEFT SIDE STOMACH PAIN Time Seen by Provider: 08/26/20 12:31 Source: patient Mode of arrival: Wheelchair Limitations: no limitations History of Present Illness HPI narrative: Patient is a 70-year-old female with history of colon cancer treated surgically and now metastatic terminal breast cancer presenting today with increasing left upper quadrant pain. She says that she knows that she has metastatic disease to her bones into her ribs. She is supposed to be taking pain medicine but is afraid to she actually did take 1 pain pill 45 minutes ago and she says it still has not helped. She has persistent left upper quadrant pain an on going nausea and vomiting. She says that the vomiting has been going on for a few weeks. She denies any fever or chills. She has been having diarrhea which is not for her. MD complaint: abdominal pain Quality: aching and fullness Related Data Home Medications Medication Instructions Recorded Confirmed amitriptyline 150 mg PO HS #0 01/05/13 07/12/20 gabapentin 300 mg PO QAM 12/13/17 07/12/20 oxybutynin chloride 10 mg PO DAILY 12/13/17 07/12/20 tramadol 50 mg PO Q6H PRN 12/13/17 07/12/20 cholecalciferol (vitamin D3) 2,000 unit PO DAILY 01/24/18 07/12/20 [Vitamin D3] metoprolol tartrate 25 mg PO BID 01/24/18 07/12/20 valacyclovir 1 tab PO TID 01/24/18 07/12/20 cyanocobalamin (vitamin B-12) 1,000 mcg PO DAILY 03/08/18 07/12/20 [Vitamin B-12] melatonin 5 mg PO BEDTIME PRN 03/08/18 07/12/20 alprazolam 1 mg DAILY 06/15/18 07/12/20 Previous Rx's Medication Instructions Recorded hydroxyzine pamoate [Vistaril] 50 mg PO TID-QID PRN #60 cap 06/19/20 loperamide 2 mg PO Q8HP PRN #100 cap 06/19/20 lorazepam [Ativan] 0.5 mg PO Q8H PRN #60 tab 06/19/20 omeprazole 20 mg PO DAILY #30 cap 06/19/20 everolimus (antineoplastic) 10 mg PO DAILY #28 tab 07/31/20 exemestane 25 mg PO DAILY #28 tab 07/31/20 oxycodone 10 mg PO Q6H PRN #60 tab 08/14/20 lorazepam [Ativan] 1 mg PO DIRECTED PRN #2 tab 08/21/20 Allergies Allergy/AdvReac Type Severity Reaction Status Date / Time hydrocodone AdvReac Severe RASH, Verified 08/26/20 12:31 ITCHING Review of Systems Review of Systems Narrative: GENERAL: Denies chills, fatigue, malaise, fever, sweats, travel HEENT: Denies sinus pain, ear pain, sore throat, difficulty swallowing, neck pain RESPIRATORY: Denies dyspnea, cough, wheezing, hemoptysis, sputum. CARDIOVASCULAR: Denies chest pain, palpitations, orthopnea, edema GASTROINTESTINAL: See HPI : Denies dysuria, frequency, incontinence, hematuria, urinary retention, flank pain. MUSCULOSKELETAL: Denies weakness, joint pain, or bony pain SKIN: No rash, no erythema, no pruritus NEUROLOGIC: Denies weakness, dizziness, headache, numbness, change in speech, confusion PSYCHIATRIC: No concerning psychosocial issues. 12 point review of systems is negative except for those stated above and HPI Patient History Medical History (Updated 08/26/20 @ 15:39 by Nia Croft DO) Anxiety Breast cancer Colon cancer Hypertension Lymph node cancer Nausea Thrush, oral Surgical History History of hysterectomy History of mastectomy Social History household members: none Smoking Status: Former smoker alcohol intake: former Smoking Status: Former smoker alcohol intake frequency: holidays/special occasions only Substance Use Type: marijuana Exam Initial Vital Signs Initial Vital Signs: Vital Signs Temperature 98.4 F 08/26/20 12:21 Pulse Rate 104 H 08/26/20 12:21 Respiratory Rate 16 08/26/20 12:21 Blood Pressure 128/94 H 08/26/20 12:21 Pulse Oximetry 94 08/26/20 12:21 GENERAL: Well-appearing, well-nourished and in no acute distress. HEENT: Head atraumatic,EOMI, pupils reactive, face symmetric, moist mucous membranes CARDIOVASCULAR: Regular rate and rhythm without murmurs, rubs or gallops. RESPIRATORY: Breath sounds equal bilaterally, no wheezes rales or rhonchi. ABDOMEN: Soft. Tender left upper quadrant Increased bowel sounds. No guarding or rebound. EXTREMITIES: Normal range of motion, no clubbing or edema. Neurovascularly intact NEUROLOGICAL: Alert and oriented x4.Normal gait and speech. Cranial nerves II through XII grossly intact. SKIN: Warm, dry, no laceration, no petechiae, no rashes or lesions. Course Orders Ordered: ED Orders 08/26/20 12:31 EKG-12 Lead Stat 08/26/20 13:10 XR chest 1V Stat 08/26/20 13:25 Complete Blood Count AUTO DIFF Stat Comprehensive Metabolic Panel Stat Lipase Stat NT-proBNP (BNP-Adult 18+) Stat Troponin & CK Cardiac Panel Stat 08/26/20 13:56 CT chest abd pel w con Stat Discontinued Medications Sodium Chloride (Normal Saline 0.9%) 1,000 mls @ 150 mls/hr IV CONT RUDY Last Infusion: 08/26/20 16:12 Dose: 150 mls/hr Documented by: Admin: 08/26/20 13:29 Dose: 150 mls/hr Documented by: SARATH Morphine Sulfate (Morphine 2 Mg/Ml Inj) 2 mg IV NOW ONE Stop: 08/26/20 13:10 Last Admin: 08/26/20 13:29 Dose: 2 mg Documented by: SARATH Ondansetron HCl (Ondansetron 4 Mg/2 Ml Inj) 4 mg IV NOW ONE Stop: 08/26/20 13:10 Last Admin: 08/26/20 13:28 Dose: 4 mg Documented by: SARATH Vital Signs Vital signs: Vital Signs - 8 hr 08/26/20 12:21 08/26/20 12:29 08/26/20 12:30 Temperature 98.4 F Pulse Rate 104 H 105 H Respiratory Rate 16 Blood Pressure 128/94 H 128/89 Pulse Oximetry 94 94 08/26/20 13:38 08/26/20 13:40 08/26/20 14:09 Temperature Pulse Rate 96 H 90 85 Respiratory Rate 14 19 Blood Pressure 117/57 L Pulse Oximetry 95 93 08/26/20 14:30 08/26/20 15:03 08/26/20 15:30 Temperature Pulse Rate 78 91 H 82 Respiratory Rate 24 24 Blood Pressure Pulse Oximetry 94 08/26/20 15:59 Temperature Pulse Rate 79 Respiratory Rate 18 Blood Pressure 109/56 L Pulse Oximetry 94 MDM - Abdominal Pain Lab Data Attestation: I reviewed the patient's lab results. Result diagrams: 08/26/20 13:25 08/26/20 13:25 Labs: Lab Results 08/26/20 08/26/20 08/26/20 Range/Units 13:25 13:25 13:25 WBC 8.4 (4.5-11.0) X10^3/uL RBC 2.86 L (4.0-5.2) X10^6/uL Hgb 9.2 L (12.0-16.0) g/dL Hct 28.0 L (36-46) % MCV 97.9 (80-100) fL MCH 32.0 (26-34) PG MCHC 32.7 (30-36) % RDW 19.9 H (11.6-14.8) % Plt Count 283 (150-400) X10^3/uL Neut % (Auto) 80.9 H (50-75) % Lymph % (Auto) 9.4 L (25-40) % [place] % (Auto) 8.6 (3-14) % Eos % (Auto) 0.6 L (2-4) % Baso % (Auto) 0.5 (0-2) % Neut # (Auto) 6800 (4662-1323) /uL Lymph # (Auto) 800 L (5863-6602) /uL [place] # (Auto) 700 (0-900) /uL Eos # (Auto) 100 (0-450) /uL Baso # (Auto) 0 (0-100) /uL Sodium 134 L (137-145) mmol/L Potassium 4.0 (3.4-5.1) mmol/L Chloride 99 (98-107) mmol/L Carbon Dioxide 26 (22-32) mmol/L BUN 20 H (7-17) mg/dL Creatinine 1.39 H (0.52-1.04) mg/dL Estimated GFR 37.5 L (>60) mL/min BUN/Creatinine Ratio 14.4 (6-22) Glucose 132 H (80-110) mg/dL Calcium 10.0 (8.4-10.2) mg/dL Total Bilirubin 0.8 (0.2-1.3) mg/dL AST 49 H (14-36) IU/L ALT 24 (<35) IU/L Alkaline Phosphatase 144 H (38-126) U/L Total Creatine Kinase (30-135) U/L CK-MB (CK-2) (<2.37) ng/mL CK-MB (CK-2) Rel Index (1.5-5.0) % Troponin I (0.01-0.034) ng/mL NT-Pro-B Natriuret Pep 742 H (<125) pg/mL Total Protein 7.6 (6.3-8.2) g/dL Albumin 3.9 (3.5-5.0) g/dL Globulin 3.7 (1.7-4.1) g/dL Albumin/Globulin Ratio 1.1 (1.0-2.8) Lipase 200 (23-300) U/L 08/26/20 Range/Units 13:25 WBC (4.5-11.0) X10^3/uL RBC (4.0-5.2) X10^6/uL Hgb (12.0-16.0) g/dL Hct (36-46) % MCV (80-100) fL MCH (26-34) PG MCHC (30-36) % RDW (11.6-14.8) % Plt Count (150-400) X10^3/uL Neut % (Auto) (50-75) % Lymph % (Auto) (25-40) % [place] % (Auto) (3-14) % Eos % (Auto) (2-4) % Baso % (Auto) (0-2) % Neut # (Auto) (3857-7537) /uL Lymph # (Auto) (5065-4201) /uL [place] # (Auto) (0-900) /uL Eos # (Auto) (0-450) /uL Baso # (Auto) (0-100) /uL Sodium (137-145) mmol/L Potassium (3.4-5.1) mmol/L Chloride (98-107) mmol/L Carbon Dioxide (22-32) mmol/L BUN (7-17) mg/dL Creatinine (0.52-1.04) mg/dL Estimated GFR (>60) mL/min BUN/Creatinine Ratio (6-22) Glucose (80-110) mg/dL Calcium (8.4-10.2) mg/dL Total Bilirubin (0.2-1.3) mg/dL AST (14-36) IU/L ALT (<35) IU/L Alkaline Phosphatase (38-126) U/L Total Creatine Kinase 168 H (30-135) U/L CK-MB (CK-2) 0.56 (<2.37) ng/mL CK-MB (CK-2) Rel Index 0.3 L (1.5-5.0) % Troponin I < 0.012 (0.01-0.034) ng/mL NT-Pro-B Natriuret Pep (<125) pg/mL Total Protein (6.3-8.2) g/dL Albumin (3.5-5.0) g/dL Globulin (1.7-4.1) g/dL Albumin/Globulin Ratio (1.0-2.8) Lipase (23-300) U/L Imaging Data CT scan - abdomen/pelvis: Radiologist's Impression: PROCEDURE: CT CHEST ABD PEL W CON INDICATIONS: left sided upper quad pain, metastatic breast ca TECHNIQUE: After the administration of oral and intravenous contrast, 5 mm thick sections acquired from the lung apices to the symphysis. 5 mm coronal and sagittal reformats were performed, with additional 7 mm coronal MIP reformats through the lungs. For radiation dose reduction, the following was used: automated exposure control, adjustment of mA and/or kV according to patient size. COMPARISON: [facility], CT, CT CHEST ABD PEL W CON, 07/24/2020, 10:01. FINDINGS: Image quality: Excellent. CHEST: Lungs and pleura: No acute airspace opacities. No pleural effusions or pneumothorax. Central and peripheral airways appear patent and normal in caliber. Previously identified scattered pulmonary nodules the largest measuring 9 mm in the right lower lobe are unchanged. No new nodules are identified. Mediastinum: Heart size is normal. Coronary calcifications are noted. No pericardial effusion. No mediastinal or hilar adenopathy by size criteria. Thoracic aorta and central pulmonary arteries are normal in size. Esophagus is normal in caliber. No hiatal hernia. Chest wall: No axillary or supraclavicular adenopathy by size criteria. Thyroid gland is unremarkable . ABDOMEN: Solid organs: Liver demonstrates innumerable focal and confluent low- attenuation mass is markedly increased in both size and number compared to prior exam. The largest is in the anterior lateral right hepatic lobe on series 2, image 59 measuring 27 mm AP x 21 mm transverse. This lesion was present on prior exam measuring 17 mm AP x 14 mm transverse. Gallbladder is unremarkable. Biliary system is non dilated. Pancreas enhances normally. Spleen is normal in size and enhancement. No adrenal nodules. Kidneys demonstrate normal size and enhancement, without hydronephrosis. Unchanged left renal cyst. Peritoneum and bowel: Bowel loops demonstrate normal wall thickness and caliber. No free fluid or air. Nodes and vessels: No retroperitoneal or mesenteric adenopathy by size criteria. Aorta and inferior vena cava are normal in size. Miscellaneous: No ventral hernias. PELVIS: Genitourinary: Bladder wall thickness is normal. Miscellaneous: No inguinal hernias or adenopathy. Bones: Previously identified areas of sclerosis within the spine as well as right scapula and iliac bones are unchanged. No vertebral body compression fractures. IMPRESSION: 1. Marked interval increase in size and number of now innumerable hepatic masses consistent with metastatic disease progression. 2. Stable appearance of bilateral subcentimeter pulmonary nodules, and considered indeterminate, although metastatic disease cannot be excluded. 3. Stable appearance of osseous sclerotic foci consistent with metastatic disease. Dictated by: Angella Salgado M.D. on 08/26/2020 at 13:22 Approved by: Angella Salgado M.D. on 08/26/2020 at 13:32 ECG Data Attestation: I personally reviewed and interpreted this ECG as follows: Prior ECG tracings: available for review Interpretation: Normal sinus rhythm rate 93 p.r. interval 142 QRS 96 QTC 585 artifact noted no significant ST changes MDM Narrative Medical decision making narrative: Patient's pain is much better after morphine. She does show increase of metastatic disease in her liver but no cause of worsening left upper quadrant pain improved. She has pain medication at home but is hesitant to take it. I have discussed with her taking as prescribed and controlled will help make her more comfortable. Discharge Plan Departure Patient Disposition: Home Clinical Impression: Metastatic breast cancer Instructions: Breast Cancer in Women Activity Restrictions/Additional Instructions: *You have been diagnosed with metastatic breast cancer with worsening pain *What to do: Please take your pain medicine as prescribed I think that it would help making more comfortable. Please take as prescribed *Continue to take medications as directed *Follow up with your primary care provider in 2-3 days *Return to ER if you should have increasing pain, shortness of breath, confusion, fall or any new, worsening or concerning symptoms Prescriptions: No Action amitriptyline 75 MG tablet 150 mg PO HS Qty: 0 RF: 0 oxybutynin chloride 10 mg Tablet Extended Release 24hr 10 mg PO DAILY RF: 0 tramadol 50 mg Tablet 50 mg PO Q6H PRN (Reason: Spasms) RF: 0 gabapentin 300 mg Capsule 300 mg PO QAM RF: 0 cyanocobalamin (vitamin B-12) [Vitamin B-12] 1,000 mcg Tablet 1,000 mcg PO DAILY RF: 0 melatonin 5 mg Tablet 5 mg PO BEDTIME PRN (Reason: Insomnia) RF: 0 alprazolam 0.25 mg tablet 1 mg DAILY RF: 0 loperamide 2 MG capsule 2 mg PO Q8HP PRN (Reason: Diarrhea) Qty: 100 RF: 6 hydroxyzine pamoate [Vistaril] 50 mg Capsule 50 mg PO TID-QID PRN (Reason: sevre itch) Qty: 60 RF: 0 lorazepam [Ativan] 0.5 mg Tablet 0.5 mg PO Q8H PRN (Reason: Nausea) Qty: 60 RF: 0 omeprazole 20 mg Capsule,Delayed Release(Dr/Ec) 20 mg PO DAILY Qty: 30 RF: 0 everolimus (antineoplastic) 10 mg Tablet 10 mg PO DAILY Qty: 28 RF: 11 exemestane 25 mg Tablet 25 mg PO DAILY Qty: 28 RF: 11 oxycodone 10 mg Tablet 10 mg PO Q6H PRN (Reason: Chest Pain, breast cancer) Qty: 60 RF: 0 lorazepam [Ativan] 1 mg Tablet 1 mg PO DIRECTED PRN (Reason: procedure anxiety) Qty: 2 RF: 0 valacyclovir 1 gram tablet 1 tab PO TID RF: 0 cholecalciferol (vitamin D3) [Vitamin D3] 2,000 unit Capsule 2,000 unit PO DAILY RF: 0 metoprolol tartrate 25 mg tablet 25 mg PO BID RF: 0 Referrals: Maddi Carter MD [Primary Care Provider] -
--- NOTE | 2020-08-26 13:10 | DI.RAD.S_ITS ---
PROCEDURE: XR CHEST 1V INDICATIONS: left sided upper quad pain, metastaic breast ca TECHNIQUE: One view of the chest was acquired. COMPARISON: [facility], CT, CT CHEST ABD PEL W CON, 05/14/2020, 9:17. [facility], CR, XR CHEST 1V, 08/11/2020, 11:25. FINDINGS: Surgical changes and devices: There is a Port-A-Cath in the left chest with the tip projecting to the area of SVC. Multiple surgical clips are present bilaterally. Lungs and pleura: Lungs are clear. No pleural effusions or pneumothorax. Mediastinum: Mediastinal contours appear normal. Heart size is normal. Bones and chest wall: No suspicious bony lesions. Overlying soft tissues appear unremarkable. IMPRESSION: No acute cardiopulmonary disease. Dictated by: Frederic Villasenor M.D. on 08/26/2020 at 15:12 Approved by: Frederic Villasenor M.D. on 08/26/2020 at 15:14
[2020-08-26] MEDS: ONDANSETRON 4 MG/2 ML INJ IV (13:28)
[2020-08-26] MEDS: MORPHINE 2 MG/ML INJ IV (13:29)
[2020-08-26] MEDS: SODIUM CHLORIDE 0.9% 1,000 ML 150 ML IV (13:29)
[2020-08-26 13:37] LABS: Add Manual Diff / Slide Review NO; Basophils Absolute Auto 0 /uL (0-100); Basophils Percent Auto 0.5 % (0-2); Eosinophils Absolute Auto 100 /uL (0-450); Eosinophils Percent Auto 0.6 % (2-4); Hemoglobin 9.2 g/dL (12.0-16.0); Lymphocytes Absolute Auto 800 /uL (1100-4500); Lymphocytes Percent Auto 9.4 % (25-40); Mean Corpuscular HGB Conc 32.7 % (30-36); Mean Corpuscular Volume 97.9 fL (80-100); Monocytes Absolute Auto 700 /uL (0-900); Monocytes Percent Auto 8.6 % (3-14); Neutrophils Absolute Auto 6800 /uL (1500-7000); Neutrophils Percent Auto 80.9 % (50-75); Platelet Count 283 X10^3/uL (150-400); Red Blood Cell Count 2.86 X10^6/uL (4.0-5.2); Red Cell Distribution Width 19.9 % (11.6-14.8); White Blood Cell Count 8.4 X10^3/uL (4.5-11.0)
[2020-08-26 13:52] LABS: Alanine Aminotransferase 24 IU/L (<35); Albumin 3.9 g/dL (3.5-5.0); Albumin Globulin Ratio 1.1 (1.0-2.8); Alkaline Phosphatase 144 U/L (38-126); Aspartate Aminotransferase 49 IU/L (14-36); BUN Creatinine Ratio 14.4 (6-22); Bilirubin Total 0.8 mg/dL (0.2-1.3); Blood Urea Nitrogen 20 mg/dL (7-17); Carbon Dioxide 26 mmol/L (22-32); Chloride 99 mmol/L (98-107); Creatine Kinase 168 U/L (30-135); Estimated Glomerular Filt Rate 37.5 mL/min (>60); Globulin 3.7 g/dL (1.7-4.1); Glucose 132 mg/dL (80-110); HEMOLYSIS < 15 (0-50); Lipase 200 U/L (23-300); Sodium 134 mmol/L (137-145); Total Protein 7.6 g/dL (6.3-8.2)
--- NOTE | 2020-08-26 13:56 | DI.CT.S_ITS ---
PROCEDURE: CT CHEST ABD PEL W CON INDICATIONS: left sided upper quad pain, metastatic breast ca TECHNIQUE: After the administration of oral and intravenous contrast, 5 mm thick sections acquired from the lung apices to the symphysis. 5 mm coronal and sagittal reformats were performed, with additional 7 mm coronal MIP reformats through the lungs. For radiation dose reduction, the following was used: automated exposure control, adjustment of mA and/or kV according to patient size. COMPARISON: [facility], CT, CT CHEST ABD PEL W CON, 07/24/2020, 10:01. FINDINGS: Image quality: Excellent. CHEST: Lungs and pleura: No acute airspace opacities. No pleural effusions or pneumothorax. Central and peripheral airways appear patent and normal in caliber. Previously identified scattered pulmonary nodules the largest measuring 9 mm in the right lower lobe are unchanged. No new nodules are identified. Mediastinum: Heart size is normal. Coronary calcifications are noted. No pericardial effusion. No mediastinal or hilar adenopathy by size criteria. Thoracic aorta and central pulmonary arteries are normal in size. Esophagus is normal in caliber. No hiatal hernia. Chest wall: No axillary or supraclavicular adenopathy by size criteria. Thyroid gland is unremarkable . ABDOMEN: Solid organs: Liver demonstrates innumerable focal and confluent low-attenuation mass is markedly increased in both size and number compared to prior exam. The largest is in the anterior lateral right hepatic lobe on series 2, image 59 measuring 27 mm AP x 21 mm transverse. This lesion was present on prior exam measuring 17 mm AP x 14 mm transverse. Gallbladder is unremarkable. Biliary system is non dilated. Pancreas enhances normally. Spleen is normal in size and enhancement. No adrenal nodules. Kidneys demonstrate normal size and enhancement, without hydronephrosis. Unchanged left renal cyst. Peritoneum and bowel: Bowel loops demonstrate normal wall thickness and caliber. No free fluid or air. Nodes and vessels: No retroperitoneal or mesenteric adenopathy by size criteria. Aorta and inferior vena cava are normal in size. Miscellaneous: No ventral hernias. PELVIS: Genitourinary: Bladder wall thickness is normal. Miscellaneous: No inguinal hernias or adenopathy. Bones: Previously identified areas of sclerosis within the spine as well as right scapula and iliac bones are unchanged. No vertebral body compression fractures. IMPRESSION: 1. Marked interval increase in size and number of now innumerable hepatic masses consistent with metastatic disease progression. 2. Stable appearance of bilateral subcentimeter pulmonary nodules, and considered indeterminate, although metastatic disease cannot be excluded. 3. Stable appearance of osseous sclerotic foci consistent with metastatic disease. Dictated by: Angella Salgado M.D. on 08/26/2020 at 13:22 Approved by: Angella Salgado M.D. on 08/26/2020 at 13:32
--- NOTE | 2020-08-26 14:01 | CM.DPNOTE ---
Addendum entered and electronically signed by Soniya Perez JEFE 08/26/20 14:07: Oncology Note, not CM Discharge note. Original Note: Description: [employer] Financial Assistance/Check-In Activity: JEFE completed additional provider forms for [employer] Patient Assistance, will fax in on after Dr. Mcintosh signs them. JEFE met with pt briefly in the ER lobby, she presents at the ED today with worsening pain along her left shoulder and flank, feels like a knife stabbing me. VISUAL DESIGN LEAD offered support and reassurance, and updated her that JEFE is working on additional papers for her financial assistance. Will plan to monitor next steps after her ER evaluation.
[2020-08-26 14:03] LABS: NT-proBNP (BNP-Adult 18+) 742 pg/mL (<125)
[2020-08-26 14:05] LABS: Troponin I < 0.012 ng/mL (0.01-0.034)
[2020-08-26 14:08] LABS: CKMB % Relative Index 0.3 % (1.5-5.0); Creatine Kinase MB 0.56 ng/mL (<2.37)
== END 2020-08-26 16:14 | disposition home or self-care (01) ==
PROVIDERS: Emergency Provider Emergency Medicine; PCP Family Medicine
DX: C50.919 Malignant neoplasm of unspecified site of unspecified female breast (principal); R10.12 Left upper quadrant pain; R11.2 Nausea with vomiting, unspecified
CPT/HCPCS: 36415; 71045; 71260; 74177; 80053; 82550; 82553; 83690; 83880; 84484; 85025; 93005; 96361; 96374; 96375; 99283; 99284; 99285; J2270; J2405; Q9967

== ENCOUNTER 2020-08-27 17:05 | Observation (INO) | payer OTHER, SELFPAY ==
[2020-07-12 19:57] VITALS: BMI 27.3
[2020-08-27] VITALS (18 sets, daily range): BP systolic 132–190; BP diastolic 65–88; PULSE 75–925; RESP 18–39; TEMP 36.9; O2SAT 91–98; BMI 27.3
--- NOTE | 2020-08-27 17:15 | DI.CT.S_ITS ---
PROCEDURE: CT HEAD/BRAIN WO CON INDICATIONS: slurring words resolved TECHNIQUE: Noncontrast 4.5 mm thick angled axial sections acquired from the foramen magnum to the vertex, with coronal and sagittal reformats. For radiation dose reduction, the following was used: automated exposure control, adjustment of mA and/or kV according to patient size. COMPARISON: [facility], CT, CT HEAD/BRAIN WO CON, 07/12/2020, 10:58. FINDINGS: Image quality: Excellent. CSF spaces: Basal cisterns are patent. No extra-axial fluid collections. The ventricles are symmetric in size and shape. Brain: No intracranial bleeds or masses. There is cerebral volume loss for age, with resultant ventricular and sulcal prominence. There are periventricular and deep white matter chronic small vessel ischemic changes. There is intracranial internal carotid artery atherosclerosis. Skull and face: Calvarium and visualized facial bones appear intact, without suspicious lesions. Sinuses: Visualized sinuses and mastoids are clear. IMPRESSION: 1. No acute intracranial process. 2. Moderate atrophy and chronic microvascular ischemic changes. Dictated by: Angella Salgado M.D. on 08/27/2020 at 17:15 Approved by: Angella Salgado M.D. on 08/27/2020 at 17:15
--- NOTE | 2020-08-27 17:54 | ED_ITS ---
HPI - Weakness General Chief complaint: Weakness Stated complaint: chest pain Time Seen by Provider: 08/27/20 17:15 Source: EMS Mode of arrival: EMS Limitations: no limitations History of Present Illness HPI Narrative: 70F former smoker with metastatic breast CA presents by EMS for evaluation of weakness and a fall today. She complains of some dizziness, trouble finding words earlier today and heaviness with her R arm. She denies injury as a consequence of her fall. Was seen and evaluated yesterday at our facility and had a thorough evaluation of left upper quadrant pain with nausea and vomiting. She states the vomiting has been going on for few weeks. She has no fever chills. She denies any chest pain or shortness of breath. She does feel a bit dizzy and weak. Her symptoms have been present all day. She did apparently take a pain medicine earlier, but felt poorly beforehand. MD Complaint: generalized weakness Onset (ago): hour(s) Duration: constant Location: generalized, RUE and right hand Migration: none Relieving factors: none Exacerbating factors: none Related Data Home Medications Medication Instructions Recorded Confirmed amitriptyline 150 mg PO HS #0 01/05/13 07/12/20 gabapentin 300 mg PO QAM 12/13/17 07/12/20 oxybutynin chloride 10 mg PO DAILY 12/13/17 07/12/20 tramadol 50 mg PO Q6H PRN 12/13/17 07/12/20 cholecalciferol (vitamin D3) 2,000 unit PO DAILY 01/24/18 07/12/20 [Vitamin D3] metoprolol tartrate 25 mg PO BID 01/24/18 07/12/20 valacyclovir 1 tab PO TID 01/24/18 07/12/20 cyanocobalamin (vitamin B-12) 1,000 mcg PO DAILY 03/08/18 07/12/20 [Vitamin B-12] melatonin 5 mg PO BEDTIME PRN 03/08/18 07/12/20 alprazolam 1 mg DAILY 06/15/18 07/12/20 Previous Rx's Medication Instructions Recorded hydroxyzine pamoate [Vistaril] 50 mg PO TID-QID PRN #60 cap 06/19/20 loperamide 2 mg PO Q8HP PRN #100 cap 06/19/20 lorazepam [Ativan] 0.5 mg PO Q8H PRN #60 tab 06/19/20 omeprazole 20 mg PO DAILY #30 cap 06/19/20 everolimus (antineoplastic) 10 mg PO DAILY #28 tab 07/31/20 exemestane 25 mg PO DAILY #28 tab 07/31/20 oxycodone 10 mg PO Q6H PRN #60 tab 08/14/20 lorazepam [Ativan] 1 mg PO DIRECTED PRN #2 tab 08/21/20 Allergies Allergy/AdvReac Type Severity Reaction Status Date / Time hydrocodone AdvReac Severe RASH, Verified 08/27/20 17:12 ITCHING Review of Systems Constitutional Constitutional: Denies chills, Denies fatigue, Denies fever(s), Denies frequent falls, Denies lethargy and Reports weakness Eyes Eyes: Denies change in vision, Denies eye discharge, Denies irritation and Denies loss of vision ENT Ears, Nose, Mouth, and Throat: Denies change in voice, Denies dizziness, Denies neck pain, Denies sore throat and Denies throat swelling Cardiovascular Cardiovascular: Denies chest pain, Denies irregular heart rhythm, Denies lightheadedness, Denies palpitations, Denies dyspnea, Denies dyspnea on exertion and Denies orthopnea Respiratory Respiratory: Denies cough, Denies dyspnea, Denies dyspnea on exertion and Denies wheezing Gastrointestinal Gastrointestinal: Reports abdominal pain, Denies change in bowel habits, Denies diarrhea, Reports nausea and Reports vomiting Musculoskeletal Musculoskeletal: Denies neck pain and Denies numbness Integumentary/Breasts Skin/Breast: Denies pruritus, Denies erythema, Denies rash and Denies wounds Neurologic Neurologic: Denies behavioral changes, Denies confusion, Denies dizziness, Denies frequent falls, Denies loss of vision, Denies numbness and Reports weakness Psychiatric Psychiatric: Denies anxiety, Denies behavioral changes, Denies confusion, Denies depression, Denies homicidal ideation and Denies suicidal ideation Endocrine Endocrine: Denies fatigue, Denies flushing and Denies palpitations Hematologic/Lymphatic Hematologic/Lymphatic: Denies easy bruising Allergic/Immunologic Allergic/Immunologic: Denies urticaria, Denies throat swelling and Denies wheezing Patient History Medical History (Updated 08/27/20 @ 22:05 by Arnel Kelley DO) Anxiety Breast cancer Colon cancer Hypertension Lymph node cancer Nausea Thrush, oral Surgical History History of hysterectomy History of mastectomy Social History household members: none Smoking Status: Former smoker alcohol intake: former Smoking Status: Former smoker alcohol intake frequency: holidays/special occasions only Substance Use Type: marijuana Exam Narrative Exam Narrative: GENERAL: [70] year old patient appears stated age. Well- nourished, well-developed patient, in mild distress. HEAD: Atraumatic. Normocephalic. EYES: Pupils equal round and reactive. Extraocular motions intact. No scleral icterus. No injection or drainage. ENT: Dry mucous membranes Nose without bleeding, purulent drainage. Throat without erythema, tonsillar hypertrophy or exudate. Airway patent. NECK: Trachea midline. Non tender CARDIOVASCULAR: Regular rate and rhythm without murmurs, gallops, or rubs. RESPIRATORY: Clear to auscultation. Breath sounds equal bilaterally. No wheezes, rales, or rhonchi. GASTROINTESTINAL: Abdomen soft, left-sided abdominal pain, nondistended. EXTREMITIES: No edema or joint tenderness. BACK: Nontender without deformity or crepitance. No flank tenderness. NEURO: AOx3. SKIN: Poor skin turgor No rash or erythema of visible areas NIH Stroke Scale 1a. LOC: Patient is alert and keenly responsive (0) 1b. LOC Questions: Patient answers both LOC questions accurately (0) 1c. LOC Commands: Patient performs both tasks correctly (0) 2. Best Gaze: Normal (0) 3. Visual: No visual loss (0) 4. Facial palsy: Normal symmetrical movements (0) 5. Motor arm: No drift (0) 6. Motor leg: No drift (0) 7. Limb ataxia: Absent (0) 8. Sensory: Normal (0) 9. Best language: No aphasia; normal (0) 10. Dysarthria: Normal (0) 11. Extinction and inattention: No abnormality (0) NIHSS: 0 Initial Vital Signs Initial Vital Signs: Vital Signs Temperature 98.5 F 08/27/20 17:12 Pulse Rate 83 08/27/20 17:12 Respiratory Rate 18 08/27/20 17:12 Blood Pressure 136/65 08/27/20 17:12 Course Course Course Narrative: No measured abnormality with NIHSS however patient reports difficulty with use of her RUE when compared to LUE. Family at the bedside stating she isn't acting at her baseline, and seems slightly confused. She clearly is dehydrated based on exam, history, and labs. She is unable to stand with orthostatics. Her symptoms started before taking her hydrocodone and she's taken percocet without trouble which would suggest this is more than just pain meds. Stroke considered, but time of onset would be very unclear. She is not a candidate for TPA or mechanical retrieval. She will, however, need stroke evaluation as part of admission. Orders Ordered: ED Orders 08/27/20 17:15 CT head/brain wo con Stat 08/27/20 18:25 EKG-12 Lead Stat 08/27/20 19:18 COVID19 Stat 08/27/20 19:53 Blood Culture Stat Complete Blood Count AUTO DIFF Stat Comprehensive Metabolic Panel Stat Lactate (Lactic Acid) Stat Magnesium Stat NT-proBNP (BNP-Adult 18+) Stat Prothrombin Time INR Stat Troponin & CK Cardiac Panel Stat 08/27/20 22:23 Urine Culture Stat Urine Microscopic Stat Discontinued Medications Sodium Chloride (Normal Saline 0.9%) 1,000 mls @ 1,000 mls/hr IV BOLUS ONE Stop: 08/27/20 19:23 Last Infusion: 08/27/20 20:25 Dose: 0 mls/hr Documented by: Admin: 08/27/20 18:35 Dose: 1,000 mls/hr Documented by: YUKI Vital Signs Vital signs: Vital Signs - 8 hr 08/27/20 17:12 08/27/20 17:34 08/27/20 18:09 Temperature 98.5 F Pulse Rate 83 80 82 Pulse Rate [Orthostatic Lying] Pulse Rate [Orthostatic Standing] Respiratory Rate 18 21 Blood Pressure 136/65 Blood Pressure [Orthostatic Lying] Blood Pressure [Orthostatic Standing] Pulse Oximetry 96 08/27/20 18:30 08/27/20 19:00 08/27/20 19:30 Temperature Pulse Rate 77 79 77 Pulse Rate [Orthostatic Lying] Pulse Rate [Orthostatic Standing] Respiratory Rate 22 34 H Blood Pressure Blood Pressure [Orthostatic Lying] Blood Pressure [Orthostatic Standing] Pulse Oximetry 93 91 08/27/20 20:00 08/27/20 20:30 08/27/20 20:42 Temperature Pulse Rate 75 78 78 Pulse Rate [Orthostatic Lying] Pulse Rate [Orthostatic Standing] Respiratory Rate 24 Blood Pressure Blood Pressure [Orthostatic Lying] Blood Pressure [Orthostatic Standing] Pulse Oximetry 98 94 92 08/27/20 20:52 08/27/20 20:56 08/27/20 21:00 Temperature Pulse Rate 82 Pulse Rate [Orthostatic Lying] 78 Pulse Rate [Orthostatic Standing] 925 H Respiratory Rate Blood Pressure 132/77 Blood Pressure [Orthostatic Lying] 190/84 H Blood Pressure [Orthostatic Standing] 132/77 Pulse Oximetry 91 MDM - Weakness Lab Data Result diagrams: 08/27/20 19:53 08/27/20 19:53 Labs: Lab Results 08/27/20 08/27/20 08/27/20 Range/Units 19:18 19:53 19:53 WBC 7.6 (4.5-11.0) X10^3/uL RBC 2.62 L (4.0-5.2) X10^6/uL Hgb 8.4 L (12.0-16.0) g/dL Hct 25.7 L (36-46) % MCV 98.0 (80-100) fL MCH 32.1 (26-34) PG MCHC 32.8 (30-36) % RDW 19.9 H (11.6-14.8) % Plt Count 302 (150-400) X10^3/uL Neut % (Auto) 76.5 H (50-75) % Lymph % (Auto) 10.9 L (25-40) % Maverick % (Auto) 11.9 (3-14) % Eos % (Auto) 0.5 L (2-4) % Baso % (Auto) 0.2 (0-2) % Neut # (Auto) 5800 (1592-6540) /uL Lymph # (Auto) 800 L (1698-5480) /uL Maverick # (Auto) 900 (0-900) /uL Eos # (Auto) 0 (0-450) /uL Baso # (Auto) 0 (0-100) /uL PT 15.8 H (10.1-12.7) SECONDS INR 1.4 H (0.9-1.3) Sodium (137-145) mmol/L Potassium (3.4-5.1) mmol/L Chloride (98-107) mmol/L Carbon Dioxide (22-32) mmol/L BUN (7-17) mg/dL Creatinine (0.52-1.04) mg/dL Estimated GFR (>60) mL/min BUN/Creatinine Ratio (6-22) Glucose (80-110) mg/dL Lactate (0.7-2.1) mmol/L Calcium (8.4-10.2) mg/dL Magnesium (1.6-2.3) mg/dL Total Bilirubin (0.2-1.3) mg/dL AST (14-36) IU/L ALT (<35) IU/L Alkaline Phosphatase (38-126) U/L Total Creatine Kinase (30-135) U/L CK-MB (CK-2) (<2.37) ng/mL CK-MB (CK-2) Rel Index (1.5-5.0) % Troponin I (0.01-0.034) ng/mL NT-Pro-B Natriuret Pep (<125) pg/mL Total Protein (6.3-8.2) g/dL Albumin (3.5-5.0) g/dL Globulin (1.7-4.1) g/dL Albumin/Globulin Ratio (1.0-2.8) Urine RBC (0-5/HPF) Urine WBC (0-5/HPF) Ur Squamous Epith Cells (0-5/HPF) Urine Bacteria (None) Hyaline Casts (None) Granular Casts (None) Ur Culture Indicated? SARS-CoV-2 (PCR) Negative (Negative) 08/27/20 08/27/20 08/27/20 Range/Units 19:53 19:53 22:23 WBC (4.5-11.0) X10^3/uL RBC (4.0-5.2) X10^6/uL Hgb (12.0-16.0) g/dL Hct (36-46) % MCV (80-100) fL MCH (26-34) PG MCHC (30-36) % RDW (11.6-14.8) % Plt Count (150-400) X10^3/uL Neut % (Auto) (50-75) % Lymph % (Auto) (25-40) % Maverick % (Auto) (3-14) % Eos % (Auto) (2-4) % Baso % (Auto) (0-2) % Neut # (Auto) (2035-4561) /uL Lymph # (Auto) (4921-7017) /uL Maverick # (Auto) (0-900) /uL Eos # (Auto) (0-450) /uL Baso # (Auto) (0-100) /uL PT (10.1-12.7) SECONDS INR (0.9-1.3) Sodium 134 L (137-145) mmol/L Potassium 4.0 (3.4-5.1) mmol/L Chloride 100 (98-107) mmol/L Carbon Dioxide 28 (22-32) mmol/L BUN 21 H (7-17) mg/dL Creatinine 1.43 H (0.52-1.04) mg/dL Estimated GFR 36.3 L (>60) mL/min BUN/Creatinine Ratio 14.7 (6-22) Glucose 92 (80-110) mg/dL Lactate 1.1 (0.7-2.1) mmol/L Calcium 10.0 (8.4-10.2) mg/dL Magnesium 1.8 (1.6-2.3) mg/dL Total Bilirubin 0.6 (0.2-1.3) mg/dL AST 103 H (14-36) IU/L ALT 25 (<35) IU/L Alkaline Phosphatase 139 H (38-126) U/L Total Creatine Kinase 1061 H D (30-135) U/L CK-MB (CK-2) 6.42 H (<2.37) ng/mL CK-MB (CK-2) Rel Index 0.6 L (1.5-5.0) % Troponin I 0.017 (0.01-0.034) ng/mL NT-Pro-B Natriuret Pep 906 H (<125) pg/mL Total Protein 7.5 (6.3-8.2) g/dL Albumin 3.8 (3.5-5.0) g/dL Globulin 3.7 (1.7-4.1) g/dL Albumin/Globulin Ratio 1.0 (1.0-2.8) Urine RBC 0-1/hpf (0-5/HPF) Urine WBC 1-5/hpf (0-5/HPF) Ur Squamous Epith Cells 0-1 /hpf (0-5/HPF) Urine Bacteria Many (>30) H (None) Hyaline Casts 0-1/lpf (None) Granular Casts 0-1/lpf (None) Ur Culture Indicated? Specimen cultured SARS-CoV-2 (PCR) (Negative) Urine Dip Bedside Urine Glucose Negative Bedside Urine Bilirubin - Negative Bedside Urine Ketone - Negative Urine Specific [place] 1.015 Bedside Urine Occult Blood - Negative Bedside Urine pH 6 Bedside Urine Protein ++ 100 Bedside Urine Urobilinogen - Negative Bedside Urine Nitrite - Negative Bedside Urine Leukocytes +/- [address] scan - head: Radiologist Impression: Chart Viewer Diagnostics DATE TYPE STATUS REF RANGE/AUTHOR Hx Today 17:15 Angella Salgado 08/26/20 13:56 Angella Salgado 08/26/20 13:10 Johnathon Villasenor 08/11/20 12:20 Jose Perry 08/11/20 11:18 JacklynJohnathon stoll 07/24/20 10:32 Johnathon Villasenor 07/12/20 12:46 Call,Gabo 07/12/20 10:58 Call,Agbo 07/12/20 10:57 Call,Gabo 07/12/20 10:57 Call,Gabo 06/17/20 15:00 Echo 06/17/20 00:[address] [facility] 06/10/20 13:06 XRay knee arthritic series BI, Wan Recinos MD 06/05/20 00:00 NM WHOLE BODY BONE SCAN SRC DR Ellyn ESPINAL ORDERING 05/14/20 10:27 Angella Salgado 02/21/20 10:47 Johnnie Gonzalez 02/21/20 08:51 Johnathon Villasenor 08/10/19 11:47 Gerardo Cortés 08/10/19 08:34 Kamilla Fishman 05/15/19 16:23 [place] 04/18/19 10:54 Call,Gabo 02/16/19 09:36 Johnnie Gonzalez 11/29/18 08:58 KatherineMarko hazel 11/29/18 08:58 [place],Marko 08/22/18 10:05 [place] 05/02/18 10:17 AlcalaDavin 01/24/18 19:38 01/24/18 19:38 01/24/18 17:29 Rl Benavides 12/05/17 06:00 Nando Donohue Peggy M 70, 1950 ADM ИВАН, Main ED R05 152.4cm 63.503kg BMI: 27.3kg/m? VIP Search Chart No Data to Display Total Unconfirmed RASH, ITCHING ONSET Today 21:00 Candi Villanueva 70 F [address] [id number] Scan ReportSigned Patient: Candi Villanueva MMR#: [id number]: 1950Acct:[id number]/Sex: 70 / FDate of Service: 08/27/20Loc: EDAccession Number: [id number] Procedure: CT head/brain wo con Ordering Provider: Nia Croft D.O. PROCEDURE: CT HEAD/BRAIN WO CON INDICATIONS: slurring words resolved TECHNIQUE: Noncontrast 4.5 mm thick angled axial sections acquired from the foramen magnum to the vertex, with coronal and sagittal reformats. For radiation dose reduction, the following was used: automated exposure control, adjustment of mA and/or kV according to patient size. COMPARISON: [facility], CT, CT HEAD/BRAIN WO CON, 07/12/2020, 10:58. FINDINGS: Image quality: Excellent. CSF spaces: Basal cisterns are patent. No extra-axial fluid collections. The ventricles are symmetric in size and shape. Brain: No intracranial bleeds or masses. There is cerebral volume loss for age, with resultant ventricular and sulcal prominence. There are periventricular and deep white matter chronic small vessel ischemic changes. There is intracranial internal carotid artery atherosclerosis. Skull and face: Calvarium and visualized facial bones appear intact, without suspicious lesions. Sinuses: Visualized sinuses and mastoids are clear. IMPRESSION: 1. No acute intracranial process. 2. Moderate atrophy and chronic microvascular ischemic changes. Dictated by: Angella Salgado M.D. on 08/27/2020 at 17:15 Approved by: Angella Salgado M.D. on 08/27/2020 at 17:15 Discharge Plan Departure Patient Disposition: Admitted as Observation Clinical Impression: Acute metabolic encephalopathy, Brain TIA Acute renal failure Qualifiers: Acute renal failure type: unspecified Qualified Code(s): N17.9 - Acute kidney failure, unspecified Admit Date/Time: 08/27/20 22:33 Admit Provider: Berenice Adame
[2020-08-27] MEDS: SODIUM CHLORIDE 0.9% 1,000 ML 1000 ML IV (18:35)
[2020-08-27 19:39] LABS: COVID19 -Nasal RAPID Negative (Negative)
[2020-08-27 20:12] LABS: Add Manual Diff / Slide Review NO; Basophils Absolute Auto 0 /uL (0-100); Basophils Percent Auto 0.2 % (0-2); Eosinophils Absolute Auto 0 /uL (0-450); Eosinophils Percent Auto 0.5 % (2-4); Hematocrit 25.7 % (36-46); Hemoglobin 8.4 g/dL (12.0-16.0); Lymphocytes Absolute Auto 800 /uL (1100-4500); Lymphocytes Percent Auto 10.9 % (25-40); Mean Corpuscular HGB Conc 32.8 % (30-36); Mean Corpuscular Hemoglobin 32.1 PG (26-34); Monocytes Absolute Auto 900 /uL (0-900); Monocytes Percent Auto 11.9 % (3-14); Neutrophils Absolute Auto 5800 /uL (1500-7000); Neutrophils Percent Auto 76.5 % (50-75); Platelet Count 302 X10^3/uL (150-400); Red Blood Cell Count 2.62 X10^6/uL (4.0-5.2); Red Cell Distribution Width 19.9 % (11.6-14.8); White Blood Cell Count 7.6 X10^3/uL (4.5-11.0)
[2020-08-27 20:16] LABS: INR 1.4 (0.9-1.3); Prothrombin Time 15.8 SECONDS (10.1-12.7)
[2020-08-27 20:20] LABS: Alanine Aminotransferase 25 IU/L (<35); Albumin 3.8 g/dL (3.5-5.0); Alkaline Phosphatase 139 U/L (38-126); Aspartate Aminotransferase 103 IU/L (14-36); BUN Creatinine Ratio 14.7 (6-22); Bilirubin Total 0.6 mg/dL (0.2-1.3); Blood Urea Nitrogen 21 mg/dL (7-17); Carbon Dioxide 28 mmol/L (22-32); Chloride 100 mmol/L (98-107); Creatine Kinase 1061 U/L (30-135); Estimated Glomerular Filt Rate 36.3 mL/min (>60); Globulin 3.7 g/dL (1.7-4.1); Glucose 92 mg/dL (80-110); HEMOLYSIS < 15 (0-50); Magnesium 1.8 mg/dL (1.6-2.3); Sodium 134 mmol/L (137-145); Total Protein 7.5 g/dL (6.3-8.2)
[2020-08-27 20:21] LABS: Lactate (Lactic Acid) 1.1 mmol/L (0.7-2.1)
[2020-08-27 20:32] LABS: NT-proBNP (BNP-Adult 18+) 906 pg/mL (<125); Troponin I 0.017 ng/mL (0.01-0.034)
[2020-08-27 20:35] LABS: CKMB % Relative Index 0.6 % (1.5-5.0); Creatine Kinase MB 6.42 ng/mL (<2.37)
[2020-08-27 22:37] LABS: Bacteria Urine Many (>30); Granular Casts Urine 0-1/LPF; Hyaline Casts Urine 0-1/LPF; RBC Urine 0-1/HPF (0-5/HPF); Squamous Epithelial Cell Urine 0-1 /HPF (0-5/HPF); WBC Urine 1-5/HPF (0-5/HPF)
[2020-08-27 22:40] LABS: Culture Indicated Urine Specimen Cultured
--- NOTE | 2020-08-27 23:56 | DI.MRI.S_ITS ---
PROCEDURE: MR STROKE Pre- and post-contrast brain MRI, non-contrast brain MR angiogram, pre- and postcontrast neck MR angiogram INDICATIONS: r/o CVA TECHNIQUE: Brain: Noncontrast axial T1 spin echo, axial T2 fast spin echo, sagittal and axial FLAIR, coronal T2 fast spin echo, axial gradient echo, axial diffusion and ADC through the brain. After the administration of contrast, axial 3D VIBE of the cranial vasculature and brain. Brain MRA: Non-contrast 3-D time of flight MR angiogram, with multiple tlmofrw-fprrpfvru-yacurupnsr (MIP) reformats performed. Neck MRA: Axial and sagittal TruFISP through the neck. Coronal dynamic MR angiogram during administration of contrast in the arterial and venous phases, with 3-dimenstional sfwafea-bnyctvurn-wlucthnvmo (MIP) reformats constructed from subtraction images. COMPARISON: [facility], CT, CT HEAD/BRAIN WO CON, 08/27/2020, 18:00. [facility], MR, STROKE PROTOCOL, 03/27/2014, 15:23. FINDINGS: Image quality: Patient motion artifact on the post gadolinium thin T1 axial imaging with sagittal and coronal reconstructions. Images otherwise excellent. BRAIN: CSF spaces: Ventricles are normal in size and shape. Basal cisterns are patent. No extra-axial fluid collections. Brain: No intracranial bleeds or mass effects. Phelps-white matter interface is normal. Diffusion weighted images show no acute ischemic insults. Brainstem appears normal. Normal intravascular flow voids are present. Age-related volume loss and mild small vessel ischemic change. No abnormal intracranial enhancement. Incidental note is made of a tiny single area of hemosiderin deposition in the left temporoparietal deep white matter. Skull and face: Calvarial marrow signal is normal. Orbits appear normal. Sinuses: Sinuses and mastoids are clear. BRAIN MR ANGIOGRAM: Anterior circulation: Intracranial internal carotid arteries are normal in size and enhancement. The flow within the paired anterior cerebral arteries is normal and symmetric. The flow within the middle cerebral arteries is normal and symmetric. The anterior communicating artery is seen. No stenoses, occlusions, or aneurysms. Posterior circulation: The visualized portions of the vertebral arteries demonstrate normal caliber, and join to form a normal appearing basilar artery. The flow within the posterior cerebral arteries is normal and symmetric. No stenoses, occlusions, or aneurysms. NECK MR ANGIOGRAM: Carotids: Great vessels demonstrate a conventional anatomy as they arise from the aortic arch. The origins of the common carotid arteries appear patent. The calibers and courses of both common carotid arteries are normal. The bifurcation regions appear normal bilaterally. The internal carotid arteries demonstrate mild origin non flow limiting narrowing bilaterally. Posterior circulation: The origins of the vertebral arteries appear patent. More superior portions of both vertebral arteries demonstrate normal course and caliber, and join to form a normal appearing basilar artery. Miscellaneous: Subclavian arteries appear patent. Pre-contrast images through the neck show no soft tissue abnormalities. IMPRESSION: BRAIN MRI: 1. Age-related volume loss and mild small vessel ischemic change. 2. No evidence acute stroke, hemorrhage, or mass BRAIN MR ANGIOGRAM: Unremarkable. No stenosis, occlusion, or aneurysm. NECK MR ANGIOGRAM: Mild bilateral internal carotid disease without significant stenosis. Dictated by: Jose Perry M.D. on 08/28/2020 at 11:42 Approved by: Jose Perry M.D. on 08/28/2020 at 12:08
[2020-08-28] VITALS (9 sets, daily range): BP systolic 119–147; BP diastolic 55–75; PULSE 75–150; RESP 16–25; TEMP 36.2–37.2; O2SAT 92–97; BMI 26.2
[2020-08-28] MEDS: DEXTROSE 5%-0.45% NS 1,000 ML 100 ML IV ×2 (00:56→18:51)
[2020-08-28] MEDS: CIPROFLOXACIN 400 MG/200 ML PIGGYBACK 200 MG IV ×3 (00:56→23:59)
[2020-08-28] MEDS: AMITRIPTYLINE 75 MG TABLET 150 MG PO ×2 (01:22→21:19)
--- NOTE | 2020-08-28 02:47 | PC.NURSE ---
Pt. admitted from ER, arrived via stretcher and transfer to bed with transfer board. Oriented to call light use and bed control and instructed never to get up without any assistance given her history of fall prior to admit and her diagnoses of TIA. Pt. verbalizes understanding and agreed. Bed alarm turned on. Pt. is a&o x4, denies pain. VSS, lungs CTA, tele SR without ectopy. Pt. does get slight dizziness when getting up from bed to BSC but no syncope. 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 IVF started attached to her left chest access port in ED, antibiotic started as well and given amitriptyline. Unable to reconcile her medications as she was falling asleep.
[2020-08-28 05:45] LABS: BUN Creatinine Ratio 14.8 (6-22); Blood Urea Nitrogen 17 mg/dL (7-17); Calcium 9.4 mg/dL (8.4-10.2); Carbon Dioxide 31 mmol/L (22-32); Chloride 100 mmol/L (98-107); Estimated Glomerular Filt Rate 46.6 mL/min (>60); Glucose 107 mg/dL (80-110); HEMOLYSIS < 15 (0-50); Potassium 3.3 mmol/L (3.4-5.1); Sodium 134 mmol/L (137-145)
[2020-08-28 05:48] LABS: Add Manual Diff / Slide Review NO; Basophils Absolute Auto 0 /uL (0-100); Basophils Percent Auto 0.3 % (0-2); Eosinophils Absolute Auto 100 /uL (0-450); Eosinophils Percent Auto 1.4 % (2-4); Hemoglobin 7.8 g/dL (12.0-16.0); Lymphocytes Absolute Auto 1000 /uL (1100-4500); Lymphocytes Percent Auto 15.3 % (25-40); Mean Corpuscular HGB Conc 33.2 % (30-36); Mean Corpuscular Hemoglobin 32.2 PG (26-34); Mean Corpuscular Volume 96.9 fL (80-100); Monocytes Absolute Auto 1000 /uL (0-900); Monocytes Percent Auto 15.7 % (3-14); Neutrophils Absolute Auto 4300 /uL (1500-7000); Neutrophils Percent Auto 67.3 % (50-75); Platelet Count 268 X10^3/uL (150-400); Red Blood Cell Count 2.41 X10^6/uL (4.0-5.2); Red Cell Distribution Width 20.2 % (11.6-14.8); White Blood Cell Count 6.4 X10^3/uL (4.5-11.0)
[2020-08-28 06:05] LABS: Hematocrit 23.4 % (36-46)
--- NOTE | 2020-08-28 06:34 | PC.NURSE ---
Called Dr. Adame this am on pt's H&H result of 7.8/23.4 as well as K+-3.3, order to infuse 40 meq K+rider.
[2020-08-28 06:38] LABS: Anisocytosis 2+
[2020-08-28] MEDS: POTASSIUM CHLORIDE 40 MEQ in SODIUM CHLORIDE 0.9% 500 ML 130 ML IV (06:47)
--- NOTE | 2020-08-28 07:32 | DI.ECHO.S_ITS ---
:Name: JAIRO CAREY Study Date: 08/28/2020 Height: 60 in : :Hospital ReadingLocation: Weight: 140 lb : : Gender: Female BSA: 1.6 m2 : :: 1950 Age: 70 yrs BP: 147/61 mmHg: :Reason For Study: TIA : :Ordering Physician: HARVEY, : :ANTHONY Performed By: Jeanne Riley : :Referring: ANTHONY GABRIEL : + + Interpretation Summary The ejection fraction is estimated to be 50-55%. Left ventricular systolic function has mildly improved compared to the previous exam. There is no significant valvular heart disease. Procedure: A two-dimensional transthoracic echocardiogram with color flow and Doppler was performed. The study quality was technically adequate. Comparison is made with the echocardiogram of 06/17/2020. Patient was scanned due to left chest port in use and cancer on patient's left side which caused pain when laying on it. The patient was in sinus rhythm with heart rates between 79-84 bpm during the exam. Left Ventricle: The left ventricle is normal in size and wall thickness. The ejection fraction is estimated to be 50-55%. Left ventricular systolic function has mildly improved compared to the previous exam. There are no obvious focal wall motion abnormalities noted but poor endocardial definition reduces the sensitivity for the detection of such. Right Ventricle: The right ventricle is normal in size and function. Atria: The left atrium is mildly dilated. Right atrial size is normal. There is no Doppler evidence for an interatrial shunt. Mitral Valve: The mitral valve is normal in structure and function. There is trace mitral regurgitation. Aortic Valve: The aortic valve is trileaflet. The aortic valve opens well. There is no aortic valve stenosis. No aortic regurgitation is present. Tricuspid Valve: The tricuspid valve is normal in structure and function. There is trace tricuspid regurgitation. Pulmonary artery pressures cannot be estimated because of the lack of a measurable TR jet velocity but the IVC suggests a CVP of around 8-15 mmHg. Pulmonic Valve: The pulmonic valve is not well visualized. There is no pulmonic valvular regurgitation. Great Vessels: The aortic root is normal size. The ascending aorta could not be visualized. The inferior vena cava was not visualized. The IVC is dilated (diameter is greater than 2.1 cm) and it collapses less than 50% with a sniff. This suggests a high right atrial pressure of 15 mm Hg. Pericardium/ Pleura There is no pericardial effusion. There is no pleural effusion. MMode/2D Measurements & Calculations LVIDd: 4.7 cm LVOT diam: 2.1 cm LVIDs: 3.2 cm Ao root diam: 3.0 cm FS: 30.5 % Ao Arch Diam (Prox Trans): 2.9 cm EPSS: 0.88 cm IVSd: 0.88 cm LVPWd: 0.72 cm LV palafox. diameter/BSA (cm/m^2): 2.9 LV sys. diameter/BSA (cm/m^2): 2.0 LA A2 area: 24.1 cm2 RA long axis: 4.3 cm LA A4 area: 16.6 cm2 RA area: 14.2 cm2 LA length (vol): 5.2 cm RA vol: 40.0 ml LA vol: 65.9 ml RA : 24.9 ml/m2 LA vol index: 41.1 ml/m2 IVC diam: 2.1 cm RVD1 (basal): 2.8 cm TAPSE: 2.3 cm Doppler Measurements & Calculations Ao V2 max: 143.3 cm/sec LVOT Max Massimo: 96.3 cm/sec Ao V2 mean: 100.2 cm/sec LV V1 max P.7 mmHg Ao max P.2 mmHg LV V1 VTI: 20.2 cm Ao mean P.5 mmHg DELICIA(I,D): 2.3 cm2 Ao V2 VTI: 31.4 cm DELICIA(V,D): 2.4 cm2 sev ratio: 0.64 DELICIA indexed to BSA (cm^2/m^2): 1.4 MV E max massimo: 109.9 cm/sec PA V2 max: 65.2 cm/sec MV A max massimo: 79.0 cm/sec PA V2 mean: 43.8 cm/sec MV E/A: 1.4 PA mean P.87 mmHg Med Peak E' Massimo: 10.4 cm/sec PA pr(Accel): 41.7 mmHg E/E' med: 10.6 Lat Peak E' Massimo: 15.7 cm/sec E/E' lat: 7.0 E/e' average: 8.8 MV dec time: 0.17 sec SV(LVOT): 70.9 ml Reading Physician:12:37 PM
--- NOTE | 2020-08-28 08:50 | ONC.MSW ---
Late Entry: T/C 08/27/20 CHEMISTRY ASSOCIATE spoke with pt's son, Jeremy, after having received information from pt's friend today that they (friend, granddaughter)tried for several minutes to get pt to answer her door, when she didn't, they went into her home, banged on her bedroom door for several minutes until she finally responded. She was found to be what appeared to be heavily medicated, was confused, did not recognize her friend, fell twice, and had clearly not been making it to the bathroom without having accidents (soiled clothing still in laundry room). She has not been able to clean her home, gave her car away to her brother, and has not been eating properly. She had presented just the day before to the ED for increased weakness, at which time this CHEMISTRY ASSOCIATE met with her and she was cognitively intact, laughing, no acute distress other than pain. Discussed options with her son. Ultimately agreed that this CHEMISTRY ASSOCIATE will order Home Health, and he will work on hiring a team leader surgery for 2-days per week. Pt does have the financial means to pay for this, however sounds like son will be assisting with the cost. CHEMISTRY ASSOCIATE will discuss Home Health w/pt later tomorrow. She has a liver biopsy scheduled for 08/28 at , which is crucial to determining her continued course of chemotherapy. She is also beginning 2-oral chemo meds, one of which has already been delivered, the other one ([employer]) is in the process of being processed for co-pay assistance with the senior systems developer.
--- NOTE | 2020-08-28 09:02 | SLP.IPNOTE ---
Order received for evaluation. Pt in bed with nrsg lacing IV fluids. Pt very somnolent. Will check back later this morning.
[2020-08-28] MEDS: PANTOPRAZOLE 40 MG VIAL IV (09:07)
--- NOTE | 2020-08-28 11:25 | PT.IIE ---
Current Diagnoses Transient cerebral ischemic attack, unspecified (08/27/20) Metabolic encephalopathy (08/27/20) Weakness (08/27/20) Surgical History (Last Reviewed 08/27/20 @ 19:02 by Arnel Kelley DO) History of hysterectomy History of mastectomy Medical History (Last Reviewed 08/27/20 @ 19:02 by Arnel Kelley DO) Anxiety Breast cancer Colon cancer Hypertension Lymph node cancer Nausea Thrush, oral Physical Therapy Inpatient Evaluation/Re-Eval M1 PT/OT-IP Prior Functional Status Start: 08/28/20 12:04 Freq: NEEDED Status: Active Protocol: Document 08/28/20 11:25 AB (Rec: 08/28/20 12:18 AB [id number]) Medical Review Prior Functional Status Medical History Reviewed Yes Communication able to make needs known but is sleepy/drowsy; stated that her mind is moving fast Mobility and Gait pt stated that she is independent with all mobilities and ambulation using FWW indoors and SPC for outdoor mobility Social History Household Members none Living Arrangements House Number of Floors (Floors) One Floor Number of Stairs To Enter/Railing? 1 step to enter Home Environment Standard Height Toilet,Tub/ Shower,Built-In Shower Seat Home Equipment Front Wheel Walker,Straight Cane,Hand Held Shower,Grab Bars In Shower M2 PT-IP Current Condition Start: 08/28/20 12:04 Freq: NEEDED Status: Active Protocol: Document 08/28/20 11:25 AB (Rec: 08/28/20 12:18 AB [email or web address]) Physical Therapy Current Condition Current Condition Evaluation Date 08/28/20 Treatment Diagnosis brain TIA; metabolic encephalopathy; difficulty in walking Onset Date 08/27/20 Precautions Other Precautions falls M3 PT-IP Subjective Start: 08/28/20 12:04 Freq: NEEDED Status: Active Protocol: Document 08/28/20 11:25 AB (Rec: 08/28/20 12:18 AB [id number]) Subjective Physical Therapy Visit Type Type Initial Evaluation Visit Start Time 11:25 Visit Stop Time 11:55 Total Visit Minutes 30 Number of LOUNGE CAR ATTENDANT Visits 0 Physical Therapy Visit Comments Patient Comments pt is agreeable to do PT Therapy Pain Assessment Pain When Pain Assessed At Rest Pain Present Pain Present Pain Reported Location Left Abdomen Intensity 4 Scale Used Numeric (0 - 10) Pain Management Techniques Distraction,Modification of Treatment,Re-positioning, Timing of Activity with Medications M4 PT-IP Mobility and Gait Start: 08/28/20 12:04 Freq: NEEDED Status: Active Protocol: Document 08/28/20 11:25 AB (Rec: 08/28/20 12:18 AB [id number]) PT-Bed Mobility Assessment Supine to Sit Supine to Sit Maximum Assistance,1 Person Assistance Sit to Supine Sit to Supine Standby Assistance PT-Transfer Assessment Sit to and From Stand Sit to and from Stand Minimal Assistance,1 Person Assistance,Use of Upper Extremities Equipment Transfer Assistive Device Gait Belt,Front Wheeled Walker Orthotic/Prosthetic Devices or Brace: No Transfers Transfer Destination Toilet Transfer Technique ambulated using FWW Transfer Ability Level of Assist Minimal Assistance,1 Person Assistance,Use of Upper Extremities Comments Mobility Comments Pt is drowsy/sleepy requiring cues to keep eyes open but pt also stated that her mind is moving too fast. completed supine to sit max A and max cues. pt required CGA for sitting balance on EOB. pt is impulsive and has decrease safety awareness. completed sit to stand min A and stated that she needs to use the toilet. ambulated to the the toilet using FWW min A. (+) LOB x 3 requiring min A for steadiness. completed sit to stand from the toilet using grab bar min A and needs assistance with hygiene care. ambulated towards the sink using FWW min A. completed handwashing and requiring min to mod A for maintain standing balance during had washing due to LOB. instructed pt to ambulate back to bed and completed min A using FWW. completed sit to supine SBa. positioned pt in bed. call light and table placed within reach. Gait Assessment Gait Gait Assistance Required: Minimum Assistance,1 Person Assist Distance (Feet) 15 Able to Maintain Weight Bearing Status Yes During Gait Assistive Devices Assistive Device Gait Belt,Front Wheeled Walker Orthotic/Prosthetic Devices or Brace: No Gait Deviations General Gait Pattern Antalgic,Decreased Stride Length,Decreased Feet Clearance Factors Limiting Gait Function Factors Limiting Gait Function Decreased Activity Tolerance, Decreased Strength,Difficulty Following Directions,Pain,Poor Balance,Poor Safety Awareness ,Respiratory Distress Comments Gait Comments pls refer to mobility section for details PT-Balance Assessment Sitting Balance and Reactions Static Sitting Balance Ability Fair Dynamic Sitting Balance Ability Fair Standing Balance and Reactions Static Standing Balance Ability Fair Dynamic Standing Balance Ability Fair Device Used FWW M5 PT-IP Objective Assessments Start: 08/28/20 12:04 Freq: NEEDED Status: Active Protocol: Document 08/28/20 11:25 AB (Rec: 08/28/20 12:18 AB [id number]) Orientation Orientation/Cognition Level of Alertness Lethargic Orientation Name,Situation Safety Awareness Decreased Safety Awareness Gross Range of Motion Lower Extremity ROM Assessment Within Functional Limits Strength Lower Extremity Strength Hip 4+/5 Knee 4+/5 Muscle Tone Muscle Tone WNL Yes M6 PT-IP Treatment Start: 08/28/20 12:04 Freq: NEEDED Status: Active Protocol: Document 08/28/20 11:25 AB (Rec: 08/28/20 12:18 AB [id number]) Physical Therapy Treatment Education Education Provided Safety M7 PT-IP Assessment and Plan Start: 08/28/20 12:04 Freq: NEEDED Status: Active Protocol: Document 08/28/20 11:25 AB (Rec: 08/28/20 12:18 AB [id number]) PT Summary Assessment and Plan Potential Rehabilitation Potential Good Status of Condition at Evaluation Evolving Summary Impairments Pain,ROM,Strength,Balance, Coordination,Sensation,Tone, Cognition,Bed Mobility, Transfers,Gait,Activity Tolerance Assessment Summary pt requiring min A with mobility and cues for safety. pt can be impulsive affecting mobility and assistance level. pt lives alone and will need assistance at home. At this time, pt requires SNF rehab to improve mobility independence. Goals Bed Mobility Goal Standby Assistance Transfer Goal Standby Assistance,Front Wheeled Walker Gait Goal Standby Assistance,Front Wheel Walker Gait Distance 100 Other Goals improve mobility to mod I improve ambulation using FWW/ SPC mod I 250 ft up/down 1 step using SPC SBA Days to Meet Goals 5 Frequency of Treatment Frequency Of Treatment Once a Day Treatment Plan Physical Therapy Treatment Plan Bed Mobility Training,Transfer Training,Gait Training, Therapeutic Exercise,Balance Retraining,Discharge Planning, Hot or Cold Pack,Neuromuscular Re-ed,Coordination Retraining Recommendations To Nursing Amount of Assist Needed 1 Person Assist Discharge Recommendations PT Discharge Recommendations SNF Rehab Transportation Needs at Discharge Wheelchair/Cabulance
--- NOTE | 2020-08-28 11:50 | PC.NURSE ---
Addendum entered by Jodie Mae R.N. 08/28/20 15:35: Requested updated medication list from [facility]. Faxed over. Contacted [facility] for date of everolimus Rx. Patient was approved and the Rx sent but the patient reports she has not started taking it yet. Addendum entered by Jodie Mae R.N. 08/28/20 14:49: Patients brother brought purse to ER entrance, brought to patients room and placed bedside. Addendum entered by Jodie Mae R.N. 08/28/20 14:05: Patient awake, talking, requested jello. C/O pain 7/10 in right rib to flank area. Oxy 10 mg administered. Patient repositioned. Patient remains on 1 L O2. Call light in reach. Original Note: Patient A/O to self and situation. Could not recall date or month. Patient lethargic, responds to voice. Port site is CDI, IV in L FA, patent, saline locked. SCD's on bilaterally. Patient voiding using BSC. Denies pain at this time. Lungs CTA. Pulses equal, HR WNL, patient reports dizziness when moving to dangle at edge of bed. Reports this is normal for her. Patient up to wheelchair for transfer for MRI. Upon return, tele replaced, SCD's back on. Potassium infusing. Patient tolerating PO intake. Call light in reach. Bed alarm on.
--- NOTE | 2020-08-28 11:55 | CM.DANOTE ---
Patient is a 70 year old female who was admitted on 08/27/20 for Liver Mets. Pt has PRE PREFERRED for insurance and her PCP is Dr. Berenice Adame. EMR was reviewed. Per MD, pt with a hx of breast CA with mets and admitted for acute metabolic encephalopathy and r/o TIA. Pt established at [facility] and has been seen there for the past about 4 years. Pt resides at home alone with local supportive son and friends. [facility] with [facility]. Pt has a friend named Kenya, who lives in [facility], who is supportive if she needs anything. Patient has been driving herself to her appointments, and uses a FWW for home use. SW spoke to Soniya, Patient Navigator at [facility], and confirms that she has been working with pt over the past 4 years and pt has complex mental health symptoms and maintaining a clear focus on treatment and plan seems to work best for the pt. Pt was scheduled for a Liver biopsy today which Soniya states would determine the course of her treatment and needs for cancer and MEAGAN alerted her that the liver biopsy had currently been cancelled and that if Oncologist still wants biopsy need to likely consult with Dr. Carter who rounded today and Soniya states she passed that info along and Dr. Mcintosh will likely call MD later today to further discuss. Soniya from Onc also states she had been in the process of setting up HH for pt and will continue working to set up HH after pt discharges from the hospital and therefore DCP does not need to do this for pt prior to d/c. Pt currently down for MRI to rule out TIA/CVA and not currently medically stable to d/c. Plan: SW to follow for further coordination with Oncology towards pt likely plan of d/c home with Oncology setting up HH after discharge. SW to follow for PT eval and recommendations and any further identified needs. JEFE Christianson Discharge Planning/Care Management CM Discharge Assessment Start: 08/28/20 11:54 Freq: Status: Active Protocol: Document 08/28/20 11:54 BF (Rec: 08/28/20 11:55 BF [id number]) Discharge Planning Assessment Assigned Faculty Administrator JEFE Pagan Advance Directives? Yes Advance Directives on File No History Provided By Patient,Medical Record Has Patient been admitted in last 30 No days? Prior Living Arrangements House Household Members none Type of transporation used prior to Relies on Others admit Independent with ADL's Yes Is patient alert and oriented? Yes Caregiver for Another No Comment son and DIL Jeremy and [place] area very supportive. ( Jeremy is breaker up of [employer] in [place]). Patient also has a friend named Kenya, who is helpful. cut in worker Soniya Baker is involved in pt's care at the [facility] She is notified re the admission now via vm: ext [phone] Patient/Family Preference Home with Home Health Comment Pt sees oncology research rn Soniya Perez at the oncology clinic Comment Lives alone Discharge Plan Home with Home Health Transportation Arrangement Friend or family member Referrals Initiated Home Health Additional Comment Pt previously had [facility] but not currently open Review Status In Process Please Provide Date Initial DC 08/28/20 Assessment Was Performed Next Review Type Continued Stay Review
[2020-08-28] MEDS: ACETAMINOPHEN 325 MG TABLET 650 MG PO (12:49)
[2020-08-28] MEDS: OXYCODONE IR 10 MG TABLET PO ×2 (13:57→21:18)
--- NOTE | 2020-08-28 14:06 | OT.IPNOTE ---
Pt too tired and not wanting to do OT eval at this time. Pt states promised to do OT eval tomorrow.
--- NOTE | 2020-08-28 14:24 | SLP.IPNOTE ---
Talked with nursing who noted that pt was more awake this afternoom and had eaten lunch. Will see pt tomorrow
--- NOTE | 2020-08-28 16:57 | ST.IPSLE ---
Visit Care Team Role Provider Type Maddi Carter MD Primary Care Provider Physician Specialty: Family Practice Address: [address] [place] [address], [address], [place], [address] Email: [email or web address] Arnel Kelley DO Emergency Provider Physician Referring Provider Specialty: Emergency Medicine Address: [address] [place] [address], [address] Email: [email or web address] Berenice Adame MD Admit Provider Physician Attending Provider Specialty: [facility] Practice Address: [address] [place] [address], [address], [place], [address] Email: [email or web address] Current Diagnoses Transient cerebral ischemic attack, unspecified (08/27/20) Metabolic encephalopathy (08/27/20) Weakness (08/27/20) Past Medical History (Last Reviewed 08/27/20 @ 19:02 by Arnel Kelley DO) Anxiety (Medical) Breast cancer (Medical) Colon cancer (Medical) Hypertension (Medical) Lymph node cancer (Medical) Nausea (Medical) Thrush, oral (Medical) Speech-Language Pathology Speech/Language Eval VESSEL CAPTAIN Adult Cognitive Linguistic Eval Start: 08/28/20 16:43 Freq: Status: Active Protocol: Document 08/28/20 16:43 [id number] (Rec: 08/28/20 16:57 LNK [id number]) Adult Cognitive Linguistic Evaluation Session Time Visit Start Time 16:00 Visit Stop Time 16:30 Total Visit Minutes 30 Referral Reason for Referral altered mental status Setting Assessment Location Acute Care Visit Type Note Type Initial evaluation Patient Information Identification Type Name,Wristband Medical History HPI Narrative: 70F former smoker with metastatic breast CA presents by EMS for evaluation of weakness and a fall today. She complains of some dizziness, trouble finding words earlier today and heaviness with her R arm. She denies injury as a consequence of her fall. Was seen and evaluated yesterday at our facility and had a thorough evaluation of left upper quadrant pain with nausea and vomiting. She states the vomiting has been going on for few weeks. She has no fever chills. She denies any chest pain or shortness of breath. She does feel a bit dizzy and weak. Hearing Hearing Level Normal Vision Vision Status Impaired Comments Glasses were left at home Subjective Patient Report Pt was up in bed watching TV and eating a snack. Informal Assessment Cognition Normal No Cognitive Impairment(s) Short-term memory,Long-term memory,Executive functioning, Problem solving,Thought organization Formal Assessment Standardized Test/Screener Type [facility] Mental Status ([facility]) Administration Complete Findings/Results Cognitive Function Moderately-severely impaired Findings Pt was given the [facility] cognitive assessment. Overall the pt scored 12/30 , which indicates Dementia. Pt was able to state day, year and state accurately. Additionally she was able to name 9 animals, remember 1/5 words presented earlier and perform 1/4 mental math calculations. She was not able to complete a clock drawing with hour markers and time presented correctly. Finally she was able to remember 1/4 details from a short story. Cognitive Communication Deficits Self-awareness of Cognitive- Limited awareness (minimal Communication Deficits appreciation without specificity) Impact on Functioning Activity Limits/Particip.Rest. Mod: General Tasks and Demands Household Tasks Safety Risks Sev: Reacting to Emergency Managing Medication Traveling Alone in Community Comment Pt would need 1:1 care available 24/01 in order to return home safely. Prognosis Prognosis Fair Based on Cognitive status,Family support Plan of Care Speech-Language Treatment Yes Frequency daily while inpatient Patient/Caregiver Education Described results of evaluation,Patient expressed understanding of evaluation, Family/caregivers require further education/training Short Term Goals Pt will be provided with cognitive strategies for locating time, day of the week and memory. Family education relative to pt's current cognitive status and challenges to returning home independently. Discharge Recommendations shelter facility,jail care facility
--- NOTE | 2020-08-28 18:26 | PM.HP.1 ---
History of Present Illness History of Present Illness Date Patient Seen: 08/28/20 Time Patient Seen: 08:18 Date of Onset of Symptoms: 08/27/20 Chief complaint: chest pain Narrative: 65 minutes was spent with patient on the floor meeting with patient, examining patient, discussing with nursing and telephone conversation with her oncologist Dr. Cortés as well as documenting and formulating plan and making orders. Patient admitted with metabolic encephalopathy and left upper extremity paresthesias and admitted for possible TIA and further investigation and treatment of metabolic encephalopathy. Patient is 70-year-old female who has been seen by Dr. Benedict. She has a distant history of colon cancer as well as a history of breast cancer. She has had metastatic breast cancer since approximately 2015. She has been on Xeloda since 2019 and was started on everolimus the end of July. However she has not started it yet because she did not receive the medication they are still working to see if they can get this covered. Patient last saw oncology 2 weeks ago. Patient was in the ER 2 days ago. Patient presented by EMS today due to fall and complaints of numbness tingling and heaviness in her left upper extremity. She complains of pain in her buttocks and down her right leg. She denies any mechanical symptoms. It was a mechanical fall. Patient underwent workup and urine was suspicious for infection. CT scan of her head was negative. Patient was admitted for further treatment. Past medical history: Assessment 1. Estrogen receptor positive breast cancer with metastases under the care of Dr. cordero Assessment 2. Colon cancer distant. Patient's CEA was high at 65 which could be due to the breast cancer but there was concern that this could be possible metastatic colon cancer so she was actually scheduled today for a liver biopsy of a suspicious lesion. This was canceled due to the hospitalization Assessment 3. Hypertension Assessment 4. Anxiety Assessment 5. History of cardiomyopathy due to previous chemotherapy agents without acute symptoms. Last echo was in June of 2020 Allergies: Hydrocodone causes rashes and itching Past surgical history: Mastectomy Hysterectomy Colectomy Healthy behavior: Patient was a previous smoker but currently does not smoke Patient does not use alcohol on a regular basis Social history: Patient lives alone in [facility]. She has support through her brother but is somewhat estranged from children who live locally Patient History Medical History Anxiety Breast cancer Colon cancer Hypertension Lymph node cancer Nausea Thrush, oral Surgical History History of hysterectomy History of mastectomy Family & Social History Social History: household members none Prior Living Arrangements House Safety & Behavioral: Feels Safe in Current Yes Environment Been Physically Hurt or No Threatened By a Person Suicidal Ideation Description None Suicide Plan Description No Plan Tobacco & Substance use: Tobacco type cigarettes Smoking Status Former smoker alcohol intake former alcohol intake frequency holiday/special occasion Substance Use Type does not use Meds Home Medications and Allergies Home Medications Medication Instructions Recorded Confirmed Type amitriptyline 150 mg PO HS #0 01/05/13 07/12/20 History gabapentin 300 mg PO QAM 12/13/17 07/12/20 History oxybutynin chloride 10 mg PO DAILY 12/13/17 07/12/20 History tramadol 50 mg PO Q6H PRN 12/13/17 07/12/20 History cholecalciferol (vitamin D3) 2,000 unit PO DAILY 01/24/18 07/12/20 History [Vitamin D3] metoprolol tartrate 25 mg PO DAILY 01/24/18 07/12/20 History valacyclovir 1 tab PO TID 01/24/18 07/12/20 History cyanocobalamin (vitamin B-12) 1,000 mcg PO DAILY 03/08/18 07/12/20 History [Vitamin B-12] melatonin 5 mg PO BEDTIME PRN 03/08/18 07/12/20 History alprazolam 1 mg PO TID 06/15/18 07/12/20 History hydroxyzine pamoate [Vistaril] 50 mg PO TID-QID PRN #60 cap 06/19/20 07/12/20 Rx loperamide 2 mg PO Q8HP PRN #100 cap 06/19/20 07/12/20 Rx lorazepam [Ativan] 0.5 mg PO Q8H PRN #60 tab 06/19/20 07/12/20 Rx omeprazole 20 mg PO DAILY #30 cap 06/19/20 07/12/20 Rx everolimus (antineoplastic) 10 mg PO DAILY #28 tab 07/31/20 Rx exemestane 25 mg PO DAILY #28 tab 07/31/20 Rx oxycodone 10 mg PO Q6H PRN #60 tab 08/14/20 Rx lorazepam [Ativan] 1 mg PO DIRECTED PRN #2 tab 08/21/20 Rx calcium carbonate-vitamin D3 1 tab PO BID 08/28/20 History [Caltrate 600 plus D] capecitabine 500 mg PO BID 08/28/20 History citalopram 40 mg PO DAILY 08/28/20 History etodolac 400 mg PO BID 08/28/20 History letrozole 2.5 mg PO DAILY 08/28/20 History mirabegron [Myrbetriq] 25 mg PO DAILY 08/28/20 History pilocarpine HCl 5 mg PO TID 08/28/20 History promethazine 4 mg PO Q4H PRN 08/28/20 History triamcinolone acetonide 1 applic TOPICAL QID PRN 08/28/20 History zolpidem 5 mg PO BEDTIME PRN 08/28/20 History Allergies Allergy/AdvReac Type Severity Reaction Status Date / Time hydrocodone AdvReac Severe RASH, Verified 08/27/20 17:12 ITCHING Review of Systems Review of Systems Narrative: Negative for fever Negative for constipation or change in bowel movements. Negative for diarrhea. Negative for bright red blood per rectum or black tarry stools Patient has had nausea and intermittent vomiting Patient has not started her new chemotherapy agent everolimus Patient denies headache Patient denies chest pain or shortness of breath or lower extremity edema Patient has had abdominal pain left upper quadrant left lower quadrant that has been intermittent. Patient denies urinary symptoms Patient denies rashes Exam Vital Signs (past 8 hours): - 08/28/20 12:28 08/28/20 12:40 08/28/20 16:00 Temperature 97.2 F L 97.4 F L Pulse Rate 150 H 77 75 Respiratory Rate 20 18 18 Blood Pressure 127/69 137/57 L Pulse Oximetry 95 97 94 Oxygen Delivery Method Nasal Cannula Oxygen Flow Rate 2 Narrative Exam Narrative: T-max of 101? now patient is afebrile. Patient is on 1 L nasal cannula oxygen with O2 sat of 92%. Patient is very drowsy but she does awaken and is able to give some history though she does have some difficulty answering questions. She knows who I a.m.. She is alert to time place and date HEENT: Mucous membranes moist and pink no evidence of thrush. Patient somewhat just shows evals and somnolent Neck: Supple without adenopathy or masses Chest: Clear to auscultation without wheezes rhonchi or crackles. Cor: Regular rate and rhythm with distant S1-S2 Abdomen: Positive bowel sounds abdomen is slightly distended. Patient does have tenderness left upper quadrant left lower quadrant. There is no evidence of bruising or trauma. There is no guarding or rebound. No peritoneal signs Extremities: No edema pulses intact Neurologic exam is nonfocal cranial nerves 2-12 are grossly intact. Bilateral upper and lower extremities are neurovascularly intact. There is no obvious neurologic deficit. Skin no rashes and no evidence of breakdown and no evidence of trauma Objective Labs Result Diagrams: 08/28/20 05:17 08/28/20 05:17 Labs: Laboratory Results - last 24 hr 08/27/20 08/27/20 08/27/20 19:18 19:53 19:53 WBC 7.6 RBC 2.62 L Hgb 8.4 L Hct 25.7 L MCV 98.0 MCH 32.1 MCHC 32.8 RDW 19.9 H Plt Count 302 Neut % (Auto) 76.5 H Lymph % (Auto) 10.9 L [place] % (Auto) 11.9 Eos % (Auto) 0.5 L Baso % (Auto) 0.2 Neut # (Auto) 5800 Lymph # (Auto) 800 L [place] # (Auto) 900 Eos # (Auto) 0 Baso # (Auto) 0 RBC Morphology Anisocytosis PT 15.8 H INR 1.4 H Sodium Potassium Chloride Carbon Dioxide BUN Creatinine Estimated GFR BUN/Creatinine Ratio Glucose Lactate Calcium Magnesium Total Bilirubin AST ALT Alkaline Phosphatase Total Creatine Kinase CK-MB (CK-2) CK-MB (CK-2) Rel Index Troponin I NT-Pro-B Natriuret Pep Total Protein Albumin Globulin Albumin/Globulin Ratio Urine RBC Urine WBC Ur Squamous Epith Cells Urine Bacteria Hyaline Casts Granular Casts Ur Culture Indicated? SARS-CoV-2 (PCR) Negative 08/27/20 08/27/20 08/27/20 19:53 19:53 22:23 WBC RBC Hgb Hct MCV MCH MCHC RDW Plt Count Neut % (Auto) Lymph % (Auto) [place] % (Auto) Eos % (Auto) Baso % (Auto) Neut # (Auto) Lymph # (Auto) [place] # (Auto) Eos # (Auto) Baso # (Auto) RBC Morphology Anisocytosis PT INR Sodium 134 L Potassium 4.0 Chloride 100 Carbon Dioxide 28 BUN 21 H Creatinine 1.43 H Estimated GFR 36.3 L BUN/Creatinine Ratio 14.7 Glucose 92 Lactate 1.1 Calcium 10.0 Magnesium 1.8 Total Bilirubin 0.6 AST 103 H ALT 25 Alkaline Phosphatase 139 H Total Creatine Kinase 1061 H D CK-MB (CK-2) 6.42 H CK-MB (CK-2) Rel Index 0.6 L Troponin I 0.017 NT-Pro-B Natriuret Pep 906 H Total Protein 7.5 Albumin 3.8 Globulin 3.7 Albumin/Globulin Ratio 1.0 Urine RBC 0-1/hpf Urine WBC 1-5/hpf Ur Squamous Epith Cells 0-1 /hpf Urine Bacteria Many (>30) H Hyaline Casts 0-1/lpf Granular Casts 0-1/lpf Ur Culture Indicated? Specimen cultured SARS-CoV-2 (PCR) 08/28/20 08/28/20 05:17 05:17 WBC 6.4 RBC 2.41 L Hgb 7.8 L Hct 23.4 L MCV 96.9 MCH 32.2 MCHC 33.2 RDW 20.2 H Plt Count 268 Neut % (Auto) 67.3 Lymph % (Auto) 15.3 L [place] % (Auto) 15.7 H Eos % (Auto) 1.4 L Baso % (Auto) 0.3 Neut # (Auto) 4300 Lymph # (Auto) 1000 L [place] # (Auto) 1000 H Eos # (Auto) 100 Baso # (Auto) 0 RBC Morphology See below Anisocytosis 2+ H PT INR Sodium 134 L Potassium 3.3 L Chloride 100 Carbon Dioxide 31 BUN 17 Creatinine 1.15 H Estimated GFR 46.6 L BUN/Creatinine Ratio 14.8 Glucose 107 Lactate Calcium 9.4 Magnesium Total Bilirubin AST ALT Alkaline Phosphatase Total Creatine Kinase CK-MB (CK-2) CK-MB (CK-2) Rel Index Troponin I NT-Pro-B Natriuret Pep Total Protein Albumin Globulin Albumin/Globulin Ratio Urine RBC Urine WBC Ur Squamous Epith Cells Urine Bacteria Hyaline Casts Granular Casts Ur Culture Indicated? SARS-CoV-2 (PCR) Assessment & Plan Assessment & Plan narrative: 70-year-old female with metastatic breast cancer admitted for metabolic encephalopathy with urinary tract infection with sepsis syndrome Assessment 1. Patient with UTI metabolic encephalopathy with sepsis syndrome. Plan: Patient will be admitted to the hospital for treatment with IV Cipro. We will reassess urine culture in a.m.. We will give IV fluids and monitor blood pressure heart rate and pending this will start her outpatient metoprolol. Assessment 2. Possible TIA. Difficult to tell. Right now patient very somnolent which I think is over medication and sedation from lorazepam and amitriptyline. This is certainly contributing to her mental status. Plan: Will treat infection. Will obtain MRI and MRA stroke protocol and treat as indicated . Assessment 3. Metastatic breast cancer. I discussed the case with her oncologist Dr. Cortés. Patient has not started the Evra CARL switch that can in fact cause mental status changes but she has not started on it so it is not the culprit. We will hold on the biopsy due to her being acutely ill. We will treat her pain. She has diffuse bony metastases. Assessment 4. Anxiety Plan: Will continue amitriptyline and citalopram and give lorazepam as needed. Assessment 5. Acute kidney disease suspect secondary to urinary tract infection with acute dehydration. Improved already. Plan: Will continue with IV fluids and reassess in a.m.. Will check magnesium in a.m. to use this was low normal. Assessment 6. Hypokalemia Plan: Will continue with IV potassium Assessment 7. Normocytic anemia worsen suspect delusional from IV fluids. Though she has continued to trend down. We will reassess in a.m.. Addendum: Patient was seen a 2nd time in the evening. Patient was doing much better. She was no longer groggy and was feeling much better and requesting to go home. She had eaten she had not had significant nausea. She had been weaned off her oxygen. She was not feeling significant symptoms in her left upper extremity. Her MRI/MRA stroke protocol did not show metastases to the brain did not show evidence of a stroke or significant arterial abnormality. COVID-19 COVID-19 status: Negative Result date/Date tested (Pos, Neg/Pending): 08/27/20 Quality VTE Deep Vein Thrombosis/Pulmonary Embolism Present on Admission: Yes
[2020-08-28] MEDS: METOPROLOL IR 25 MG TABLET PO (21:19)
[2020-08-29] VITALS (10 sets, daily range): BP systolic 113–179; BP diastolic 61–99; PULSE 67–93; RESP 12–20; TEMP 36.3–37.8; O2SAT 90–96
[2020-08-29 05:45] LABS: Basophils Absolute Auto 0 /uL (0-100); Basophils Percent Auto 0.2 % (0-2); Eosinophils Absolute Auto 100 /uL (0-450); Hemoglobin 7.4 g/dL (12.0-16.0); Lymphocytes Absolute Auto 900 /uL (1100-4500); Lymphocytes Percent Auto 14.7 % (25-40); Mean Corpuscular HGB Conc 33.6 % (30-36); Mean Corpuscular Hemoglobin 32.6 PG (26-34); Monocytes Absolute Auto 900 /uL (0-900); Monocytes Percent Auto 14.4 % (3-14); Neutrophils Absolute Auto 4400 /uL (1500-7000); Neutrophils Percent Auto 68.7 % (50-75); Platelet Count 275 X10^3/uL (150-400); Red Blood Cell Count 2.27 X10^6/uL (4.0-5.2); Red Cell Distribution Width 20.2 % (11.6-14.8); White Blood Cell Count 6.4 X10^3/uL (4.5-11.0)
[2020-08-29 05:47] LABS: Alanine Aminotransferase 21 IU/L (<35); Albumin 3.1 g/dL (3.5-5.0); Alkaline Phosphatase 154 U/L (38-126); Aspartate Aminotransferase 56 IU/L (14-36); BUN Creatinine Ratio 11.1 (6-22); Bilirubin Total 0.4 mg/dL (0.2-1.3); Blood Urea Nitrogen 9 mg/dL (7-17); Calcium 8.9 mg/dL (8.4-10.2); Carbon Dioxide 28 mmol/L (22-32); Chloride 100 mmol/L (98-107); Estimated Glomerular Filt Rate > 60.0 mL/min (>60); Globulin 3.2 g/dL (1.7-4.1); Glucose 139 mg/dL (80-110); HEMOLYSIS < 15 (0-50); Potassium 3.5 mmol/L (3.4-5.1); Sodium 132 mmol/L (137-145); Total Protein 6.3 g/dL (6.3-8.2)
[2020-08-29 05:50] LABS: Add Manual Diff / Slide Review SLIDE REVIEW
[2020-08-29] MEDS: DEXTROSE 5%-0.45% NS 1,000 ML 100 ML IV (06:50)
[2020-08-29 06:58] LABS: Anisocytosis 3+; Hypochromasia 2+; Polychromasia 1+
[2020-08-29 07:51] LABS: Magnesium 1.5 mg/dL (1.6-2.3)
[2020-08-29] MEDS: PANTOPRAZOLE 40 MG VIAL IV (08:50)
[2020-08-29] MEDS: METOPROLOL IR 25 MG TABLET PO ×2 (08:50→21:24)
[2020-08-29] MEDS: SODIUM CHLORIDE 0.9% FLUSH 10 ML IV ×3 (08:50→21:25)
[2020-08-29] MEDS: MAGNESIUM SULFATE 2 GM/50 ML PIGGYBACK IV (09:13)
--- NOTE | 2020-08-29 10:54 | PC.NURSE ---
Addendum entered by Jodie Mae R.N. 08/29/20 14:10: Dr. Carter ordered 2 units PRBC with 20 mg Lasix IV to be given between units. Order read back and entered. Patient aware and in agreement. Consent signed and in chart. Addendum entered by Jodie Mae R.N. 08/29/20 14:09: Patient up to restroom multiple times, voiding, no clean catch of stool yet. Patient is A/O x4. SCD's on. Tele on. Patient denies pain at this time, SOB or increased WOB during ambulation. VS are WNL. Patient showered with OT assist. Original Note: Patient up to chair for breakfast with 1 p assist using FWW. Denies pain at this time. Denies SOB, chest pain, dizziness or lightheadedness. A/O to everything but date. Port intact, Mg+ infusing at 25ml/hr. Patient tolerating. L FA IV flushed, patent, intact. Tele on. SR, pulses equal bilaterally, no edema noted. Lungs CTA, patient on room air at 90%, RR WNL. SCD's on. Patient stooling liquid, WNL for patient, guiac negative. Patient voiding.
--- NOTE | 2020-08-29 11:47 | PT.IPTN ---
Current Diagnoses Transient cerebral ischemic attack, unspecified (08/27/20) Metabolic encephalopathy (08/27/20) Weakness (08/27/20) Physical Therapy Treatment Note M2 PT-IP Current Condition Start: 08/28/20 12:04 Freq: NEEDED Status: Active Protocol: Document 08/28/20 11:25 AB (Rec: 08/28/20 12:18 AB [id number]) Physical Therapy Current Condition Current Condition Evaluation Date 08/28/20 Treatment Diagnosis brain TIA; metabolic encephalopathy; difficulty in walking Onset Date 08/27/20 Precautions Other Precautions falls M3 PT-IP Subjective Start: 08/28/20 12:04 Freq: NEEDED Status: Active Protocol: Document 08/29/20 11:35 CLB (Rec: 08/29/20 12:39 CLB [id number]) Subjective Physical Therapy Visit Type Type Treatment Note Visit Start Time 11:35 Visit Stop Time 11:47 Total Visit Minutes 12 Number of CASHIER AND WAITER/WAITRESS Visits 1 Physical Therapy Visit Comments Patient Comments pt is agreeable to do PT Therapy Pain Assessment Pain When Pain Assessed At Rest Pain Present Pain Present Pain Reported Location Left Abdomen Scale Used did not state M4 PT-IP Mobility and Gait Start: 08/28/20 12:04 Freq: NEEDED Status: Active Protocol: Document 08/29/20 11:35 CLB (Rec: 08/29/20 12:39 CLB [id number]) PT-Bed Mobility Assessment Supine to Sit Supine to Sit Standby Assistance Sit to Supine Sit to Supine Standby Assistance PT-Transfer Assessment Sit to and From Stand Sit to and from Stand Contact Guard Assistance,1 Person Assistance,Use of Upper Extremities Equipment Transfer Assistive Device Gait Belt,Front Wheeled Walker Orthotic/Prosthetic Devices or Brace: No Transfers Transfer Destination Bed Transfer Technique ambulated using FWW Transfer Ability Level of Assist Contact Guard Assistance,1 Person Assistance Comments Mobility Comments Pt in chair standing SBA, gait belt placed on pt in standing . Pt then ambulated in fang ~ 300ft w/FWW/CGA. Pt is impulsive with poor safety awareness taking her hands off the walker during ambulation and picking up walker. Once pt returned to room pt performed sit<>supine SBA. Left pt on EOB with OT present to assist pt with shower. RN informed of pt progress and safety awareness. Gait Assessment Gait Gait Assistance Required: Contact Guard Assist,1 Person Assist Distance (Feet) 300 Able to Maintain Weight Bearing Status Yes During Gait Assistive Devices Assistive Device Gait Belt,Front Wheeled Walker Orthotic/Prosthetic Devices or Brace: No Gait Deviations General Gait Pattern Antalgic,Decreased Stride Length,Decreased Feet Clearance Factors Limiting Gait Function Factors Limiting Gait Function Decreased Activity Tolerance, Decreased Strength,Difficulty Following Directions,Pain,Poor Balance,Poor Safety Awareness ,Respiratory Distress Comments Gait Comments pls refer to mobility section for details PT-Balance Assessment Sitting Balance and Reactions Static Sitting Balance Ability Fair Dynamic Sitting Balance Ability Fair Standing Balance and Reactions Static Standing Balance Ability Fair Dynamic Standing Balance Ability Fair Device Used FWW M5 PT-IP Objective Assessments Start: 08/28/20 12:04 Freq: NEEDED Status: Active Protocol: Document 08/28/20 11:25 AB (Rec: 08/28/20 12:18 AB [id number]) Orientation Orientation/Cognition Level of Alertness Lethargic Orientation Name,Situation Safety Awareness Decreased Safety Awareness Gross Range of Motion Lower Extremity ROM Assessment Within Functional Limits Strength Lower Extremity Strength Hip 4+/5 Knee 4+/5 Muscle Tone Muscle Tone WNL Yes M6 PT-IP Treatment Start: 08/28/20 12:04 Freq: NEEDED Status: Active Protocol: Document 08/28/20 11:25 AB (Rec: 08/28/20 12:18 AB [email or web address]) Physical Therapy Treatment Education Education Provided Safety M7 PT-IP Assessment and Plan Start: 08/28/20 12:04 Freq: NEEDED Status: Active Protocol: Document 08/29/20 11:35 CLB (Rec: 08/29/20 12:39 CLB [id number]) PT Summary Assessment and Plan Potential Rehabilitation Potential Good Status of Condition at Evaluation Evolving Summary Impairments Pain,ROM,Strength,Balance, Coordination,Sensation,Tone, Cognition,Bed Mobility, Transfers,Gait,Activity Tolerance Assessment Summary Pt improving with all mobility . Pt is impulsive with poor safety awareness and requires CGA for all transfers and ambulation at this time. Pt will require asssit at home due to poor safety awareness. Goals Bed Mobility Goal Standby Assistance Transfer Goal Standby Assistance,Front Wheeled Walker Gait Goal Standby Assistance,Front Wheel Walker Gait Distance 100 Other Goals improve mobility to mod I improve ambulation using FWW/ SPC mod I 250 ft up/down 1 step using SPC SBA Days to Meet Goals 5 Frequency of Treatment Frequency Of Treatment Once a Day Treatment Plan Physical Therapy Treatment Plan Bed Mobility Training,Transfer Training,Gait Training, Therapeutic Exercise,Balance Retraining,Discharge Planning, Hot or Cold Pack,Neuromuscular Re-ed,Coordination Retraining Recommendations To Nursing Amount of Assist Needed 1 Person Assist Discharge Recommendations PT Discharge Recommendations Home with 24/ Assist Available Transportation Needs at Discharge Private Vehicle
[2020-08-29] MEDS: OXYCODONE IR 10 MG TABLET PO ×2 (11:50→18:14)
[2020-08-29] MEDS: CIPROFLOXACIN 400 MG/200 ML PIGGYBACK 200 MG IV (12:02)
--- NOTE | 2020-08-29 12:11 | OT.IP.EVAL ---
Current Diagnoses Transient cerebral ischemic attack, unspecified (08/27/20) Metabolic encephalopathy (08/27/20) Weakness (08/27/20) Past Medical History (Last Reviewed 08/28/20 @ 18:26 by Maddi Carter MD) Anxiety Breast cancer Colon cancer Hypertension Lymph node cancer Nausea Thrush, oral Surgical History (Last Reviewed 08/28/20 @ 18:26 by Maddi Carter MD) History of hysterectomy History of mastectomy Occupational Therapy Inpatient Evaluation/Re-Eval M1 PT/OT-IP Prior Functional Status Start: 08/29/20 12:24 Freq: NEEDED Status: Active Protocol: Document 08/29/20 10:19 [facility] (Rec: 08/29/20 12:53 [facility] [id number]) Medical Review Prior Functional Status Medical History Reviewed Yes Communication able to make needs known but is sleepy/drowsy; stated that her mind is moving fast Mobility and Gait pt stated that she is independent with all mobilities and ambulation using FWW indoors and SPC for outdoor mobility Activities of Daily Living and IADL's Pt states she does all her ADL , IADl, and drives on her own . Social History Household Members none Living Arrangements House Number of Floors (Floors) One Floor Number of Stairs To Enter/Railing? 1 step to enter Home Environment Standard Height Toilet,Tub/ Shower,Built-In Shower Seat Home Equipment Front Wheel Walker,Straight Cane,Hand Held Shower,Grab Bars In Shower Additional Social History Comment Pt states has a built in shower seat. M2 OT-IP Current Condition Start: 08/29/20 12:24 Freq: Status: Active Protocol: Document 08/29/20 10:19 [facility] (Rec: 08/29/20 12:53 [facility] [id number]) Occupational Therapy Current Condition Current Condition Evaluation Date 08/29/20 Treatment Diagnosis Acute metabolic encephalopathy , decreased balance/mobility Diagnosis Onset Date 08/27/20 M3 OT- IP Subjective and Pain Start: 08/29/20 12:24 Freq: Status: Active Protocol: Document 08/29/20 10:19 [facility] (Rec: 08/29/20 12:53 [facility] [id number]) OT- Subjective Occupational Therapy Visit Type Type Initial Evaluation Visit Start Time 10:19 Visit Stop Time 12:11 Total Visit Minutes 41 Notes Pt seen for split treatment [id number] and [id number]. Occupational Therapy Visit Comments Patient Comments Pt agreed to shower. Patient/Caregiver Goals TO go home. OT Pain Assessment Pain When Pain Assessed At Rest Pain Present Pain Present Denied Pain M4 OT- IP ADL's Start: 08/29/20 12:24 Freq: Status: Active Protocol: Document 08/29/20 10:19 [facility] (Rec: 08/29/20 12:53 [facility] [id number]) OT [id number] Comments OT Self-Feeding Comments Not at meal time. OT ADL-Grooming General Evaluation Grooming Ability Standby Assistance OT ADL-Oral Care Comments Oral Care Comments Not performed. OT ADL-Dressing General Eval Lower Body Dressing Ability Contact Guard Assistance Areas Needing Assistance Underpants/Brief,Socks Comments OT Dressing Comments CGA for balance as pt insisting on doff her brief while standing. OT ADL-Toileting General Evaluation Toileting Ability Standby Assistance Comments OT Toileting Comments vc for completeness to wipe OT ADL-Bathing Bathing Type Bathing Type Shower General Evaluation Bathing Ability Minimal Assistance Areas Needing Assistance Wash/Dry Back Devices Bathing Equipment Hand Held Shower Sprayer, Shower Chair with Arms,Grab Bars Comments OT Bathing Comments Assist to wash /dry her back. M5 OT- IP IADL's Start: 08/29/20 12:24 Freq: Status: Active Protocol: Document 08/29/20 10:19 [facility] (Rec: 08/29/20 12:53 [facility] [id number]) OT-Instrumental Activities of Daily Living Home Safety Awareness Awareness of Need for Assistance at Home Decreased Awareness Home Safety Comments Due to pt's poor insight, safety awareness, easily distracted, she would benefit from assist at home to assist with her needs. Medication Management Medication Management Comments Due to pt's poor insight, safety awareness, easily distracted, she would benefit from assist at home to assist with her needs. Money Management Money Management Comments Due to pt's poor insight, safety awareness, easily distracted, she would benefit from assist at home to assist with her needs. Meal Preparation Meal Preparation Comments Due to pt's poor insight, safety awareness, easily distracted, she would benefit from assist at home to assist with her needs. Electrification Adviser Electrification Adviser Comments Due to pt's poor insight, safety awareness, easily distracted, she would benefit from assist at home to assist with her needs. Driving Driving Concerns Identified Regarding Safety. Strongly suggest no driving. M6 OT- IP Functional Cognition Start: 08/29/20 12:24 Freq: Status: Active Protocol: Document 08/29/20 10:19 [facility] (Rec: 08/29/20 12:53 [facility] [id number]) Cognitive Factors Limiting Selfcare Function Cognitive Ability Level of Alertness Alert Patient Orientation Name,Place,Situation Attention Span Ability Capable of Focused Attention, Capable of Sustained Attention Ability to Follow Commands Able to Follow One Step Commands Memory Description Short Term Impaired,Working Impaired Safety Awareness Underestimates Need for Assistance Problem Solving Ability Unable to Identify Errors, Needs Assist to Identify Solutions Executive Function Ability Unable to Filter Distractions, Unable to Make Plans,Unable to Organize Plans,Unable to Remember Details Cognitive Tests SLUMS Per PARENT PARTNER note, pt score 07/02. Cognitive Comments Cognitive Assessment Comments Pt has poor insight and safety awareness. Pt got stool on the basin and used her hand to wipe it off and not wanting to wash her hands yet as just about to get into the shower. Pt vc to wipe after having a bowel movement, pt wiped twice, but still not clean and then just wanting to get back to bed. Pt forgot to pull up her brief and needing assist and cue for her safety . Unsure whether this is pt's baseline for cognitive function. Pt easily gets distracted and needs cues to slow down. MOst likely pt would do better in her house environment and with less distractions. OT- Vision and Hearing OT- Vision Assessment Vision Assessment Comments Pt's glasses are at home. M7 OT- IP Mobility and Balance Start: 08/29/20 12:24 Freq: Status: Active Protocol: Document 08/29/20 10:19 [facility] (Rec: 08/29/20 12:53 [facility] [id number]) OT- Bed Mobility Assessment Supine to Sit Supine to Sit Assist Standby Assistance Sit to Supine Sit to Supine Assist Standby Assistance OT-Transfer Assessment Sit to and From Stand Sit to and from Stand Standby Assistance,Contact Guard Assistance Transfers Transfer Ability Standby Assistance,Minimal Assistance Technique Transfer Destination Bed,Chair,Shower Stall,Toilet Transfer Technique Stand Step Pivot Devices Transfer Assistive Devices Gait Belt,Front Wheeled Walker Comments Mobility Comments Close SBA to FRANC with FWW. Pt has 3 loss of balance and needing CGA to FRANC to help regain her balance as pt moving very quickly and highly distracted. OT- Balance Assessment Sitting Balance and Reactions Static Sitting Balance Ability Good Dynamic Sitting Balance Ability Good Standing Balance and Reactions Static Standing Balance Ability Fair Dynamic Standing Balance Ability Poor M8 OT- IP Objective Assessments Start: 08/29/20 12:24 Freq: Status: Active Protocol: Document 08/29/20 10:19 [facility] (Rec: 08/29/20 12:53 [facility] [id number]) OT Gross Range of Motion Upper Extremity Range of Motion Assessment Within Functional Limits OT Strength Comments Strength Comments WFL for transfer and ADL needs . M9 OT- IP Assessment and Plan Start: 08/29/20 12:24 Freq: Status: Active Protocol: Document 08/29/20 10:19 [facility] (Rec: 08/29/20 12:53 [facility] [id number]) OT Summary Assessment and Plan Potential Rehabilitation Potential Fair Analytic Complexity at Evaluation Low Summary OT Impairments Pain,Functional Cognition, Functional Mobility,Dressing, Toileting,Bathing,Toilet Transfers,Shower Transfers Progress Towards Goals Slow Progress due to Activity Tolerance,Slow Progress due to Cognition Assessment Summary Pt low complexity and main barrier are her decreased safety awareness , insight, and decreased activity tolerance. Pt questionable if pt is at her baseline, especially for cogntive needs. Pt would benefit from assist at home during waking hours initially. Goals Self-Feeding Goal Independent Grooming Goal Independent Dressing Goal Independent Toileting Goal Independent Bathing Goal Independent Toilet Transfer Goal Independent Shower Transfer Goal Independent Days to Meet Goals 7 Frequency of Treatment Frequency Of Treatment Once a Day Treatment Plan OT Treatment Plan ADL Training,Functional Cognition Training,Functional Mobility,Patient/Family Education,Discharge Planning Discharge Recommendations OT Discharge Recommendations Home with 24/01 Assist Available,Home Health Transportation Needs at Discharge Private Vehicle
[2020-08-29] MEDS: ENOXAPARIN 40 MG/0.4 ML SYRINGE SUBCUT (14:10)
--- NOTE | 2020-08-29 14:22 | ST.IPTN ---
Visit Care Team Role Provider Type Maddi Carter MD Primary Care Provider Physician Address: [address] [place] [address], [address], [place], [address] Arnel Kelley DO Emergency Provider Physician Referring Provider Address: [address] [place] [address], [id number] Berenice Adame MD Admit Provider Physician Attending Provider Address: [address] [place] [address], [address], [place], [address] MEAL ATTENDANT Treatment Note MEAL ATTENDANT Treatment Note Start: 08/28/20 16:43 Freq: Status: Active Protocol: Document 08/29/20 14:08 [facility] (Rec: 08/29/20 14:22 [facility] [id number]) Speech Pathology Treatment Note Session Time Visit Start Time 12:30 Visit Stop Time 12:50 Total Visit Minutes 20 Setting Treatment Setting Acute Care Visit Type Note Type Treatment Note General Information General Information 70F former smoker with metastatic breast CA presents by EMS for evaluation of weakness and a fall today. She complains of some dizziness, trouble finding words earlier today and heaviness with her R arm. She denies injury as a consequence of her fall. Was seen and evaluated yesterday at our facility and had a thorough evaluation of left upper quadrant pain with nausea and vomiting. Pt was given the SLUMS cognitive assessment. Overall the pt scored 12/30 , which indicates dementia. Subjective Identification Type Name,ID Wristband Observations/Patient Presentation Pt in bed with lunch tray on bedside table. I'm full. I cant eat all of this. Chief Complaint(s) Cognitive Patient Knowledge/Awareness of MEAL ATTENDANT Role Fair in Treatment Objective Short Term Goals Pt will be provided with cognitive strategies for locating time, day of the week and memory. Family education relative to pt's current cognitive status and challenges to returning home independently. Treatment Activities Pt was oriented to place time and person. She could not recall the day. Showed pt where she could find the information on her white board . She was ready to be discharged, which she stated would be tomorrow. later, she was asked the day, with a cue to find it on the white board . She was not able to find the day written on the board until it was pointed out to her. Reminded pt to look at the board to find other pieces of information. She indicated she would. Assessment Patient Response to Treatment Good Rehab Potential Fair Impairments Identified Cognitive-Linguistic Skills, Dementia,Memory - Nuclear Test Technician, Memory - Short Term,Problem Solving Plan Comment Recommend assistance for ADL' s at home. Pt's poor memory puts her at risk
--- NOTE | 2020-08-29 17:57 | PM.PN.1 ---
Subjective Subjective Date Patient Seen: 08/29/20 Time Patient Seen: 08:20 Interval history: Patient again is somnolent this morning. She does feel fatigued. She is no longer requiring oxygen. She denies any further neurologic symptoms. She denies any symptoms of paresthesias numbness or tingling in the extremities particularly in the left upper extremity. She denies any headache. She denies any shortness of breath or chest pain. Once awakened she is coherent. Review of systems: No obvious bright red blood per rectum. She does have diarrhea. This is normal for her. Patient is still having left upper quadrant left lower quadrant pain. She denies chest pain Exam Vital Signs (past 8 hours): - 08/29/20 16:00 08/29/20 16:15 08/29/20 17:00 Temperature 98.9 F 99.1 F 98.8 F Pulse Rate 73 67 76 Respiratory Rate 12 20 18 Blood Pressure 135/61 140/78 179/79 H Pulse Oximetry 96 Oxygen Delivery Method Room Air Oxygen Flow Rate 0 Narrative Exam Narrative: Alert and oriented x3. T-max is 99.1? Vital signs are stable with good blood pressure control. Heart rate in the 60s to 70s HEENT: Mucous membranes moist and pink Neck: Supple without adenopathy Cor: Regular rate and rhythm without murmur Chest: Clear to auscultation without wheezes rhonchi or crackles Abdomen: Positive bowel sounds. Soft but firm and some guarding left upper quadrant more so than left lower quadrant. No rebound tenderness. No peritoneal signs. Still distended but less so than previous day Extremities: No edema, pulses intact Neurologic exam is nonfocal. Cranial nerves 2-12 grossly intact. Neurologic evaluation is normal and nonfocal Objective Labs Result Diagrams: 08/29/20 04:55 08/29/20 04:55 Labs: Laboratory Results - last 24 hr 08/29/20 08/29/20 08/29/20 04:55 04:55 04:55 WBC 6.4 RBC 2.27 L Hgb 7.4 L Hct 22.0 L MCV 97.0 MCH 32.6 MCHC 33.6 RDW 20.2 H Plt Count 275 Neut % (Auto) 68.7 Lymph % (Auto) 14.7 L Burke % (Auto) 14.4 H Eos % (Auto) 2.0 Baso % (Auto) 0.2 Neut # (Auto) 4400 Lymph # (Auto) 900 L Burke # (Auto) 900 Eos # (Auto) 100 Baso # (Auto) 0 RBC Morphology See below Polychromasia 1+ H Hypochromasia 2+ H Anisocytosis 3+ H Sodium 132 L Potassium 3.5 Chloride 100 Carbon Dioxide 28 BUN 9 Creatinine 0.81 Estimated GFR > 60.0 BUN/Creatinine Ratio 11.1 Glucose 139 H Calcium 8.9 Magnesium 1.5 L Total Bilirubin 0.4 AST 56 H ALT 21 Alkaline Phosphatase 154 H Total Protein 6.3 Albumin 3.1 L Globulin 3.2 Albumin/Globulin Ratio 1.0 Blood Type Antibody Screen Crossmatch 08/29/20 14:10 WBC RBC Hgb Hct MCV MCH MCHC RDW Plt Count Neut % (Auto) Lymph % (Auto) Burke % (Auto) Eos % (Auto) Baso % (Auto) Neut # (Auto) Lymph # (Auto) Burke # (Auto) Eos # (Auto) Baso # (Auto) RBC Morphology Polychromasia Hypochromasia Anisocytosis Sodium Potassium Chloride Carbon Dioxide BUN Creatinine Estimated GFR BUN/Creatinine Ratio Glucose Calcium Magnesium Total Bilirubin AST ALT Alkaline Phosphatase Total Protein Albumin Globulin Albumin/Globulin Ratio Blood Type A Positive Antibody Screen Negative Crossmatch See Detail [facility] Medical History Anxiety Breast cancer Colon cancer Hypertension Lymph node cancer Nausea Thrush, oral Surgical History History of hysterectomy History of mastectomy Social History household members: none Smoking Status: Former smoker alcohol intake: former Assessment & Plan Assessment & Plan narrative: 70-year-old female with metastatic breast cancer with worsened load of metastases. Assessment 1. Symptoms of TIA. I think the symptoms were not clearly neurologic. They have subsided since admission. Her MRI MRA did not show evidence of metastases or hemorrhage or stroke or arterial stenosis or peripheral vascular disease. Patient has had no further symptoms since admission. Plan: Will continue to monitor. Possible this was related to her infection and overall debilitated state with weakness nausea vomiting and dehydration and recent fall. Assessment 2. Urinary tract infection with mental status changes consistent with sepsis syndrome improved with IV antibiotics. Patient has had 4 doses of Cipro. Due to multiple medications causing possibility of prolonged QT we will discontinue the Cipro and place her on ceftriaxone. This is written for 5 days. I anticipate she will go home prior to completing this course and will go home on oral antibiotics. Blood cultures are pending. Assessment 3. Anemia progressive essentially has gone down 3 units in the last month. Guaiac of stool today is negative and C difficile assay is pending. We will stop the IV Protonix and put her on oral Protonix. We will transfuse 2 units packed red blood cells. Will give IV Lasix in between units. Discussed the case with Dr. Cortés and he agreed with transfusion. Suspect the etiology is multifactorial but primarily related to cancer and debilitated state. At this point there is no evidence of acute blood loss. I think if she does not respond appropriately to blood transfusion or she has recurrence of worsening anemia then she would need further workup imaging etc.. Assessment 4. Hypokalemia improved with IV potassium Plan: We will go ahead and discontinue IV fluids and reassess in a.m.. Assessment 5. Hypomagnesemia Plan: Will give a Mag rider and recheck magnesium in the morning Assessment 6. Hypertension appears well controlled on metoprolol 25 mg twice daily Assessment 7. Metastatic breast cancer estrogen receptor positive. Discussed the case with Dr. Cortés. Also discussed the case with Dr. Liang regarding her abdominal pain. I think that most likely her pain is related to metastases possibility of peritoneal Mets. At this point patient has been changed under chemotherapy agents but has not started the new chemotherapy agent did just receive this at home. We will her pain. We will continue to treat infection. My hopes are that she will be able to go home with home health and start her new chemotherapy agent with close follow-up. She does have a distant history of colon cancer as well and she will need to have a liver biopsy of 1 of the metastasis as an outpatient due to the rise in CEA at 65 and the need to be sure that the metastases diffusely are related to breast cancer and not colon cancer. This would change the treatment. She will restart this load as well when she gets home Assessment 8. Depression anxiety it is unclear if she has actually been taking citalopram on a regular basis. Due to multiple drugs that contributed to prolong QT interval we will decrease her citalopram to 20 mg. I will follow her closely as an outpatient and will change this if indicated. She will take amitriptyline at bedtime but I do wonder if perhaps this is too high of a dose she is very somnolent in the morning and did on that require oxygen morning due to probable amitriptyline and lorazepam. 70 minutes spent with patient today in meeting with patient, examining patient, discussing with nursing, Dr. Cortés, Dr. Liang and formulating plan and dictating. Quality VTE Deep Vein Thrombosis/Pulmonary Embolism Present on Admission: Yes
[2020-08-29] MEDS: FUROSEMIDE 20 MG/2 ML VIAL IV (20:09)
[2020-08-29] MEDS: TRAMADOL 50 MG TABLET PO (20:09)
[2020-08-29] MEDS: ACETAMINOPHEN 325 MG TABLET 650 MG PO (20:28)
[2020-08-29] MEDS: AMITRIPTYLINE 75 MG TABLET 150 MG PO (21:24)
[2020-08-29] MEDS: diphenhydrAMINE 25 MG TABLET PO (23:59)
--- NOTE | 2020-08-30 00:07 | PC.NURSE ---
2300 Received safe hand-off report. The patient is sitting semi-fowlers in bed, alert and oriented x3, disoriented to day. She is on room air, has a left chest port that has 1 unit of pRBC infusing into it at 100mL/h, and also has a left forearm PIV that is saline locked. Currently denies pain. C/O itchiness, generalized. No rash, hives or petechiae seen on skin; however, there is what looks like a bundle of telangiectasia on the right-center side of her chest. Denies SOB, denies chest pain. No peripheral edema seen on exam. Vital signs show her to be mildly febrile at 99.7F. Itchiness possibly due to recent PO intake of narcotic for pain reported to evening shift. Mild fever likely due to positive UTI. [address] Adame and informed her of above. She verbally OK's 25mg benadryl PO BID PRN for itching.
[2020-08-30 01:00] VITALS: BP 119/98; PULSE 72; RESP 18; TEMP 36.7; O2SAT 92
[2020-08-30 03:35] VITALS: BP 130/43; PULSE 69; RESP 16; TEMP 36.3; O2SAT 91
[2020-08-30] MEDS: DEXTROSE 5%-0.45% NS 1,000 ML 100 ML IV (03:38)
[2020-08-30] MEDS: PANTOPRAZOLE 20 MG TABLET PO (06:15)
[2020-08-30 06:17] LABS: Add Manual Diff / Slide Review NO; Basophils Absolute Auto 0 /uL (0-100); Basophils Percent Auto 0.6 % (0-2); Eosinophils Absolute Auto 200 /uL (0-450); Eosinophils Percent Auto 2.7 % (2-4); Hemoglobin 10.9 g/dL (12.0-16.0); Lymphocytes Absolute Auto 1300 /uL (1100-4500); Mean Corpuscular HGB Conc 33.5 % (30-36); Mean Corpuscular Hemoglobin 31.9 PG (26-34); Mean Corpuscular Volume 95.3 fL (80-100); Monocytes Absolute Auto 800 /uL (0-900); Monocytes Percent Auto 12.3 % (3-14); Neutrophils Absolute Auto 4400 /uL (1500-7000); Neutrophils Percent Auto 65.4 % (50-75); Platelet Count 293 X10^3/uL (150-400); Red Blood Cell Count 3.42 X10^6/uL (4.0-5.2); Red Cell Distribution Width 18.9 % (11.6-14.8); White Blood Cell Count 6.7 X10^3/uL (4.5-11.0)
[2020-08-30 06:25] LABS: Alanine Aminotransferase 23 IU/L (<35); Albumin 3.5 g/dL (3.5-5.0); Albumin Globulin Ratio 1.1 (1.0-2.8); Alkaline Phosphatase 171 U/L (38-126); Aspartate Aminotransferase 52 IU/L (14-36); BUN Creatinine Ratio 9.2 (6-22); Bilirubin Total 0.7 mg/dL (0.2-1.3); Blood Urea Nitrogen 8 mg/dL (7-17); Calcium 9.2 mg/dL (8.4-10.2); Carbon Dioxide 30 mmol/L (22-32); Chloride 100 mmol/L (98-107); Estimated Glomerular Filt Rate > 60.0 mL/min (>60); Globulin 3.3 g/dL (1.7-4.1); Glucose 123 mg/dL (80-110); HEMOLYSIS 20 (0-50); Hematocrit 32.6 % (36-46); Potassium 3.8 mmol/L (3.4-5.1); Sodium 136 mmol/L (137-145); Total Protein 6.8 g/dL (6.3-8.2)
[2020-08-30 08:20] VITALS: BP 177/77; PULSE 97; RESP 16; TEMP 36.7; O2SAT 97
[2020-08-30] MEDS: CITALOPRAM 10 MG TABLET 20 MG PO (09:05)
[2020-08-30] MEDS: METOPROLOL IR 25 MG TABLET PO (09:05)
[2020-08-30] MEDS: ENOXAPARIN 40 MG/0.4 ML SYRINGE SUBCUT (09:05)
[2020-08-30] MEDS: SODIUM CHLORIDE 0.9% FLUSH 10 ML IV (09:05)
[2020-08-30] MEDS: CEFTRIAXONE 1 GM/50 ML FROZ.PIGGY IV (09:29)
--- NOTE | 2020-08-30 09:32 | P.DS_ITS ---
History of Present Illness History of Present Illness Date Patient Seen: 08/30/20 Time Patient Seen: 09:33 Chief complaint: chest pain Narrative: Patient admitted with metabolic encephalopathy and left upper extremity paresthesias and admitted for possible TIA and further investigation and treatment of metabolic encephalopathy. Patient is 70-year-old female who has been seen by Dr. Benedict. She has a distant history of colon cancer as well as a history of breast cancer. She has had metastatic breast cancer since approximately 2016. She has been on Xeloda since 2019 and was started on everolimus at the end of July. However she has not started it yet because she was waiting to see if it was covered by her insurance. Patient last saw oncology 2 weeks ago. Patient was in the ER 2 days ago. Patient presented by EMS today due to fall and complaints of numbness tingling and heaviness in her left upper extremity. She complains of pain in her buttocks and down her right leg. She denies any mechanical symptoms. It was a mechanical fall. Patient underwent workup and urine was suspicious for infection. CT scan of her head was negative. Patient was admitted for further treatment. Discharge Providers Provider Date of admission: 08/27/20 22:33 Discharge Date: 08/30/20 Primary care physician: Maddi Carter MD Consults: 08/27/20 23:59 Consult to Occupational Therapy Evaluate & Treat Comment: Physician Instructions: Evaluate and treat Consult to Physical Therapy Evaluate & Treat Comment: Physician Instructions: Evaluate and Treat 08/28/20 00:00 Consult to Speech Therapy Evaluate & Treat Comment: Physician Instructions: Evaluate and treat 08/28/20 00:04 Consult to Discharge Planning Routine Comment: Discharge provider: Berenice Adame MD Summary Hospital Course Discharge Diagnosis: 70-year-old female with metastatic breast cancer with worsened load of metastases. 1. Symptoms of TIA, likely secondary to UTI 2. UTI, acute 3. Anemia, etiology unknown 4. Hypokalemia, resolved 5. Hypomagnesemia, resolved 6. Hypertension, chronic 7. Metastatic breast cancer estrogen receptor positive, chronic. 8. Depression/anxiety, chronic Hospital Course: Patient was admitted for symptoms of a TIA that did not appear to be clearly neurological and subsided during her admission. MRI/MRA did not show evidence of metastases, hemorrhage, stroke, arterial stenosis, or peripheral vascular disease. She was anemic during her stay and required 2 units of packed red blood cells with significant improvement in her clinical status. No evidence of acute blood loss. She did have a UTI that was treated with IV cipro x 4 doses then transitioned to rocephin due to risk of polypharmacy having potential to cause QT prolongation. Hypokalemia and hypomagnesemia were repleted and returned to normal. Abdominal pain thought to be secondary to her metastatic breast cancer; discussed with both Dr. Mcintosh and Dr. Liang who concucrred. Citalopram was decreased to 20 mg secondary to risk of polypharmacy having potential to cause QT prolongation. Plan is to follow up 1 week in outpatient setting, will need: 1. CBC to check anemia. Possible need for further workup. 2. Magnesium, potassium to check electrolytes. 3. Referral for liver biopsy secondary to rising CEA; concern for breast cancer metastases. 4. Follow-up on reduction in citalopram dosage. 5. Ongoing coordination of care with Oncology, check to see that she has started everolimus. 6. Follow-up on 7 day course of UTI treatment with augmentin. Exam Vital Signs (past 8 hours): - 08/30/20 03:35 Temperature 97.3 F L Pulse Rate 69 Respiratory Rate 16 Blood Pressure 130/43 L Pulse Oximetry 91 Oxygen Delivery Method Room Air Oxygen Flow Rate 0 Narrative Exam Narrative: GENERAL: Alert and oriented, appearing stated age and in no acute distress. HEENT: Head normocephalic/atraumatic. LUNGS: Clear to ausculation bilaterally, no wheezes, rhonchi or rales. CV: Normal S1 and S2 with regular rate and rhythm, no audible murmurs, rubs or gallops. ABDOMEN: Soft, non-tender, non-distended, no organomegaly. Well-healed surgical scars with subcutaneous scar tissue in the left lower quadrant that is firm and according to patient at baseline. Positive bowel sounds in all 4 quadrants. EXTREMITIES: No clubbing, cyanosis, or edema. NEURO: Cranial nerves II through XII grossly intact, no focal deficits. PSYCH: Alert and oriented x 3. SKIN: No concerning lesions. Objective Labs Result Diagrams: 08/30/20 05:50 08/30/20 05:50 Labs: Laboratory Results - last 24 hr 08/29/20 08/30/20 08/30/20 14:10 05:50 05:50 WBC 6.7 RBC 3.42 L Hgb 10.9 L Hct 32.6 L MCV 95.3 MCH 31.9 MCHC 33.5 RDW 18.9 H Plt Count 293 Neut % (Auto) 65.4 Lymph % (Auto) 19.0 L Greer % (Auto) 12.3 Eos % (Auto) 2.7 Baso % (Auto) 0.6 Neut # (Auto) 4400 Lymph # (Auto) 1300 Greer # (Auto) 800 Eos # (Auto) 200 Baso # (Auto) 0 Sodium 136 L Potassium 3.8 Chloride 100 Carbon Dioxide 30 BUN 8 Creatinine 0.87 Estimated GFR > 60.0 BUN/Creatinine Ratio 9.2 Glucose 123 H Calcium 9.2 Magnesium Total Bilirubin 0.7 AST 52 H ALT 23 Alkaline Phosphatase 171 H Total Protein 6.8 Albumin 3.5 Globulin 3.3 Albumin/Globulin Ratio 1.1 Blood Type A Positive Antibody Screen Negative Crossmatch See Detail 08/30/20 05:50 WBC RBC Hgb Hct MCV MCH MCHC RDW Plt Count Neut % (Auto) Lymph % (Auto) Greer % (Auto) Eos % (Auto) Baso % (Auto) Neut # (Auto) Lymph # (Auto) Greer # (Auto) Eos # (Auto) Baso # (Auto) Sodium Potassium Chloride Carbon Dioxide BUN Creatinine Estimated GFR BUN/Creatinine Ratio Glucose Calcium Magnesium 2.0 Total Bilirubin AST ALT Alkaline Phosphatase Total Protein Albumin Globulin Albumin/Globulin Ratio Blood Type Antibody Screen Crossmatch [facility] Medical History Anxiety Breast cancer Colon cancer Hypertension Lymph node cancer Nausea Thrush, oral Surgical History History of hysterectomy History of mastectomy Social History household members: none Smoking Status: Former smoker alcohol intake: former Discharge Plan Discharge Plan Patient Disposition: Home Discharge orders & Medications Prescriptions: New amoxicillin-pot clavulanate [Augmentin] 500-125 mg tablet 1 tab PO BID Qty: 10 RF: 0 pantoprazole 20 mg Tablet,Delayed Release (Dr/Ec) 20 mg PO 0600 Qty: 90 RF: 1 Continued amitriptyline 75 MG tablet 150 mg PO HS Qty: 0 RF: 0 pilocarpine HCl 5 mg Tablet 5 mg PO TID RF: 0 citalopram 40 mg tablet 40 mg PO DAILY RF: 0 triamcinolone acetonide 0.5 % cream 1 applic TOPICAL QID PRN (Reason: Rash) RF: 0 capecitabine 500 mg tablet 500 mg PO BID RF: 0 promethazine 25 mg tablet 4 mg PO Q4H PRN (Reason: Nausea) RF: 0 etodolac 400 mg Tablet 400 mg PO BID RF: 0 zolpidem 5 mg Tablet 5 mg PO BEDTIME PRN (Reason: Sleep) RF: 0 letrozole 2.5 mg tablet 2.5 mg PO DAILY RF: 0 Myrbetriq 25 mg Tablet Extended Release 24 Hr 25 mg PO DAILY RF: 0 Caltrate 600 plus D 600 mg (1,500 mg)-800 unit Tablet,Chewable 1 tab PO BID RF: 0 oxybutynin chloride 10 mg Tablet Extended Release 24hr 10 mg PO DAILY RF: 0 tramadol 50 mg Tablet 50 mg PO Q6H PRN (Reason: Spasms) RF: 0 gabapentin 300 mg Capsule 300 mg PO QAM RF: 0 cyanocobalamin (vitamin B-12) [Vitamin B-12] 1,000 mcg Tablet 1,000 mcg PO DAILY RF: 0 melatonin 5 mg Tablet 5 mg PO BEDTIME PRN (Reason: Insomnia) RF: 0 alprazolam 0.25 mg tablet 0.25 mg PO Q8H RF: 0 loperamide 2 MG capsule 2 mg PO Q8HP PRN (Reason: Diarrhea) Qty: 100 RF: 6 hydroxyzine pamoate [Vistaril] 50 mg Capsule 50 mg PO TID-QID PRN (Reason: sevre itch) Qty: 60 RF: 0 lorazepam [Ativan] 0.5 mg Tablet 0.5 mg PO Q8H PRN (Reason: Nausea) Qty: 60 RF: 0 omeprazole 20 mg Capsule,Delayed Release(Dr/Ec) 20 mg PO DAILY Qty: 30 RF: 0 everolimus (antineoplastic) 10 mg Tablet 10 mg PO DAILY Qty: 28 RF: 11 exemestane 25 mg Tablet 25 mg PO DAILY Qty: 28 RF: 11 oxycodone 10 mg Tablet 10 mg PO Q6H PRN (Reason: Chest Pain, breast cancer) Qty: 60 RF: 0 lorazepam [Ativan] 1 mg Tablet 1 mg PO DIRECTED PRN (Reason: procedure anxiety) Qty: 2 RF: 0 valacyclovir 1 gram tablet 1 tab PO TID RF: 0 cholecalciferol (vitamin D3) [Vitamin D3] 2,000 unit Capsule 2,000 unit PO DAILY RF: 0 metoprolol tartrate 25 mg tablet 25 mg PO DAILY RF: 0 Follow up/Referrals: Maddi Carter MD [Primary Care Provider] - Diet/Activity/Treatments Diet: Diet as Tolerated Activity: As tolerated Skin/Wound/Dressing Care Report to your healthcare provider any signs of infection, such as:: chills, fever and increased pain Discharge Data Primary Care Provider: Maddi Carter Attending Provider: Berenice Adame VTE Deep Vein Thrombosis/Pulmonary Embolism Present on Admission: Yes
--- NOTE | 2020-08-30 09:53 | OT.IP.TRT ---
Current Diagnoses Transient cerebral ischemic attack, unspecified (08/27/20) Metabolic encephalopathy (08/27/20) Weakness (08/27/20) Occupational Therapy Treatment Note M2 OT-IP Current Condition Start: 08/29/20 12:24 Freq: Status: Active Protocol: Document 08/29/20 10:19 [facility] (Rec: 08/29/20 12:53 [facility] [id number]) Occupational Therapy Current Condition Current Condition Evaluation Date 08/29/20 Treatment Diagnosis Acute metabolic encephalopathy , decreased balance/mobility Diagnosis Onset Date 08/27/20 M3 OT- IP Subjective and Pain Start: 08/29/20 12:24 Freq: Status: Active Protocol: Document 08/30/20 09:53 [facility] (Rec: 08/30/20 09:53 [facility] [id number]) OT- Subjective Occupational Therapy Visit Type Type Administrative Note Notes Attempted to see pt for OT services. Pt declined all activities at this time stating that she just wants to go home and she can do everything at home. Will hold and continue to follow.
--- NOTE | 2020-08-30 10:43 | PT.IPTN ---
Current Diagnoses Transient cerebral ischemic attack, unspecified (08/27/20) Metabolic encephalopathy (08/27/20) Weakness (08/27/20) Physical Therapy Treatment Note M2 PT-IP Current Condition Start: 08/28/20 12:04 Freq: NEEDED Status: Active Protocol: Document 08/28/20 11:25 AB (Rec: 08/28/20 12:18 AB [id number]) Physical Therapy Current Condition Current Condition Evaluation Date 08/28/20 Treatment Diagnosis brain TIA; metabolic encephalopathy; difficulty in walking Onset Date 08/27/20 Precautions Other Precautions falls M3 PT-IP Subjective Start: 08/28/20 12:04 Freq: NEEDED Status: Active Protocol: Document 08/30/20 10:23 [facility] (Rec: 08/30/20 11:03 [facility] [id number]) Subjective Physical Therapy Visit Type Type Treatment Note Visit Start Time 10:23 Visit Stop Time 10:43 Total Visit Minutes 20 Number of SUPERINTENDENT COLLIERY Visits 2 Physical Therapy Visit Comments Patient Comments Pt states her brother will stay with her for two weeks. Therapy Pain Assessment Pain When Pain Assessed At Rest Pain Present Pain Present Denied Pain M4 PT-IP Mobility and Gait Start: 08/28/20 12:04 Freq: NEEDED Status: Active Protocol: Document 08/30/20 10:23 [facility] (Rec: 08/30/20 11:03 [facility] [id number]) PT-Bed Mobility Assessment Supine to Sit Supine to Sit Standby Assistance Sit to Supine Sit to Supine Standby Assistance PT-Transfer Assessment Sit to and From Stand Sit to and from Stand Standby Assistance,1 Person Assistance Equipment Transfer Assistive Device Gait Belt,Front Wheeled Walker Orthotic/Prosthetic Devices or Brace: No Transfers Transfer Destination Bed,Toilet Transfer Technique ambulated using FWW Transfer Ability Level of Assist Contact Guard Assistance,1 Person Assistance Comments Mobility Comments Pt requiring SBA for bed mobility and sit<>stand from bed. Pt ambulated in fnag ~ 450ft w/FWW/CGA and assist of IV pole. Pt required cues to watch obstacles on right side as pt hit door frame with walker turned her head to look at painting on wall. Pt returned to room using the BR CGA and able to perform own pericare. Pt required cues for approach at counter and to put walker against counter and stay inside walker while washing hands for safety. Pt then returned to bed SBA. Bed alarm on and all needs within reach. Gait Assessment Gait Gait Assistance Required: Contact Guard Assist,1 Person Assist Distance (Feet) 450 Able to Maintain Weight Bearing Status Yes During Gait Assistive Devices Assistive Device Gait Belt,Front Wheeled Walker Orthotic/Prosthetic Devices or Brace: No Gait Deviations General Gait Pattern Antalgic,Decreased Stride Length,Decreased Feet Clearance Factors Limiting Gait Function Factors Limiting Gait Function Decreased Activity Tolerance, Decreased Strength,Difficulty Following Directions,Pain,Poor Balance,Poor Safety Awareness Comments Gait Comments Pt continues to require CGA for safety. M5 PT-IP Objective Assessments Start: 08/28/20 12:04 Freq: NEEDED Status: Active Protocol: Document 08/28/20 11:25 AB (Rec: 08/28/20 12:18 AB [id number]) Orientation Orientation/Cognition Level of Alertness Lethargic Orientation Name,Situation Safety Awareness Decreased Safety Awareness Gross Range of Motion Lower Extremity ROM Assessment Within Functional Limits Strength Lower Extremity Strength Hip 4+/5 Knee 4+/5 Muscle Tone Muscle Tone WNL Yes M6 PT-IP Treatment Start: 08/28/20 12:04 Freq: NEEDED Status: Active Protocol: Document 08/28/20 11:25 AB (Rec: 08/28/20 12:18 AB [email or web address]) Physical Therapy Treatment Education Education Provided Safety M7 PT-IP Assessment and Plan Start: 08/28/20 12:04 Freq: NEEDED Status: Active Protocol: Document 08/30/20 10:23 CLB (Rec: 08/30/20 11:03 CLB [id number]) PT Summary Assessment and Plan Potential Rehabilitation Potential Good Status of Condition at Evaluation Evolving Summary Impairments Pain,ROM,Strength,Balance, Coordination,Sensation,Tone, Cognition,Bed Mobility, Transfers,Gait,Activity Tolerance Assessment Summary Pt continues to require CGA during ambulation for safety. Pt required cues to watch obstacles on right side. Pt is impulsive and has poor safety awareness. Goals Bed Mobility Goal Standby Assistance Transfer Goal Standby Assistance,Front Wheeled Walker Gait Goal Standby Assistance,Front Wheel Walker Gait Distance 100 Other Goals improve mobility to mod I improve ambulation using FWW/ SPC mod I 250 ft up/down 1 step using SPC SBA Days to Meet Goals 5 Frequency of Treatment Frequency Of Treatment Once a Day Treatment Plan Physical Therapy Treatment Plan Bed Mobility Training,Transfer Training,Gait Training, Therapeutic Exercise,Balance Retraining,Discharge Planning, Hot or Cold Pack,Neuromuscular Re-ed,Coordination Retraining Recommendations To Nursing Amount of Assist Needed 1 Person Assist Discharge Recommendations PT Discharge Recommendations Home with 24/01 Assist Available Transportation Needs at Discharge Private Vehicle
[2020-08-30 12:28] VITALS: BP 135/70; PULSE 96; RESP 16; TEMP 36.6; O2SAT 98
--- NOTE | 2020-08-30 13:35 | PC.NURSE ---
Patient A/O x 4, ambulating with FWW in room. Does not use walker appropriately. instruction given, patient verbalizes understanding. Patient given IV ABX. Tolerating. Voiding and stooling in the restroom. BT active. Abdoment is less distended today, patient reports she is feeling much better. IV removed for discharge, patient tolerated. Patient's port intact, access removed. Patient tolerating. Patient given instruction on f/u appointment, s/s of worsening condition and medication, including PO ABX. Patient verbalized understanding. Patient discharged via wheelchair with aide assist.
--- NOTE | 2020-08-30 13:53 | CM.DPNOTE ---
DC Note Reviewed chart. Therapy team continues to report patient's vulnerability, both functionally and cognitively, however, patient is persistent and vocal about her desire to return home. DC expected today, home. Review of notes indicate Soniya Perez in Oncology has been closely involved in patient's POC and plans to arrange HH to f/u in addition to assistance from a dyer helper. Patient agreeable to plan and will continue to f/u w/oncology through [facility] here at [facility]
--- NOTE | 2020-09-01 09:07 | ONC.MSW ---
Description: Home Health Referral Activity: Completed referral form and faxed along with clinicals to [facility].
--- NOTE | 2020-09-01 10:31 | ONC.MSW ---
[employer] Financial Assistance-update [employer] STAFF MEMBER faxed new HCP Service Request form, per [employer]' request. Will update pt once a final determination of approval has been made.
--- NOTE | 2020-09-02 20:59 | PC.NURSE ---
Late Entry; Potassium infusion initiated 08/28 at 06:47, complete at 10:48. Rocephin infusion initiated 08/30 at 09:29 complete at 10:30.
== END 2020-08-30 13:30 | disposition home or self-care (01) ==
LOC: ED 22:06 → AC 22:35
PROVIDERS: Admitting Provider Student in an Organized Health Care Education/Training Program; Emergency Provider Emergency Medicine; PCP Family Medicine; Referring Provider Emergency Medicine; Visit Provider Student in an Organized Health Care Education/Training Program
DX: R53.1 Weakness (principal); R42 Dizziness and giddiness; W19.XXXA Unspecified fall, initial encounter; N39.0 Urinary tract infection, site not specified; D64.9 Anemia, unspecified; E86.0 Dehydration; C50.919 Malignant neoplasm of unspecified site of unspecified female breast; E87.6 Hypokalemia; E83.42 Hypomagnesemia; I10 Essential (primary) hypertension; F32.9 Major depressive disorder, single episode, unspecified; F41.9 Anxiety disorder, unspecified; Z17.0 Estrogen receptor positive status [ER+]; Z20.822 Contact with and (suspected) exposure to COVID-19
CPT/HCPCS: 36415; 36430; 36591; 70450; 70548; 70553; 80048; 80053; 81003; 81015; 82550; 82553; 83605; 83735; 83880; 84484; 85025; 85610; 86850; 86900; 86901; 87040; 87077; 87086; 87186; 87635; 92507; 92523; 93005; 93306; 96361; 96365; 96366; 96367; 96372; 96375; 96376; 97116; 97162; 97165; 97535; 99284; 99285; C9803; G0378; P9016; C9113; J0744; J1650; J1940; J3475; J3480

== ENCOUNTER 2020-09-12 17:04 | Emergency (ER) | payer OTHER, SELFPAY ==
[2020-08-28 01:05] VITALS: BMI 26.2
[2020-09-12] VITALS (18 sets, daily range): BP systolic 112–144; BP diastolic 53–109; PULSE 68–75; RESP 18–39; TEMP 37.4; O2SAT 91–96; BMI 25.2
--- NOTE | 2020-09-12 17:15 | DI.RAD.S_ITS ---
PROCEDURE: XR CHEST 1V INDICATIONS: chest pain TECHNIQUE: One view of the chest was acquired. COMPARISON: [facility], CR, XR CHEST 1V, 08/26/2020, 13:43. FINDINGS: Surgical changes and devices: Surgical clips are noted in bilateral axilla and bilateral chest soft tissue/breast. Left chest wall Port-A-Cath tip is in SVC. Lungs and pleura: Lungs are clear. No pleural effusions or pneumothorax. Mediastinum: Mediastinal contours appear normal. Heart size is normal. Bones and chest wall: No suspicious bony lesions. Overlying soft tissues appear unremarkable. IMPRESSION: No acute cardiopulmonary pathology. Dictated by: Davin Alcala M.D. on 09/12/2020 at 17:45 Approved by: Davin Alcala M.D. on 09/12/2020 at 17:46
[2020-09-12] MEDS: SODIUM CHLORIDE 0.9% 1,000 ML 1000 ML IV (18:00)
--- NOTE | 2020-09-12 18:06 | PC.NURSE ---
PICC access unsuccessful x2 by two RNs. IV obtained in LT FA.
[2020-09-12 18:09] LABS: Add Manual Diff / Slide Review NO; Basophils Absolute Auto 100 /uL (0-100); Basophils Percent Auto 0.7 % (0-2); Eosinophils Absolute Auto 100 /uL (0-450); Eosinophils Percent Auto 0.8 % (2-4); Hematocrit 31.3 % (36-46); Hemoglobin 10.2 g/dL (12.0-16.0); Lymphocytes Absolute Auto 1400 /uL (1100-4500); Lymphocytes Percent Auto 18.9 % (25-40); Mean Corpuscular HGB Conc 32.4 % (30-36); Mean Corpuscular Hemoglobin 30.7 PG (26-34); Mean Corpuscular Volume 94.7 fL (80-100); Monocytes Absolute Auto 800 /uL (0-900); Neutrophils Absolute Auto 5200 /uL (1500-7000); Neutrophils Percent Auto 69.6 % (50-75); Platelet Count 339 X10^3/uL (150-400); Red Blood Cell Count 3.31 X10^6/uL (4.0-5.2); Red Cell Distribution Width 19.4 % (11.6-14.8); White Blood Cell Count 7.6 X10^3/uL (4.5-11.0)
[2020-09-12 18:13] LABS: INR 1.4 (0.9-1.3); Prothrombin Time 16.2 SECONDS (10.1-12.7)
[2020-09-12 18:15] LABS: PTT Partial Thromboplastin Tim 29 SECONDS (26.4-36.2)
[2020-09-12 18:20] LABS: Alanine Aminotransferase 25 IU/L (<35); Albumin 3.5 g/dL (3.5-5.0); Albumin Globulin Ratio 1.1 (1.0-2.8); Alkaline Phosphatase 225 U/L (38-126); Aspartate Aminotransferase 59 IU/L (14-36); BUN Creatinine Ratio 16.5 (6-22); Bilirubin Total 0.4 mg/dL (0.2-1.3); Blood Urea Nitrogen 15 mg/dL (7-17); Calcium 9.6 mg/dL (8.4-10.2); Carbon Dioxide 29 mmol/L (22-32); Chloride 103 mmol/L (98-107); Creatine Kinase 97 U/L (30-135); Estimated Glomerular Filt Rate > 60.0 mL/min (>60); Globulin 3.3 g/dL (1.7-4.1); Glucose 110 mg/dL (80-110); HEMOLYSIS < 15 (0-50); Lipase 59 U/L (23-300); Potassium 4.1 mmol/L (3.4-5.1); Sodium 135 mmol/L (137-145); Total Protein 6.8 g/dL (6.3-8.2)
[2020-09-12 18:31] LABS: Troponin I < 0.012 ng/mL (0.01-0.034)
--- NOTE | 2020-09-12 18:37 | ED.GENADULT ---
HPI - General Adult General Chief complaint: Dizziness Stated complaint: shakey, falling, not eating, dizzy, falls Time Seen by Provider: 09/12/20 18:08 Source: patient Mode of arrival: Family Vehicle Limitations: no limitations History of Present Illness HPI narrative: Metastatic breast cancer and recent urinary tract infection with E coli and Proteus unable to finish complete antibiotics due to recurrent nausea and vomiting presents with recurrent weakness and falling. She fell at 7:30 a.m. this morning and hit her head and then fell again this afternoon, again hitting her head. She describes global weakness but no acute orthostatic symptoms. Slight increase tremor in her hands. She has had more than 15 lb weight loss since July due to persistent nausea and lack of appetite. She was seen August 27 with similar symptoms as well as an acute metabolic encephalopathy and possible TIA, though symptoms have resolved. Related Data Home Medications Medication Instructions Recorded Confirmed amitriptyline 150 mg PO HS #0 01/05/13 08/28/20 gabapentin 300 mg PO QAM 12/13/17 08/28/20 oxybutynin chloride 10 mg PO DAILY 12/13/17 08/28/20 tramadol 50 mg PO Q6H PRN 12/13/17 08/28/20 cholecalciferol (vitamin D3) 2,000 unit PO DAILY 01/24/18 08/28/20 [Vitamin D3] metoprolol tartrate 25 mg PO DAILY 01/24/18 07/12/20 valacyclovir 1 tab PO TID 01/24/18 08/28/20 cyanocobalamin (vitamin B-12) 1,000 mcg PO DAILY 03/08/18 08/28/20 [Vitamin B-12] melatonin 5 mg PO BEDTIME PRN 03/08/18 08/28/20 alprazolam 0.25 mg PO Q8H 06/15/18 07/12/20 Caltrate 600 plus D 1 tab PO BID 08/28/20 Myrbetriq 25 mg PO DAILY 08/28/20 capecitabine 500 mg PO BID 08/28/20 08/28/20 citalopram 40 mg PO DAILY 08/28/20 etodolac 400 mg PO BID 08/28/20 letrozole 2.5 mg PO DAILY 08/28/20 pilocarpine HCl 5 mg PO TID 08/28/20 promethazine 4 mg PO Q4H PRN 08/28/20 triamcinolone acetonide 1 applic TOPICAL QID PRN 08/28/20 08/28/20 zolpidem 5 mg PO BEDTIME PRN 08/28/20 08/28/20 Previous Rx's Medication Instructions Recorded hydroxyzine pamoate [Vistaril] 50 mg PO TID-QID PRN #60 cap 06/19/20 loperamide 2 mg PO Q8HP PRN #100 cap 06/19/20 lorazepam [Ativan] 0.5 mg PO Q8H PRN #60 tab 06/19/20 omeprazole 20 mg PO DAILY #30 cap 06/19/20 everolimus (antineoplastic) 10 mg PO DAILY #28 tab 07/31/20 exemestane 25 mg PO DAILY #28 tab 07/31/20 oxycodone 10 mg PO Q6H PRN #60 tab 08/14/20 lorazepam [Ativan] 1 mg PO DIRECTED PRN #2 tab 08/21/20 amoxicillin-pot clavulanate 1 tab PO BID #10 tab 08/30/20 [Augmentin] pantoprazole 20 mg PO 0600 #90 tab 08/30/20 levofloxacin 500 mg PO DAILY #7 tab 09/12/20 ondansetron 4 mg PO Q8H PRN #20 tab 09/12/20 promethazine 12.5 mg [place] Q6H PRN #12 ea 09/12/20 Allergies Allergy/AdvReac Type Severity Reaction Status Date / Time hydrocodone AdvReac Severe RASH, Verified 08/27/20 17:12 ITCHING Review of Systems Review of Systems Narrative: Pertinent positive and negative findings as per HPI Constitutional: no Fevers, chills, ENT: No sore throat, ear pain +C7 pain to palpation after her falls CV: Chest pain, palpitations, dyspnea on exertion Respiratory: Cough, wheeze, dyspnea GI: + significant Nausea and vomiting, NO diarrhea, : Dysuria, hematuria, flank pain MS: + global Muscle weakness, NO numbness, joint swelling or warmth Skin: no nonhealing lesions Neuro: NO dizziness, tingling Patient History Medical History Anxiety Breast cancer Colon cancer Hypertension Lymph node cancer Nausea Thrush, oral Surgical History History of hysterectomy History of mastectomy Social History household members: none Smoking Status: Former smoker alcohol intake: former Smoking Status: Former smoker alcohol intake frequency: holidays/special occasions only Substance Use Type: does not use Exam Narrative Exam Narrative: General: Frail but in no acute distress. Able to give a complete and coherent history. HEENT: Moist mucous membranes, normal sclera with reactive pupils, Neck: No JVD, supple Respiratory: Lungs are clear to auscultation, no wheezing no rales no rhonchi. Full and symmetrical air movement Chest: Bilateral mastectomy scars and radiation markings to right upper chest Cardiac: Regular rate and rhythm no murmurs no bruits Abdomen: Soft, nontender, good bowel tones, no flank pain Skin: Warm and dry, no rashes Neurologic: Grossly neurologically intact with no obvious asymmetries or abnormalities Extremities: No trauma, well perfused Psych: Cooperative, appropriate insight and affect Initial Vital Signs Initial Vital Signs: Vital Signs Temperature 99.3 F 09/12/20 17:23 Pulse Rate 73 09/12/20 17:23 Respiratory Rate 18 09/12/20 17:23 Pulse Oximetry 95 09/12/20 17:23 Course Orders Ordered: ED Orders 09/12/20 17:15 XR chest 1V Stat EKG-12 Lead Stat 09/12/20 17:54 Complete Blood Count AUTO DIFF Stat Comprehensive Metabolic Panel Stat Lipase Stat Partial Thromboplastin Time Stat Prothrombin Time INR Stat Troponin & CK Cardiac Panel Stat 09/12/20 18:43 COVID19 - ADMIT ([employer] swab/PCR) Stat 09/12/20 18:50 CT cervical spine wo con Stat CT head/brain wo con Stat Discontinued Medications Aspirin (Aspirin 81 Mg Chew Tab) 243 mg PO NOW ONE Stop: 09/12/20 21:04 Last Admin: 09/12/20 21:06 Dose: Not Given Documented by: DENYS Sodium Chloride (Normal Saline 0.9%) 1,000 mls @ 1,000 mls/hr IV BOLUS ONE Stop: 09/12/20 18:22 Last Infusion: 09/12/20 20:04 Dose: 0 mls/hr Documented by: Admin: 09/12/20 18:00 Dose: 1,000 mls/hr Documented by: SARATH Levofloxacin (Levofloxacin 250 Mg Tablet) 750 mg PO NOW ONE Stop: 09/12/20 23:15 Last Admin: 09/12/20 23:18 Dose: 750 mg Documented by: Nitroglycerin (Nitroglycerin 0.4 Mg Sl Tab) 0.4 mg SL [id number] PRN PRN Reason: Chest Pain Vital Signs Vital signs: Vital Signs - 8 hr 09/12/20 17:23 09/12/20 17:47 09/12/20 18:00 Temperature 99.3 F Pulse Rate 73 70 68 Respiratory Rate 18 21 Blood Pressure 125/58 L Pulse Oximetry 95 96 96 09/12/20 18:30 09/12/20 19:22 09/12/20 19:24 Temperature Pulse Rate 70 72 Respiratory Rate 18 22 25 H Blood Pressure 117/62 112/53 L Pulse Oximetry 96 95 09/12/20 19:30 09/12/20 19:31 09/12/20 20:00 Temperature Pulse Rate 71 71 72 Respiratory Rate 24 24 22 Blood Pressure 128/61 Pulse Oximetry 96 95 92 09/12/20 20:01 09/12/20 20:30 09/12/20 20:31 Temperature Pulse Rate 71 73 74 Respiratory Rate 22 29 H 30 H Blood Pressure 131/109 H 125/53 L Pulse Oximetry 91 96 95 09/12/20 21:00 09/12/20 21:01 09/12/20 21:30 Temperature Pulse Rate 75 75 75 Respiratory Rate 32 H 36 H 39 H Blood Pressure 144/70 H 118/62 Pulse Oximetry 96 96 95 Medical Decision Making Medical Records Medical records reviewed: Yes I reviewed the patient's medical records. Lab Data Lab results reviewed: Yes I reviewed the patient's lab results. Result diagrams: 09/12/20 17:54 09/12/20 17:54 Labs: Lab Results 09/12/20 09/12/20 09/12/20 Range/Units 17:54 17:54 17:54 WBC 7.6 (4.5-11.0) X10^3/uL RBC 3.31 L (4.0-5.2) X10^6/uL Hgb 10.2 L (12.0-16.0) g/dL Hct 31.3 L (36-46) % MCV 94.7 (80-100) fL MCH 30.7 (26-34) PG MCHC 32.4 (30-36) % RDW 19.4 H (11.6-14.8) % Plt Count 339 (150-400) X10^3/uL Neut % (Auto) 69.6 (50-75) % Lymph % (Auto) 18.9 L (25-40) % [place] % (Auto) 10.0 (3-14) % Eos % (Auto) 0.8 L (2-4) % Baso % (Auto) 0.7 (0-2) % Neut # (Auto) 5200 (6936-9122) /uL Lymph # (Auto) 1400 (1012-1066) /uL [place] # (Auto) 800 (0-900) /uL Eos # (Auto) 100 (0-450) /uL Baso # (Auto) 100 (0-100) /uL PT 16.2 H (10.1-12.7) SECONDS INR 1.4 H (0.9-1.3) APTT 29 D (26.4-36.2) SECONDS Sodium 135 L (137-145) mmol/L Potassium 4.1 (3.4-5.1) mmol/L Chloride 103 (98-107) mmol/L Carbon Dioxide 29 (22-32) mmol/L BUN 15 (7-17) mg/dL Creatinine 0.91 (0.52-1.04) mg/dL Estimated GFR > 60.0 (>60) mL/min BUN/Creatinine Ratio 16.5 (6-22) Glucose 110 (80-110) mg/dL Calcium 9.6 (8.4-10.2) mg/dL Total Bilirubin 0.4 (0.2-1.3) mg/dL AST 59 H (14-36) IU/L ALT 25 (<35) IU/L Alkaline Phosphatase 225 H (38-126) U/L Total Creatine Kinase 97 (30-135) U/L CK-MB (CK-2) TNP CK-MB (CK-2) Rel Index TNP Troponin I < 0.012 (0.01-0.034) ng/mL Total Protein 6.8 (6.3-8.2) g/dL Albumin 3.5 (3.5-5.0) g/dL Globulin 3.3 (1.7-4.1) g/dL Albumin/Globulin Ratio 1.1 (1.0-2.8) Lipase 59 (23-300) U/L SARS-CoV-2 (PCR) (Negative) 09/12/20 Range/Units 18:43 WBC (4.5-11.0) X10^3/uL RBC (4.0-5.2) X10^6/uL Hgb (12.0-16.0) g/dL Hct (36-46) % MCV (80-100) fL MCH (26-34) PG MCHC (30-36) % RDW (11.6-14.8) % Plt Count (150-400) X10^3/uL Neut % (Auto) (50-75) % Lymph % (Auto) (25-40) % [place] % (Auto) (3-14) % Eos % (Auto) (2-4) % Baso % (Auto) (0-2) % Neut # (Auto) (3525-6136) /uL Lymph # (Auto) (0173-1446) /uL [place] # (Auto) (0-900) /uL Eos # (Auto) (0-450) /uL Baso # (Auto) (0-100) /uL PT (10.1-12.7) SECONDS INR (0.9-1.3) APTT (26.4-36.2) SECONDS Sodium (137-145) mmol/L Potassium (3.4-5.1) mmol/L Chloride (98-107) mmol/L Carbon Dioxide (22-32) mmol/L BUN (7-17) mg/dL Creatinine (0.52-1.04) mg/dL Estimated GFR (>60) mL/min BUN/Creatinine Ratio (6-22) Glucose (80-110) mg/dL Calcium (8.4-10.2) mg/dL Total Bilirubin (0.2-1.3) mg/dL AST (14-36) IU/L ALT (<35) IU/L Alkaline Phosphatase (38-126) U/L Total Creatine Kinase (30-135) U/L CK-MB (CK-2) CK-MB (CK-2) Rel Index Troponin I (0.01-0.034) ng/mL Total Protein (6.3-8.2) g/dL Albumin (3.5-5.0) g/dL Globulin (1.7-4.1) g/dL Albumin/Globulin Ratio (1.0-2.8) Lipase (23-300) U/L SARS-CoV-2 (PCR) Negative (Negative) Point of Care Testing Glucose POC 119 Urine Dip Bedside Urine Glucose Negative Bedside Urine Bilirubin - Negative Bedside Urine Ketone - Negative Urine Specific [place] 1.015 Bedside Urine Occult Blood - Negative Bedside Urine pH 6.0 Bedside Urine Protein +/- 15 Bedside Urine Urobilinogen - Negative Bedside Urine Nitrite - Negative Bedside Urine Leukocytes - Negative Esterase Point of care testing: Point of Care Testing Glucose POC 119 Urine Dip Bedside Urine Glucose Negative Bedside Urine Bilirubin - Negative Bedside Urine Ketone - Negative Urine Specific [place] 1.015 Bedside Urine Occult Blood - Negative Bedside Urine pH 6.0 Bedside Urine Protein +/- 15 Bedside Urine Urobilinogen - Negative Bedside Urine Nitrite - Negative Bedside Urine Leukocytes - Negative Esterase Imaging Data Chest x-ray: Radiologist's Impression: FINDINGS: Surgical changes and devices: Surgical clips are noted in bilateral axilla and bilateral chest soft tissue/breast. Left chest wall Port-A-Cath tip is in SVC. Lungs and pleura: Lungs are clear. No pleural effusions or pneumothorax. Mediastinum: Mediastinal contours appear normal. Heart size is normal. Bones and chest wall: No suspicious bony lesions. Overlying soft tissues appear unremarkable. IMPRESSION: No acute cardiopulmonary pathology. Dictated by: Davin Alcala M.D. on 09/12/2020 at 17:45 CT scan - head: Radiologist's Impression: FINDINGS: Image quality: Excellent. CSF spaces: Basal cisterns are patent. No extra-axial fluid collections. The ventricles are symmetric in size and shape. Brain: No intracranial bleeds or masses. There is cerebral volume loss for age, with resultant ventricular and sulcal prominence. There are periventricular and deep white matter chronic small vessel ischemic changes. There is intracranial internal carotid artery atherosclerosis. Skull and face: Calvarium and visualized facial bones appear intact, without suspicious lesions. Sinuses: Visualized sinuses and mastoids are clear. IMPRESSION: 1. No acute intracranial process. 2. Moderate atrophy and chronic microvascular ischemic changes. Dictated by: Angella Salgado M.D. on 09/12/2020 at 19:40 CT - cervical spine: Radiologist's Impression: FINDINGS: Image quality: Excellent. Bones: No fractures or dislocations. Visualized superior ribs are intact. There is straightening and minimal reversal cervical curvature with apex at C5-6. There is trace retrolisthesis of C3 on C4, C6 on C7, trace anterolisthesis of C4 on C5. Soft tissues: Prevertebral soft tissues are normal in thickness. No paravertebral hematomas. No apical pneumothoraces. IMPRESSION: 1. No visualized fracture or dislocation. Dictated by: Angella Salgado M.D. on 09/12/2020 at 19:41 [facility] Narrative Medical decision making narrative: 70-year-old woman with metastatic breast cancer 2 falls in the last 48 hours comes in for further evaluation. Urinalysis is positive. Most recent urine culture was from August 27 and grows out both E coli and Proteus. She had been on Augmentin. Will change her to Levaquin which shows sensitivities for both E coli and the protease. There is no evidence of the sepsis, renal failure, intracranial hemorrhage, skull fractures or cervical spine injuries. Questions are answered and she is safe for home discharge Discharge Plan Departure Patient Disposition: Home Clinical Impression: Acute UTI Breast cancer Qualifiers: Breast location: unspecified site of breast Estrogen receptor status: unspecified Patient sex: female Laterality: unspecified laterality Qualified Code(s): C50.919 - Malignant neoplasm of unspecified site of unspecified female breast Nausea & vomiting Qualifiers: Vomiting type: unspecified Vomiting Intractability: non-intractable Qualified Code(s): R11.2 - Nausea with vomiting, unspecified Instructions: DI for Urinary Tract Infection (UTI), DI for Nausea -- Adult Activity Restrictions/Additional Instructions: Thank you for coming in You do have a bladder infection and I suspect that that is contributing to your symptoms. On August 27 your urine showed both E coli and Proteus. I am going to change her antibiotic from the amoxicillin/clavulanic acid to Levaquin. The Levaquin is once a day and you do need to take an additional 7 days. I understand that nausea and vomiting interfered with finishing your complete course of antibiotics previously. I am going to refill the sublingual ondansetron and I am also going to give you a prescription for rectal Phenergan. If you can not stop throwing up you can try a suppository, they can be very effective. All prescriptions have been electronically transmitted to [facility] for you to cook pickled meat tomorrow If symptoms worsen, please feel free to return to the emergency department Prescriptions: New levofloxacin 500 mg tablet 500 mg PO DAILY Qty: 7 RF: 0 promethazine 12.5 mg suppository 12.5 mg [place] Q6H PRN (Reason: nausea and vomiting) Qty: 12 RF: 0 ondansetron 4 mg tablet,disintegrating 4 mg PO Q8H PRN (Reason: nausea and vomiting) Qty: 20 RF: 0 No Action amitriptyline 75 MG tablet 150 mg PO HS Qty: 0 RF: 0 pilocarpine HCl 5 mg Tablet 5 mg PO TID RF: 0 citalopram 40 mg tablet 40 mg PO DAILY RF: 0 triamcinolone acetonide 0.5 % cream 1 applic TOPICAL QID PRN (Reason: Rash) RF: 0 capecitabine 500 mg tablet 500 mg PO BID RF: 0 promethazine 25 mg tablet 4 mg PO Q4H PRN (Reason: Nausea) RF: 0 etodolac 400 mg Tablet 400 mg PO BID RF: 0 zolpidem 5 mg Tablet 5 mg PO BEDTIME PRN (Reason: Sleep) RF: 0 letrozole 2.5 mg tablet 2.5 mg PO DAILY RF: 0 Myrbetriq 25 mg Tablet Extended Release 24 Hr 25 mg PO DAILY RF: 0 Caltrate 600 plus D 600 mg (1,500 mg)-800 unit Tablet,Chewable 1 tab PO BID RF: 0 amoxicillin-pot clavulanate [Augmentin] 500-125 mg tablet 1 tab PO BID Qty: 10 RF: 0 pantoprazole 20 mg Tablet,Delayed Release (Dr/Ec) 20 mg PO 0600 Qty: 90 RF: 1 oxybutynin chloride 10 mg Tablet Extended Release 24hr 10 mg PO DAILY RF: 0 tramadol 50 mg Tablet 50 mg PO Q6H PRN (Reason: Spasms) RF: 0 gabapentin 300 mg Capsule 300 mg PO QAM RF: 0 cyanocobalamin (vitamin B-12) [Vitamin B-12] 1,000 mcg Tablet 1,000 mcg PO DAILY RF: 0 melatonin 5 mg Tablet 5 mg PO BEDTIME PRN (Reason: Insomnia) RF: 0 alprazolam 0.25 mg tablet 0.25 mg PO Q8H RF: 0 loperamide 2 MG capsule 2 mg PO Q8HP PRN (Reason: Diarrhea) Qty: 100 RF: 6 hydroxyzine pamoate [Vistaril] 50 mg Capsule 50 mg PO TID-QID PRN (Reason: sevre itch) Qty: 60 RF: 0 lorazepam [Ativan] 0.5 mg Tablet 0.5 mg PO Q8H PRN (Reason: Nausea) Qty: 60 RF: 0 omeprazole 20 mg Capsule,Delayed Release(Dr/Ec) 20 mg PO DAILY Qty: 30 RF: 0 everolimus (antineoplastic) 10 mg Tablet 10 mg PO DAILY Qty: 28 RF: 11 exemestane 25 mg Tablet 25 mg PO DAILY Qty: 28 RF: 11 oxycodone 10 mg Tablet 10 mg PO Q6H PRN (Reason: Chest Pain, breast cancer) Qty: 60 RF: 0 lorazepam [Ativan] 1 mg Tablet 1 mg PO DIRECTED PRN (Reason: procedure anxiety) Qty: 2 RF: 0 valacyclovir 1 gram tablet 1 tab PO TID RF: 0 cholecalciferol (vitamin D3) [Vitamin D3] 2,000 unit Capsule 2,000 unit PO DAILY RF: 0 metoprolol tartrate 25 mg tablet 25 mg PO DAILY RF: 0 Referrals: Maddi Carter MD [Primary Care Provider] -
--- NOTE | 2020-09-12 18:50 | DI.CT.S_ITS ---
PROCEDURE: CT CERVICAL SPINE WO CON INDICATIONS: pain C7 after fall x2 today TECHNIQUE: Noncontrast 3 mm thick sections acquired from the skull base to the T4 level. Sagittal and coronal reformats were then constructed. For radiation dose reduction, the following was used: automated exposure control, adjustment of mA and/or kV according to patient size. COMPARISON: [facility], CT, CT CERVICAL SPINE WO CON, 07/12/2020, 10:58. FINDINGS: Image quality: Excellent. Bones: No fractures or dislocations. Visualized superior ribs are intact. There is straightening and minimal reversal cervical curvature with apex at C5-6. There is trace retrolisthesis of C3 on C4, C6 on C7, trace anterolisthesis of C4 on C5. Soft tissues: Prevertebral soft tissues are normal in thickness. No paravertebral hematomas. No apical pneumothoraces. IMPRESSION: 1. No visualized fracture or dislocation. Dictated by: Angella Salgado M.D. on 09/12/2020 at 19:41 Approved by: Angella Salgado M.D. on 09/12/2020 at 19:44
--- NOTE | 2020-09-12 18:50 | DI.CT.S_ITS ---
PROCEDURE: CT HEAD/BRAIN WO CON INDICATIONS: fall X2 today TECHNIQUE: Noncontrast 4.5 mm thick angled axial sections acquired from the foramen magnum to the vertex, with coronal and sagittal reformats. For radiation dose reduction, the following was used: automated exposure control, adjustment of mA and/or kV according to patient size. COMPARISON: [facility], MR, MR STROKE, 08/28/2020, 10:30. [facility], CT, CT HEAD/BRAIN WO CON, 08/27/2020, 18:00. FINDINGS: Image quality: Excellent. CSF spaces: Basal cisterns are patent. No extra-axial fluid collections. The ventricles are symmetric in size and shape. Brain: No intracranial bleeds or masses. There is cerebral volume loss for age, with resultant ventricular and sulcal prominence. There are periventricular and deep white matter chronic small vessel ischemic changes. There is intracranial internal carotid artery atherosclerosis. Skull and face: Calvarium and visualized facial bones appear intact, without suspicious lesions. Sinuses: Visualized sinuses and mastoids are clear. IMPRESSION: 1. No acute intracranial process. 2. Moderate atrophy and chronic microvascular ischemic changes. Dictated by: Angella Salgado M.D. on 09/12/2020 at 19:40 Approved by: Angella Salgado M.D. on 09/12/2020 at 19:41
[2020-09-12 20:27] LABS: COVID19 - ADMIT (NP swab/PCR) Negative (Negative)
[2020-09-12] MEDS: levoFLOXacin 250 MG TABLET 750 MG PO (23:18)
== END 2020-09-12 23:26 | disposition home or self-care (01) ==
PROVIDERS: Emergency Medicine; Emergency Provider Emergency Medicine; PCP Family Medicine
DX: N39.0 Urinary tract infection, site not specified (principal); C50.919 Malignant neoplasm of unspecified site of unspecified female breast; R11.2 Nausea with vomiting, unspecified; S09.90XA Unspecified injury of head, initial encounter; R07.9 Chest pain, unspecified; M54.2 Cervicalgia; W19.XXXA Unspecified fall, initial encounter
CPT/HCPCS: 36415; 70450; 71045; 72125; 80053; 81003; 82550; 82962; 83690; 84484; 85025; 85610; 85730; 87635; 93005; 96360; 96361; 99284

== ENCOUNTER → 2020-10-20 15:35 | Outpatient (CLI) | payer OTHER, SELFPAY ==
[2020-08-28 01:05] VITALS: BMI 26.2
== END ==
PROVIDERS: Referring Provider Internal Medicine Hematology & Oncology; Visit Provider Internal Medicine Hematology & Oncology
DX: C50.919 Malignant neoplasm of unspecified site of unspecified female breast (principal); S09.90XA Unspecified injury of head, initial encounter; W18.30XA Fall on same level, unspecified, initial encounter